=== PATIENT | female | born 1970 | race Caucasian/White ===

== ENCOUNTER 2016-04-14 17:11 | Emergency (ER) | payer OTHER ==
[~2016-04-14] VITALS: Ht 175.3 cm; Wt 93.4 kg
[~2016-04-14 17:11] MED LIST: CEFP500T4 PO; CPR500T PO; GENT3.5O18 OU; HYDR1TAB PO; IBP600T1 PO; LEVO137T24 PO; LEVO500T69 PO; METR500T PO; OMEP20CA12 PO; TRIA16.5 NS; TRM50T PO
--- NOTE | 2016-04-14 17:47 | ED Upper Extremity ---
General Chief Complaint: Upper Extremity Stated Complaint: THUMB PAIN Nursing Triage Note: PT C/O R THUMB PAIN WITHOUT INJURY. Nursing Sepsis Screen: No Definite Risk Source: patient Exam Limitations: no limitations History of Present Illness Time seen by provider: 17:43 Initial Comments To ER wit Thumb pain for one week. Denies injury. States she awakened one morning and had this pain. [facility] with carpal tunnel syndrome and given a brace. She decided to check in to the emergency room she disagreed with that diagnosis. She is able to fully flex the thumb but is unable to extend the thumb without pain and a clicking sensation. She has to take her opposite hand to physically extend the left thumb. No redness or swelling Onset: last week Severity: moderate Pain/Injury Location: left thumb Method of Injury: unknown Modifying Factors: Worse With Movement Allergies and Home Medications Allergies Coded Allergies: Penicillins (Unverified Allergy, 10/10/10) Uncoded Allergies: STERIODS (Allergy, Intermediate, HALLICINATIONS, 12/18/11) BEES (Allergy, 04/22/12) PAPER (Allergy, 04/22/12) STEROIDS (Allergy, 10/10/10) Home Medications Ibuprofen 600 Mg Tab 600 MG PO NEEDED (Reported) Levothyroxine Sodium 137 Mcg Tablet 137 MCG PO DAILY (Reported) Omeprazole 20 Mg Capsule.dr 1 CAP PO DAILY (Reported) Constitutional: see HPI EENTM: see HPI Respiratory: no symptoms reported Cardiovascular: no symptoms reported Genitourinary: no symptoms reported Musculoskeletal: see HPI Skin: no symptoms reported Psychiatric/Neurological: No Symptoms Reported Past Dksksor-Yklwgx-Vxhahq Hx Patient Social History Alcohol Use: Occasionally Uses Recreational Drug Use: No Smoking Status: Former Smoker Former Smoker/When Quit: Feb 28, 2000 2nd Hand Smoke Exposure: No Recent Foreign Travel: No Contact w/Someone Who Travel: No Recent Infectious Disease Expo: No Recent Hopitalizations: No Immunizations Up To Date Tetanus Booster (TDap): Less than 5yrs Seasonal Allergies Seasonal Allergies: No Surgeries HX Surgeries: Yes (LAP BAND) Surgeries: Section, Gallbladder, Thyroidectomy, Tonsillectomy Respiratory Hx Respiratory Disorders: Yes Respiratory Disorders: Pneumonia Cardiovascular Hx Cardiac Disorders: No ("LOW POTASSIUM THAT AFFECTS HEART") Neurological Hx Neurological Disorders: No Reproductive System Hx Reproductive Disorders: No Sexually Transmitted Disease: No HIV/AIDS: 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 DYSPHAGIA) Gastrointestinal Disorders: Gastroesophageal Reflux, Hiatal Hernia Musculoskeletal Hx Musculoskeletal Disorders: No Endocrine Hx Endocrine Disorders: Yes Endocrine Disorders: Hypothyroidsim HEENT HX ENT Disorders: No Cancer Hx Cancer: No Psychosocial Hx Psychiatric Problems: No Integumentary HX Skin/Integumentary Disorder: No Blood Transfusions Hx Blood Disorders: Yes (ANEMIA) Adverse Reaction to a Blood Tr: No Physical Exam Vital Signs Vital Sign - Last 12Hours 04/14/16 17:28 Temp 98.7 Pulse 75 Resp 16 B/P 145/89 Pulse Ox 99 O2 Delivery Room Air Capillary Refill : Less Than 3 Seconds General Appearance: WD/WN no apparent distress HEENT: PERRL/EOMI normal ENT inspection Neck: non-tender full range of motion Respiratory: no respiratory distress no accessory muscle use Gastrointestinal: non tender soft Elbow/Forearm: normal inspection, non-tender Wrist: Yes normal inspection, Yes non-tender Hand: normal inspection, non-tender, Left, limited ROM (she is able to fully actively flex the thumb but is unable to fully extend the thumb as much as the opposite hand. She has to take the opposite hand to fully extend the right thumb) Neurologic/Tendon: normal sensation normal motor functions Neurologic/Psychiatric: alert normal mood/affect oriented x 3 Skin: normal color warm/dry Progress/Results/Core Measures Results/Orders Vital Signs/I&O Vital Sign - Last 12Hours 04/14/16 17:28 Temp 98.7 Pulse 75 Resp 16 B/P 145/89 Pulse Ox 99 O2 Delivery Room Air Blood Pressure Mean: 107 Departure Impression Impression: Primary Impression: Stenosing tenosynovitis of thumb Disposition: 01 HOME, SELF-CARE Condition: Stable Departure-Patient Inst. Decision time for Depature: 17:46 Referrals: DUDLEY GALAVIZ LISA A MD (PCP/Family) Primary Care Physician Patient Instructions: NO INSTRUCTIONS GIVEN Add. Discharge Instructions: 1. Follow-up with Dr. Galaviz if no improvement in 1 week 2. Motrin 600 mg every 8 hours for the next week discharge instructions reviewed with patient and/or family. Voiced understanding. CHAU KAUR APRN Apr 14, 2016 17:47
[2016-04-14 17:50] VITALS: BP 145/89
== END 2016-04-14 17:50 | disposition home or self-care (01) ==
LOC: EDUNIT# 17:11 → ER 17:12
DX: M65.841 Other synovitis and tenosynovitis, right hand (principal)
CPT/HCPCS: 99282

== ENCOUNTER 2018-05-08 13:06 | Emergency (ER) | payer OTHER ==
[~2018-05-08] VITALS: Ht 175.3 cm; Wt 93.0 kg
--- OUTSIDE RECORDS SUMMARY | 2018-05-08 13:12 | XMS REPORT | Clinical Summary ---
Author Author [facility] Organization [facility] Address Unknown Phone Unavailable Care Team Providers Care Program Director Air Talent Name Role Phone PCP Unavailable Allergies Not on File Current Medications Not on file Active Problems Not on file Social History Tobacco Use Types Packs/Day Years Used Date Never Assessed Sex Assigned at Date Recorded Not on file Last Filed Vital Signs Not on file Plan of Treatment Not on file Results Not on filefrom Last 3 Months
--- OUTSIDE RECORDS SUMMARY | 2018-05-08 13:13 | XMS REPORT | Continuity of Care Document ---
Author Author [facility] Organization [facility] Address Unknown Phone Unavailable Allergies Active Description Code Type Severity Reaction Onset Reported/Identified Relationship to Patient Clinical Status Yes PENICILLINS PENICILLINS SEVERE Yes SOLU-MEDROL SOLU-MEDROL SEVERE Yes PENICILLINS SEVERE DERMATOLOGICAL - PATI Yes SOLU-MEDROL SEVERE SIDE EFFECT Yes Penicillins [id number] Drug Allergy Unknown N/A 10/10/2010 Yes STEROIDS STEROIDS Unknown N/A 10/10/2010 Yes STERIODS STERIODS Moderate HALLICINATIONS 12/18/2011 Yes BEES BEES Unknown N/A 04/22/2012 Yes PAPER PAPER Unknown N/A 04/22/2012 Medications Medication Packaging Start Date Stop Date Route Dosage Sig CEFTRIAXONE VIAL INJ 250 MG (ROCEPHIN VIAL) MG 01/24/2017 01/24/2017 ONCE&1440 LIDOCAINE 1% MPF INJ 1 % (XYLOCAINE (MPF) ml 01/24/2017 01/24/2017 ONCE&1440 LIDOCAINE 1% MPF INJ 1 % (XYLOCAINE (MPF) ml 01/24/2017 01/24/2017 ONCE&1456 KETOROLAC VIAL INJ 30 MG/CC (TORADOL VIAL) MG 09/14/2017 09/14/2017 ONCE&1526 NORMAL SALINE 500CC IV BAG INJ 0.9 % (NS 500CC IV BAG) ml 09/14/2017 09/14/2017 ONCE&1526 POTASSIUM CHLORIDE TAB 20 MEQ (K-DUR) MEQ 09/14/2017 09/14/2017 ONCE&1633 CEFTRIAXONE PREMIX IV BAG IV 1 GM/50CC (ROCEPHIN PREMIX IV BAG) GM 09/14/2017 09/14/2017 ONCE&1634 Potassium Chloride Powder for Oral Soln 20mEQ packet MEQ 09/14/2017 09/14/2017 ONCE&1643 PHENAZOPYRIDINE TAB 100 MG (PYRIDIUM) MG 12/30/2017 12/30/2017 ONCE&1835 LEVOFLOXACIN TAB 500 MG (LEVAQUIN) MG 12/30/2017 12/30/2017 ONCE&1835 LEVOTHYROXINE TAB 137 MCG (SYNTHROID) MCG 12/31/2017 01/06/2018 Daily&0900 IRON SUCROSE INJECTION INJ 20 MG/CC (VENOFER) MG 04/10/2018 04/10/2018 ONCE&1410 MECLIZINE TAB 25 MG (ANTIVERT) MG 04/10/2018 04/17/2018 PRN Q6H IRON SUCROSE INJECTION INJ 20 MG/CC (VENOFER) MG 04/12/2018 04/12/2018 ONCE&1500 IRON SUCROSE INJECTION INJ 20 MG/CC (VENOFER) MG 04/14/2018 04/14/2018 ONCE&1425 LACTATED RINGERS 1000CC IV BAG INJ ml 04/30/2018 05/07/2018 CONTINUOUSEVERY 0 Hour NORMAL SALINE 500CC IV BAG INJ 0.9 % (NS 500CC IV BAG) ml 05/06/2018 05/06/2018 ONCE&1747 Problems Date Dx Coded Attending Type Code Diagnosis Diagnosed By 10/10/2010 Ot 826.0 10/10/2010 Ot 959.7 10/10/2010 Ot E000.8 10/10/2010 Ot E849.0 10/10/2010 Ot E917.9 01/10/2011 Ot 379.91 01/10/2011 Ot 918.1 01/10/2011 Ot E000.8 01/10/2011 Ot E928.9 12/18/2011 Ot 372.30 12/18/2011 Ot 379.93 04/22/2012 Ot 616.10 VAGINITIS NOS 04/22/2012 Ot 789.09 ABDOMINAL PAIN, OTHER SPECIFIED SITE 05/10/2012 Ot 787.01 NAUSEA WITH VOMITING 05/10/2012 Ot V45.86 BARIATRIC SURGERY STATUS 09/15/2012 SHONDA MIRAMONTES DO Ot 244.0 POSTSURGICAL HYPOTHYROID 09/15/2012 SHONDA MIRAMONTES DO Ot 285.9 ANEMIA NOS 09/15/2012 SHONDA MIRAMONTES DO Ot 486 PNEUMONIA, ORGANISM NOS 09/15/2012 SHONDA MIRAMONTES DO Ot 530.81 ESOPHAGEAL REFLUX 09/15/2012 SHONDA MIRAMONTES DO Ot 780.96 GENERALIZED PAIN 06/07/2014 CHAU ESCOBAR HIDES INSPECTOR Ot 923.11 CONTUSION OF ELBOW 06/07/2014 CHAU ESCOBAR HIDES INSPECTOR Ot 959.3 ELB/FOREARM/WRST INJ NOS 06/07/2014 CHAU ESCOBAR HIDES INSPECTOR Ot E000.8 OTHER EXTERNAL CAUSE STATUS 06/07/2014 CHAU ESCOBAR HIDES INSPECTOR Ot E834.9 W/CRFT FALL NEC-PERS NOS 01/18/2015 PARADISE MCDONALD MD Ot S61.300A UNSP OPEN WOUND OF RIGHT INDEX FINGER W 01/18/2015 PARADISE MCDONALD MD Ot W22.8XXA STRIKING AGAINST OR STRUCK BY OTHER OBJE 01/18/2015 PARADISE MCDONALD MD Ot Y92.838 [facility] RECRE[facility] 01/18/2015 PARADISE MCDONALD MD Ot Y93.59 ACTIVITY, OTH W OT SPORTS AND ATHLETICS 01/18/2015 PARADISE MCDONALD MD Ot Y99.8 OTHER EXTERNAL CAUSE STATUS 04/14/2016 CHAU ESCOBAR HIDES INSPECTOR Ot M65.841 OTHER SYNOVITIS AND TENOSYNOVITIS, RIGHT 04/14/2016 CHAU ESCOBAR HIDES INSPECTOR Ot M79.641 PAIN IN RIGHT HAND 04/15/2016 CHAU ESCOBAR HIDES INSPECTOR Ot M65.841 OTHER SYNOVITIS AND TENOSYNOVITIS, RIGHT 04/15/2016 CHAU ESCOBAR HIDES INSPECTOR Ot M79.641 PAIN IN RIGHT HAND 06/10/2016 Eric Hawkins W 244.9 UNSPECIFIED HYPOTHYROIDISM 06/10/2016 Eric Hawkins 466.0 ACUTE BRONCHITIS 06/10/2016 Eric Hawkins 530.81 ESOPHAGEAL REFLUX 06/10/2016 Eric Hawkins E03.9 HYPOTHYROIDISM, UNSPECIFIED 06/10/2016 Eric Hawkins J20.9 ACUTE BRONCHITIS, UNSPECIFIED 06/10/2016 Eric Hawkins K21.9 GASTRO-ESOPHAGEAL REFLUX DISEASE WITHOUT ESOPHAGITIS 01/24/2017 Shonda Powers A 616.10 VAGINITIS AND VULVOVAGINITIS, UNSPECIFIED 01/24/2017 Shonda Powers W 788.1 DYSURIA 01/24/2017 Shonda Powers N76.0 ACUTE VAGINITIS 01/24/2017 Shonda Powers R30.0 DYSURIA 09/14/2017 Aleshia Washington W 276.8 HYPOPOTASSEMIA 09/14/2017 Aleshia Washington A 599.0 URINARY TRACT INFECTION, SITE NOT SPECIFIED 09/14/2017 Aleshia Washington W E87.6 HYPOKALEMIA 09/14/2017 Aleshia Washington A N39.0 URINARY TRACT INFECTION, SITE NOT SPECIFIED 12/30/2017 Chau Escobar 599.0 URINARY TRACT INFECTION, SITE NOT SPECIFIED 12/30/2017 Chau Escobar N39.0 URINARY TRACT INFECTION, SITE NOT SPECIFIED 04/10/2018 Eric Hawkins 280.9 IRON DEFICIENCY ANEMIA, UNSPECIFIED 04/10/2018 Eric Hawkins 626.2 EXCESSIVE OR FREQUENT MENSTRUATION 04/10/2018 Eric Hawkins 726.5 ENTHESOPATHY OF HIP REGION 04/10/2018 Eric Hawkins D50.9 IRON DEFICIENCY ANEMIA, UNSPECIFIED 04/10/2018 Eric Hawkins M70.72 OTHER BURSITIS OF HIP, LEFT HIP 04/10/2018 Eric Hawkins N92.0 EXCESSIVE AND FREQUENT MENSTRUATION WITH REGULAR CYCLE 04/10/2018 Eric Hawkins V45.86 BARIATRIC SURGERY STATUS 04/10/2018 Eric Hawkins Z98.84 BARIATRIC SURGERY STATUS 04/12/2018 MATTHIEU BECKIKATIE W 280.9 IRON DEFICIENCY ANEMIA, UNSPECIFIED 04/12/2018 MATTHIEU BECKIKATIE W D50.9 IRON DEFICIENCY ANEMIA, UNSPECIFIED 04/14/2018 Gio Shonda W 280.9 IRON DEFICIENCY ANEMIA, UNSPECIFIED 04/14/2018 Shonda Powers W D50.9 IRON DEFICIENCY ANEMIA, UNSPECIFIED 04/14/2018 Gio Shonda W V45.86 BARIATRIC SURGERY STATUS 04/14/2018 Gio Shonda W Z98.84 BARIATRIC SURGERY STATUS Procedures There is no data. Results Test Result Range Wet Mount - 03/02/16 18:28 Clue Cells Not Observed Not Observed Trichomonas Not Observed Not Observed Yeast Observed Not Observed Urine Culture - 03/02/16 18:28 PRELIM CULTURE RESULTS No Growth 24 hours FINAL CULTURE RESULTS No Growth 48 hours MEDIA PLATED Setup at 18:46 on 03/02/2016 CULTURE SOURCE VOID Chlamydia/GC Amplification - 03/02/16 18:28 CHLAMYDIA TRACHOMATIS, GRADY NEGATIVE NEGATIVE NEISSERIA GONORRHOEAE, GRADY NEGATIVE NEGATIVE Thyroid Stimulating Hormone - 06/01/16 10:16 TSH 1.10 mIU/mL 0.32-5.00 Mycoplasma - 06/10/16 09:38 Mycoplasma Negative Negative [place] - 01/24/17 14:34 Clue Cells Not Observed Not Observed Trichomonas Not Observed Not Observed Yeast Not Observed Not Observed Urine Culture - 01/24/17 14:34 FINAL CULTURE RESULTS No Growth 48 hours MEDIA PLATED Setup at 16:34 on 01/24/2017 CULTURE SOURCE clean [id number] Chlamydia/GC Amplification - 01/24/17 14:34 CHLAMYDIA TRACHOMATIS, GRADY NEGATIVE NEGATIVE NEISSERIA GONORRHOEAE, GRADY NEGATIVE NEGATIVE Chlamydia/GC Amplification - 01/24/17 14:34 Chlamydia trachomatis, GRADY Negative Negative Neisseria gonorrhoeae, GRADY Negative Negative Comprehensive Metabolic Panel - 09/14/17 15:26 Albumin 4.4 g/dL 3.6-5.1 ALP 51 U/L 35-130 ALT 11 U/L 6-45 Anion Gap 16 6-14 AST 17 U/L 2-40 BUN 11 mg/dL 5-25 Calcium 8.9 mg/dL 8.3-10.4 Chloride 106 mmol/L 95-114 CO2 21 mEq/L 22-33 Creat 0.94 mg/dL 0.50-1.50 eGFR 64 mL/min/1.73m2 >59 Globulin 3.6 g/dL 2.3-3.5 Glucose 119 mg/dL 70-110 Osmo 290 280-295 Potassium 3.3 mmol/L 3.5-5.3 Sodium 140 mmol/L 134-148 TBil 0.5 mg/dL 0.2-1.2 TP 8.0 g/dL 6.0-8.3 Urine Culture - 09/14/17 15:26 PRELIM CULTURE RESULTS No Growth 24 hours FINAL CULTURE RESULTS 20,000-50,000 Gram Positive Mixed Melodie MEDIA PLATED Setup at 15:43 on 09/14/2017 CULTURE SOURCE clean catch reflex Chlamydia/GC Amplification - 09/27/17 18:16 Chlamydia trachomatis, GRADY Negative Negative Neisseria gonorrhoeae, GRADY Negative Negative Wet Mount - 09/27/17 18:16 Clue Cells Not Observed Not Observed Trichomonas Not Observed Not Observed Yeast Not Observed Not Observed Urine Culture - 09/27/17 18:16 PRELIM CULTURE RESULTS No Growth 24 hours MEDIA PLATED Setup at 18:50 on 09/27/2017 CULTURE SOURCE void Urine Culture - 09/27/17 18:16 PRELIM CULTURE RESULTS No Growth 24 hours FINAL CULTURE RESULTS No Growth 48 [id number] No Further Workup done MEDIA PLATED Setup at 18:50 on 09/27/2017 CULTURE SOURCE void Chlamydia/GC Amplification - 09/27/17 18:16 CHLAMYDIA TRACHOMATIS, GRADY NEGATIVE NEGATIVE NEISSERIA GONORRHOEAE, GRADY NEGATIVE NEGATIVE Thyroid Stimulating Hormone - 12/26/17 12:41 TSH 0.20 mIU/mL 0.32-5.00 Urinalysis - 12/30/17 17:46 Icotest N/A Negative Urine Volume Urine Volume Sufficient (10mL) Urine Yeast No Yeast present Urine-Appearance Cloudy Clear Urine-Bacteria 1+ Urine-Bilirubin Negative Negative Urine-Blood 2+ Negative Urine-Color Yellow Colorless-Lt. Yellow Urine-Epithelial Cells 5-10/HPF Urine-Glucose Negative Negative Urine-Ketones Trace Negative Urine-Leukocytes 1+ Negative Urine-Mucus 3+ Urine-Nitrite Negative Negative Urine-Other Culture to follow Urine-pH 5.5 5-8.5 Urine-Protein 2+ Negative Urine-RBC 5-10/HPF Urine-Specific [place] >=1.030 1.000-1.030 Urine-WBC TNTC Urobilinogen 0.2 0.2-1.0 Urine Culture - 12/30/17 17:46 PRELIM CULTURE RESULTS 50,000-100,000 Gram Negative SUSHMA / ID to Follow MEDIA PLATED Setup at 18:37 on 12/30/2017 CULTURE SOURCE void Sensi - 12/30/17 17:46 FINAL CULTURE RESULTS Escherichia coli (Isolate 1) Ampicillin/Sulbactam >16/8 Ampicillin >16 Amoxicillin/K Clavulanate <=8/4 Ceftriaxone <=8 Ciprofloxacin >2 Nitrofurantoin <=32 Gentamicin >8 Levofloxacin >4 Trimethoprim/ Sulfamethoxazole >2/38 Tetracycline >8 Amikacin <=16 Aztreonam <=8 Ceftazidime <=1 Ceftazidime/K Clavulanate <=0.25 Cephalothin >16 Cefotaxime <=2 Cefotaxime/K Clavulanate <=0.5 Cefoxitin <=8 Cefazolin <=8 Cefepime <=8 Cefuroxime 8 Ertapenem <=1 Imipenem <=4 Meropenem <=4 Piperacillin/Tazobactam <=16 Piperacillin >64 Tigecycline <=2 Tobramycin 8 Urinalysis - 04/10/18 12:31 Icotest N/A Negative Urine Volume Urine Volume Sufficient (10mL) Urine-Appearance Slightly Cloudy Clear Urine-Bacteria Trace Urine-Bilirubin Negative Negative Urine-Blood 3+ Negative Urine-Color Yellow Colorless-Lt. Yellow Urine-Epithelial Cells 10-20/HPF Urine-Glucose Negative Negative Urine-Ketones Negative Negative Urine-Leukocytes Negative Negative Urine-Nitrite Negative Negative Urine-Other Urine Saved if Culture Needed (48hrs from time of collection) Urine-pH 8.5 5-8.5 Urine-Protein 1+ Negative Urine-RBC 20-40/HPF Urine-Specific [place] 1.020 1.000-1.030 Urine-WBC Negative Urobilinogen 0.2 E.U./dL 0.2-1.0 Thyroid Stimulating Hormone - 04/10/18 12:45 TSH 0.47 mIU/mL 0.32-5.00 IFOBT Occult Blood - 04/10/18 13:30 IFOBT Occult Blood POSITIVE Negative VIT B-12 - 04/10/18 13:31 Vitamin B12 165.00 pg/mL 213.00-816.00 CBC with Auto Diff - 04/14/18 14:53 Baso% 0.20 % 0.00-2.50 Eos 0.1 K/uL 0.0-0.7 Eos% 2.0 % 0.0-7.0 Hct 33.8 % 36.0-46.0 Hgb 10.1 g/dL 13.0-15.0 Lym 1.44 K/uL 0.60-3.40 Lym% 28.6 % 10.0-50.0 MCH 20.9 pg 27.0-31.0 MCHC 29.9 g/dL 32.0-36.0 MCV 69.8 fL 80.0-97.0 Caldwell% 5.8 % 0.0-12.0 MPV 9.1 fL 7.4-10.0 Janette% 63.4 % 37.0-80.0 Plt 452 K/uL 150-400 RBC 4.84 M/uL 3.60-5.00 RDW 19.1 % 11.6-14.8 WBC 5.04 K/uL 5.00-10.00 Janette 3.20 K/uL 2.00-6.90 [place]dwell 0.3 K/uL 0.0-0.9 Baso 0.0 K/uL 0.0-0.2 Test-Serum - 04/30/18 10:17 Preg Test-S Negative Negative Surgical Pathology - 04/30/18 12:02 Surg Path [facility] Path[facility] CBC with Auto Diff - 05/06/18 17:35 Baso% 0.30 % 0.00-2.50 Eos 0.1 K/uL 0.0-0.7 Eos% 1.5 % 0.0-7.0 Hct 38.1 % 36.0-46.0 Hgb 11.9 g/dL 13.0-15.0 Lym 1.82 K/uL 0.60-3.40 Lym% 29.4 % 10.0-50.0 MCH 23.4 pg 27.0-31.0 MCHC 31.2 g/dL 32.0-36.0 MCV 74.9 fL 80.0-97.0 Caldwell% 9.2 % 0.0-12.0 MPV 10.0 fL 7.4-10.0 Janette% 59.6 % 37.0-80.0 Plt 410 K/uL 150-400 RBC 5.09 M/uL 3.60-5.00 RDW 24.3 % 11.6-14.8 WBC 6.20 K/uL 5.00-10.00 Janette 3.70 K/uL 2.00-6.90 [place]dwell 0.6 K/uL 0.0-0.9 Baso 0.0 K/uL 0.0-0.2 Encounters ACCT No. Visit Date/Time Discharge Status Pt. Type Provider Facility Loc./Unit Complaint [id number] 04/14/2016 17:12:00 04/14/2016 17:50:00 DIS Emergency CHAU ESCOBAR APRN [facility] ER THUMB PAIN [id number] 01/18/2015 15:31:00 01/18/2015 16:28:00 DIS Emergency PARADISE MCDONALD MD [facility] ER RIGHT HAND/FINGER INJ [id number] 06/07/2014 11:44:00 06/07/2014 13:50:00 DIS Emergency CHAU ESCOBAR APRN [facility] ER RIGHT ELBOW PAIN [id number] 09/15/2012 09:22:00 09/15/2012 11:22:00 DIS Emergency FESHONDA Verdin DO [facility] ER BODY ACHES, N/V [id number] 06/07/2014 13:21:00 Document Registration [id number] 05/10/2012 15:08:00 Document Registration [id number] 04/22/2012 11:08:00 Document Registration [id number] 12/18/2011 20:05:00 Document Registration [id number] 01/10/2011 17:38:00 Document Registration [id number] 10/10/2010 17:18:00 Document Registration [id number] 10/01/2017 00:06:00 Document Registration [id number] 05/06/2018 16:49:00 05/06/2018 18:40:00 DIS Outpatient Haylee Shi [facility] ER [id number] 04/30/2018 09:32:00 04/30/2018 12:31:00 DIS Outpatient Fred Rossemy [id number] 04/14/2018 14:08:00 04/14/2018 14:50:00 DIS Outpatient Shonda Powers [id number] 04/12/2018 14:42:00 04/12/2018 15:40:00 DIS Outpatient LOUIS SOMMERS [id number] 04/10/2018 11:53:00 04/10/2018 15:03:00 DIS Outpatient Eric Hawkins [facility] ER [id number] 12/30/2017 17:42:00 12/30/2017 18:53:00 DIS Outpatient Chau Escobar [facility] ER [id number] 12/26/2017 12:26:00 12/26/2017 23:59:00 DIS Outpatient Shonda Powers [id number] 09/27/2017 18:15:00 09/27/2017 23:59:00 DIS Outpatient Shonda Powers [id number] 09/14/2017 15:10:00 09/14/2017 17:35:00 DIS Outpatient Aleshia Washington [facility] ER [id number] 01/24/2017 16:02:00 01/24/2017 16:45:00 DIS Outpatient Aleshia Washington [id number] 01/24/2017 14:38:00 01/24/2017 15:45:00 DIS Outpatient Shonda Powers [id number] 06/10/2016 08:53:00 06/10/2016 10:43:00 [id number] 06/10/2016 08:53:00 06/10/2016 08:53:00 CAN Outpatient Jackie Ureña [id number] 06/01/2016 10:14:00 06/01/2016 23:59:00 DIS Outpatient Shonda Powers [id number] 03/02/2016 18:27:00 03/02/2016 23:59:00 DIS Outpatient Shonda Powers [id number] 01/24/2017 14:47:30 Document Registration [id number] 01/26/2017 23:08:00 Document Registration [id number] 09/27/2017 18:15:00 Document Registration
--- NOTE | 2018-05-08 15:30 | ED GU-Female ---
General Chief Complaint: -Female Stated Complaint: HEAVY VAGINAL BLEEDING Nursing Triage Note: pt arrived POV to ED with c/o vaginally bleeding. Pt states 4-5 weeks ago and went to ER in [place] because she was dizzy and her hbg was 6 and iron was low. Got iron transfusion. Pt has been bleeding vaginally for awhile now and she says she is dizzy. Pt states she just had a period and now she is bleeding a lot again. Going through one pad an hour with an ultra tampon. Pt was recommened to come to the ER. Nursing Sepsis Screen: No Definite Risk Source: patient Exam Limitations: no limitations History of Present Illness Date Seen by Provider: May 08, 2018 Time Seen by Provider: 15:18 Initial Comments Here with report of heavy vaginal bleeding. She has been doing this for intermittently over the last 6 months. She had to have bled and iron transfusions recently. She is to follow-up with Dr. Cobos. She is also laying of just not feeling right. She has hypothyroidism and is on thyroid replacement. She believes that this may not be the right dose that she is currently on as they adjusted down. Timing/Duration: week, getting worse Severity/Quality: moderate, other (vaginal bleeding) Location: vaginal Radiation: none Activities at Onset: none Prior Genitourinary Problems: none Modifying Factors: Worsens With Movement; Improves With Resting Associated Symptoms: No abdominal pain, No dysuria, No lower back pain, No nausea/vomiting, No urinary frequency Allergies and Home Medications Allergies Coded Allergies: Penicillins (Unverified Allergy, 10/10/10) Uncoded Allergies: STERIODS (Allergy, Intermediate, HALLICINATIONS, 12/18/11) BEES (Allergy, 04/22/12) PAPER (Allergy, 04/22/12) STEROIDS (Allergy, 10/10/10) Home Medications Ibuprofen 600 Mg Tab, 600 MG PO NEEDED, (Reported) Levothyroxine Sodium 137 Mcg Tablet, 137 MCG PO DAILY, (Reported) Omeprazole 20 Mg Capsule., 1 CAP PO DAILY, (Reported) Patient Home Medication List Home Medication List Reviewed: Yes Review of Systems Review of Systems Constitutional: see HPI; No chills, No fever EENTM: no symptoms reported Respiratory: no symptoms reported Cardiovascular: No edema Gastrointestinal: No abdominal pain, No nausea, No vomiting Genitourinary: denies dysuria, denies pain Musculoskeletal: no symptoms reported Skin: no symptoms reported Psychiatric/Neurological: Weakness, Other (and fatigue and not feeling right) Past Nhfhclz-Qsbaqx-Comylx Hx Past Med/Social Hx: Reviewed Nursing Past Med/Soc Hx Patient Social History Alcohol Use: Occasionally Uses Recreational Drug Use: No Smoking Status: Former Smoker 2nd Hand Smoke Exposure: No Recent Foreign Travel: No Contact w/Someone Who Travel: No Recent Infectious Disease Expo: No Recent Hopitalizations: No Immunizations Up To Date Tetanus Booster (TDap): Less than 5yrs Seasonal Allergies Seasonal Allergies: No Past Medical History Surgeries: Yes (LAP BAND) Section, Gallbladder, Thyroidectomy, Tonsillectomy Respiratory: Yes Pneumonia Cardiac: No ("LOW POTASSIUM THAT AFFECTS HEART") Neurological: No Last Menstrual Period: May 08, 2018 Reproductive Disorders: No [employer] History: Tubal Ligation Sexually Transmitted Disease: No HIV/AIDS: No Bladder Infection Gastrointestinal: Yes (LAP BAND , HERNIA REPAIRED WITH LAP BAND. DYSPHAGIA) Gastroesophageal Reflux, Hiatal Hernia Musculoskeletal: No Endocrine: Yes Hypothyroidsim Cancer: No Psychosocial: No Integumentary: No Blood Disorders: Yes (ANEMIA) Adverse Reaction/Blood Tranf: No Family Medical History Reviewed Nursing Family Hx No Pertinent Family Hx Physical Exam Vital Signs Vital Signs - First Documented 05/08/18 13:09 Temp 98.4 Pulse 75 Resp 18 B/P (MAP) 140/90 (107) Pulse Ox 99 O2 Delivery Room Air Capillary Refill : Less Than 3 Seconds Height, Weight, BMI Height: 5'9.00" Weight: 205lbs. oz. 92.790132de; 29.53 BMI Method:Stated General Appearance: WD/WN, no apparent distress HEENT: PERRL/EOMI, pharynx normal Neck: full range of motion, supple Cardiovascular: regular rate, rhythm, no murmur Respiratory: lungs clear, normal breath sounds Gastrointestinal: non tender, soft Back: normal inspection, no CVA tenderness, no vertebral tenderness Extremities: non-tender, normal inspection Neurologic/Psychiatric: metal riveter II-XII nml as tested, no motor/sensory deficits, alert, normal mood/affect Skin: normal color, warm/dry Progress/Results/Core Measures Suspected Sepsis Recent Fever Within 48 Hours: No Infection Criteria Present: None New/Unexplained Altered Menta: No Sepsis Screen: No Definite Risk SIRS Temperature:98.4 Pulse: 75 Respiratory Rate: 18 Laboratory Tests 05/08/18 15:20: White Blood Count 6.8 Blood Pressure 140 /90 Mean: 107 Laboratory Tests 05/08/18 15:20: Creatinine 0.82, Platelet Count 355, Total Bilirubin 0.3 Results/Orders Lab Results Laboratory Tests Test 05/08/18 15:20 05/08/18 15:40 Range/Units White Blood Count 6.8 4.3-11.0 10^3/uL Red Blood Count 4.93 4.35-5.85 10^6/uL Hemoglobin 11.3 L 11.5-16.0 G/DL Hematocrit 37 35-52 % Mean Corpuscular Volume 75 L 80-99 FL Mean Corpuscular Hemoglobin 23 L 25-34 PG Mean Corpuscular Hemoglobin Concent 31 L 32-36 G/DL Red Cell Distribution Width 24.3 H 10.0-14.5 % Platelet Count 355 130-400 10^3/uL Mean Platelet Volume 9.3 7.4-10.4 FL Neutrophils (%) (Auto) 55 42-75 % Lymphocytes (%) (Auto) 34 12-44 % Monocytes (%) (Auto) 8 0-12 % Eosinophils (%) (Auto) 2 0-10 % Basophils (%) (Auto) 0 0-10 % Neutrophils # (Auto) 3.7 1.8-7.8 X 10^3 Lymphocytes # (Auto) 2.3 1.0-4.0 X 10^3 Monocytes # (Auto) 0.6 0.0-1.0 X 10^3 Eosinophils # (Auto) 0.1 0.0-0.3 10^3/uL Basophils # (Auto) 0.0 0.0-0.1 10^3/uL Sodium Level 138 135-145 MMOL/L Potassium Level 3.8 3.6-5.0 MMOL/L Chloride Level 105 98-107 MMOL/L Carbon Dioxide Level 24 21-32 MMOL/L Anion Gap 9 5-14 MMOL/L Blood Urea Nitrogen 11 7-18 MG/DL Creatinine 0.82 0.60-1.30 MG/DL Estimat Glomerular Filtration Rate > 60 BUN/Creatinine Ratio 13 Glucose Level 89 70-105 MG/DL Calcium Level 9.1 8.5-10.1 MG/DL Corrected Calcium 8.8 8.5-10.1 MG/DL Total Bilirubin 0.3 0.1-1.0 MG/DL Aspartate Amino Transf (AST/SGOT) 13 5-34 U/L Alanine Aminotransferase (ALT/SGPT) 7 0-55 U/L Alkaline Phosphatase 48 40-136 U/L Total Protein 7.8 6.4-8.2 GM/DL Albumin 4.4 3.2-4.5 GM/DL Thyroid Stimulating Hormone (TSH) 1.30 0.35-4.94 UIU/ML Free Thyroxine 1.19 0.70-1.48 NG/DL Urine Color YELLOW Urine Clarity VERY CLOUDY H Urine pH 6 5-9 Urine Specific [place] 1.025 H 1.016-1.022 Urine Protein 2+ H NEGATIVE Urine Glucose (UA) NEGATIVE NEGATIVE Urine Ketones NEGATIVE NEGATIVE Urine Nitrite NEGATIVE NEGATIVE Urine Bilirubin NEGATIVE NEGATIVE Urine Urobilinogen NORMAL NORMAL MG/DL Urine Leukocyte Esterase 3+ H NEGATIVE Urine RBC (Auto) 3+ H NEGATIVE Urine RBC 5-10 H /HPF Urine WBC 50-100 H /HPF Urine Squamous Epithelial Cells 2-5 /HPF Urine Crystals NONE /LPF Urine Bacteria FEW H /HPF Urine Casts NONE /LPF Urine Mucus SMALL H /LPF Urine Culture Indicated YES My Orders Orders - DARLYN PAVON MD Cbc With Automated Diff (05/08/18 15:12) Comprehensive Metabolic Panel (05/08/18 15:12) Type And Screen (05/08/18 15:12) Saline Lock/Iv-Start (05/08/18 15:12) Thyroid Stimulating Hormone (05/08/18 15:26) Free T4 (Free Thyroxine) (05/08/18 15:26) Ua Culture If Indicated (05/08/18 15:35) Urine Culture (05/08/18 15:40) Saline Lock/Iv-Start (05/08/18 16:52) Ns Iv 1000 Ml (Sodium Chloride 0.9%) (05/08/18 16:52) Vital Signs/I&O 05/08/18 13:09 Temp 98.4 Pulse 75 Resp 18 B/P (MAP) 140/90 (107) Pulse Ox 99 O2 Delivery Room Air Capillary Refill : Less Than 3 Seconds Blood Pressure Mean: 107 Progress Note : Progress Note Seen and evaluated. IV, labs, UA, type and screen ordered. UA will be from straight catheter due to bleeding. Monitor patient. 1655: UA noted. Results from labs noted. This was discussed with the patient. I do believe she would benefit from some IV fluid. We will give her that and then discharge her home. 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 She's had multiple urinary tract infections and does have some bladder incontinence. She is seeing Dr. Cobos on the and I will send a copy the note to him. Discharged home with return precautions. Patient verbalize understanding instructions and agreement with plan. Departure Impression Primary Impression: Urinary tract infection Qualified Codes: N30.00 - Acute cystitis without hematuria Disposition: HOME, SELF-CARE Condition: Stable Departure-Patient Inst. Decision time for Depature: 16:59 Referrals: ERICA ADAM MD (PCP/Family) Primary Care Physician Patient Instructions: Urinary Tract Infection, Adult (DC) Add. Discharge Instructions: All discharge instructions reviewed with patient and/or family. Voiced understanding. Take medications as directed. Follow up with your doctor on the as scheduled. Return for worsening, fever, vomiting, weakness, breathing problems or other concerns as needed. Drink plenty of fluids. Scripts Nitrofurantoin Macrocrystal (Nitrofurantoin) 100 Mg Capsule 100 MG PO BID, #14 CAP 0 Refills Prov: DARLYN PAVON MD 05/08/18 Metronidazole (Metronidazole) 500 Mg Tablet 500 MG PO BID, #14 TAB 0 Refills Prov: DARLYN PAVON MD 05/08/18 Copy Copies To 1: TUNG COBOS TIMOTHY D MD May 08, 2018 15:30
[2018-05-08 15:31] LABS: BASOPHILS % (AUTO) 0 % (0-10); EOSINOPHILS # (AUTO) 0.1 10^3/uL (0.0-0.3); EOSINOPHILS % (AUTO) 2 % (0-10); HEMATOCRIT 37 % (35-52); HEMOGLOBIN 11.3 G/DL (11.5-16.0); LYMPHOCYTES # (AUTO) 2.3 X 10^3 (1.0-4.0); LYMPHOCYTES % (AUTO) 34 % (12-44); MEAN CORPUSCULAR HEMOGLOBIN 23 PG (25-34); MEAN CORPUSCULAR HGB CONC 31 G/DL (32-36); MEAN CORPUSCULAR VOLUME 75 FL (80-99); MEAN PLATELET VOLUME 9.3 FL (7.4-10.4); MONOCYTES # (AUTO) 0.6 X 10^3 (0.0-1.0); MONOCYTES % (AUTO) 8 % (0-12); NEUTROPHILS # (AUTO) 3.7 X 10^3 (1.8-7.8); NEUTROPHILS % (AUTO) 55 % (42-75); PLATELET COUNT 355 10^3/uL (130-400); RED CELL DISTRIBUTION WIDTH 24.3 % (10.0-14.5); WHITE BLOOD COUNT 6.8 10^3/uL (4.3-11.0)
[2018-05-08 15:52] LABS: ALANINE AMINOTRANSFERASE 7 U/L (0-55); ALBUMIN 4.4 GM/DL (3.2-4.5); ALKALINE PHOSPHATASE 48 U/L (40-136); BILIRUBIN,TOTAL 0.3 MG/DL (0.1-1.0); BUN/CREATININE RATIO 13; CALCIUM 9.1 MG/DL (8.5-10.1); CARBON DIOXIDE 24 MMOL/L (21-32); CHLORIDE 105 MMOL/L (98-107); CREATININE SERUM 0.82 MG/DL (0.60-1.30); GFR ESTIMATED > 60; GLUCOSE 89 MG/DL (70-105); POTASSIUM 3.8 MMOL/L (3.6-5.0); SODIUM 138 MMOL/L (135-145); TOTAL PROTEIN 7.8 GM/DL (6.4-8.2)
[2018-05-08 15:53] LABS: BILIRUBIN,URINE NEGATIVE (NEGATIVE); COLOR,URINE YELLOW; GLUCOSE, URINE (UA) NEGATIVE (NEGATIVE); KETONES,URINE NEGATIVE (NEGATIVE); LEUKOCYTE ESTERASE ,URINE 3+ (NEGATIVE); NITRITE,URINE NEGATIVE (NEGATIVE); PH,URINE 6 (5-9); PROTEIN,URINE 2+ (NEGATIVE); UROBILINOGEN,URINE NORMAL (NORMAL)
[2018-05-08 16:13] LABS: FREE T4 (FREE THYROXINE) 1.19 NG/DL (0.70-1.48)
[2018-05-08 16:15] LABS: BACTERIA,URINE FEW /HPF; CLARITY,URINE VERY CLOUDY; WBC,URINE 50-100 /HPF
[2018-05-08] MEDS ORDERED: NS IV 1000 ML 1,000 ML IV ONE (16:52)
[2018-05-08] MEDS ORDERED: METR-145 PO (17:01)
[2018-05-08] MEDS ORDERED: NITR100C PO (17:01)
[2018-05-08 17:50] VITALS: BP 148/98
== END 2018-05-08 17:50 | disposition home or self-care (01) ==
LOC: EDUNIT# 13:06 → ER 13:08
DX: N39.0 Urinary tract infection, site not specified (principal); E03.9 Hypothyroidism, unspecified; K21.9 Gastro-esophageal reflux disease without esophagitis; D64.9 Anemia, unspecified; Z98.84 Bariatric surgery status; Z87.19 Personal history of other diseases of the digestive system; Z87.891 Personal history of nicotine dependence; Z98.51 Tubal ligation status; Z87.448 Personal history of other diseases of urinary system; Z88.0 Allergy status to penicillin; Z88.8 Allergy status to other drugs, medicaments and biological substances; Z90.89 Acquired absence of other organs; Z98.890 Other specified postprocedural states; Z87.01 Personal history of pneumonia (recurrent)
CPT/HCPCS: 36415; 80053; 81000; 84439; 84443; 85025; 86850; 86900; 86901; 87077; 87088

== ENCOUNTER → 2018-05-18 | Outpatient (CLI) | payer OTHER ==
[~2018-05-18] MED LIST changes: +METR-145 PO; +NITR100C PO
--- NOTE | 2018-05-18 17:02 | Diagnostic Imaging Report ---
INDICATION: Abnormal uterine bleeding. History of recent endometrial biopsy two days ago. TECHNIQUE: Multiple real time anglin scale sonographic images were obtained of the pelvis transabdominally and transvaginally. CORRELATION STUDY: None. FINDINGS: UTERUS: 10.0 x 6.4 x 6.4 cm. The uterus appears unremarkable. Two small cervical nabothian cysts are present. ENDOMETRIUM: Thickened at 23 mm. Somewhat increased echogenicity throughout the thickened endometrium. RIGHT OVARY: Not visualized. LEFT OVARY: 4.8 x 4.4 x 2.6 cm. Hypoechoic mass compatible with a cyst of 3.0 x 2.6 x 1.7 cm in size. Blood flow is demonstrated to the left ovary. No significant free pelvic fluid. IMPRESSION: 1. Abnormally thickened, hyperechoic endometrium. This finding is nonspecific. Possibility of abnormal thickening from hyperplasia, carcinoma, polyp, or perhaps blood given history of biopsy is not excluded. Correlation with prebiopsy findings would be recommended. Report was faxed to the office of Dr. Mac Fowler at :02 p.m., by petr (for MALLIKA). Dictated by: Dictated on workstation # [id number]
== END ==
LOC: RAD 15:10
PROVIDERS: ATTEND Obstetrics & Gynecology
DX: N93.9 Abnormal uterine and vaginal bleeding, unspecified (principal)
CPT/HCPCS: 76830; 76856

== ENCOUNTER 2018-05-24 07:58 | Outpatient (CLI) | payer OTHER ==
[~2018-05-24] VITALS: Ht 175.3 cm; Wt 90.7 kg
[2018-05-24 08:12] VITALS: BP 126/84
[2018-05-24] MEDS ORDERED: LEVO125T6 PO (08:17)
[2018-05-24] MEDS ORDERED: FOLI1TAB24 PO (08:17)
[2018-05-24] MEDS ORDERED: RANI150T90 PO (08:17)
[2018-05-24] MEDS ORDERED: iron PO (08:17)
[2018-05-24 08:53] LABS: BASOPHILS % (AUTO) 1 % (0-10); EOSINOPHILS # (AUTO) 0.1 10^3/uL (0.0-0.3); EOSINOPHILS % (AUTO) 2 % (0-10); HEMATOCRIT 37 % (35-52); LYMPHOCYTES # (AUTO) 1.9 X 10^3 (1.0-4.0); LYMPHOCYTES % (AUTO) 30 % (12-44); MEAN CORPUSCULAR HEMOGLOBIN 24 PG (25-34); MEAN CORPUSCULAR HGB CONC 32 G/DL (32-36); MEAN CORPUSCULAR VOLUME 75 FL (80-99); MEAN PLATELET VOLUME 9.7 FL (7.4-10.4); MONOCYTES # (AUTO) 0.7 X 10^3 (0.0-1.0); MONOCYTES % (AUTO) 11 % (0-12); NEUTROPHILS # (AUTO) 3.7 X 10^3 (1.8-7.8); NEUTROPHILS % (AUTO) 58 % (42-75); PLATELET COUNT 385 10^3/uL (130-400); RED CELL DISTRIBUTION WIDTH 23.9 % (10.0-14.5); WHITE BLOOD COUNT 6.3 10^3/uL (4.3-11.0)
[2018-05-25] MEDS ORDERED: DOCU100C37 PO (09:22)
[2018-05-25] MEDS ORDERED: SIME80TA16 PO (09:22)
[2018-05-25] MEDS ORDERED: HYDR-34 PO (09:22)
[2018-05-25] MEDS ORDERED: IBUP-844 PO (09:22)
== END 2018-05-24 08:40 | disposition home or self-care (01) ==
LOC: PREOP 07:58
PROVIDERS: ATTEND Obstetrics & Gynecology
DX: Z01.812 Encounter for preprocedural laboratory examination (principal); Z11.2 Encounter for screening for other bacterial diseases; N85.00 Endometrial hyperplasia, unspecified
CPT/HCPCS: 36415; 84703; 85025; 86850; 86900; 86901; 87081

== ENCOUNTER 2018-05-25 06:15 | Day surgery (SDC) | payer OTHER ==
[~2018-05-25] VITALS: Ht 175.3 cm; Wt 90.7 kg
[~2018-05-25 06:15] MED LIST changes: +FOLI1TAB24 PO; +LEVO125T6 PO; +RANI150T90 PO; +iron PO
[2018-05-25] MEDS ORDERED: LACTATED RINGERS 1,000 ML IV ONE (06:18)
[2018-05-25] MEDS ORDERED: BUPIVACAINE 0.25% 30 ML (SENSORCAINE) VIAL ONE (06:26)
[2018-05-25] MEDS ORDERED: metroNIDAZOLE 500MG/100ML IVPB 100 ML IV ONE (06:30)
[2018-05-25] MEDS ORDERED: ceFAZolin 2 GM IV Premixed 50 ML IV ONE (06:30)
[2018-05-25] MEDS ORDERED: ONDANSETRON 4 MG/2 ML (SDV) Z0FRAN IVP ONE (06:40)
[2018-05-25] MEDS ORDERED: ONDANSETRON 4 MG/2 ML (SDV) Z0FRAN ONE ×2 (06:42→06:51)
[2018-05-25] MEDS ORDERED: FAMOTIDINE 20MG/2ML IV (PEPCID) ONE (06:42)
[2018-05-25] MEDS ORDERED: proPOfol 200 MG/20 ML (DIPRIVAN) VIAL IV ONE (06:51)
[2018-05-25] MEDS ORDERED: LIDOCAINE PF 2% 5 ML (XYLOCAINE) VIAL ONE (06:51)
[2018-05-25] MEDS ORDERED: fentaNYL INJECTION 100 MCG/2 ML AMP ONE (06:51)
[2018-05-25] MEDS ORDERED: MIDAZOLAM 2 MG/2 ML (VERSED) VIAL ONE (06:52)
[2018-05-25 07:00] VITALS: BP 155/96
[2018-05-25] MEDS ORDERED: FAMOTIDINE 20MG/2ML IV (PEPCID) IV ONE (07:00)
[2018-05-25] MEDS: LACTATED RINGERS 1,000 ML IV PRN ×2 (07:00→08:00)
[2018-05-25] MEDS ORDERED: SEVOFLURANE (ULTANE) 15 ML INHAL SOLN ONE ×4 (07:04→08:40)
[2018-05-25] MEDS ORDERED: ROCURONIUM 10 MG/ML 5 ML SYRINGE IV ONE (07:04)
[2018-05-25] MEDS ORDERED: SUCCINYLCHOLINE INJ 100 MG/5 ML SYR ONE (07:11)
--- NOTE | 2018-05-25 07:54 | Progress Note-Pre Operative ---
Pre-Operative Progress Note H&P Reviewed The H&P was reviewed, patient examined and no changes noted. Date Seen by Provider: May 25, 2018 Time Seen by Provider: 07:10 Date H&P Reviewed: May 25, 2018 Time H&P Reviewed: 07:10 Pre-Operative Diagnosis: FIGO 1 endometrial ca TUNG COBOS DO May 25, 2018 07:54
[2018-05-25] MEDS ORDERED: NEOSTIGMINE 1 MG/ML 5 ML SYRINGE ONE (08:27)
[2018-05-25] MEDS ORDERED: GLYCOPYRROLATE 0.2 MG/ML (ROBINUL) 2 ML VIAL ONE ×2 (08:27)
[2018-05-25] MEDS ORDERED: PHENYLEPHRINE 100 MCG/ML 10 ML (ANESTHESIA) SYR ONE (09:11)
[2018-05-25] MEDS ORDERED: LACTATED RINGERS 1,000 ML IV SCH (09:11)
[2018-05-25] MEDS ORDERED: HYDROcodone/APAP 7.5 MG/325 MG (LORTAB, LORCET PLUS) TABLET PO PRN (09:15)
[2018-05-25] MEDS ORDERED: CHLORASEPTIC LOZENGE MM PRN (09:15)
[2018-05-25] MEDS ORDERED: DOCUSATE SODIUM 100 MG (COLACE) CAP PO PRN (09:15)
[2018-05-25] MEDS ORDERED: ZOLPIDEM 5 MG (AMBIEN) TAB PO PRN (09:15)
[2018-05-25] MEDS ORDERED: ONDANSETRON 4 MG/2 ML (SDV) Z0FRAN IV PRN (09:15)
[2018-05-25] MEDS ORDERED: HYDROmorphone 2 MG/ML VIAL (DILAUDID) IV ONE ×2 (09:15→09:30)
[2018-05-25] MEDS ORDERED: SIMETHICONE 80 MG (MYLICON) CHEW PO PRN (09:15)
[2018-05-25] MEDS ORDERED: FUROSEMIDE 40 MG/4 ML INJ (LASIX) IVP ONE (09:15)
[2018-05-25] MEDS ORDERED: ANTACID SUSP 30 ML UDC (MYLANTA) PO PRN (09:15)
--- NOTE | 2018-05-25 09:18 | Discharge Inst-Women's Service ---
Discharge Inst-Women's Serv Depart Medication/Instructions New, Converted or Re-Newed RX: RX on Chart Final Diagnosis Dr. Fowler in 7-10 days and in 8 weeks Consults/Follow Up Additional Follow Up: Yes Activity Activity: Activity as Tolerated Driving Instructions: No Driving for 1 Week (do not drive while taking narcotic pain med) NO SMOKING: NO SMOKING Nothing Inside Vagina: No Douching, No [place], No Tampons Diet Discharge Diet: No Restrictions Symptoms to Report to : Bleeding Excessive, Pain Increased, Fever Over 101 Degrees F, Vaginal Bleeding Increase, Questions/Concerns For Any Problems or Questions: Contact Your Physician Skin/Wound Care Infection Signs and Symptoms: Increased Redness, Foul Odor of Wound, Increased Drainage, Skin Itchy or Has a Rash, Increased Swelling, Temperature Above 101 F Operative Area Clean and Dry: Keep Incision Clean/Dry Stitches/Lexi/Dermabond: Dermabond, Care of Stitches Bathing Instructions: TUNG Quijano DO May 25, 2018 09:18
[2018-05-25] MEDS ORDERED: DOCU100C37 PO (09:22)
[2018-05-25] MEDS ORDERED: IBUP-844 PO (09:22)
[2018-05-25] MEDS ORDERED: SIME80TA16 PO (09:22)
[2018-05-25] MEDS ORDERED: HYDR-34 PO (09:22)
[2018-05-25] MEDS ORDERED: morphine INJ 10 MG/ML 1ML (SYR OR VIAL) IVP ONE (09:30)
[2018-05-25] MEDS ORDERED: ONDANSETRON 4 MG/2 ML (SDV) Z0FRAN IVP PRN (09:30)
[2018-05-25] MEDS ORDERED: FUROSEMIDE 40 MG/4 ML INJ (LASIX) ONE (09:32)
[2018-05-25] MEDS ORDERED: KETOROLAC 30 MG/ML VIAL ONE (09:39)
[2018-05-25] MEDS ORDERED: morphine INJ 10 MG/ML 1ML (SYR OR VIAL) ONE (09:39)
[2018-05-25] MEDS: KETOROLAC 30 MG/ML VIAL IV PRN ×2 (09:44→16:05)
--- NOTE | 2018-05-25 10:45 | NUR ---
YASMIN JIMENEZ admitted to room 3304- FROM [facility] BY PRUDENCIO COPE RN AFTER A ROBOTIC ASSISTED TOTAL LAPAROSCOPIC HYSTERECTOMY AND BILATERAL SALINGO-OOPHORECTOMY TODAY BY DR. COBOS. YASMIN JIMENEZ introduced to surroundings, call light operation, room service procedure, bed controls, phone, TV, temperature control, lights, meal times, smoking policy, visitor policy, side rail policy, bathrooms and showers. Patient Rights given to patient in the handbook.
[2018-05-25 10:50] VITALS: BP 114/71
[2018-05-25] MEDS ORDERED: CHLORASEPTIC LOZENGE MM ONE (11:36)
[2018-05-25 11:45] VITALS: BP 108/67
--- NOTE | 2018-05-25 12:00 | NUR ---
DOZING AT INTERVALS. VSS. NO APPARENT DISTRESS.
--- NOTE | 2018-05-25 13:00 | NUR ---
EATING LUNCH. WILL COME BACK TO TAKE OUT STEPHENS AFTER FINISHED EATING. FRIEND AT BEDSIDE.
--- NOTE | 2018-05-25 13:49 | Anesthesia-General Post-Op ---
General Patient Condition Mental Status/LOC: Same as Preop Cardiovascular: Satisfactory Nausea/Vomiting: Absent Respiratory: Satisfactory Pain: Controlled Complications: Absent Post Op Complications Complications None Follow Up Care/Instructions Patient Instructions None needed. Anesthesia/Patient Condition Patient Condition Patient is doing well, no complaints, stable vital signs, no apparent adverse anesthesia problems. No complications reported per nursing. JERAD OLSEN CRNA May 25, 2018 13:49
--- NOTE | 2018-05-25 13:50 | NUR ---
STEPHENS D/C'ED WITH 560 CC CLEAR YELLOW URINE IN THE BAG. UP TO THE BATHROOM FOR PERICARE. SCANT PINK VAGINAL DISCHARGE. BACK TO SIT IN THE CHAIR. C/O NAUSEA AND STILL FEELING DIZZY.
--- NOTE | 2018-05-25 14:22 | NUR ---
ZOFRAN 4 MG IVP FOR C/O NAUSEA. COOL CLOTH TO FOREHEAD. NO EMESIS.
--- NOTE | 2018-05-25 14:45 | NUR ---
BACK TO BED PER PT REQUEST. ENCOURAGED TO REST IF STILL FEELING THE EFFECTS OF MEDICATIONS FROM PAR. FRIEND GETTING READY TO LEAVE. CALL LIGHT PLACED WITHIN REACH.
[2018-05-25 16:00] VITALS: BP 113/76
--- NOTE | 2018-05-25 16:05 | NUR ---
LORTAB 7.5 MG P.O. FOR C/O ABD PAIN.
--- NOTE | 2018-05-25 17:08 | OPERATIVE REPORT ---
DATE OF SERVICE: 05/25/2018 PREOPERATIVE DIAGNOSIS: A 48-year-old female with complex endometrial hyperplasia with atypia, cannot rule out FIGO grade I endometrial carcinoma. POSTOPERATIVE DIAGNOSIS: A 40-year-old female with complex endometrial hyperplasia with atypia, cannot rule out FIGO grade I endometrial carcinoma. PROCEDURE: Robotic-assisted total laparoscopic hysterectomy with bilateral salpingo-oophorectomy. SURGEON: Mac Cobos DO ANESTHESIA: General endotracheal. ESTIMATED BLOOD LOSS: Minimal. URINE OUTPUT: 130 mL clear at the end of the procedure. FLUIDS: 1500 mL of lactated Ringer's solution. FINDINGS: A bulky and hyperemic uterus, which has a grossly normal appearing serosal surface, grossly normal appearing bilateral fallopian tubes and ovaries. SPECIMEN SENT: Uterus, bilateral fallopian tubes and ovaries. INDICATIONS FOR PROCEDURE: This 48-year-old female was in consultation in my office for irregular heavy bleeding. She underwent iron transfusions in the past for the amount of bleeding she was having and reports having hemoglobin as low as 6 in the past 6 months. Upon seeing her in my office due to her age and her BMI, I decided to proceed with an endometrial biopsy in the office, which revealed complex hyperplasia with atypia, cannot rule out FIGO grade I endometrial cancer. Once this finding was discovered, I notified the patient and had her come in for consultation. I discussed with her referral to [facility] oncology versus proceeding with a hysterectomy here. We did discuss the less than 50% invasion and would result in a curative process by performing hysterectomy. Due to this being potentially an early finding, there was a good chance that there was less than 50% invasion; however, this was not guaranteed and she may need a subsequent procedure with a [facility] [employer] oncologist and pelvic lymph node sampling. After discussing this with the patient, she wants to proceed here at [facility] to have her hysterectomy. Risks of the procedure were discussed with the patient in detail including risk of bleeding, infection, damage to surrounding structures including, but not limited to bowel, bladder, ureter, kidneys, postoperative recovery timeframe, postoperative restrictions. We discussed possible postoperative complications, readmission, repeat surgeries for any further complications or greater than 50% invasion. We also discussed risk from anesthesia and even . After everything was discussed with the patient, consent was obtained in the preoperative area and the patient was taken to the operating room. OPERATIVE REPORT IN DETAIL: Once in the operating room. General anesthesia was found to be adequate. She was placed in dorsal lithotomy position, prepped and draped in normal sterile fashion. Timeout was performed. I then placed a Beaulieu catheter using sterile technique. A weighted speculum was inserted into the patient's vagina. A right angle retractor was used to visualize the cervix, which was grasped at 12 o'clock position using a long Allis clamp. I then placed an 0 Vicryl suture through the anterior lip of the cervix and removed the Allis clamp. This Vicryl suture was then used as my retraction point. I then sounded the uterine cavity that was found to be 8 cm. I then selected an 8 cm Nay uterine manipulator tip and a 3.5 cm colpotomy ring. I advanced the manipulator tip into the endometrial cavity deploying the balloon. I also advanced a colpotomy around the vaginal fornix and advanced this into the vagina. Once this was done, excellent manipulation was noted on bimanual exam. I then removed all of the other instruments from the patient's vagina, performed a change of gloves and took my attention to the abdomen where infraumbilically, I infiltrated this area using 0.25% Marcaine. I make an 8 mm incision with a knife and directed a Veress needle through the incision until intraperitoneal placement was confirmed with a saline drop test. I then proceeded with insufflation using CO2 gas and opening pressure of 4 mmHg was noted. I proceeded max to a pressure of 15 mmHg, at which point I removed the Veress needle and introduced an 8 mm blunt da Ama camera trocar. Once this was in place, I am able to visualize all my findings above. There was also some omental adhesions to the anterior abdominal wall that I take down with the robot once it was docked. I then placed 2 lateral trocars. These were both 8 mm trocars. The skin was then infiltrated using 0.25% Marcaine, 8 mm incisions were then made and the trocars were placed under direct visualization of the laparoscope. Once these trocars were in place, I brought in the da Ama robot and docked in the appropriate fashion. Using the vessel sealer in the left hand and monopolar raven in the right hand, I take down these previously mentioned omental adhesions of the anterior abdominal wall easily without difficulty or running into any type of bleeding. Then, I am able to identify the pelvic structures as listed in my findings above. I performed the following dissection bilaterally. Starting at the infundibulopelvic ligament, I bipolar cauterized and transected this using the vessel sealer. I then grasped the round ligament, bipolar cauterized and transected using the vessel sealer. Then, I able to grasp the entire broad ligament, bipolar cauterized and transected this using the vessel sealer, down to the level of the lower uterine segment, at which point I the anterior and posterior leaflets of the broad ligament. The anterior leaflet dissection was taken down to the anterior vaginal fornix. The posterior leaflet was taken down to the posterior vaginal fornix. This allows me to skeletonize the uterine vessels laterally, which I then bipolar cauterized and transected using the vessel sealer. I then performed a colpotomy at 12 o'clock position using monopolar raven and took this circumferentially around the vaginal fornix amputating the cervix away from the vagina. The entire specimen was then removed through the vagina. I then closed the lateral vaginal apices of the vaginal cuff using 2-0 Vicryl suture in a [id number] fashion, colposuspended to the uterosacral ligaments. I then closed the remainder of the vaginal cuff using 2-0 V-Loc in a running fashion, after which there was no active bleeding noted from any of my dissection planes. I then removed the robotic instruments and undocked the da Ama robot proceeding with the remainder of the case laparoscopically. I scrubbed back into the case and proceeded with copiously irrigating the pelvis using normal saline. Once again, there was no active bleeding noted from any of my dissection planes. I placed Surgiflo hemostatic agent over all my planes of dissection. I had the patient was taken out of steep Trendelenburg, where I removed the lateral trocars under direct visualization of the laparoscope. The infraumbilical trocar was left in place and introduced 10 mL of 0.25% Marcaine for postoperative peritoneal pain management. I then removed this trocar as well after insufflation was released. I then closed the skin incisions using 4-0 Monocryl in interrupted subcuticular fashion. Dermabond was applied to the incision and Band-Aids were placed over the incisions as well. The patient tolerated the procedure well and sent to recovery area in stable condition. Lap and sponge counts were correct at the end of the procedure. Instrument count was correct as well. Beaulieu catheter was left in place. A 2 grams of Ancef and 500 mg of Flagyl were given preoperatively for infection prophylaxis. Job ID: [id number] DocumentID: [id number] Dictated Date: 05/25/2018 09:32:52 Telephone Sterilizer Date: 05/25/2018 17:07:36 Dictated By: MAC COBOS DO
--- NOTE | 2018-05-25 17:30 | NUR ---
EATING DINNER. STATES FEELING BETTER.
--- NOTE | 2018-05-25 18:00 | NUR ---
OUT TO AMBULATE IN THE [place]. MOVING WELL.
--- NOTE | 2018-05-25 18:30 | NUR ---
PT VOIDED 60 MLS. AMBULATING BETTER.
--- NOTE | 2018-05-25 18:40 | NUR ---
DR. COBOS NOTIFIED OF PT'S URINE OUTPUT OF 60 CC. ORDER TO BLADDER SCAN AND IF >150 MLS CALL HIM BUT IF NOT MAY GO HOME.
--- NOTE | 2018-05-25 18:50 | NUR ---
BLADDER SCAN REVEALS 7-[address] COBOS NOTIFIED. PLAN FOR DISCHARGE.
[2018-05-25 19:08] VITALS: BP 113/76
--- NOTE | 2018-05-25 19:08 | NUR ---
DISCHARGE INSTRUCTIONS REVIEWED WITH COPY TO PT. STATES UNDERSTANDING OF ALL INSTRUCTIONS AND NEED TO F/U SCHEDULED AND NEEDED. DISMISSED AMB FROM [facility] IN STABLE CONDITION TO [facility] BY DAUGHTER,FRIEND, AND BETSY BOOKER.
[2018-05-26] MEDS ORDERED: IBUPROFEN 600 MG (MOTRIN) TAB PO PRN (02:00)
== END 2018-05-25 19:08 | disposition home or self-care (01) ==
LOC: SDC 06:15 → WS 10:45 → SDC 19:08
PROVIDERS: ATTEND Obstetrics & Gynecology
DX: C54.1 Malignant neoplasm of endometrium (principal); N83.8 Other noninflammatory disorders of ovary, fallopian tube and broad ligament; N83.12 Corpus luteum cyst of left ovary; N92.0 Excessive and frequent menstruation with regular cycle; D50.0 Iron deficiency anemia secondary to blood loss (chronic); K21.9 Gastro-esophageal reflux disease without esophagitis; E89.0 Postprocedural hypothyroidism; Z79.899 Other long term (current) drug therapy; Z87.891 Personal history of nicotine dependence
CPT/HCPCS: 94664

== ENCOUNTER 2018-06-10 20:30 | Emergency (ER) | payer OTHER ==
[~2018-06-10] VITALS: Ht 162.6 cm; Wt 81.6 kg
[~2018-06-10 20:30] MED LIST changes: +DOCU100C37 PO; +HYDR-34 PO; +IBUP-844 PO; +SIME80TA16 PO
[2018-06-10 20:56] LABS: BILIRUBIN,URINE NEGATIVE (NEGATIVE); CLARITY,URINE VERY CLOUDY; COLOR,URINE YELLOW; GLUCOSE, URINE (UA) NEGATIVE (NEGATIVE); KETONES,URINE NEGATIVE (NEGATIVE); LEUKOCYTE ESTERASE ,URINE 3+ (NEGATIVE); NITRITE,URINE NEGATIVE (NEGATIVE); PH,URINE 7 (5-9); PROTEIN,URINE 2+ (NEGATIVE); UROBILINOGEN,URINE NORMAL (NORMAL)
[2018-06-10] MEDS ORDERED: HYDROcodone/APAP 5 MG/325 MG (LORTAB) TAB PO ONE (21:00)
[2018-06-10 21:03] LABS: BACTERIA,URINE FEW /HPF; RBC,URINE 25-50 /HPF; WBC,URINE 50-100 /HPF
[2018-06-10] MEDS ORDERED: ACHD5005 PO (21:15)
[2018-06-10] MEDS ORDERED: SULF1TAB35 PO (21:15)
--- NOTE | 2018-06-10 21:15 | ED GU-Female ---
General Chief Complaint: - Urinary Stated Complaint: URINATING BLOOD Nursing Triage Note: pt states blood in urine, states 2 weeks ago diagnosed with cancer. verbalized last dose of antibiotics for uti, states not working Nursing Sepsis Screen: No Definite Risk Source: patient Exam Limitations: no limitations History of Present Illness Date Seen by Provider: Jun 10, 2018 Time Seen by Provider: 20:38 Allergies and Home Medications Allergies Coded Allergies: Penicillins (Unverified Allergy, Unknown, Pt has received Ceftriaxone in the past w/o issue, 05/25/18) Uncoded Allergies: STERIODS (Allergy, Intermediate, HALLICINATIONS, 12/18/11) BEES (Allergy, Unknown, 05/24/18) paper tape (Allergy, Unknown, 05/24/18) Home Medications Docusate Sodium 100 Mg Capsule, 100 MG PO BID PRN for CONSTIPATION-1ST LINE Prescribed by: TUNG COBOS on 05/25/18921 Folic Acid 1 Mg Tablet, 1 MG PO DAILY, (Reported) Hydrocodone Bit/Acetaminophen 1 Ea Tablet, 2 EA PO Q6H PRN for Pain-See Instructions Prescribed by: TUNG COBOS on 05/25/18921 Ibuprofen 600 Mg Tablet, 600 MG PO Q6H PRN for PAIN-MODERATE Prescribed by: TUNG COBOS on 05/25/18921 Levothyroxine Sodium 125 Mcg Tablet, 125 MCG PO DAILY, (Reported) Ranitidine HCl 150 Mg Tablet, 150 MG PO BID, (Reported) Simethicone 80 Mg Tab.chew, 40 MG PO TID PRN for INDIGESTION 2ND LINE Prescribed by: TUNG COBOS on 05/25/18921 [iron] 65 TAB, 130 MG PO DAILY, (Reported) take 2 (65mg) tabs Past Adujuqn-Hopfzl-Zjigaq Hx Patient Social History 2nd Hand Smoke Exposure: No Recent Foreign Travel: No Contact w/Someone Who Travel: No Recent Infectious Disease Expo: No Recent Hopitalizations: No Immunizations Up To Date Tetanus Booster (TDap): Less than 5yrs Seasonal Allergies Seasonal Allergies: Yes (at times-mild) Past Medical History Surgeries: Yes (LAP BAND-with hiatal hernia, c/s x5, breast bx) Section, Gallbladder, Thyroidectomy, Tonsillectomy Respiratory: No Pneumonia Cardiac: No Neurological: Yes 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 DYSPHAGIA) Gastroesophageal Reflux, Hiatal Hernia Musculoskeletal: No Endocrine: Yes (thyroidectomy) Hypothyroidsim HEENT: No Cancer: No Psychosocial: No Integumentary: No Blood Disorders: Yes (hx ANEMIA) Adverse Reaction/Blood Tranf: No Family Medical History Alcoholism 19 FATHER 19 MOTHER Colon cancer 19 FATHER Drug abuse 19 FATHER 19 MOTHER FH: uterine cancer 19 MOTHER Hypertension 19 FATHER 19 MOTHER No Pertinent Family Hx Physical Exam Vital Signs Vital Signs - First Documented 06/10/18 20:45 Temp 99.5 Pulse 67 Resp 18 B/P (MAP) 140/90 (107) Pulse Ox 99 O2 Delivery Room Air Capillary Refill : Less Than 3 Seconds Height, Weight, BMI Height: 5'4.00" Weight: 180lbs. 0.0oz. 81.155681ul; 29.5 BMI Method:Estimated Progress/Results/Core Measures Suspected Sepsis Recent Fever Within 48 Hours: No Infection Criteria Present: None New/Unexplained Altered Menta: No Sepsis Screen: No Definite Risk SIRS Temperature:99.5 Pulse: 67 Respiratory Rate: 18 Blood Pressure 140 /90 Mean: 107 Results/Orders Lab Results Laboratory Tests Test 06/10/18 20:50 Range/Units Urine Color YELLOW Urine Clarity VERY CLOUDY H Urine pH 7 5-9 Urine Specific [place] 1.015 L 1.016-1.022 Urine Protein 2+ H NEGATIVE Urine Glucose (UA) NEGATIVE NEGATIVE Urine Ketones NEGATIVE NEGATIVE Urine Nitrite NEGATIVE NEGATIVE Urine Bilirubin NEGATIVE NEGATIVE Urine Urobilinogen NORMAL NORMAL MG/DL Urine Leukocyte Esterase 3+ H NEGATIVE Urine RBC (Auto) 5+ H NEGATIVE Urine RBC 25-50 H /HPF Urine WBC 50-100 H /HPF Urine Squamous Epithelial Cells 2-5 /HPF Urine Crystals NONE /LPF Urine Bacteria FEW H /HPF Urine Casts NONE /LPF Urine Mucus NEGATIVE /LPF Urine Culture Indicated YES My Orders Orders - GENA MICHEL Ua Culture If Indicated (06/10/18 20:38) Hydrocodone/Apap 5/325 Tablet (Lortab 5 (06/10/18 21:00) Urine Culture (06/10/18 20:50) Medications Given in ED Current Medications Medications Dose Ordered Sig/Nathaly Route Start Time Stop Time Status Last Admin Dose Admin Acetaminophen/ Hydrocodone Bitart 1 tab ONCE ONCE PO 06/10/18 21:00 06/10/18 21:01 DC 06/10/18 20:51 1 TAB Vital Signs/I&O 06/10/18 20:45 Temp 99.5 Pulse 67 Resp 18 B/P (MAP) 140/90 (107) Pulse Ox 99 O2 Delivery Room Air Capillary Refill : Less Than 3 Seconds Blood Pressure Mean: 107 Departure Impression Primary Impression: Urinary tract infection Disposition: HOME, SELF-CARE Condition: Stable/Unchanged Departure-Patient Inst. Decision time for Depature: 21:13 Referrals: ERICA ADAM MD (PCP/Family) Primary Care Physician Patient Instructions: Urinary Tract Infection, Adult (DC) Add. Discharge Instructions: Take medications as directed. Drink plenty of water to help flush out your urinary tract. Take pain medication as needed. You may use Azo [id number]-[id number]-[id number] for urinary discomfort. Follow-up with your primary care provider by calling first thing tomorrow morning to schedule an appointment to be seen within 1 week. Return back to the emergency room for worsening symptoms or concerns as needed. All discharge instructions reviewed with patient and/or family. Voiced understanding. Scripts Hydrocodone Bit/Acetaminophen (Hydrocodone/Acetaminophen 5/325mg Tablet) 1 Tab Tab 1 EACH PO Q4-6HR PRN for PAIN-MODERATE MDD 10, #14 TAB Prov: GENA MICHEL 06/10/18 Sulfamethoxazole/Trimethoprim (Bactrim Ds Tablet) 1 Each Tablet 1 EACH PO BID for 10 Days, #20 TAB Prov: GENA MICHEL 06/10/18 GENA MICHEL Jun 10, 2018 21:15
[2018-06-10] MEDS ORDERED: TRIM/SULFAMETH 160/800 (SEPTRA DS) TAB PO ONE (21:30)
[2018-06-10] MEDS ORDERED: RX-HYDROCODONE/APAP 5/325 MG #4 TAB PK PO PRN (21:30)
[2018-06-10 21:33] VITALS: BP 140/90
== END 2018-06-10 21:36 | disposition home or self-care (01) ==
LOC: EDUNIT# 20:30 → ER 20:31
DX: N39.0 Urinary tract infection, site not specified (principal); K21.9 Gastro-esophageal reflux disease without esophagitis; E03.9 Hypothyroidism, unspecified; D64.9 Anemia, unspecified; Z88.0 Allergy status to penicillin; Z88.8 Allergy status to other drugs, medicaments and biological substances; Z80.0 Family history of malignant neoplasm of digestive organs; Z80.49 Family history of malignant neoplasm of other genital organs; Z91.048 Other nonmedicinal substance allergy status; Z98.890 Other specified postprocedural states; Z90.89 Acquired absence of other organs; Z98.84 Bariatric surgery status; Z87.01 Personal history of pneumonia (recurrent); Z98.51 Tubal ligation status; Z87.448 Personal history of other diseases of urinary system; Z87.19 Personal history of other diseases of the digestive system
CPT/HCPCS: 81000; 87077; 87088; 99283

== ENCOUNTER 2018-07-13 07:15 | Inpatient (IN) | payer OTHER ==
[~2018-07-13] VITALS: Ht 175.3 cm; Wt 83.0 kg
[~2018-07-13 07:15] MED LIST changes: +ACHD5005 PO; +SULF1TAB35 PO
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
[2018-07-13] MEDS ORDERED: NS IV 1000 ML 1,000 ML IV SCH (08:00)
[2018-07-13] MEDS ORDERED: fentaNYL INJECTION 100 MCG/2 ML AMP IVP ONE ×2 (08:00→10:00)
[2018-07-13 08:01] LABS: BASOPHILS % (AUTO) 0 % (0-10); EOSINOPHILS # (AUTO) 0.1 10^3/uL (0.0-0.3); EOSINOPHILS % (AUTO) 1 % (0-10); HEMATOCRIT 38 % (35-52); HEMOGLOBIN 12.2 G/DL (11.5-16.0); LYMPHOCYTES # (AUTO) 1.6 X 10^3 (1.0-4.0); LYMPHOCYTES % (AUTO) 25 % (12-44); MEAN CORPUSCULAR HEMOGLOBIN 25 PG (25-34); MEAN CORPUSCULAR HGB CONC 33 G/DL (32-36); MEAN CORPUSCULAR VOLUME 76 FL (80-99); MEAN PLATELET VOLUME 9.7 FL (7.4-10.4); MONOCYTES # (AUTO) 0.8 X 10^3 (0.0-1.0); MONOCYTES % (AUTO) 13 % (0-12); NEUTROPHILS # (AUTO) 3.9 X 10^3 (1.8-7.8); NEUTROPHILS % (AUTO) 61 % (42-75); PLATELET COUNT 295 10^3/uL (130-400); RED CELL DISTRIBUTION WIDTH 16.4 % (10.0-14.5); WHITE BLOOD COUNT 6.4 10^3/uL (4.3-11.0)
[2018-07-13 08:16] LABS: ALANINE AMINOTRANSFERASE 13 U/L (0-55); ALBUMIN 4.3 GM/DL (3.2-4.5); ALKALINE PHOSPHATASE 72 U/L (40-136); BILIRUBIN,TOTAL 0.4 MG/DL (0.1-1.0); BUN/CREATININE RATIO 20; CALCIUM 9.3 MG/DL (8.5-10.1); CARBON DIOXIDE 21 MMOL/L (21-32); CHLORIDE 104 MMOL/L (98-107); CREATININE SERUM 0.79 MG/DL (0.60-1.30); GFR ESTIMATED > 60; GLUCOSE 112 MG/DL (70-105); POTASSIUM 3.4 MMOL/L (3.6-5.0); SODIUM 139 MMOL/L (135-145)
--- NOTE | 2018-07-13 08:38 | Diagnostic Imaging Report ---
INDICATION: Chest pain. TIME OF EXAM: 08:28 a.m. Comparison is made with prior chest from 09/15/2012. The heart size is normal. There is an area of linear density in the right base may represent some scarring or atelectasis. Otherwise, the lungs are clear. There is no effusion. No pneumothorax is identified. Bony structures are unremarkable. IMPRESSION: Minimal right basilar atelectasis or scarring. Study is otherwise unremarkable. Dictated by: Dictated on workstation # [id number]
[2018-07-13] MEDS ORDERED: NS 250 ML (IVPB) BAG IV ONE (08:45)
[2018-07-13] MEDS ORDERED: IOHEXOL 350 MG/ML 100 ML (OMNIPAQUE 350) VIAL IV ONE (08:45)
[2018-07-13] MEDS ORDERED: HOLD METFORMIN - RECEIVED CONTRAST 20 ML VIAL IV SCH (08:45)
--- NOTE | 2018-07-13 08:46 | Diagnostic Imaging Report ---
INDICATION: Right rib pain COMPARISON: Chest radiograph from same day FINDINGS: Three views of the right ribs were obtained. There is no fracture, dislocation, or other acute bony abnormality identified. Visualized portions of the right lung are clear. The surrounding soft tissues appear unremarkable. No radiopaque foreign bodies are seen. IMPRESSION: No healing or displaced right rib fractures. Dictated by: Dictated on workstation # [id number]
[2018-07-13] MEDS ORDERED: ENOXAPARIN 80 MG/0.8 ML (LOVENOX) SYR SC ONE (10:00)
--- NOTE | 2018-07-13 10:08 | Diagnostic Imaging Report ---
PROCEDURE: CT angiography of the chest with contrast. TECHNIQUE: Multiple contiguous axial images were obtained through the chest after uneventful bolus administration of intravenous contrast. 2D reconstructed CTA MIP acquisitions were also performed. Auto Exposure Controls were utilized during the CT exam to meet ALARA standards for radiation dose reduction. INDICATION: Chest pain. 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 There is clot in the distal right main pulmonary extending into upper middle and lower lobe branches with clot predominantly left lower lobe pulmonary arterial branches. The main pulmonary artery proximally is patent but dilated at 4.1 cm. There is some prominence of the right heart and elevated right heart pressures and right heart strain could not be excluded. There are a few right lung middle and upper lobe juxtapleural wedge configured airspace opacities believed to be on a postinfarct basis and reflective of early [place] hump. No soft tissue density lung mass. No thoracic lymphadenopathy. There is a gastric lap band present. The esophagus above that level is distended, thickened and irregular this may reflect some herniation of stomach above the lap band or reflect an esophageal mass. When clinically appropriate endoscopic correlation versus a fluoroscopic exam would be appropriate. No thoracic lymphadenopathy and no effusion, pneumothorax or hemothorax. Upper abdomen shows a low density splenic nodule 3.5 cm likely cystic. No acute or suspect osseous lesion. 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 Mild areas of peripheral pleural-based wedge configured airspace disease in the right lung are likely on a post ischemic basis. No pleural collection. Gastric lap band present with either herniation of portions of the stomach above the band versus esophageal mass. Nonemergent fluoroscopic study versus EGD recommended when clinically appropriate. The critical findings were relayed by phone to the ER physician. Dictated by: Dictated on workstation # [id number]
--- OUTSIDE RECORDS SUMMARY | 2018-07-13 11:19 | XMS REPORT | Clinical Summary ---
Author Author [facility] Organization [facility] Address Unknown Phone Unavailable Care Team Providers Care Application Systems Administrator Name Role Phone PCP Unavailable Allergies Not [...]
--- OUTSIDE RECORDS SUMMARY | 2018-07-13 11:20 | XMS REPORT | Continuity of Care Document ---
Author Organization Unknown Address Unknown Allergies Active Description Code Type Severity Reaction Onset Reported/Identified Relationship to Patient Clinical Status Yes PENICILLINS PENICILLINS SEVERE Yes SOLU-MEDROL SOLU-MEDROL SEVERE Yes PENICILLINS SEVERE DERMATOLOGICAL - PATI Yes SOLU-MEDROL SEVERE SIDE EFFECT Yes STEROIDS STEROIDS Unknown N/A 10/10/2010 Yes STERIODS STERIODS Moderate HALLICINATIONS 12/18/2011 Yes [place] Unknown N/A 05/24/2018 Yes PAPER PAPER Unknown N/A 05/24/2018 Yes paper tape paper tape Unknown N/A 05/24/2018 Yes Penicillins [id number] Drug Allergy Unknown N/A 05/24/2018 Yes Penicillins [id number] Drug Allergy Unknown Pt has received 05/25/2018 Medications Medication Packaging Start Date Stop Date [...] 500CC IV BAG) ml 05/06/2018 05/06/2018 [id number] CEFTRIAXONE VIAL INJ 500 MG (ROCEPHIN VIAL) MG 05/11/2018 05/11/2018 [id number] Problems Date Dx Coded Attending Type Code [...] MIRAMONTES DO Ot 530.81 ESOPHAGEAL REFLUX 09/15/2012 FE MUKHERJEE SHONDA K Ot 780.96 GENERALIZED PAIN 06/07/2014 CHAU ESCOBAR APRN Ot 923.11 CONTUSION OF ELBOW 06/07/2014 CHAU ESCOBAR APRN Ot 959.3 ELB/FOREARM/WRST INJ NOS 06/07/2014 CHAU ESCOBAR APRN Ot E000.8 OTHER EXTERNAL CAUSE STATUS 06/07/2014 CHAU ESCOBAR APRN Ot E834.9 W/CRFT FALL NEC-PERS NOS 01/18/2015 PARADISE MCDONALD MD Ot S61.300A UNSP OPEN WOUND OF RIGHT INDEX FINGER W 01/18/2015 PARADISE MCDONALD MD, Ot W22.8XXA STRIKING AGAINST OR STRUCK BY OTHER OBJE 01/18/2015 PARADISE MCDONALD MD, Ot Y92.838 [facility] RECREATION AREA PLACE 01/18/2015 PARADISE MCDONALD MD, Ot Y93.59 ACTIVITY, OTH W OT SPORTS AND ATHLETICS 01/18/2015 PARADISE MCDONALD MD, Ot Y99.8 OTHER EXTERNAL CAUSE STATUS 04/14/2016 CHAU ESCOBAR APRN Ot M65.841 OTHER SYNOVITIS AND TENOSYNOVITIS, RIGHT 04/14/2016 CHAU ESCOBAR APRN Ot M79.641 PAIN IN RIGHT HAND 04/15/2016 CHAU ESCOBAR [employer] Ot M65.841 OTHER SYNOVITIS AND TENOSYNOVITIS, RIGHT 04/15/2016 CHAU ESCOBAR APRN Ot M79.641 PAIN IN RIGHT HAND 06/10/2016 Eric Hawkins 244.9 UNSPECIFIED HYPOTHYROIDISM 06/10/2016 Eric Hawkins 466.0 ACUTE BRONCHITIS 06/10/2016 Eric Hawkins 530.81 ESOPHAGEAL REFLUX 06/10/2016 Eric Hawkins E03.9 HYPOTHYROIDISM, UNSPECIFIED 06/10/2016 Eric Hawkins J20.9 ACUTE BRONCHITIS, UNSPECIFIED 06/10/2016 Eric Hawkins K21.9 GASTRO- ESOPHAGEAL REFLUX DISEASE WITHOUT ESOPHAGITIS 01/24/2017 Shonda Powers 616.10 VAGINITIS AND VULVOVAGINITIS, UNSPECIFIED 01/24/2017 Shonda Powers 788.1 DYSURIA 01/24/2017 Shonda Powers A N76.0 ACUTE VAGINITIS 01/24/2017 Carmen Powersa W R30.0 DYSURIA 09/14/2017 Aleshia Washington W 276.8 HYPOPOTASSEMIA 09/14/2017 GerrybBenya A 599.0 URINARY TRACT INFECTION, SITE NOT SPECIFIED 09/14/2017 GerrybBenya W E87.6 HYPOKALEMIA 09/14/2017 GerrybBenya A N39.0 URINARY TRACT INFECTION, SITE NOT SPECIFIED 12/30/2017 EscobarChau A 599.0 URINARY TRACT INFECTION, SITE NOT SPECIFIED 12/30/2017 Chau Escobar N39.0 URINARY TRACT INFECTION, SITE NOT SPECIFIED 04/10/2018 Eric Hawkins 280.9 IRON DEFICIENCY ANEMIA, UNSPECIFIED 04/10/2018 Eric Hawkins 626.2 EXCESSIVE OR FREQUENT MENSTRUATION 04/10/2018 Eirc Hawkins 726.5 ENTHESOPATHY OF HIP REGION 04/10/2018 Eric Hawkins D50.9 IRON DEFICIENCY ANEMIA, UNSPECIFIED 04/10/2018 Eric Hawkins M70.72 OTHER BURSITIS OF HIP, LEFT HIP 04/10/2018 Eric Hawkins N92.0 EXCESSIVE AND FREQUENT MENSTRUATION WITH REGULAR CYCLE 04/10/2018 Eric Hawkins V45.86 BARIATRIC SURGERY STATUS 04/10/2018 Eric Hawkins Z98.84 BARIATRIC SURGERY STATUS 04/12/2018 LOUIS SOMMERS W 280.9 IRON DEFICIENCY ANEMIA, UNSPECIFIED 04/12/2018 LOUIS SOMMERS D50.9 IRON DEFICIENCY ANEMIA, UNSPECIFIED 04/14/2018 Shonda Powers W 280.9 IRON DEFICIENCY ANEMIA, UNSPECIFIED 04/14/2018 Shonda Powers W D50.9 IRON DEFICIENCY ANEMIA, UNSPECIFIED 04/14/2018 Shonda Powers V45.86 BARIATRIC SURGERY STATUS 04/14/2018 Shonda Powers Z98.84 BARIATRIC SURGERY STATUS 05/06/2018 Haylee Shi A W 280.9 IRON DEFICIENCY ANEMIA, UNSPECIFIED 05/06/2018 Haylee Shi A W 780.79 OTHER MALAISE AND FATIGUE 05/06/2018 Shi, Haylee A W D50.9 IRON DEFICIENCY ANEMIA, UNSPECIFIED 05/06/2018 Haylee Shi W R53.1 WEAKNESS 05/08/2018 DARLYN PAVON MD, Ot D64.9 ANEMIA, UNSPECIFIED 05/08/2018 DARLYN PAVON MD, Ot E03.9 HYPOTHYROIDISM, UNSPECIFIED 05/08/2018 DARLYN PAVON MD, Ot K21.9 GASTRO-ESOPHAGEAL REFLUX DISEASE WITHOUT 05/08/2018 DARLYN PAVON MD Ot N39.0 URINARY TRACT INFECTION, SITE NOT SPECIF 05/08/2018 DARLYN PAVON MD, Ot N93.9 ABNORMAL UTERINE AND VAGINAL BLEEDING, U 05/08/2018 DARLYN PAVON MD, Ot Z87.01 PERSONAL HISTORY OF PNEUMONIA (RECURRENT 05/08/2018 DARLYN PAVON MD, Ot Z87.19 PERSONAL HISTORY OF OTHER DISEASES OF TH 05/08/2018 DARLYN PAVON MD, Ot Z87.448 PERSONAL HISTORY OF OTHER DISEASES OF UR 05/08/2018 DARLYN PAVON MD, Ot Z87.891 PERSONAL HISTORY OF NICOTINE DEPENDENCE 05/08/2018 DARLYN PAVON MD Ot Z88.0 ALLERGY STATUS TO PENICILLIN 05/08/2018 DARLYN PAVON MD Ot Z88.8 ALLERGY STATUS TO OTH DRUG/MEDS/BIOL SUB 05/08/2018 DARLYN PAVON MD Ot Z90.89 ACQUIRED ABSENCE OF OTHER ORGANS 05/08/2018 DARLYN PAVON MD Ot Z98.51 TUBAL LIGATION STATUS 05/08/2018 DARLYN PAVON MD Ot Z98.84 BARIATRIC SURGERY STATUS 05/08/2018 DARLYN PAVON MD Ot Z98.890 OTHER SPECIFIED POSTPROCEDURAL STATES 05/10/2018 DARLYN PAVON MD, Ot D64.9 ANEMIA, UNSPECIFIED 05/10/2018 DARLYN PAVON MD Ot E03.9 HYPOTHYROIDISM, UNSPECIFIED 05/10/2018 DARLYN PAVON MD, Ot K21.9 GASTRO-ESOPHAGEAL REFLUX DISEASE WITHOUT 05/10/2018 DARLYN PAVON MD Ot N39.0 URINARY TRACT INFECTION, SITE NOT SPECIF 05/10/2018 DARLYN PAVON MD Ot N93.9 ABNORMAL UTERINE AND VAGINAL BLEEDING, U 05/10/2018 DARLYN PAVON MD, Ot Z87.01 PERSONAL HISTORY OF PNEUMONIA (RECURRENT 05/10/2018 DARLYN PAVON MD, Ot Z87.19 PERSONAL HISTORY OF OTHER DISEASES OF TH 05/10/2018 DARLYN PAVON MD, Ot Z87.448 PERSONAL HISTORY OF OTHER DISEASES OF UR 05/10/2018 DARLYN PAVON MD, Ot Z87.891 PERSONAL HISTORY OF NICOTINE DEPENDENCE 05/10/2018 DARLYN PAVON MD, Ot Z88.0 ALLERGY STATUS TO PENICILLIN 05/10/2018 DARLYN PAVON MD, Ot Z88.8 ALLERGY STATUS TO OTH DRUG/MEDS/BIOL SUB 05/10/2018 DARLYN PAVON MD, Ot Z90.89 ACQUIRED ABSENCE OF OTHER ORGANS 05/10/2018 DARLYN PAVON MD, Ot Z98.51 TUBAL LIGATION STATUS 05/10/2018 DARLYN PAVON MD, Ot Z98.84 BARIATRIC SURGERY STATUS 05/10/2018 DARLYN PAVON MD, Ot Z98.890 OTHER SPECIFIED POSTPROCEDURAL STATES 05/11/2018 Eric Hawkins 098.89 GONOCOCCAL INFECTION OF OTHER SPECIFIED SITES 05/11/2018 Eric Hawkins A54.9 GONOCOCCAL INFECTION, UNSPECIFIED 05/21/2018 TUNG COBOS DO Ot N93.9 ABNORMAL UTERINE AND VAGINAL BLEEDING, U 05/21/2018 TUNG COBOS DO Ot N93.9 ABNORMAL UTERINE AND VAGINAL BLEEDING, U 05/24/2018 TUNG COBOS DO Ot N85.00 ENDOMETRIAL HYPERPLASIA, UNSPECIFIED 05/24/2018 TUNG COBOS DO Ot Z01.812 ENCOUNTER FOR PREPROCEDURAL LABORATORY E 05/24/2018 TUNG COBOS DO Ot Z11.2 ENCOUNTER FOR SCREENING FOR OTHER BACTER 05/25/2018 TUNG COBOS DO, Ot C54.1 MALIGNANT NEOPLASM OF ENDOMETRIUM 05/25/2018 TUNG COBOS DO Ot D50.0 IRON DEFICIENCY ANEMIA SECONDARY TO BLOO 05/25/2018 TUNG COBOS DO Ot E89.0 POSTPROCEDURAL HYPOTHYROIDISM 05/25/2018 TUNG COBOS DO Ot K21.9 GASTRO-ESOPHAGEAL REFLUX DISEASE WITHOUT 05/25/2018 TUNG COBOS DO Ot N83.12 CORPUS LUTEUM CYST OF LEFT OVARY 05/25/2018 CHANDRIKA TUNG MUKHERJEE Ot N83.8 OTH NONINFLAMMATORY DISORD OF OVARY, FAL 05/25/2018 CHANDRIKA TUNG MUKHERJEE Ot N92.0 EXCESSIVE AND FREQUENT MENSTRUATION WITH 05/25/2018 CHANDRIKA TUNG MUKHERJEE Ot Z79.899 OTHER MANAGER LIFE (CURRENT) DRUG THERAPY 05/25/2018 CHANDRIKA TUNG MUKHERJEE Ot Z87.891 PERSONAL HISTORY OF NICOTINE DEPENDENCE 05/28/2018 CHANDRIKA TUNG MUKHERJEE Ot N85.00 ENDOMETRIAL HYPERPLASIA, UNSPECIFIED 05/28/2018 CHANDRIKA TUNG MUKHERJEE Ot Z01.812 ENCOUNTER FOR PREPROCEDURAL LABORATORY E 05/28/2018 WALTERROWENA TUNG MUKHERJEE Ot Z11.2 ENCOUNTER FOR SCREENING FOR OTHER BACTER 05/29/2018 WALTERROWENA TUNG MUKHERJEE Ot C54.1 MALIGNANT NEOPLASM OF ENDOMETRIUM 05/29/2018 TUNG COBOS DO Ot D50.0 IRON DEFICIENCY ANEMIA SECONDARY TO BLOO 05/29/2018 TUNG COBOS DO Ot E89.0 POSTPROCEDURAL HYPOTHYROIDISM 05/29/2018 WALTERROWENA TUNG MUKHERJEE Ot K21.9 GASTRO-ESOPHAGEAL REFLUX DISEASE WITHOUT 05/29/2018 CHANDRIKA TUNG MUKHERJEE Ot N83.12 CORPUS LUTEUM CYST OF LEFT OVARY 05/29/2018 TUNG COBOS DO Ot N83.8 OTH NONINFLAMMATORY DISORD OF OVARY, FAL 05/29/2018 WALTERROWENA TUNG MUKHERJEE Ot N92.0 EXCESSIVE AND FREQUENT MENSTRUATION WITH 05/29/2018 WALTERROWENA TUNG MUKHERJEE Ot Z79.899 OTHER SENIOR CARE (CURRENT) DRUG THERAPY 05/29/2018 WALTERROWENA TUNG MUKHERJEE Ot Z87.891 PERSONAL HISTORY OF NICOTINE DEPENDENCE 05/31/2018 WALTERROWENA TUNG MUKHERJEE Ot C54.1 MALIGNANT NEOPLASM OF ENDOMETRIUM 05/31/2018 TUNG COBOS DO Ot D50.0 IRON DEFICIENCY ANEMIA SECONDARY TO BLOO 05/31/2018 WALTERROWENA DOTUNG Ot E89.0 POSTPROCEDURAL HYPOTHYROIDISM 05/31/2018 WALTERROWENA TUNG MUKHERJEE Ot K21.9 GASTRO-ESOPHAGEAL REFLUX DISEASE WITHOUT 05/31/2018 WALTERECH TUNG MUKHERJEE Ot N83.12 CORPUS LUTEUM CYST OF LEFT OVARY 05/31/2018 TUNG COBOS DO Ot N83.8 OTH NONINFLAMMATORY DISORD OF OVARY, FAL 05/31/2018 CHANDRIKA MUKHERJEE TUNG Ferrer Ot N92.0 EXCESSIVE AND FREQUENT MENSTRUATION WITH 05/31/2018 CHANDRIKA MUKHERJEE TUNG Ferrer Ot Z79.899 OTHER MANAGER LIFE (CURRENT) DRUG THERAPY 05/31/2018 CHANDRIKA MUKHERJEE TUNG Ferrer Ot Z87.891 PERSONAL HISTORY OF NICOTINE DEPENDENCE 06/06/2018 CHANDRIKA MUKHERJEE TUNG Ferrer Ot N93.9 ABNORMAL UTERINE AND VAGINAL BLEEDING, U 06/08/2018 CHANDRIKA MUKHERJEE TUNG Ferrer Ot C54.1 MALIGNANT NEOPLASM OF ENDOMETRIUM 06/08/2018 CHANDRIKA MUKHERJEE TUNG Ferrer Ot D50.0 IRON DEFICIENCY ANEMIA SECONDARY TO BLOO 06/08/2018 CHANDRIKA MUKHERJEE TUNG Ferrer Ot E89.0 POSTPROCEDURAL HYPOTHYROIDISM 06/08/2018 CHANDRIKA MUKHERJEE TUNG Ferrer Ot K21.9 GASTRO-ESOPHAGEAL REFLUX DISEASE WITHOUT 06/08/2018 CHANDRIKA MUKHERJEE TUNG Ferrer Ot N83.12 CORPUS LUTEUM CYST OF LEFT OVARY 06/08/2018 CHANDRIKA MUKHERJEE TUNG Ferrer Ot N83.8 OTH NONINFLAMMATORY DISORD OF OVARY, FAL 06/08/2018 CHANDRIKA MUKHERJEE TUNG Ferrer Ot N92.0 EXCESSIVE AND FREQUENT MENSTRUATION WITH 06/08/2018 CHANDRIKA MUKHERJEE TUNG Ferrer Ot Z79.899 OTHER SENIOR CARE (CURRENT) DRUG THERAPY 06/08/2018 CHANDRIKA MUKHERJEE TUNG Ferrer Ot Z87.891 PERSONAL HISTORY OF NICOTINE DEPENDENCE 06/10/2018 GENA MICHEL Ot D64.9 ANEMIA, UNSPECIFIED 06/10/2018 GENA MICHEL Ot E03.9 HYPOTHYROIDISM, UNSPECIFIED 06/10/2018 GENA MICHEL Ot K21.9 GASTRO- ESOPHAGEAL REFLUX DISEASE WITHOUT 06/10/2018 GENA MICHEL Ot N39.0 URINARY TRACT INFECTION, SITE NOT SPECIF 06/10/2018 GENA MICHEL Ot R31.9 HEMATURIA, UNSPECIFIED 06/10/2018 GENA MICHEL Ot Z80.0 FAMILY HISTORY OF MALIGNANT NEOPLASM OF 06/10/2018 GENA MICHEL Ot Z80.49 FAMILY HISTORY OF MALIGNANT NEOPLASM OF 06/10/2018 GENA MICHEL Ot Z87.01 PERSONAL HISTORY OF PNEUMONIA (RECURRENT 06/10/2018 GENA MICHEL Ot Z87.19 PERSONAL HISTORY OF OTHER DISEASES OF 06/10/2018 PEDRO MICHELIS Ot Z87.448 PERSONAL HISTORY OF OTHER DISEASES OF UR 06/10/2018 PEDRO MICHELIS Ot Z88.0 ALLERGY STATUS TO PENICILLIN 06/10/2018 PEDRO MICHELIS Ot Z88.8 ALLERGY STATUS TO OTH DRUG/MEDS/BIOL SUB 06/10/2018 PEDRO MICHELIS Ot Z90.89 ACQUIRED ABSENCE OF OTHER ORGANS 06/10/2018 PEDRO MICHELIS Ot Z91.048 OTHER NONMEDICINAL SUBSTANCE ALLERGY STA 06/10/2018 PEDRO MICHELIS Ot Z98.51 TUBAL LIGATION STATUS 06/10/2018 PEDRO MICHELIS Ot Z98.84 BARIATRIC SURGERY STATUS 06/10/2018 PEDRO MICHELIS Ot Z98.890 OTHER SPECIFIED POSTPROCEDURAL STATES 06/12/2018 PEDRO MICHELIS Ot D64.9 ANEMIA, UNSPECIFIED 06/12/2018 PEDRO MICHELIS Ot E03.9 HYPOTHYROIDISM, UNSPECIFIED 06/12/2018 PEDRO MICHELIS Ot K21.9 GASTRO- ESOPHAGEAL REFLUX DISEASE WITHOUT 06/12/2018 PEDRO MICHELIS Ot N39.0 URINARY TRACT INFECTION, SITE NOT SPECIF 06/12/2018 PEDRO MICHELIS Ot R31.9 HEMATURIA, UNSPECIFIED 06/12/2018 PEDRO MICHELIS Ot Z80.0 FAMILY HISTORY OF MALIGNANT NEOPLASM OF 06/12/2018 PEDRO MICHELIS Ot Z80.49 FAMILY HISTORY OF MALIGNANT NEOPLASM OF 06/12/2018 PEDRO MICHELIS Ot Z87.01 PERSONAL HISTORY OF PNEUMONIA (RECURRENT 06/12/2018 PEDRO MICHELIS Ot Z87.19 PERSONAL HISTORY OF OTHER DISEASES OF TH 06/12/2018 PEDRO MICHELIS Ot Z87.448 PERSONAL HISTORY OF OTHER DISEASES OF UR 06/12/2018 PEDRO MICHELIS Ot Z88.0 ALLERGY STATUS TO PENICILLIN 06/12/2018 PEDRO MICHELIS Ot Z88.8 ALLERGY STATUS TO OTH DRUG/MEDS/BIOL SUB 06/12/2018 PEDRO MICHELIS Ot Z90.89 ACQUIRED ABSENCE OF OTHER ORGANS 06/12/2018 PEDRO MICHELIS Ot Z91.048 OTHER NONMEDICINAL SUBSTANCE ALLERGY STA 06/12/2018 PEDRO MICHELIS Ot Z98.51 TUBAL LIGATION STATUS 06/12/2018 PEDRO MICHELIS Ot Z98.84 BARIATRIC SURGERY STATUS 06/12/2018 GENA MICHEL Ot Z98.890 OTHER SPECIFIED POSTPROCEDURAL STATES Procedures There is no data. Results Test [...] at 16:34 on 01/24/2017 CULTURE SOURCE clean [id number] Chlamydia/GC Amplification - 01/24/17 14:34 CHLAMYDIA TRACHOMATIS, GRADY NEGATIVE NEGATIVE NEISSERIA GONORRHOEAE, GRADY NEGATIVE NEGATIVE Comprehensive Metabolic Panel - 09/14/17 15:26 Albumin [...] on 09/14/2017 CULTURE SOURCE clean catch reflex [place] - 09/27/17 18:16 Clue Cells Not Observed Not Observed Trichomonas Not Observed Not Observed Yeast Not Observed Not Observed Urine Culture - 09/27/17 18:16 PRELIM CULTURE RESULTS No Growth 24 hours MEDIA PLATED Setup at 18:50 on 09/27/2017 CULTURE SOURCE void Thyroid Stimulating Hormone - 12/26/17 12:41 TSH [...] 5-8.5 Urine-Protein 2+ Negative Urine-RBC 5-10/HPF Urine-Specific [place] >=1.030 1.000-1.030 Urine-WBC TNTC Urobilinogen 0.2 0.2-1.0 [...] 5-8.5 Urine-Protein 1+ Negative Urine-RBC 20-40/HPF Urine-Specific [place] 1.020 1.000-1.030 Urine-WBC Negative Urobilinogen 0.2 E.U./dL [...] 29.9 g/dL 32.0-36.0 MCV 69.8 fL 80.0-97.0 [place]% 5.8 % 0.0-12.0 MPV 9.1 fL 7.4-10.0 Janette% 63.4 % 37.0-80.0 Plt 452 K/uL 150-400 RBC 4.84 M/uL 3.60-5.00 RDW 19.1 % 11.6-14.8 WBC 5.04 K/uL 5.00-10.00 Janette 3.20 K/uL 2.00-6.90 [place] 0.3 K/uL 0.0-0.9 Baso 0.0 K/uL 0.0-0.2 Test-Serum - 04/30/18 10:17 Preg Test-S Negative Negative Surgical Pathology - 04/30/18 12:02 Surg Path Sent to [facility] Pathology CBC with Auto Diff - 05/06/18 17:35 Baso% 0.30 % 0.00-2.50 Eos 0.1 K/uL 0.0-0.7 Eos% 1.5 % 0.0-7.0 Hct 38.1 % 36.0-46.0 Hgb 11.9 g/dL 13.0-15.0 Lym 1.82 K/uL 0.60-3.40 Lym% 29.4 % 10.0-50.0 MCH 23.4 pg 27.0-31.0 MCHC 31.2 g/dL 32.0-36.0 MCV 74.9 fL 80.0-97.0 [place]% 9.2 % 0.0-12.0 MPV 10.0 fL 7.4-10.0 Janette% 59.6 % 37.0-80.0 Plt 410 K/uL 150-400 RBC 5.09 M/uL 3.60-5.00 RDW 24.3 % 11.6-14.8 WBC 6.20 K/uL 5.00-10.00 [place] 3.70 K/uL 2.00-6.90 [place] 0.6 K/uL 0.0-0.9 Baso 0.0 K/uL 0.0-0.2 Complete blood count (CBC) with automated white blood cell (WBC) differential - 05/08/18 15:20 Blood leukocytes automated count (number/volume) 6.8 10*3/uL 4.3-11.0 Blood erythrocytes automated count (number/volume) 4.93 10*6/uL 4.35-5.85 Venous blood hemoglobin measurement (mass/volume) 11.3 g/dL 11.5-16.0 Blood hematocrit (volume fraction) 37 % 35-52 Automated erythrocyte mean corpuscular volume 75 [foz_us] 80-99 Automated erythrocyte mean corpuscular hemoglobin (mass per erythrocyte) 23 pg 25-34 Automated erythrocyte mean corpuscular hemoglobin concentration measurement (mass/volume) 31 g/dL 32-36 Automated erythrocyte distribution width ratio 24.3 % 10.0- 14.5 Automated blood platelet count (count/volume) 355 10*3/uL 130-400 Automated blood platelet mean volume measurement 9.3 [foz_us] 7.4-10.4 Automated blood neutrophils/100 leukocytes 55 % 42-75 Automated blood lymphocytes/100 leukocytes 34 % 12-44 Blood monocytes/100 leukocytes 8 % 0-12 Automated blood eosinophils/100 leukocytes 2 % 0-10 Automated blood basophils/100 leukocytes 0 % 0-10 Blood neutrophils automated count (number/volume) 3.7 10*3 1.8-7.8 Blood lymphocytes automated count (number/volume) 2.3 10*3 1.0-4.0 Blood monocytes automated count (number/volume) 0.6 10*3 0.0- 1.0 Automated eosinophil count 0.1 10*3/uL 0.0-0.3 Automated blood basophil count (count/volume) 0.0 10*3/uL 0.0-0.1 Blood type T Indirect antibody screen panel - 05/08/18 15:20 ABO+Rh group BP [facility] Transfusion band number [id number] [facility] Blood group antibody screen NEGATIVE [facility] Comprehensive metabolic panel - 05/08/18 15:20 Serum or plasma sodium measurement (moles/volume) 138 mmol/L 135-145 Serum or plasma potassium measurement (moles/volume) 3.8 mmol/L 3.6-5.0 Serum or plasma chloride measurement (moles/volume) 105 mmol/L 98-107 Carbon dioxide 24 mmol/L 21-32 Serum or plasma anion gap determination (moles/volume) 9 mmol/L 5-14 Serum or plasma urea nitrogen measurement (mass/volume) 11 mg/dL 7-18 Serum or plasma creatinine measurement (mass/volume) 0.82 mg/dL 0.60-1.30 Serum or plasma urea nitrogen/creatinine mass ratio 13 NRG Serum or plasma creatinine measurement with calculation of estimated glomerular filtration rate > NRG Serum or plasma glucose measurement (mass/volume) 89 mg/dL 70-105 Serum or plasma calcium measurement (mass/volume) 9.1 mg/dL 8.5-10.1 Serum or plasma total bilirubin measurement (mass/volume) 0.3 mg/dL 0.1-1.0 Serum or plasma alkaline phosphatase measurement (enzymatic activity/volume) 48 U/L 40-136 Serum or plasma aspartate aminotransferase measurement (enzymatic activity/volume) 13 U/L 5-34 Serum or plasma alanine aminotransferase measurement (enzymatic activity/volume) 7 U/L 0-55 Serum or plasma protein measurement (mass/volume) 7.8 g/dL 6.4-8.2 Serum or plasma albumin measurement (mass/volume) 4.4 g/dL 3.2-4.5 CALCIUM CORRECTED 8.8 mg/dL 8.5-10.1 THYROID STIMULATING HORMONE - 05/08/18 15:20 THYROID STIMULATING HORMONE 1.30 u[iU]/mL 0.35-4.94 Serum or plasma thyroxine (T4) free measurement (mass/volume) - 05/08/18 15:20 Serum or plasma thyroxine (T4) free measurement (mass/volume) 1.19 ng/dL 0.70-1.48 Complete urinalysis with reflex to culture - 05/08/18 15:40 Urine color determination YELLOW NRG Urine clarity determination VERY CLOUDY NRG Urine pH measurement by test strip 6 5-9 Specific gravity of urine by test strip 1.025 1.016-1.022 Urine protein assay by test strip, semi-quantitative 2+ NEGATIVE Urine glucose detection by automated test strip NEGATIVE NEGATIVE Erythrocytes detection in urine sediment by light microscopy 3+ NEGATIVE Urine ketones detection by automated test strip NEGATIVE NEGATIVE Urine nitrite detection by test strip NEGATIVE NEGATIVE Urine total bilirubin detection by test strip NEGATIVE NEGATIVE Urine urobilinogen measurement by automated test strip (mass/volume) NORMAL NORMAL Urine leukocyte esterase detection by dipstick 3+ NEGATIVE Automated urine sediment erythrocyte count by microscopy (number/high power field) [HPF] NRG Automated urine sediment leukocyte count by microscopy (number/high power field) [HPF] NRG Bacteria detection in urine sediment by light microscopy FEW NRG Squamous epithelial cells detection in urine sediment by light microscopy 2-5 NRG Crystals detection in urine sediment by light microscopy NONE NRG Casts detection in urine sediment by light microscopy NONE NRG Mucus detection in urine sediment by light microscopy SMALL NRG Complete urinalysis with reflex to culture YES NRG Bacterial urine culture - 05/08/18 15:40 Bacterial urine culture [id number] NRG COLONY COUNT >100,000/ML NRG FTX;REPORTABLE BETA LACTAMASE NEGATIVE NRG FREE TEXT ENTRY 2 AMENDED REPORT SENT BY L 05/10/18 15:05 NRG Urine beta human chorionic gonadotropin (hCG) measurement - 05/24/18 08:25 Urine beta human chorionic gonadotropin (hCG) measurement NEGATIVE NEGATIVE Methicillin resistant Staphylococcus aureus (MRSA) screening culture - 05/24/18 08:26 Methicillin resistant Staphylococcus aureus (MRSA) screening culture NEG NRG Complete blood count (CBC) with automated white blood cell (WBC) differential - 05/24/18 08:30 Blood leukocytes automated count (number/volume) 6.3 10*3/uL 4.3-11.0 Blood erythrocytes automated count (number/volume) 4.98 10*6/uL 4.35-5.85 Venous blood hemoglobin measurement (mass/volume) 12.0 g/dL 11.5-16.0 Blood hematocrit (volume fraction) 37 % 35-52 Automated erythrocyte mean corpuscular volume 75 [foz_us] 80-99 Automated erythrocyte mean corpuscular hemoglobin (mass per erythrocyte) 24 pg 25-34 Automated erythrocyte mean corpuscular hemoglobin concentration measurement (mass/volume) 32 g/dL 32-36 Automated erythrocyte distribution width ratio 23.9 % 10.0- 14.5 Automated blood platelet count (count/volume) 385 10*3/uL 130-400 Automated blood platelet mean volume measurement 9.7 [foz_us] 7.4-10.4 Automated blood neutrophils/100 leukocytes 58 % 42-75 Automated blood lymphocytes/100 leukocytes 30 % 12-44 Blood monocytes/100 leukocytes 11 % 0-12 Automated blood eosinophils/100 leukocytes 2 % 0-10 Automated blood basophils/100 leukocytes 1 % 0-10 Blood neutrophils automated count (number/volume) 3.7 10*3 1.8-7.8 Blood lymphocytes automated count (number/volume) 1.9 10*3 1.0-4.0 Blood monocytes automated count (number/volume) 0.7 10*3 0.0- 1.0 Automated eosinophil count 0.1 10*3/uL 0.0-0.3 Automated blood basophil count (count/volume) 0.0 10*3/uL 0.0-0.1 Blood type T Indirect antibody screen panel - 05/24/18 08:30 ABO+Rh group BP NRG Transfusion band number [id number] NRG Blood group antibody screen NEGATIVE NRG Complete urinalysis with reflex to culture - 06/10/18 20:50 Urine color determination YELLOW NRG Urine clarity determination VERY CLOUDY NRG Urine pH measurement by test strip 7 5-9 Specific gravity of urine by test strip 1.015 1.016-1.022 Urine protein assay by test strip, semi-quantitative 2+ NEGATIVE Urine glucose detection by automated test strip NEGATIVE NEGATIVE Erythrocytes detection in urine sediment by light microscopy 5+ NEGATIVE Urine ketones detection by automated test strip NEGATIVE NEGATIVE Urine nitrite detection by test strip NEGATIVE NEGATIVE Urine total bilirubin detection by test strip NEGATIVE NEGATIVE Urine urobilinogen measurement by automated test strip (mass/volume) NORMAL NORMAL Urine leukocyte esterase detection by dipstick 3+ NEGATIVE Automated urine sediment erythrocyte count by microscopy (number/high power field) [HPF] NRG Automated urine sediment leukocyte count by microscopy (number/high power field) [HPF] NRG Bacteria detection in urine sediment by light microscopy FEW NRG Squamous epithelial cells detection in urine sediment by light microscopy 2-5 NRG Crystals detection in urine sediment by light microscopy NONE NRG Casts detection in urine sediment by light microscopy NONE NRG Mucus detection in urine sediment by light microscopy NEGATIVE NRG Complete urinalysis with reflex to culture YES NRG Bacterial urine culture - 06/10/18 20:50 Bacterial urine culture SEE COMMEN NRG COLONY COUNT . NRG Free T3 - 06/29/18 14:36 Free T3 2.77 pg/ml 1.45-3.48 Encounters ACCT No. Visit Date/Time Discharge Status Pt. Type Provider Facility Loc./Unit Complaint [id number] 06/29/2018 14:33:00 06/29/2018 23:59:00 DIS Outpatient Shonda Powers [id number] 05/11/2018 17:59:00 05/11/2018 18:56:00 DIS Outpatient [facility] ER [id number] 05/06/2018 16:49:00 05/06/2018 18:40:00 [id number]/30/2018 09:32:00 04/30/2018 12:31:00 DIS Outpatient Kimberly Ibarra [id number] 04/14/2018 14:08:00 04/14/2018 14:50:00 DIS Outpatient Shonda Powers [id number] 04/12/2018 14:42:00 04/12/2018 15:40:00 DIS Outpatient LOUIS SOMMERS [id number] 04/10/2018 11:53:00 04/10/2018 15:03:00 [id number] 12/30/2017 17:42:00 12/30/2017 18:53:00 DIS Outpatient [facility] ER [id number] 12/26/2017 12:26:00 12/26/2017 23:59:00 DIS Outpatient Shonda Powers [id number] 09/27/2017 18:15:00 09/27/2017 23:59:00 DIS Outpatient Shonda Powers [id number] 09/14/2017 15:10:00 09/14/2017 17:35:00 DIS Outpatient Nolanjoannraymundo [facility] ER [id number] 01/24/2017 16:02:00 01/24/2017 16:45:00 DIS Outpatient [facility] [id number] 01/24/2017 14:38:00 01/24/2017 15:45:00 DIS Outpatient Shonda Powers [id number] 06/10/2016 08:53:00 06/10/2016 10:43:00 [facility] [id number] 06/10/2016 08:53:00 06/10/2016 08:53:00 CAN Outpatient Jackie Ureña [id number] 06/01/2016 10:14:00 06/01/2016 23:59:00 DIS Outpatient Shonda Powers [id number] 03/02/2016 18:27:00 03/02/2016 23:59:00 DIS Outpatient Shonda Powers [id number] 01/24/2017 14:47:30 Document Registration [id number] 06/10/2018 20:31:00 06/10/2018 21:36:00 DIS Emergency GENA MICHEL [facility] ER URINATING BLOOD [id number] 05/25/2018 06:15:00 05/25/2018 19:08:00 DIS Outpatient TUNG COBOS DO [facility] SDC ENDOMETIRAL HYPERPLASIA ATYPIA [id number] 05/24/2018 07:58:00 05/24/2018 08:40:00 DIS Outpatient TUNG COBOS DO [facility] PREOP ENDOMETRIAL HYPERPLASIA ATYPIA [id number] 05/18/2018 15:10:00 05/18/2018 23:59:59 CLS Outpatient TUNG COBOS DO [facility] RAD AUB [id number] 05/08/2018 13:08:00 05/08/2018 17:50:00 DIS Emergency DARLYN PAVON MD [facility] ER HEAVY VAGINAL BLEEDING [id number] 04/14/2016 17:12:00 04/14/2016 17:50:00 DIS Emergency CHAU ESCOBAR APRN [facility] ER THUMB PAIN [id number] 01/18/2015 15:31:00 01/18/2015 16:28:00 DIS Emergency PARADISE MCDONALD MD [facility] ER RIGHT HAND/FINGER INJ [id number] 06/07/2014 11:44:00 06/07/2014 13:50:00 DIS Emergency CHAU ESCOBAR APRN [facility] ER RIGHT ELBOW PAIN [id number] 09/15/2012 09:22:00 09/15/2012 11:22:00 DIS Emergency SHONDA MIRAMONTES DO [facility] ER BODY ACHES, N/V [id number] 06/07/2014 13:21:00 Document Registration [id number] 05/10/2012 15:08:00 Document Registration [id number] 04/22/2012 11:08:00 Document Registration [id number] 12/18/2011 20:05:00 Document Registration [id number] 01/10/2011 17:38:00 Document Registration [id number] 10/10/2010 17:18:00 Document Registration
--- NOTE | 2018-07-13 11:24 | NUR ---
REPORT RECEIVED FROM JHONY SAL.
[2018-07-13 12:00] VITALS: BP 118/79
[2018-07-13] MEDS ORDERED: CATHETER FLUSH 10 ML SYR IV PRN (12:00)
[2018-07-13] MEDS: fentaNYL INJECTION 100 MCG/2 ML AMP IV PRN ×3 (12:05→19:50)
--- NOTE | 2018-07-13 12:05 | NUR ---
YASMIN JIMENEZ admitted to room 411-1, with an admitting diagnosis of PULMONARY EMBOLISM, on 07/13/18 from ER via WHEELCHAIR, accompanied by STAFF.YASMIN JIMENEZ introduced to surroundings, call light, bed controls, phone, TV, temperature control, lights, meal times, smoking policy, visitor policy, side rail policy, bathrooms and showers. Patient Rights given to patient in the handbook. YASMIN JIMENEZ verbalizes understanding that [facility] is not responsible for the loss or damage to any personal effects or valuables that are kept in the patients posession during their hospitalization. YASMIN JIMENEZ verbalizes understanding of Interdisciplinary Patient Education. Patient and/or family were informed about the Rapid Response Team and its purpose.
[2018-07-13] MEDS ORDERED: FLUO20CA25 PO (12:09)
--- NOTE | 2018-07-13 12:17 | NUR ---
WENT OVER THE EXT MED HX WITH THE PATIENT AND SHE VERIFIED HOW SHE TAKES HER MEDICATIONS. SHE STATES SHE IS SUPPOSED TO TAKE FOLIC ACID AND IRON HOWEVER SHE DOES NOT TAKE THEM VERY OFTEN, SHE FEELS THE IRON MAKES HER BELCH. SHE TAKES RANITIDINE 150MG BID OTC.
--- NOTE | 2018-07-13 12:18 | History & Physical-Hospitalist ---
History of Present Illness HPI/Chief Complaint CC: Saddle acute pulmonary embolism HPI: This is a 48yoWF clinic patient of Dr Powers who was just released after seeing Dr Fowler yesterday 7 weeks after a complete Hyst due to Stage 1 endometrial carcinoma who was not placed on hormones who presented to the ER with chest pain and was found to have elevated d-dimer and CT chest confirmed saddle PE. Patient quit smoking 18 yrs ago but has h/o Lap-Band 4 yrs ago. 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 Patient reports her chest hurts but she is not having any hypoxia. I did update her PCP and Dr Fowler. Dr Raines has been consulted and ECHO has been ordered. Lovenox was initiated. Source: patient, RN/MD, old records Date Seen 07/13/18 Time Seen by a Provider: 11:15 Attending Physician Therese Nance Lisa A MD Referring Physician Date of Admission July 13, 2018 at 11:08 Home Medications & Allergies Home Medications Reviewed patient Home Medication Reconciliation performed by pharmacy medication reconciliations optomechanical technician and/or nursing. Patients Allergies have been reviewed. Allergies Allergies Coded Allergies Penicillins (Unverified Allergy, Unknown, Pt has received Ceftriaxone in the past w/o issue, 05/25/18) Uncoded Allergies STERIODS ( Allergy, Intermediate, HALLICINATIONS, 12/18/11) BEES ( Allergy, Unknown, 05/24/18) paper tape ( Allergy, Unknown, 05/24/18) Past Nfdwrxo-Bctfmx-Eqtqfu Hx Past Med/Social Hx: Reviewed Nursing Past Med/Soc Hx, Reviewed and Corrections made Patient Social History Marrital Status: single Employed/Student: employed Alcohol Use: Rarely Uses Recreational Drug Use: No Smoking Status: Former Smoker (quit 18 yrs ago) 2nd Hand Smoke Exposure: No Recent Foreign Travel: No Contact w/other who traveled: No Recent Hopitalizations: No Recent Infectious Disease Expo: No Immunizations Up To Date Tetanus Booster (TDap): Less than 5yrs Seasonal Allergies Seasonal Allergies: Yes (at times-mild) Past Medical History Surgeries: Abdominal (Lap-Band), Section, Gallbladder, Hysterectomy ([address] Fowler for endometrial [place] Stage 1), Thyroidectomy, Tonsillectomy Reproductive: No Sexually Transmitted Disease: No HIV/AIDS: No Tubal Ligation Genitourinary: Bladder Infection Gastrointestinal: Gastroesophageal Reflux, Hiatal Hernia Endocrine: Hypothyroidsim History of Blood Disorders: Yes (hx ANEMIA) Adverse Reaction to Blood Atkinson: No Family History Alcoholism 19 FATHER 19 MOTHER Colon cancer 19 FATHER Drug abuse 19 FATHER 19 MOTHER FH: uterine cancer 19 MOTHER Hypertension 19 FATHER 19 MOTHER No Pertinent Family Hx Review of Systems Constitutional: see HPI, dizziness EENTM: no symptoms reported Respiratory: cough, dyspnea on exertion, short of breath Cardiovascular: chest pain Gastrointestinal: no symptoms reported Genitourinary: no symptoms reported Musculoskeletal: no symptoms reported Skin: no symptoms reported Psychiatric/Neurological: No Symptoms Reported All Other Systems Reviewed Negative Unless Noted: Yes Physical Exam Physical Exam Vital Signs Vital Signs - First Documented 07/13/18 07:15 Temp 98.1 Pulse 76 Resp 18 B/P (MAP) 126/85 (99) Pulse Ox 98 Capillary Refill : Less Than 3 Seconds Height, Weight, BMI Height: 5'9.00" Weight: 183lbs. 0oz. 83.391832vp; 29.5 BMI Method:Actual General Appearance: WD/WN, Anxious, Mild Distress Eyes: Right Eye Normal Inspection, Right Eye PERRL HEENT: PERRL/EOMI, Normal ENT Inspection, Pharynx Normal, Moist Mucous Membranes Neck: Full Range of Motion, Normal Inspection, Non Tender Respiratory: Chest Non Tender, Normal Breath Sounds, No Accessory Muscle Use, No Respiratory Distress, Decreased Breath Sounds Cardiovascular: Regular Rate, Rhythm, No Edema, No Gallop, No JVD, No Murmur, Normal Peripheral Pulses Gastrointestinal: Normal Bowel Sounds, No Organomegaly, No Pulsatile Mass, Non Tender, Soft Back: Normal Inspection, No CVA Tenderness, No Vertebral Tenderness Extremity: Normal Capillary Refill, Normal Inspection, Normal Range of Motion, Non Tender, No Calf Tenderness, No Pedal Edema Neurologic/Psychiatric: Alert, Oriented x3, No Motor/Sensory Deficits, Normal Mood/Affect Skin: Normal Color, Warm/Dry Lymphatic: No Adenopathy Results Results/Procedures Labs Laboratory Tests 07/13/18 07:35 Patient resulted labs reviewed. Assessment/Plan Admission Diagnosis Assessment: Acute saddle PE Recent Hyst 7 weeks ago without hormone addition in former smoker quit 18 yrs ago h/o Lap-Band 4 yrs ago Hypothyroidism Plan: Lovehéctor Raines consultation ECHO Admission Status: Inpatient Order (span 2 midnights) Reason for Inpatient Admission: Saddle PE Diagnosis/Problems Diagnosis/Problems (1) Chest pain Status: Acute Qualifiers: Chest pain type: other chest pain Qualified Codes: R07.89 - Other chest pain (2) Pulmonary embolus Status: Acute Qualifiers: Pulmonary embolism type: other Chronicity: acute Acute cor pulmonale presence: without acute cor pulmonale Qualified Codes: I26.99 - Other pulmonary embolism without acute cor pulmonale (3) Pulmonary infarct Status: Acute (4) Hypothyroidism Status: Chronic Qualifiers: Hypothyroidism type: acquired Qualified Codes: E03.9 - Hypothyroidism, unspecified (5) LAP-BAND surgery status Status: Chronic (6) Former smoker Status: Chronic Clinical Quality Measures DVT/VTE Risk/Contraindication: Risk Factor Score Per Nursin RFS Level Per Nursing on Admit: 4+=Very High THERESE NANCE DO July 13, 2018 12:18
[2018-07-13] MEDS ORDERED: NON-FORMULARY MEDICATION 1 EA EA (Ranitidine HCl (Acid Reducer (RANITIDINE)) 150 MG) PO SCH ×2 (13:30→21:00)
[2018-07-13] MEDS: LEVOTHYROXINE 125 MCG (LEVOTHROID) TABLET PO SCH (13:48)
[2018-07-13] MEDS: ACETAMINOPHEN 325 MG TABLET PO PRN ×2 (13:49→23:50)
--- NOTE | 2018-07-13 14:32 | Pulmonary Consultation ---
History of Present Illness History of Present Illness Date of Consultation 07/13/18 14:28 Time Seen by Provider: 14:28 Date of Admission Allergies and Home Medications Allergies Coded Allergies: Penicillins (Unverified Allergy, Unknown, Pt has received Ceftriaxone in the past w/o issue, 05/25/18) Uncoded Allergies: STERIODS (Allergy, Intermediate, HALLICINATIONS, 12/18/11) BEES (Allergy, Unknown, 05/24/18) paper tape (Allergy, Unknown, 05/24/18) Home Medications Fluoxetine HCl 20 Mg Capsule, 20 MG PO 1700, (Reported) Levothyroxine Sodium 125 Mcg Tablet, 125 MCG PO DAILY, (Reported) Ranitidine HCl 150 Mg Tablet, 150 MG PO BID, (Reported) Past Cjzpjqf-Jdrswm-Tgowuu Hx Past Med/Social Hx: Reviewed Nursing Past Med/Soc Hx, Reviewed and Corrections made Patient Social History Alcohol Use: Rarely Uses Recreational Drug Use: No Smoking Status: Former Smoker (quit 18 yrs ago) 2nd Hand Smoke Exposure: No Recent Foreign Travel: No Contact w/Someone Who Travel: No Recent Infectious Disease Expo: No Recent Hopitalizations: No Physical Abuse: No Sexual Abuse: No Immunizations Up To Date Tetanus Booster (TDap): Less than 5yrs Seasonal Allergies Seasonal Allergies: Yes (at times-mild) Past Medical History Surgeries: Yes (LAP BAND-with hiatal hernia, c/s x5, breast bx) Abdominal (Lap-Band), Section, Gallbladder, Hysterectomy ([address] Fowler for endometrial [place] Stage 1), Thyroidectomy, Tonsillectomy Respiratory: No Pneumonia Cardiac: No Neurological: Yes Reproductive Disorders: No MOUNTER 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 DYSPHAGIA) Gastroesophageal Reflux, Hiatal Hernia Musculoskeletal: No Endocrine: Yes (thyroidectomy) Hypothyroidsim HEENT: No Cancer: No Psychosocial: No Integumentary: No Blood Disorders: Yes (hx ANEMIA) Adverse Reaction/Blood Tranf: No Family Medical History Alcoholism 19 FATHER 19 MOTHER Colon cancer 19 FATHER Drug abuse 19 FATHER 19 MOTHER FH: uterine cancer 19 MOTHER Hypertension 19 FATHER 19 MOTHER No Pertinent Family Hx Sepsis Event Evaluation Height, Weight, BMI Height: 5'9.00" Weight: 183lbs. 0.0oz. 83.313416bo; 29.5 BMI Method:Actual Exam Exam Vital Signs Date Time Temp Pulse Resp B/P (MAP) Pulse Ox O2 Delivery O2 Flow Rate FiO2 07/13/18 12:20 Room Air 07/13/18 12:00 99.4 71 18 118/79 (92) 99 Room Air 07/13/18 11:27 98.1 76 18 126/85 (99) 98 07/13/18 07:15 98.1 76 18 126/85 (99) 98 Height & Weight Height: 5'9.00" Weight: 183lbs. 0.0oz. 83.389832mj; 29.5 BMI Method:Actual General Appearance: WD/WN, Anxious, Mild Distress HEENT: PERRL/EOMI, Normal ENT Inspection, Pharynx Normal, Moist Mucous Membranes Neck: Full Range of Motion, Normal Inspection, Non Tender Respiratory: Chest Non Tender, Normal Breath Sounds, No Accessory Muscle Use, No Respiratory Distress, Decreased Breath Sounds Cardiovascular: Regular Rate, Rhythm, No Edema, No Gallop, No JVD, No Murmur, Normal Peripheral Pulses Capillary Refill: Less Than 3 Seconds Extremity: Normal Capillary Refill, Normal Inspection, Normal Range of Motion, Non Tender, No Calf Tenderness, No Pedal Edema Neurologic/Psychiatric: Alert, Oriented x3, No Motor/Sensory Deficits, Normal Mood/Affect Skin: Normal Color, Warm/Dry Lymphatic: No Adenopathy Results Lab Laboratory Tests 07/13/18 07:35 Assessment/Plan Assessment/Plan Acute PE with hypoxia CP secondary to PE HYpothyroid hx of lap-band surgery hx of tobacco use ALPHONSE TORO DO July 13, 2018 14:32
[2018-07-13] MEDS: FAMOTIDINE 20 MG (PEPCID) TABLET PO SCH ×2 (14:35→21:18)
--- NOTE | 2018-07-13 15:23 | Diagnostic Imaging Report ---
PROCEDURE: US Venous Lower Ext Randy. INDICATION: Pulmonary embolism. TECHNIQUE: Grayscale with color-flow and Doppler waveform evaluation of the bilateral lower extremity deep venous systems. CORRELATION STUDY: None FINDINGS: Color and grayscale sonographic images demonstrate no intraluminal defect within the visualized portion of the common femoral, superficial femoral and/or popliteal veins to suggest thrombus formation. These vessels demonstrate normal response to compression and augmentation. No soft tissue fluid collection. IMPRESSION: 1. Negative for deep venous thrombosis of either leg. Dictated by: Dictated on workstation # [id number]
[2018-07-13 16:00] VITALS: BP 116/76
[2018-07-13] MEDS ORDERED: FLUoxetine HCL 20 MG (PROzac) CAP PO SCH (17:00)
[2018-07-13 19:21] VITALS: BP 132/83
[2018-07-13] MEDS ORDERED: FAMOTIDINE 20 MG (PEPCID) TABLET PO SCH (21:00)
[2018-07-13] MEDS ORDERED: ENOXAPARIN 80 MG/0.8 ML (LOVENOX) SYR SC SCH (22:00)
[2018-07-13 23:25] VITALS: BP 156/90
[2018-07-14] MEDS: fentaNYL INJECTION 100 MCG/2 ML AMP IV PRN ×3 (02:47→11:06)
[2018-07-14 04:06] VITALS: BP 116/79
[2018-07-14] MEDS: ACETAMINOPHEN 325 MG TABLET PO PRN ×2 (04:30→11:06)
[2018-07-14 05:20] LABS: BASOPHILS % (AUTO) 0 % (0-10); EOSINOPHILS # (AUTO) 0.1 10^3/uL (0.0-0.3); EOSINOPHILS % (AUTO) 1 % (0-10); HEMATOCRIT 36 % (35-52); HEMOGLOBIN 11.5 G/DL (11.5-16.0); LYMPHOCYTES % (AUTO) 33 % (12-44); MEAN CORPUSCULAR HEMOGLOBIN 25 PG (25-34); MEAN CORPUSCULAR HGB CONC 32 G/DL (32-36); MEAN CORPUSCULAR VOLUME 78 FL (80-99); MEAN PLATELET VOLUME 9.5 FL (7.4-10.4); MONOCYTES # (AUTO) 0.6 X 10^3 (0.0-1.0); MONOCYTES % (AUTO) 10 % (0-12); NEUTROPHILS # (AUTO) 3.3 X 10^3 (1.8-7.8); NEUTROPHILS % (AUTO) 55 % (42-75); PLATELET COUNT 294 10^3/uL (130-400); RED CELL DISTRIBUTION WIDTH 15.8 % (10.0-14.5); WHITE BLOOD COUNT 5.9 10^3/uL (4.3-11.0)
--- NOTE | 2018-07-14 05:31 | Pulmonary Progress Note ---
Subjective Time Seen by a Provider: 05:49 Subjective/Events-last exam PT complains of SOB however she is only on RA. She is still having pleuritic pain. Sepsis Event Evaluation Height, Weight, BMI Height: 5'9.00" Weight: 183lbs. 0.0oz. 83.853350xk; 27.0 BMI Method:Actual Exam Exam Vital Signs Date Time Temp Pulse Resp B/P (MAP) Pulse Ox O2 Delivery O2 Flow Rate FiO2 07/14/18 04:06 98.7 69 18 116/79 (91) 95 Room Air 07/14/18 01:00 70 07/13/18 23:25 98.2 80 18 156/90 (112) 97 Room Air 07/13/18 22:30 Room Air 07/13/18 19:21 97.8 63 18 132/83 (99) 98 Room Air 07/13/18 19:00 63 07/13/18 16:00 97.6 67 18 116/76 (89) 98 Room Air 07/13/18 14:52 75 07/13/18 12:20 Room Air 07/13/18 12:00 99.4 71 20 118/79 99 Room Air 07/13/18 12:00 99.4 71 18 118/79 (92) 99 Room Air 07/13/18 11:27 98.1 76 18 126/85 (99) 98 07/13/18 07:15 98.1 76 18 126/85 (99) 98 I & O 07/14/18 07:00 Intake Total 560 ml Balance 560 ml Height & Weight Height: 5'9.00" Weight: 183lbs. 0.0oz. 83.975204cg; 27.0 BMI Method:Actual General Appearance: No Apparent Distress, WD/WN, Anxious HEENT: PERRL/EOMI, Normal ENT Inspection, Pharynx Normal, Moist Mucous Membranes Neck: Full Range of Motion, Normal Inspection, Non Tender Respiratory: Chest Non Tender, Normal Breath Sounds, No Accessory Muscle Use, No Respiratory Distress, Decreased Breath Sounds Cardiovascular: Regular Rate, Rhythm, No Edema, No Gallop, No JVD, No Murmur, N ormal Peripheral Pulses Capillary Refill: Less Than 3 Seconds Extremity: Normal Capillary Refill, Normal Inspection, Normal Range of Motion, Non Tender, No Calf Tenderness, No Pedal Edema Neurologic/Psychiatric: Alert, Oriented x3, No Motor/Sensory Deficits, Normal Mood/Affect Skin: Normal Color, Warm/Dry Lymphatic: No Adenopathy Results Lab Laboratory Tests 07/13/18 07:35 07/14/18 04:45 Assessment/Plan Assessment/Plan Acute PE with improving hypoxia -Change Lovenox to Xeralto 15mg x 21 days then 20mg daily -Will order ambulation oxy study Hx of endometrial cancer s/p hysterectomy CP secondary to PE HYpothyroid hx of lap-band surgery hx of tobacco use I explained to pt possible side effects of Xarelto and alternative meds including Coumadin. After discussion she agrees with Xarelto and understands the risk associated with anticoagulation. She will prefer Xarelto over Coumadin. ALPHONSE TORO DO July 14, 2018 05:31
[2018-07-14] MEDS: LEVOTHYROXINE 125 MCG (LEVOTHROID) TABLET PO SCH (05:39)
[2018-07-14 05:43] LABS: ALANINE AMINOTRANSFERASE 18 U/L (0-55); ALKALINE PHOSPHATASE 64 U/L (40-136); BILIRUBIN,TOTAL 0.4 MG/DL (0.1-1.0); BUN/CREATININE RATIO 11; CALCIUM 8.9 MG/DL (8.5-10.1); CARBON DIOXIDE 21 MMOL/L (21-32); CHLORIDE 104 MMOL/L (98-107); CREATININE SERUM 0.79 MG/DL (0.60-1.30); GFR ESTIMATED > 60; GLUCOSE 112 MG/DL (70-105); POTASSIUM 3.5 MMOL/L (3.6-5.0); SODIUM 137 MMOL/L (135-145); TOTAL PROTEIN 7.5 GM/DL (6.4-8.2)
[2018-07-14] MEDS ORDERED: RIVAROXABAN 15 MG TABLET (XARELTO) PO SCH (07:00)
[2018-07-14 07:51] VITALS: BP 115/77
[2018-07-14] MEDS: FAMOTIDINE 20 MG (PEPCID) TABLET PO SCH (08:04)
[2018-07-14] MEDS ORDERED: LEVOTHYROXINE 125 MCG (LEVOTHROID) TABLET PO SCH (09:00)
[2018-07-14 12:34] VITALS: BP 114/71
[2018-07-14] MEDS ORDERED: RIVA20TA PO (12:44)
[2018-07-14] MEDS ORDERED: RIVA15TA2 PO (12:44)
--- NOTE | 2018-07-14 12:52 | Discharge Summary-Hospitalist ---
Diagnosis/Chief Complaint Date of Admission July 13, 2018 at 11:08 Date of Discharge Jul 14 2018 Discharge Date: July 14, 2018 Discharge Time: 14:00 Admission Diagnosis Assessment: Acute saddle PE Recent Hyst 7 weeks ago without hormone addition in former smoker quit 18 yrs ago h/o Lap-Band 4 yrs ago Hypothyroidism Plan: Lovenox Dr Raines consultation ECHO Discharge Diagnosis Pulmonary embolus Endometrial cancer status post hysterectomy 7 weeks ago Hypothyroidism History gastric band (1) Chest pain Status: Acute (2) Pulmonary embolus Status: Acute (3) Pulmonary infarct Status: Acute (4) Hypothyroidism Status: Chronic (5) LAP-BAND surgery status Status: Chronic (6) Former smoker Status: Chronic Discharge Summary Procedures/Consulations CT chest pulmonary angiogram Venous Doppler Consult with Dr. Matias Discharge Physical Exam Allergies: Coded Allergies: Penicillins (Unverified Allergy, Unknown, Pt has received Ceftriaxone in the past w/o issue, 05/25/18) Uncoded Allergies: STERIODS (Allergy, Intermediate, HALLICINATIONS, 12/18/11) BEES (Allergy, Unknown, 05/24/18) paper tape (Allergy, Unknown, 05/24/18) Vitals & I&Os Vital Signs Date Time Temp Pulse Resp B/P (MAP) Pulse Ox O2 Delivery O2 Flow Rate FiO2 07/14/18 12:34 97.6 69 20 114/71 (85) 96 Room Air General Appearance: No Apparent Distress, WD/WN HEENT: Normal ENT Inspection Respiratory: Chest Non Tender, Lungs Clear, Normal Breath Sounds, No Accessory Muscle Use, No Respiratory Distress Cardiovascular: Regular Rate, Rhythm, No Murmur, Normal Peripheral Pulses Gastrointestinal: Normal Bowel Sounds, No Pulsatile Mass, Non Tender, Soft Extremity: Normal Capillary Refill, Normal Inspection, Normal Range of Motion, Non Tender, No Calf Tenderness, No Pedal Edema Skin: Normal Color, Warm/Dry Neurologic/Psychiatric: Alert, Oriented x3, No Motor/Sensory Deficits, Depressed Affect Hospital Course Labs (last 24 hrs) Laboratory Tests 07/14/18 04:45: White Blood Count 5.9, Red Blood Count 4.66, Hemoglobin 11.5, Hematocrit 36, Mean Corpuscular Volume 78L, Mean Corpuscular Hemoglobin 25, Mean Corpuscular Hemoglobin Concent 32, Red Cell Distribution Width 15.8H, Platelet Count 294, Mean Platelet Volume 9.5, Neutrophils (%) (Auto) 55, Lymphocytes (%) (Auto) 33, Monocytes (%) (Auto) 10, Eosinophils (%) (Auto) 1, Basophils (%) (Auto) 0, Neutrophils # (Auto) 3.3, Lymphocytes # (Auto) 2.0, Monocytes # (Auto) 0.6, Eosinophils # (Auto) 0.1, Basophils # (Auto) 0.0, Sodium Level 137, Potassium Level 3.5L, Chloride Level 104, Carbon Dioxide Level 21, Anion Gap 12, Blood Urea Nitrogen 9, Creatinine 0.79, Estimat Glomerular Filtration Rate > 60, BUN/Creatinine Ratio 11, Glucose Level 112H, Calcium Level 8.9, Corrected Calcium 8.9, Total Bilirubin 0.4, Aspartate Amino Transf (AST/SGOT) 17, Alanine Aminotransferase (ALT/SGPT) 18, Alkaline Phosphatase 64, Total Protein 7.5, Albumin 4.0 Patient resulted labs reviewed. Imaging: Reviewed Imaging Report Discussion & Recommendations Discharge Planning: <30 minutes discharge planning This is a 48-year-old white female who is admitted with an acute pulmonary emboli. Patient was seen in consultation by Dr. Raines who recommended Xarelto 15 mg twice a day for 21 days and then 20 mg a day for 6 months. Venous Doppler of the legs was negative. The patient was hemodynamically stable throughout the hospitalization and her oxygen saturation remained above 90 percent. At the time of discharge the patient is having some chest discomfort that is pleuritic in nature but improved. Discharge Home Medications: Active Scripts Active Xarelto (Rivaroxaban) 20 Mg Tablet 20 Mg PO DAILY 30 Days Xarelto Tablet (Rivaroxaban) 15 Mg Tablet 15 Mg PO BID@,17 21 Days take 1 tabket twice a day for 21 days then 20mg once a day for 6 months Reported Fluoxetine HCl 20 Mg Capsule 20 Mg PO 1700 Acid Field Technical Specialist (RANITIDINE) (Ranitidine HCl) 150 Mg Tablet 150 Mg PO BID Levothyroxine Sodium 125 Mcg Tablet 125 Mcg PO DAILY Instructions to patient/family Please see electronic discharge instructions given to patient. Clinical Quality Measures DVT/VTE Risk/Contraindication: Risk Factor Score Per Nursin RFS Level Per Nursing on Admit: 4+=Very High Copy Copies To 1: ERICA ADAM MD Problem Qualifiers (1) Chest pain: Chest pain type: other chest pain Qualified Codes: R07.89 - Other chest pain (2) Pulmonary embolus: Pulmonary embolism type: other Chronicity: acute Acute cor pulmonale presence: without acute cor pulmonale Qualified Codes: I26.99 - Other pulmonary embolism without acute cor pulmonale (3) Hypothyroidism: Hypothyroidism type: acquired Qualified Codes: E03.9 - Hypothyroidism, unsp ecified NIK SILVA MD July 14, 2018 12:52
[2018-07-14 13:23] VITALS: BP 114/71
--- NOTE | 2018-07-14 13:24 | NUR ---
YASMIN JIMENEZ demonstrates understanding of discharge instructions and accurately returns instructions upon questioning. Copy of Post-Discharge Instructions and Medication Discharge Instructions given to PATIENT. YASMIN JIMENEZ is able to manage continuing needs after discharge. Patients belongings returned to [place]. Skin dry and intact; no breakdown noted. Patient discharged from 411-1 on at 1323. YASMIN JIMENEZ left floor AMBULATORY, accompanied by STAFF AND SIGNIFICANT OTHER.
== END 2018-07-14 13:23 | disposition home or self-care (01) | DRG 176 ==
LOC: EDUNIT# 07:15 → ER 07:16 → 4TH 11:08
PROVIDERS: ADMIT Internal Medicine; ATTEND Internal Medicine
DX: I26.99 Other pulmonary embolism without acute cor pulmonale (principal); R07.81 Pleurodynia; K21.9 Gastro-esophageal reflux disease without esophagitis; K44.9 Diaphragmatic hernia without obstruction or gangrene; E89.0 Postprocedural hypothyroidism; C54.1 Malignant neoplasm of endometrium; Z98.84 Bariatric surgery status; Z90.710 Acquired absence of both cervix and uterus; Z87.891 Personal history of nicotine dependence
CPT/HCPCS: 36415; 71046; 71100; 71275; 80053; 85025; 85379; 93005; 93306; 93970; 94664; 94761; 96361; 96372; 96374; 96376

== ENCOUNTER 2018-08-28 02:06 | Emergency (ER) | payer OTHER ==
[~2018-08-28] VITALS: Ht 175.3 cm; Wt 81.6 kg
[~2018-08-28 02:06] MED LIST changes: +FLUO20CA25 PO; +RIVA15TA2 PO; +RIVA20TA PO
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
--- NOTE | 2018-08-28 03:50 | NUR ---
Laceration to lt lateral eye cleaned with chlorhexidine solution and normal saline. X1 steri strip applied.
[2018-08-28 03:57] VITALS: BP 156/99
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
--- OUTSIDE RECORDS SUMMARY | 2018-08-28 07:37 | XMS REPORT | Clinical Summary ---
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
--- OUTSIDE RECORDS SUMMARY | 2018-08-28 07:38 | XMS REPORT | Continuity of Care Document ---
Author Organization Unknown Address Unknown Allergies Active Description Code Type Severity Reaction Onset Reported/Identified Relationship to Patient Clinical Status Yes PENICILLINS PENICILLINS SEVERE Yes SOLU-MEDROL SOLU-MEDROL SEVERE Yes PENICILLINS SEVERE DERMATOLOGICAL - PATI Yes PENICILLINS SEVERE SEVERE Yes SOLU-MEDROL SEVERE SEVERE Yes SOLU-MEDROL SEVERE SIDE EFFECT Yes STEROIDS STEROIDS Unknown N/A 10/10/2010 Yes STERIODS STERIODS Moderate HALLICINATIONS 12/18/2011 Yes BEES BEES Unknown N/A 05/24/2018 Yes PAPER PAPER Unknown N/A 05/24/2018 Yes paper tape paper tape Unknown N/A 05/24/2018 Yes Penicillins [id number] Drug Allergy Unknown N/A 05/24/2018 Yes Penicillins [id number] Drug Allergy Unknown Pt has received 05/25/2018 [...] DO Ot 780.96 GENERALIZED PAIN 06/07/2014 CHAU KAUR APRN Ot 923.11 CONTUSION OF ELBOW 06/07/2014 CHAU KAUR APRN Ot 959.3 ELB/FOREARM/WRST INJ NOS 06/07/2014 CHAU KAUR APRN Ot E000.8 OTHER EXTERNAL CAUSE STATUS 06/07/2014 CHAU KAUR [facility] [facility] Ot E834.9 W/CRFT FALL NEC-PERS NOS 01/18/2015 PARADISE MCDONALD MD Ot S61.300A UNSP OPEN WOUND OF RIGHT INDEX FINGER W 01/18/2015 PARADISE MCDONALD MD Ot W22.8XXA STRIKING AGAINST OR STRUCK BY OTHER OBJE 01/18/2015 PARADISE MCDONALD MD Ot Y92.[address] 01/18/2015 PARADISE MCDONALD MD Ot Y93.59 ACTIVITY, OTH W OT SPORTS AND ATHLETICS 01/18/2015 PARADISE MCDONALD MD Ot Y99.8 OTHER EXTERNAL CAUSE STATUS 04/14/2016 CHAU KAUR APRN Ot M65.841 OTHER SYNOVITIS AND TENOSYNOVITIS, RIGHT 04/14/2016 CHAU KAUR [facility] Ot M79.641 PAIN IN RIGHT HAND 04/15/2016 CHAU KAUR [facility] Ot M65.841 OTHER SYNOVITIS AND TENOSYNOVITIS, RIGHT 04/15/2016 CHAU KAUR APRN Ot M79.641 PAIN IN RIGHT HAND 06/10/2016 Eric Hawkins 244.9 UNSPECIFIED HYPOTHYROIDISM 06/10/2016 Eric Hawkins 466.0 ACUTE BRONCHITIS 06/10/2016 Eric Hawkins 530.81 ESOPHAGEAL REFLUX 06/10/2016 Eric Hawkins E03.9 HYPOTHYROIDISM, UNSPECIFIED 06/10/2016 Eric Hawkins J20.9 ACUTE BRONCHITIS, UNSPECIFIED 06/10/2016 Eric Hawkins K21.9 GASTRO- ESOPHAGEAL REFLUX DISEASE WITHOUT ESOPHAGITIS 01/24/2017 Shonda Powers 616.10 VAGINITIS AND VULVOVAGINITIS, UNSPECIFIED 01/24/2017 Shonda Powers W 788.1 DYSURIA 01/24/2017 Carmen Powersa A N76.0 ACUTE VAGINITIS 01/24/2017 Carmen Powersa W R30.0 DYSURIA 09/14/2017 GerrybBenya W 276.8 HYPOPOTASSEMIA 09/14/2017 Brokob, Aleshia A 599.0 URINARY TRACT INFECTION, SITE NOT SPECIFIED 09/14/2017 Brokob, Aleshia W E87.6 HYPOKALEMIA 09/14/2017 Brokob, Aleshia A N39.0 URINARY TRACT INFECTION, SITE NOT SPECIFIED 12/30/2017 Chau Kaur 599.0 URINARY TRACT INFECTION, SITE NOT SPECIFIED 12/30/2017 Chau Kaur N39.0 URINARY TRACT INFECTION, SITE NOT SPECIFIED [...] W 280.9 IRON DEFICIENCY ANEMIA, UNSPECIFIED 04/12/2018 LEISURE, LOUIS W D50.9 IRON DEFICIENCY ANEMIA, UNSPECIFIED 04/14/2018 Shonda Powers W 280.9 IRON DEFICIENCY ANEMIA, UNSPECIFIED 04/14/2018 Carmen Powersa W D50.9 IRON DEFICIENCY ANEMIA, UNSPECIFIED 04/14/2018 Shonda Powers W V45.86 BARIATRIC SURGERY STATUS 04/14/2018 Shonda Powers W Z98.84 BARIATRIC SURGERY STATUS 04/30/2018 Kimberly Ibarra 280.9 IRON DEFICIENCY ANEMIA, UNSPECIFIED 04/30/2018 Kimberly Ibarra W 455.0 INTERNAL HEMORRHOIDS WITHOUT MENTION OF COMPLICATION 04/30/2018 Fred Robcristina W 530.81 ESOPHAGEAL REFLUX 04/30/2018 Fred Robcristina W 787.7 ABNORMAL FECES 04/30/2018 Fred Robcristina W D50.9 IRON DEFICIENCY ANEMIA, UNSPECIFIED 04/30/2018 ChaloestherRobcristina W K21.0 GASTRO- ESOPHAGEAL REFLUX DISEASE WITH ESOPHAGITIS 04/30/2018 Fred Robcristina W K64.1 SECOND DEGREE HEMORRHOIDS 04/30/2018 Fred Robcristina W R19.5 OTHER FECAL ABNORMALITIES 04/30/2018 Fred Robcristina W V16.0 FAMILY HISTORY OF MALIGNANT NEOPLASM OF GASTROINTESTINAL TRACT 04/30/2018 Fred Robcristina W Z80.0 FAMILY HISTORY OF MALIGNANT NEOPLASM OF DIGESTIVE ORGANS 05/06/2018 Haylee Shi A W 280.9 IRON DEFICIENCY ANEMIA, UNSPECIFIED 05/06/2018 ShiAudrey patelissa A W 780.79 OTHER MALAISE AND FATIGUE 05/06/2018 ShiAudrey patelissa A W D50.9 IRON DEFICIENCY ANEMIA, UNSPECIFIED 05/06/2018 ShiHaylee patel A W R53.1 WEAKNESS 05/08/2018 DARLYN PAVON MD, Ot D64.9 ANEMIA, UNSPECIFIED 05/08/2018 DARLYN PAVON MD, Ot E03.9 HYPOTHYROIDISM, UNSPECIFIED 05/08/2018 DARLYN PAVON MD, Ot K21.9 GASTRO-ESOPHAGEAL REFLUX DISEASE WITHOUT 05/08/2018 DARLYN PAVON MD, Ot N39.0 URINARY TRACT INFECTION, SITE NOT [...] HISTORY OF NICOTINE DEPENDENCE 05/08/2018 DARLYN PAVON MD, Ot Z88.0 ALLERGY STATUS TO PENICILLIN 05/08/2018 DARLYN PAVON MD Ot Z88.8 ALLERGY STATUS TO OTH DRUG/MEDS/BIOL SUB 05/08/2018 DARLYN PAVON MD Ot Z90.89 ACQUIRED ABSENCE OF OTHER ORGANS 05/08/2018 DARLYN PAVON MD Ot Z98.51 TUBAL LIGATION STATUS 05/08/2018 DARLYN PAVON MD Ot Z98.84 BARIATRIC SURGERY STATUS 05/08/2018 DARLYN PAVON MD Ot Z98.890 OTHER SPECIFIED POSTPROCEDURAL STATES 05/10/2018 DARLYN PAVON MD Ot D64.9 ANEMIA, UNSPECIFIED 05/10/2018 DARLYN PAVON MD Ot E03.9 HYPOTHYROIDISM, UNSPECIFIED 05/10/2018 DARLYN PAVON MD Ot K21.9 GASTRO-ESOPHAGEAL REFLUX DISEASE WITHOUT 05/10/2018 DARLYN PAVON MD Ot N39.0 URINARY TRACT INFECTION, SITE NOT SPECIF 05/10/2018 DARLYN PAVON MD Ot N93.9 ABNORMAL UTERINE AND VAGINAL BLEEDING, U 05/10/2018 DARLYN PAVON MD Ot Z87.01 PERSONAL HISTORY OF PNEUMONIA (RECURRENT 05/10/2018 DARLYN PAVON MD Ot Z87.19 PERSONAL HISTORY OF OTHER DISEASES OF TH 05/10/2018 DARLYN PAVON MD Ot Z87.448 PERSONAL HISTORY OF OTHER DISEASES OF UR 05/10/2018 DARLYN PAVON MD Ot Z87.891 PERSONAL HISTORY OF NICOTINE DEPENDENCE 05/10/2018 DARLYN PAVON MD Ot Z88.0 ALLERGY STATUS TO PENICILLIN 05/10/2018 DARLYN PAVON MD Ot Z88.8 ALLERGY STATUS TO OTH DRUG/MEDS/BIOL SUB 05/10/2018 DARLYN PAVON MD Ot Z90.89 ACQUIRED ABSENCE OF OTHER ORGANS 05/10/2018 DARLYN PAVON MD Ot Z98.51 TUBAL LIGATION STATUS 05/10/2018 DARLYN PAVON MD Ot Z98.84 BARIATRIC SURGERY STATUS 05/10/2018 ADRLYN PAVON MD Ot Z98.890 OTHER SPECIFIED POSTPROCEDURAL STATES 05/11/2018 Eric Hawkins 098.89 GONOCOCCAL INFECTION OF OTHER SPECIFIED SITES 05/11/2018 Eric Hawkins Masood A54.9 GONOCOCCAL INFECTION, UNSPECIFIED 05/21/2018 TUNG COBOS DO Ot N93.9 ABNORMAL UTERINE AND VAGINAL BLEEDING, U 05/21/2018 CHANDRIKA TUNG MUKHERJEE Ot N93.9 ABNORMAL UTERINE AND VAGINAL BLEEDING, U 05/24/2018 CHANDRIKA TUNG MUKHERJEE Ot N85.00 ENDOMETRIAL HYPERPLASIA, UNSPECIFIED 05/24/2018 TUNG COBOS DO Ot Z01.812 ENCOUNTER FOR PREPROCEDURAL LABORATORY E 05/24/2018 CHANDRIKA TUNG MUKHERJEE Ot Z11.2 ENCOUNTER FOR SCREENING FOR OTHER BACTER 05/25/2018 TUNG COBOS DO Ot C54.1 MALIGNANT NEOPLASM OF ENDOMETRIUM 05/25/2018 TUNG COBOS DO Ot D50.0 IRON DEFICIENCY ANEMIA SECONDARY TO BLOO 05/25/2018 TUNG COBOS DO Ot E89.0 POSTPROCEDURAL HYPOTHYROIDISM 05/25/2018 TUNG COBOS DO Ot K21.9 GASTRO-ESOPHAGEAL REFLUX DISEASE WITHOUT 05/25/2018 TUNG COBOS DO Ot N83.12 CORPUS LUTEUM CYST OF LEFT OVARY 05/25/2018 TUNG COBOS DO Ot N83.8 OTH NONINFLAMMATORY DISORD OF OVARY, FAL 05/25/2018 TUNG COBOS DO Ot N92.0 EXCESSIVE AND FREQUENT MENSTRUATION WITH 05/25/2018 TUNG COBOS DO Ot Z79.899 OTHER USP (CURRENT) DRUG THERAPY 05/25/2018 TUNG COBOS DO Ot Z87.891 PERSONAL HISTORY OF NICOTINE DEPENDENCE 05/28/2018 TUNG COBOS DO Ot N85.00 ENDOMETRIAL HYPERPLASIA, UNSPECIFIED 05/28/2018 TUNG COBOS DO Ot Z01.812 ENCOUNTER FOR PREPROCEDURAL LABORATORY E 05/28/2018 TUNG COBOS DO Ot Z11.2 ENCOUNTER FOR SCREENING FOR OTHER BACTER 05/29/2018 TUNG COBOS DO Ot C54.1 MALIGNANT NEOPLASM OF ENDOMETRIUM 05/29/2018 TUNG COBOS DO Ot D50.0 IRON DEFICIENCY ANEMIA SECONDARY TO BLOO 05/29/2018 TUNG COBOS DO Ot E89.0 POSTPROCEDURAL HYPOTHYROIDISM 05/29/2018 TUNG COBOS DO Ot K21.9 GASTRO-ESOPHAGEAL REFLUX DISEASE WITHOUT 05/29/2018 FENECH DO TUNG S Ot N83.12 CORPUS LUTEUM CYST OF LEFT OVARY 05/29/2018 WALTERECH DO TUNG S Ot N83.8 OTH NONINFLAMMATORY DISORD OF OVARY, FAL 05/29/2018 WALTERECH DO TUNG S Ot N92.0 EXCESSIVE AND FREQUENT MENSTRUATION WITH 05/29/2018 FENECH DO TUNG S Ot Z79.899 OTHER USP (CURRENT) DRUG THERAPY 05/29/2018 CHANDRIKA DO TUNG S Ot Z87.891 PERSONAL HISTORY OF NICOTINE DEPENDENCE 05/31/2018 CHANDRIKA DOTUNG S Ot C54.1 MALIGNANT NEOPLASM OF ENDOMETRIUM 05/31/2018 WALTERECH DO TUNG S Ot D50.0 IRON DEFICIENCY ANEMIA SECONDARY TO BLOO 05/31/2018 CHANDRIKA DOTUNG S Ot E89.0 POSTPROCEDURAL HYPOTHYROIDISM 05/31/2018 WALTERECH DOTUNG S Ot K21.9 GASTRO-ESOPHAGEAL REFLUX DISEASE WITHOUT 05/31/2018 FENECH DOTUNG S Ot N83.12 CORPUS LUTEUM CYST OF LEFT OVARY 05/31/2018 CHANDRIKA DOTUNG S Ot N83.8 OTH NONINFLAMMATORY DISORD OF OVARY, FAL 05/31/2018 WALTERECH DOTUNG S Ot N92.0 EXCESSIVE AND FREQUENT MENSTRUATION WITH 05/31/2018 CHANDRIKA DOTUNG Carissa Ot Z79.899 OTHER USP (CURRENT) DRUG THERAPY 05/31/2018 CHANDRIKA DO TUNG S Ot Z87.891 PERSONAL HISTORY OF NICOTINE DEPENDENCE 06/06/2018 CHANDRIKA DOTUNG S Ot N93.9 ABNORMAL UTERINE AND VAGINAL BLEEDING, U 06/08/2018 WALTERROWENA TUNG MUKHERJEE S Ot C54.1 MALIGNANT NEOPLASM OF ENDOMETRIUM 06/08/2018 CHANDRIKA DOTUNG S Ot D50.0 IRON DEFICIENCY ANEMIA SECONDARY TO BLOO 06/08/2018 WALTERECH DOTUNG S Ot E89.0 POSTPROCEDURAL HYPOTHYROIDISM 06/08/2018 WALTERECH DOTUNG S Ot K21.9 GASTRO-ESOPHAGEAL REFLUX DISEASE WITHOUT 06/08/2018 FENECH DOTUNG S Ot N83.12 CORPUS LUTEUM CYST OF LEFT OVARY 06/08/2018 WALTERECH DOTUNG S Ot N83.8 OTH NONINFLAMMATORY DISORD OF OVARY, FAL 06/08/2018 FENECH DOTUNG S Ot N92.0 EXCESSIVE AND FREQUENT MENSTRUATION WITH 06/08/2018 TUNG COBOS DO Ot Z79.899 OTHER USP (CURRENT) DRUG THERAPY 06/08/2018 TUNG COBOS DO Ot Z87.891 PERSONAL HISTORY OF NICOTINE DEPENDENCE 06/10/2018 GENA MICHEL Ot D64.9 ANEMIA, UNSPECIFIED 06/10/2018 GENA MICHEL Ot E03.9 HYPOTHYROIDISM, UNSPECIFIED 06/10/2018 GENA MICHEL Ot K21.9 GASTRO- ESOPHAGEAL REFLUX DISEASE WITHOUT 06/10/2018 PEDRO MICHELIS Ot N39.0 URINARY TRACT INFECTION, SITE NOT SPECIF 06/10/2018 GENA MICHEL Ot R31.9 HEMATURIA, UNSPECIFIED 06/10/2018 GENA MICHEL Ot Z80.0 FAMILY HISTORY OF MALIGNANT NEOPLASM OF 06/10/2018 GENA MICHEL Ot Z80.49 FAMILY HISTORY OF MALIGNANT NEOPLASM OF 06/10/2018 PEDRO MICHELIS Ot Z87.01 PERSONAL HISTORY OF PNEUMONIA (RECURRENT 06/10/2018 GENA MICHEL Ot Z87.19 PERSONAL HISTORY OF OTHER DISEASES OF TH 06/10/2018 GENA MICHEL Ot Z87.448 PERSONAL HISTORY OF OTHER DISEASES OF UR 06/10/2018 GENA MICHEL Ot Z88.0 ALLERGY STATUS TO PENICILLIN 06/10/2018 PEDRO MICHELIS Ot Z88.8 ALLERGY STATUS TO OTH DRUG/MEDS/BIOL SUB 06/10/2018 GENA MICHEL Ot Z90.89 ACQUIRED ABSENCE OF OTHER ORGANS 06/10/2018 GENA MICHEL Ot Z91.048 OTHER NONMEDICINAL SUBSTANCE ALLERGY STA 06/10/2018 GENA MICHEL Ot Z98.51 TUBAL LIGATION STATUS 06/10/2018 PEDRO MICHELIS Ot Z98.84 BARIATRIC SURGERY STATUS 06/10/2018 PEDRO MICHELIS Ot Z98.890 OTHER SPECIFIED POSTPROCEDURAL STATES 06/12/2018 GENA MICHEL Ot D64.9 ANEMIA, UNSPECIFIED 06/12/2018 PEDRO MICHELIS Ot E03.9 HYPOTHYROIDISM, UNSPECIFIED 06/12/2018 GENA MICHEL Ot K21.9 GASTRO- ESOPHAGEAL REFLUX DISEASE WITHOUT 06/12/2018 PEDRO MICHELIS Ot N39.0 URINARY TRACT INFECTION, SITE NOT SPECIF 06/12/2018 GENA MICHEL Ot R31.9 HEMATURIA, UNSPECIFIED 06/12/2018 MARILU GENA Ot Z80.0 FAMILY HISTORY OF MALIGNANT NEOPLASM OF 06/12/2018 GENA MICHEL Ot Z80.49 FAMILY HISTORY OF MALIGNANT NEOPLASM OF 06/12/2018 CHRISTIANOGENA MALDONADO Ot Z87.01 PERSONAL HISTORY OF PNEUMONIA (RECURRENT 06/12/2018 CHRISTIANOGENA MALDONADO Ot Z87.19 PERSONAL HISTORY OF OTHER DISEASES OF TH 06/12/2018 GENA MICHEL Ot Z87.448 PERSONAL HISTORY OF OTHER DISEASES OF UR 06/12/2018 GENA MICHEL Ot Z88.0 ALLERGY STATUS TO PENICILLIN 06/12/2018 PEDRO MICHELIS Ot Z88.8 ALLERGY STATUS TO OTH DRUG/MEDS/BIOL SUB 06/12/2018 GENA MICHEL Ot Z90.89 ACQUIRED ABSENCE OF OTHER ORGANS 06/12/2018 GENA MICHEL Ot Z91.048 OTHER NONMEDICINAL SUBSTANCE ALLERGY STA 06/12/2018 GENA MICHEL Ot Z98.51 TUBAL LIGATION STATUS 06/12/2018 GENA MICHEL Ot Z98.84 BARIATRIC SURGERY STATUS 06/12/2018 GENA MICHEL Ot Z98.890 OTHER SPECIFIED POSTPROCEDURAL STATES 07/14/2018 GOYO MUKHERJEE RENAE Ot C54.1 MALIGNANT NEOPLASM OF ENDOMETRIUM 07/14/2018 GOYO MUKHERJEE RENAE Ot E89.0 POSTPROCEDURAL HYPOTHYROIDISM 07/14/2018 GOYO MUKHERJEE RENAE Ot I26.99 OTHER PULMONARY EMBOLISM WITHOUT ACUTE C 07/14/2018 GOYO MUKHERJEE RENAE Ot K21.9 GASTRO-ESOPHAGEAL REFLUX DISEASE WITHOUT 07/14/2018 GOYO MUKHERJEE RENAE Ot K44.9 DIAPHRAGMATIC HERNIA WITHOUT OBSTRUCTION 07/14/2018 GOYO MUKHERJEE RENAE Ot R07.81 PLEURODYNIA 07/14/2018 GOYO MUKHERJEE RENAE Ot Z87.891 PERSONAL HISTORY OF NICOTINE DEPENDENCE 07/14/2018 GOYO MUKHERJEE RENAE Ot Z90.710 ACQUIRED ABSENCE OF BOTH CERVIX AND UTER 07/14/2018 GOYO MUKHERJEE RENAE Ot Z98.84 BARIATRIC SURGERY STATUS Procedures There is [...] at 16:34 on 01/24/2017 CULTURE SOURCE clean [id number]\ Chlamydia/GC Amplification - 01/24/17 14:34 CHLAMYDIA TRACHOMATIS, [...] FINAL CULTURE RESULTS 20,000-50,000 Gram Positive Mixed Emlodie MEDIA PLATED Setup at 15:43 on 09/14/2017 [...] 5-8.5 Urine-Protein 2+ Negative Urine-RBC 5-10/HPF Urine-Specific [place] >=1.030 1.000-1.030 Urine-WBC TNTC Urobilinogen 0.2 0.2-1.0 [...] 5-8.5 Urine-Protein 1+ Negative Urine-RBC 20-40/HPF Urine-Specific [place] 1.020 1.000-1.030 Urine-WBC Negative Urobilinogen 0.2 E.U./dL 0.2-1.0 Thyroid Stimulating Hormone - 04/10/18 12:45 TSH 0.47 mIU/mL 0.32-5.00 IFOBT Occult Blood - 04/10/18 13:30 IFOBT Occult Blood POSITIVE Negative VIT B- - 04/10/18 13:31 Vitamin B12 165.00 pg/mL 213.00-816.00 CBC with Auto Diff - 04/14/18 14:53 Baso% 0.20 % 0.00-2.50 Eos 0.1 K/uL 0.0-0.7 Eos% 2.0 % 0.0-7.0 Hct 33.8 % 36.0-46.0 Hgb 10.1 g/dL 13.0-15.0 Lym 1.44 K/uL 0.60-3.40 Lym% 28.6 % 10.0-50.0 MCH 20.9 pg 27.0-31.0 MCHC 29.9 g/dL 32.0-36.0 MCV 69.8 fL 80.0-97.0 [place]% 5.8 % 0.0-12.0 MPV 9.1 fL 7.4-10.0 Janette% 63.4 % 37.0-80.0 Plt 452 K/uL 150-400 RBC 4.84 M/uL 3.60-5.00 RDW 19.1 % 11.6-14.8 WBC 5.04 K/uL 5.00-10.00 Janette 3.20 K/uL 2.00-6.90 [place] 0.3 K/uL 0.0-0.9 Baso 0.0 K/uL 0.0-0.2 Test-Serum - 04/30/18 10:17 Preg Test-S Negative Negative Surgical Pathology - 04/30/18 12:02 Surg Path Sent to [facility] Pathology CBC with Auto Diff - 05/06/18 17:35 Baso% 0.30 % 0.00-2.50 Eos 0.1 K/uL 0.0-0.7 Eos% 1.5 % 0.0-7.0 Hct 38.1 % 36.0-46.0 Hgb 11.9 g/dL 13.0-15.0 Lym 1.82 K/uL 0.60-3.40 Lym% 29.4 % 10.0-50.0 MCH 23.4 pg 27.0-31.0 MCHC 31.2 g/dL 32.0-36.0 MCV 74.9 fL 80.0-97.0 [place]% 9.2 % 0.0-12.0 MPV 10.0 fL 7.4-10.0 [place]% 59.6 % 37.0-80.0 Plt 410 K/uL 150-400 RBC 5.09 M/uL 3.60-5.00 RDW 24.3 % 11.6-14.8 WBC 6.20 K/uL 5.00-10.00 Janette 3.70 K/uL 2.00-6.90 [place] 0.6 K/uL 0.0-0.9 Baso 0.0 K/uL 0.0-0.2 [...] panel - 05/08/18 15:20 ABO+Rh group BP [facility] Transfusion band number [id number] [facility] Blood group antibody screen NEGATIVE [facility] Comprehensive metabolic panel - 05/08/18 [...] culture - 05/08/18 15:40 Bacterial urine culture [id number] NRG COLONY COUNT >100,000/ML NRG FTX;REPORTABLE BETA LACTAMASE NEGATIVE NRG FREE TEXT ENTRY 2 AMENDED REPORT SENT BY [facility] 05/10/18 15:05 NRG Urine beta human chorionic [...] ABO+Rh group BP [facility] Transfusion band number [id number] [facility] Blood group antibody screen NEGATIVE [facility] [...] 06/29/18 14:36 Free T3 2.77 pg/ml 1.45-3.48 Complete blood count (CBC) with automated white blood cell (WBC) differential - 07/13/18 07:35 Blood leukocytes automated count (number/volume) 6.4 10*3/uL 4.3-11.0 Blood erythrocytes automated count (number/volume) 4.95 10*6/uL 4.35-5.85 Venous blood hemoglobin measurement (mass/volume) 12.2 g/dL 11.5-16.0 Blood hematocrit (volume fraction) 38 % 35-52 Automated erythrocyte mean corpuscular volume 76 [foz_us] 80-99 Automated erythrocyte mean corpuscular hemoglobin (mass per erythrocyte) 25 pg 25-34 Automated erythrocyte mean corpuscular hemoglobin concentration measurement (mass/volume) 33 g/dL 32-36 Automated erythrocyte distribution width ratio 16.4 % 10.0- 14.5 Automated blood platelet count (count/volume) 295 10*3/uL 130-400 Automated blood platelet mean volume measurement 9.7 [foz_us] 7.4-10.4 Automated blood neutrophils/100 leukocytes 61 % 42-75 Automated blood lymphocytes/100 leukocytes 25 % 12-44 Blood monocytes/100 leukocytes 13 % 0-12 Automated blood eosinophils/100 leukocytes 1 % 0-10 Automated blood basophils/100 leukocytes 0 % 0-10 Blood neutrophils automated count (number/volume) 3.9 10*3 1.8-7.8 Blood lymphocytes automated count (number/volume) 1.6 10*3 1.0-4.0 Blood monocytes automated count (number/volume) 0.8 10*3 0.0- 1.0 Automated eosinophil count 0.1 10*3/uL 0.0-0.3 Automated blood basophil count (count/volume) 0.0 10*3/uL 0.0-0.1 Fibrin D-dimer FEU measurement in platelet poor plasma (mass/volume) - 07/13/18 07:35 Fibrin D-dimer FEU measurement in platelet poor plasma (mass/volume) 2.04 ug/mL 0.00-0.49 Comprehensive metabolic panel - 07/13/18 07:35 Serum or plasma sodium measurement (moles/volume) 139 mmol/L 135-145 Serum or plasma potassium measurement (moles/volume) 3.4 mmol/L 3.6-5.0 Serum or plasma chloride measurement (moles/volume) 104 mmol/L 98-107 Carbon dioxide 21 mmol/L 21-32 Serum or plasma anion gap determination (moles/volume) 14 mmol/L 5-14 Serum or plasma urea nitrogen measurement (mass/volume) 16 mg/dL 7-18 Serum or plasma creatinine measurement (mass/volume) 0.79 mg/dL 0.60-1.30 Serum or plasma urea nitrogen/creatinine mass ratio 20 NRG Serum or plasma creatinine measurement with calculation of estimated glomerular filtration rate > NRG Serum or plasma glucose measurement (mass/volume) 112 mg/dL 70-105 Serum or plasma calcium measurement (mass/volume) 9.3 mg/dL 8.5-10.1 Serum or plasma total bilirubin measurement (mass/volume) 0.4 mg/dL 0.1-1.0 Serum or plasma alkaline phosphatase measurement (enzymatic activity/volume) 72 U/L 40-136 Serum or plasma aspartate aminotransferase measurement (enzymatic activity/volume) 13 U/L 5-34 Serum or plasma alanine aminotransferase measurement (enzymatic activity/volume) 13 U/L 0-55 Serum or plasma protein measurement (mass/volume) 8.0 g/dL 6.4-8.2 Serum or plasma albumin measurement (mass/volume) 4.3 g/dL 3.2-4.5 CALCIUM CORRECTED 9.1 mg/dL 8.5-10.1 Complete blood count (CBC) with automated white blood cell (WBC) differential - 07/14/18 04:45 Blood leukocytes automated count (number/volume) 5.9 10*3/uL 4.3-11.0 Blood erythrocytes automated count (number/volume) 4.66 10*6/uL 4.35-5.85 Venous blood hemoglobin measurement (mass/volume) 11.5 g/dL 11.5-16.0 Blood hematocrit (volume fraction) 36 % 35-52 Automated erythrocyte mean corpuscular volume 78 [foz_us] 80-99 Automated erythrocyte mean corpuscular hemoglobin (mass per erythrocyte) 25 pg 25-34 Automated erythrocyte mean corpuscular hemoglobin concentration measurement (mass/volume) 32 g/dL 32-36 Automated erythrocyte distribution width ratio 15.8 % 10.0- 14.5 Automated blood platelet count (count/volume) 294 10*3/uL 130-400 Automated blood platelet mean volume measurement 9.5 [foz_us] 7.4-10.4 Automated blood neutrophils/100 leukocytes 55 % 42-75 Automated blood lymphocytes/100 leukocytes 33 % 12-44 Blood monocytes/100 leukocytes 10 % 0-12 Automated blood eosinophils/100 leukocytes 1 % 0-10 Automated blood basophils/100 leukocytes 0 % 0-10 Blood neutrophils automated count (number/volume) 3.3 10*3 1.8-7.8 Blood lymphocytes automated count (number/volume) 2.0 10*3 1.0-4.0 Blood monocytes automated count (number/volume) 0.6 10*3 0.0- 1.0 Automated eosinophil count 0.1 10*3/uL 0.0-0.3 Automated blood basophil count (count/volume) 0.0 10*3/uL 0.0-0.1 Comprehensive metabolic panel - 07/14/18 04:45 Serum or plasma sodium measurement (moles/volume) 137 mmol/L 135-145 Serum or plasma potassium measurement (moles/volume) 3.5 mmol/L 3.6-5.0 Serum or plasma chloride measurement (moles/volume) 104 mmol/L 98-107 Carbon dioxide 21 mmol/L 21-32 Serum or plasma anion gap determination (moles/volume) 12 mmol/L 5-14 Serum or plasma urea nitrogen measurement (mass/volume) 9 mg/dL 7-18 Serum or plasma creatinine measurement (mass/volume) 0.79 mg/dL 0.60-1.30 Serum or plasma urea nitrogen/creatinine mass ratio 11 NRG Serum or plasma creatinine measurement with calculation of estimated glomerular filtration rate > NRG Serum or plasma glucose measurement (mass/volume) 112 mg/dL 70-105 Serum or plasma calcium measurement (mass/volume) 8.9 mg/dL 8.5-10.1 Serum or plasma total bilirubin measurement (mass/volume) 0.4 mg/dL 0.1-1.0 Serum or plasma alkaline phosphatase measurement (enzymatic activity/volume) 64 U/L 40-136 Serum or plasma aspartate aminotransferase measurement (enzymatic activity/volume) 17 U/L 5-34 Serum or plasma alanine aminotransferase measurement (enzymatic activity/volume) 18 U/L 0-55 Serum or plasma protein measurement (mass/volume) 7.5 g/dL 6.4-8.2 Serum or plasma albumin measurement (mass/volume) 4.0 g/dL 3.2-4.5 CALCIUM CORRECTED 8.9 mg/dL 8.5-10.1 Encounters ACCT No. Visit Date/Time Discharge Status Pt. Type Provider Facility Loc./Unit Complaint [id number] 06/29/2018 14:33:00 06/29/2018 23:59:00 DIS Outpatient Shonda Powers [id number] 05/11/2018 17:59:00 05/11/2018 18:56:[id number]06/2018 16:49:00 05/06/2018 18:40:00 DIS Outpatient Haylee Shi [facility] ER [id number] 04/30/2018 09:32:00 04/30/2018 12:31:00 DIS Outpatient Kimberly Ibarra [id number] 04/14/2018 14:08:00 04/14/2018 14:50:00 DIS Outpatient Shonda Powers [id number] 04/12/2018 14:42:00 04/12/2018 15:40:00 DIS Outpatient LOUIS SOMMERS [id number] 04/10/2018 11:53:00 04/10/2018 15:03:00 [id number] 12/30/2017 17:42:00 12/30/2017 18:53:00 DIS Outpatient Shawn [facility] ER [id number] 12/26/2017 12:26:00 12/26/2017 23:59:00 DIS Outpatient Shonda Powers [id number] 09/27/2017 18:15:00 09/27/2017 23:59:00 DIS Outpatient Shonda Powers [id number] 09/14/2017 15:10:00 09/14/2017 17:35:00 DIS Outpatient [facility] ER [id number] 01/24/2017 16:02:00 01/24/2017 16:45:00 DIS Outpatient Aleshia Washington [id number] 01/24/2017 14:38:00 01/24/2017 15:45:00 DIS Outpatient Shonda Powers [id number] 06/10/2016 08:53:00 06/10/2016 10:43:00 DIS Outpatient Ross [facility] ER [id number] 06/10/2016 08:53:00 06/10/2016 08:53:00 CAN Outpatient Jackie Ureña [id number] 06/01/2016 10:14:00 06/01/2016 23:59:00 DIS Outpatient Shonda Powers [id number] 03/02/2016 18:27:00 03/02/2016 23:59:00 DIS Outpatient Shonda Powers [id number] 01/24/2017 14:47:30 Document Registration [id number] 07/13/2018 11:08:00 07/14/2018 13:23:00 DIS Inpatient RENAE NANCE DO [facility] 4TH LARGE P.E., RIGHT [id number] 06/10/2018 20:31:00 06/10/2018 21:36:00 DIS Emergency GENA MICHEL [facility] ER URINATING BLOOD [id number] 05/25/2018 06:15:00 05/25/2018 19:08:00 DIS Out[facility] [id number] 05/24/2018 07:58:00 05/24/2018 08:40:00 DIS Outpatient FENECH DO, TUNG S [facility] PREOP ENDOMETRIAL HYPERPLASIA ATYPIA [id number] 05/18/2018 15:10:00 05/18/2018 23:59:59 CLS Outpatient TUNG COBOS DO [facility] RAD AUB [id number] 05/08/2018 13:08:00 05/08/2018 17:50:00 DIS Emergency SAVANAH JANE, DARLYN Calvin [facility] ER HEAVY VAGINAL BLEEDING [id number] 04/14/2016 17:12:00 04/14/2016 17:50:00 DIS Emergency [facility] ER THUMB PAIN [id number] 01/18/2015 15:31:00 01/18/2015 16:28:00 DIS Emergency PARADISE MCDONALD MD [facility] ER RIGHT HAND/FINGER INJ [id number] 06/07/2014 11:44:00 06/07/2014 13:50:00 DIS Emergency [facility] ER RIGHT ELBOW PAIN [id number] 09/15/2012 09:22:00 09/15/2012 11:22:00 DIS Emergency SHONDA MIRAMONTES DO [facility] ER BODY ACHES, N/V [id number] 06/07/2014 13:21:00 Document Registration [id number] 05/10/2012 15:08:00 Document Registration [id number] 04/22/2012 11:08:00 Document Registration [id number] 12/18/2011 20:05:00 Document Registration [id number] 01/10/2011 17:38:00 Document Registration [id number] 10/10/2010 17:18:00 Document Registration
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
== END 2018-08-28 03:57 | disposition home or self-care (01) ==
LOC: EDUNIT# 02:06 → ER 02:09
DX: S16.1XXA Strain of muscle, fascia and tendon at neck level, initial encounter (principal); S01.112A Laceration without foreign body of left eyelid and periocular area, initial encounter; S70.12XA Contusion of left thigh, initial encounter; S00.11XA Contusion of right eyelid and periocular area, initial encounter; S00.12XA Contusion of left eyelid and periocular area, initial encounter; G43.909 Migraine, unspecified, not intractable, without status migrainosus; K21.9 Gastro-esophageal reflux disease without esophagitis; E89.0 Postprocedural hypothyroidism; R40.2142 Coma scale, eyes open, spontaneous, at arrival to emergency department; R40.2252 Coma scale, best verbal response, oriented, at arrival to emergency department; R40.2362 Coma scale, best motor response, obeys commands, at arrival to emergency department; Z80.0 Family history of malignant neoplasm of digestive organs; Z80.8 Family history of malignant neoplasm of other organs or systems; Z85.42 Personal history of malignant neoplasm of other parts of uterus; Z87.01 Personal history of pneumonia (recurrent); Z86.711 Personal history of pulmonary embolism; Z90.710 Acquired absence of both cervix and uterus; Z98.890 Other specified postprocedural states; Z90.89 Acquired absence of other organs; Z88.0 Allergy status to penicillin; Z88.8 Allergy status to other drugs, medicaments and biological substances; Y04.0XXA Assault by unarmed brawl or fight, initial encounter
CPT/HCPCS: 70450; 70486; 72125; 73552

== ENCOUNTER 2018-09-22 09:45 | Emergency (ER) | payer OTHER ==
[~2018-09-22] VITALS: Ht 175.3 cm; Wt 79.4 kg
--- OUTSIDE RECORDS SUMMARY | 2018-09-22 09:52 | XMS REPORT | Clinical Summary ---
Author Author [facility] Address Unknown Phone Unavailable Care Team Providers Care Counseling Aide Name Role Phone PCP Unavailable Allergies Not on File Medications Not on file Active Problems Not on file Social History Date Tobacco Use Types Packs/Day Years Used Never Assessed Sex Assigned at Date Recorded Not on file Industry Job Start Date Occupation Not on file Not on file Not on file Travel End Travel History Travel Start No recent travel history available. Last Filed Vital Signs Not on file Plan of Treatment Not on file Results Not on filefrom Last 3 Months
--- OUTSIDE RECORDS SUMMARY | 2018-09-22 09:52 | XMS REPORT | Encounter Summary ---
Author Author [facility] Organization [facility] Address Unknown Phone Unavailable Care Team Providers Care Dye Reel Operator Name Role Phone PCP Unavailable Encounter Details Care Team Description Date Type Department Mona Nails MD [address] [address] [phone] 03/26/2001 [facility] 03/29/[id number] [place] [address] Social History Date Tobacco Use Types Packs/Day Years Used Never Assessed Sex Assigned at Date Recorded Not on file Industry Job Start Date Occupation Not on file Not on file Not on file Travel End Travel History Travel Start No recent travel history available. documented as of this encounter Miscellaneous Notes * Operative Note - Provider, MD Amanda - 04/27/2013 8:23 PM SALESPERSON PARTS Report Name: YASMIN JIMENEZ MRN/Unit #: [id number] Date of : 1970 Attending Physician: MONA NAILS MD DATE OF PROCEDURE: 03/27/2001 PROCEDURE PERFORMED: Epidural blood patch. PREPROCEDURE DIAGNOSIS: Patient with post dural puncture headache. POSTPROCEDURE DIAGNOSIS: Patient with post dural puncture headache. INDICATIONS FOR PROCEDURE: Ms. Jimenez is a 31-year-old female who had an elective section performed yesterday and, at the time, it was noted that a wet tap had been obtained and, since then, she has developed a headache. This headache is worse when she sits up or stands up and has caused some nausea today. She also has a small amount of photophobia. I spoke with her in detail about options including conservative therapy, but she wished to proceed with an epidural blood patch. I informed her of the risks and benefits of this procedure and she understands and wishes to proceed. DESCRIPTION OF PROCEDURE: Ms. Bitner was placed in the sitting position and the area of L3-L4 was prepared and draped in a sterile manner. One-percent lidocaine was utilized for skin infiltration and an 18-gauge epidural needle was used to identify the epidural space with the [id number] technique. Next, under sterile technique, 20 cc of autologous blood was drawn from her right antecubital fossa and this was injected into her epidural space with some feeling of discomfort in the way of pressure but not intense. She tolerated the procedure well with no complications. She was instructed to lay flat for one hour and to strain with her bowels and lift anything heavy more than 20 pounds over the next week. She is also to take stool softeners and she will still be given intravenous fluids over the next 24 hours while in the hospital. We will follow up with her in the hospital. Seth Fajardo MD cc: Mona Nails MD, [facility] Attending physician [employer]ERSON [employer] documented in this encounter Plan of Treatment Not on filedocumented as of this encounter Procedures Comments Procedure Name Priority Date/Time Associated Diagnosis COMPLETE BLOOD COUNT Routine 03/27/2001 4:30 AM SALESPERSON PARTS VENOUS BLOOD GAS CORD Routine 03/26/2001 1:12 PM [employer] ARTERIAL BLOOD GAS CORD Routine 03/26/2001 1:12 PM [employer] ANTIBODY SCREEN Routine 03/26/2001 10:30 AM [employer] COMPLETE BLOOD COUNT Routine 03/26/2001 10:30 AM [employer]ESPERSON [employer]S ABORH TYPE Routine 03/26/2001 10:30 AM [employer]ERSON [employer]S documented in this encounter Results * Complete Blood Count (03/27/2001 4:30 AM [employer]S) Only the most recent of 2 results within the time period is included. WBC 9.9 4.0 - 11.0 TH/UL [facility] RBC 3.78 (L) 4.00 - 5.00 MIL/UL [facility] Hemoglobin 9.4 (L) 12.0 - 15.0 G/DL [facility] Hematocrit 29 (L) 36 - 45 % [facility] MCV 76 (L) 80 - 99 FL [facility] MCH 25 (L) 27 - 34 PG [facility] MCHC 33 32 - 36 % [facility] RDW 14.1 <14.5 % [facility] Platelet Count 223 140 - 400 TH/UL [facility]QUEST Specimen Blood Performing Organization Address [facility] Phone Number [address] [place] [address] SUN[facility] * Venous Blood Gas Cord (03/26/2001 1:12 PM [employer]ERSON [employer]S) pO2 Cord 30 MMHG [facility] pCO2 Cord 40 MMHG [facility] Ph Cord Venous 7.40 7.14 - 7.50 UNITS [facility] Bicarbonate 23.9 MEQ/L [facility] Cord Base Excess -.2 MEQ/L [facility] Cord Specimen Arterial Performing Organization Address [facility] Phone Number [address] [place] [address] SUNQUEST * Arterial Blood Gas Cord (03/26/2001 1:12 PM [employer]) pH Cord 7.30 7.03 - 7.45 UNITS [facility] Arterial pCO2 Cord 57 MMHG [facility] pO2 Cord 13 MMHG [facility] Base Excess -.4 MEQ/L [facility] Cord Bicarbonate 27.1 MEQ/L [facility] Cord Device NC [facility] LPM 2.00 LPM [facility] Mode SV [facility] Specimen Arterial Performing Organization Address [facility] Phone Number [address] [place] [address] SUN[facility] * Antibody Screen (03/26/2001 10:30 AM [employer]ESPERSON [employer]S) Antibody Screen NEGATIVE [facility] Specimen Blood Performing Organization Address [facility] Phone Number [address] [place] [address] SUN[facility] * ABORH Type (03/26/2001 10:30 AM [employer]) Specimen Blood Narrative Performed At Report SUN[facility] B POS Performing Organization Address [facility] Phone Number [address] [place] [address] SUNQUEST documented in this encounter Visit Diagnoses Not on filedocumented in this encounter
--- OUTSIDE RECORDS SUMMARY | 2018-09-22 09:52 | XMS REPORT | Encounter Summary ---
Author Author [facility] Address Unknown Phone Unavailable Care Team Providers Care Supervisor Powdered Metal Name Role Phone PCP Unavailable Encounter Details Care Team Description Date Type Department Sid Nails MD [address] [address] [phone] 10/18/2000 [facility] 01/16/2001 Social History Date Tobacco Use Types Packs/Day Years Used Never Assessed Sex Assigned at Date Recorded Not on file Industry Job Start Date Occupation Not on file Not on file Not on file Travel End Travel History Travel Start No recent travel history available. documented as of this encounter Plan of Treatment Not on filedocumented as of this encounter Visit Diagnoses Not on filedocumented in this encounter
--- OUTSIDE RECORDS SUMMARY | 2018-09-22 09:52 | XMS REPORT | Encounter Summary ---
Author Author [facility] Address Unknown Phone Unavailable Care Team Providers Care Supervisor Fine Grading Name Role Phone PCP Unavailable Encounter Details Care Team Description Date Type Department Maciel Hood MD [address] [place] [address] [place] [address] [phone] 01/19/2006 [facility] 03/16/[address] [place] [address] Social History Date Tobacco Use Types Packs/Day [...]
--- OUTSIDE RECORDS SUMMARY | 2018-09-22 09:52 | XMS REPORT | Encounter Summary ---
Author Author [facility] Address Unknown Phone Unavailable Care Team Providers Care Head Banquet Waitress Name Role Phone PCP Unavailable Encounter Details Care Team Description Date Type Department Flaco Pope MD 10/23/2000 [facility] - Encounter 11/22/2000 Social History Date Tobacco Use Types Packs/Day [...]
--- OUTSIDE RECORDS SUMMARY | 2018-09-22 09:52 | XMS REPORT | Encounter Summary ---
Author Author [facility] Address Unknown Phone Unavailable Care Team Providers Care Guard Range Name Role Phone PCP Unavailable Encounter Details Care Team Description Date [place] [address] [place] [address] [phone] 03/30/2001 [facility] 03/31/[id number] [place] [address] Social History Date Tobacco Use Types Packs/Day Years Used Never Assessed Sex Assigned at Date Recorded Not on file Industry Job Start Date Occupation Not on file Not on file Not on file Travel End Travel History Travel Start No recent travel history available. documented as of this encounter ED Notes * Harry Shannon - 04/27/2013 8:23 PM EPIC WILLOW SPECIALIST Report Name: YASMIN JIMENEZ MRN/Unit #: [id number] Date of : 1970 Attending Physician: HARRY SHANNON CHIEF COMPLAINT: Headache. HISTORY OF PRESENT ILLNESS: This 31-year-old female is from last Monday when she had a section. She had an epidural blood patch done on Monday which improved her headache. She now complains of a similar onset of headache which is definitely worse when she is sitting up rather than lying down. It certainly again sounds like a headache secondary to the epidural. PAST SURGICAL HISTORY: The patient has had section times four. She has also had tonsillectomy and thyroidectomy. CURRENT MEDICATIONS: The patient is presently on Synthroid, Protonix, and Percocet. ALLERGIES: The patient has allergy to PENICILLIN. REVIEW OF SYSTEMS: The patient's nine-system review of systems is otherwise noncontributory. OBJECTIVE: Examination shows a nontoxic-appearing 31-year-old who is complaining of headache. It is definitely positional. VITAL SIGNS: Temperature 97 degrees, pulse 68, respirations 20, blood pressure 124/82. HEENT: Tympanic membranes are normal. Pharynx is clear. NECK: Supple and nontender. LUNGS: Clear to auscultation and percussion. CARDIAC: Regular rhythm, with no murmurs. ABDOMEN: Soft, nontender. NEUROLOGIC: The patient is alert and oriented. She moves all extremities. No evidence of any lateralizing neurologic deficits. No significant nuchal rigidity. MEDICAL DECISION MAKING: The patient was given Demerol 50 mg and Phenergan 50 mg IM for pain. I contacted the on-call anesthesiologist who agreed to come in and do a blood patch. DIAGNOSIS: Acute cephalgia. PLAN: The patient is to rest. She is to continue the use of Percocet as needed. Push fluids. Recontact the pain clinic if symptoms worsen. CONDITION ON DISCHARGE: The patient is alert and ambulatory and leaves accompanied by her . Electronically Authenticated By: Harry Shannon M.D. 04/12/2001 21:32:31 Harry Shannon M.D. cc: WILLOW SPECIALIST documented in this encounter Plan of Treatment Not on filedocumented as of this encounter Visit Diagnoses Not on filedocumented in this encounter
--- OUTSIDE RECORDS SUMMARY | 2018-09-22 09:52 | XMS REPORT | Encounter Summary ---
Author Author [facility] Organization [facility] Address Unknown Phone Unavailable Care Team Providers Care Coater Operator Name Role Phone PCP Unavailable Encounter Details Care Team Description Date Type Department Flaco Pope MD 03/19/2001 [facility] - Encounter [place] 04/18/2001 [facility] [address] [place] [address] Social History Date Tobacco Use Types Packs/Day [...] Comments Procedure Name Priority Date/Time Associated Diagnosis LUNG MATURITY II Routine 03/19/2001 3:10 PM PHOTOTYPESETTING EQUIPMENT MONITOR documented in this encounter Results * Lung Maturity Ii (03/19/2001 3:10 PM PHOTOTYPESETTING EQUIPMENT MONITOR) LUNG 23 MG/G [facility] MATURITY II Specimen Amniotic Fluid Performing Organization Address City/State/Zipcode Phone Number [address] [place] [address] SUNQUEST documented in this encounter Visit Diagnoses Not on filedocumented in this encounter
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
[2018-09-22] MEDS ORDERED: cefTRIAXone 1,000 MG/2.86 ml vial (IM ONLY) IM ONE (12:00)
[2018-09-22] MEDS ORDERED: LIDOCAINE 1% INJ 20 ML 20 ML VIAL INJ ONE (12:00)
[2018-09-22] MEDS ORDERED: AZITHROMYCIN 250 MG TAB (ZITHROMAX) PO ONE (12:00)
--- NOTE | 2018-09-22 12:06 | ED GU-Female ---
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 Has felt unwell since Monday and yesterday began having pus draining from vagina. Denies fever but has had diarrhea, nausea, and loss of appetite. denies urinary sx. Nursing Sepsis Screen: No Definite Risk Source: patient Exam Limitations: no limitations History of Present Illness Date Seen by Provider: Sep 22, 2018 Time Seen by Provider: 09:46 Initial Comments This 48-year-old woman presents to the emergency room with complaints of purulent foul-smelling vaginal discharge that started last week. She has a sharp pelvic pain on occasion. She has a dull aching pain in her back as well. She is sexually active and has had a new partner recently. She does have pain with intercourse. She denies any fever. She has had some nausea vomiting and diarrhea. She notes hysterectomy performed in April by Dr. COBOS. She has a prior history of gonorrhea identified on urinalysis as well. She was treated for that in April prior to her surgery. Allergies and Home Medications Allergies Coded Allergies: Penicillins (Unverified Allergy, Unknown, Pt has received Ceftriaxone in the past w/o issue, 05/25/18) Uncoded Allergies: STERIODS (Allergy, Intermediate, HALLICINATIONS, 12/18/11) BEES (Allergy, Unknown, 05/24/18) paper tape (Allergy, Unknown, 05/24/18) Home Medications Fluoxetine HCl 20 Mg Capsule, 20 MG PO 1700, (Reported) Levothyroxine Sodium 125 Mcg Tablet, 125 MCG PO DAILY, (Reported) Metronidazole 500 Mg Tablet, 500 MG PO BID Prescribed by: MARGARETH CHRISTIAN on 09/22/18 1244 Ondansetron 4 Mg Tab.rapdis, 4 MG PO Q4H PRN for NAUSEA/VOMITING Prescribed by: MARGARETH CHRISTIAN on 09/22/18 1244 Ranitidine HCl 150 Mg Tablet, 150 MG PO BID, (Reported) Rivaroxaban 15 Mg Tablet, 15 MG PO BID@07,17 take 1 tabket twice a day for 21 days then 20mg once a day for 6 months Prescribed by: NIK SILVA on 07/14/18 1244 Rivaroxaban 20 Mg Tablet, 20 MG PO DAILY Prescribed by: NIK SILVA on 07/14/18 1244 Patient Home Medication List Home Medication List Reviewed: Yes Review of Systems Review of Systems Constitutional: no symptoms reported EENTM: no symptoms reported Respiratory: no symptoms reported Cardiovascular: no symptoms reported Gastrointestinal: see HPI Genitourinary: see HPI : No Musculoskeletal: no symptoms reported Skin: no symptoms reported Psychiatric/Neurological: No Symptoms Reported Endocrine: No Symptoms Reported Hematologic/Lymphatic: No Symptoms Reported Past Vbwooup-Zeadae-Rureqi Hx Past Med/Social Hx: Reviewed and Corrections made Patient Social History Alcohol Use: Denies Use Recreational Drug Use: No Smoking Status: Former Smoker Type Used: Cigarettes Former Smoker, Quit: Feb 28, 2000 2nd Hand Smoke Exposure: No Recent Foreign Travel: No Contact w/Someone Who Travel: No Recent Infectious Disease Expo: No Recent Hopitalizations: No Immunizations Up To Date Tetanus Booster (TDap): Less than 5yrs Seasonal Allergies Seasonal Allergies: Yes (at times-mild) Past Medical History Surgeries: Yes Abdominal, Section, Gallbladder, Hysterectomy, Oophorectomy, Thyroidectomy, Tonsillectomy Respiratory: Yes (SADDLE P.E. 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 DYSPHAGIA) Gastroesophageal Reflux, Hiatal Hernia Musculoskeletal: No Endocrine: Yes (thyroidectomy) Hypothyroidsim HEENT: Yes Dysphagia Cancer: Yes (ENDOMETRIAL CANCER) Did You Recieve Any Treatments: Yes What Type of Treatment Did You: Surgical Intervention Psychosocial: No Integumentary: No Blood Disorders: Yes (hx ANEMIA; P.E. POST OP 06/2018) Adverse Reaction/Blood Tranf: No Family Medical History Alcoholism 19 FATHER 19 MOTHER Colon cancer 19 FATHER Drug abuse 19 FATHER 19 MOTHER FH: uterine cancer 19 MOTHER Hypertension 19 FATHER 19 MOTHER No Pertinent Family Hx Physical Exam Vital Signs Vital Signs - First Documented 09/22/18 09:53 Temp 97.4 Pulse 69 Resp 18 B/P (MAP) 122/92 (102) Pulse Ox 99 Capillary Refill : Less Than 3 Seconds Height, Weight, BMI Height: 5'9.00" Weight: 175lbs. 0oz. 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, no motor/sensory deficits, alert, normal mood/affect, oriented x 3 Skin: normal color, warm/dry Progress/Results/Core Measures Suspected Sepsis Recent Fever Within 48 Hours: No Infection Criteria Present: Suspected New Infection New/Unexplained Altered Menta: No Sepsis Screen: No Definite Risk SIRS Temperature:97.4 Pulse: 69 Respiratory Rate: 18 Blood Pressure 122 /92 Mean: 102 Results/Orders Lab Results Laboratory Tests Test 09/22/18 11:40 Range/Units Micro Results Microbiology 09/22/18 Genital Culture, Resulted Pending 09/22/18 ION Preparation - Final, Resulted 09/22/18 Wet Prep - Final, Resulted My Orders Orders - MARGARETH HOLLAND MD Wet Prep (09/22/18 11:32) Neisseria Gonorrhea Swab (09/22/18 11:32) Genital Culture (09/22/18 11:32) Ion Prep (09/22/18 11:32) Chlamydia Trachomatis Swab (09/22/18 11:32) Ceftriaxone For Im Use (Rocephin For Im (09/22/18 12:00) Lidocaine 1% Inj 20 Ml (Xylocaine 1% Inj (09/22/18 12:00) Azithromycin Tablet (Zithromax Tablet) (09/22/18 12:00) Metronidazole Tablet (Flagyl Tablet) (09/22/18 12:30) Ondansetron Oral Dissolve Tab (Zofran (09/22/18 12:30) Medications Given in ED Current Medications Medications Dose Ordered Sig/Nathaly Route Start Time Stop Time Status Last Admin Dose Admin Azithromycin 1,000 mg ONCE ONCE PO 09/22/18 12:00 09/22/18 12:01 DC 09/22/18 12:02 1,000 MG Ceftriaxone Sodium 1,000 mg ONCE ONCE IM 09/22/18 12:00 09/22/18 12:01 DC 09/22/18 12:01 1,000 MG Lidocaine HCl 2.1 ml ONCE ONCE INJ 09/22/18 12:00 09/22/18 12:01 DC 09/22/18 12:02 2.1 ML Metronidazole 2,000 mg ONCE ONCE PO 09/22/18 12:30 09/22/18 12:31 DC 09/22/18 12:32 2,000 MG Ondansetron HCl 4 mg ONCE ONCE SL 09/22/18 12:30 09/22/18 12:31 DC 09/22/18 12:31 4 MG Vital Signs/I&O 09/22/18 09:53 Temp 97.4 Pulse 69 Resp 18 B/P (MAP) 122/92 (102) Pulse Ox 99 Capillary Refill : Less Than 3 Seconds Blood Pressure Mean: 102 Progress Note : Progress Note Patient was found to have copious amounts of greenish purulent and foul-smelling discharge on speculum exam. She was empirically treated with Rocephin and azithromycin. Preliminary vaginal slides demonstrated Trichomonas. She was additionally given metronidazole 2 g orally. She was given Zofran 4 mg sublingually prior to metronidazole to prevent nausea and vomiting. Due to the rather profound vaginal infection, I prescribed a repeat dose of metronidazole to start if her symptoms do not resolve in a few days. See discharge instructions. Departure Impression Primary Impression: Trichomonas vaginitis Additional Impression: Nausea and vomiting Qualified Codes: R11.2 - Nausea with vomiting, unspecified Disposition: 01 HOME, SELF-CARE Condition: Improved Departure-Patient Inst. Decision time for Depature: 12:20 Referrals: ERICA ADAM MD (PCP/Family) Primary Care Physician Patient Instructions: Sexually-Transmitted Diseases (DC), STD Prevention, Trichomoniasis (DC) Add. Discharge Instructions: Follow-up with Dr. COBOS next week to review the final vaginal cultures. Observe complete vaginal rest until cleared by Dr. Barrera, meaning nothing inserted into the vagina including intercourse. Please inform your partner and have him tested and treated. Any items used vaginally need to be disposed of or thoroughly sanitized before use again. If your vaginal symptoms have not resolved in 3 or 4 days, started to the metronidazole prescription. You may use Zofran as prescribed for nausea and vomiting. Return to care if you have worsening symptoms. All discharge instructions reviewed with patient and/or family. Voiced understanding. Scripts Ondansetron (Ondansetron Odt) 4 Mg Tab.rapdis 4 MG PO Q4H PRN for NAUSEA/VOMITING, #10 TAB Prov: MARGARETH HOLLAND MD 09/22/18 Metronidazole (Metronidazole) 500 Mg Tablet 500 MG PO BID, #14 TAB 0 Refills Prov: MARGARETH HOLLAND MD 09/22/18 Copy Copies To 1: TUNG COBOS JOSHUA T MD Sep 22, 2018 12:06
[2018-09-22] MEDS ORDERED: metroNIDAZOLE 500 MG (FLAGYL) TAB PO ONE (12:30)
[2018-09-22] MEDS ORDERED: ONDANSETRON 4 MG (ZOFRAN) ORAL DISSOLVE TAB SL ONE (12:30)
[2018-09-22] MEDS ORDERED: METR-145 PO (12:44)
[2018-09-22] MEDS ORDERED: ONDA4TAB11 PO (12:44)
[2018-09-22 12:51] VITALS: BP 123/71
== END 2018-09-22 12:50 | disposition home or self-care (01) ==
LOC: EDUNIT# 09:45 → ER 09:46
DX: A59.01 Trichomonal vulvovaginitis (principal); R11.2 Nausea with vomiting, unspecified; G43.909 Migraine, unspecified, not intractable, without status migrainosus; K21.9 Gastro-esophageal reflux disease without esophagitis; E03.9 Hypothyroidism, unspecified; Z80.0 Family history of malignant neoplasm of digestive organs; Z85.42 Personal history of malignant neoplasm of other parts of uterus; Z80.49 Family history of malignant neoplasm of other genital organs; Z82.49 Family history of ischemic heart disease and other diseases of the circulatory system; Z98.51 Tubal ligation status; Z90.710 Acquired absence of both cervix and uterus; Z88.0 Allergy status to penicillin; Z88.8 Allergy status to other drugs, medicaments and biological substances; Z79.01 Long term (current) use of anticoagulants; Z87.891 Personal history of nicotine dependence; Z90.89 Acquired absence of other organs; Z98.890 Other specified postprocedural states; Z86.711 Personal history of pulmonary embolism
CPT/HCPCS: 36415; 87070; 87077; 87205; 87210; 87491; 87591; 99284

== ENCOUNTER 2018-11-09 23:59 | Observation (INO) | payer OTHER | END 2018-11-14 16:35 | disposition home or self-care (01) | LOC: 4TH 11-14 14:55 → ICU 11-10 02:00 → 4TH 11-14 14:55 → ER 23:59 → ICU 11-10 02:31 → 4TH 11-12 13:19 → ICU 11-10 02:31 ==

== ENCOUNTER 2018-11-27 08:11 | Emergency (ER) | payer OTHER ==
[~2018-11-27] VITALS: Ht 175 cm; Wt 81.0 kg
[~2018-11-27 08:11] MED LIST changes: +FLUO40CA PO; +ONDA4TAB11 PO; +RANI-613 PO
[2018-11-27] MEDS ORDERED: ASPIRIN 81 MG CHEW (CHILDREN'S ASA) PO ONE (08:30)
[2018-11-27 08:35] LABS: BASOPHILS % (AUTO) 0 % (0-10); EOSINOPHILS # (AUTO) 0.1 10^3/uL (0.0-0.3); EOSINOPHILS % (AUTO) 3 % (0-10); HEMATOCRIT 38 % (35-52); HEMOGLOBIN 12.5 G/DL (11.5-16.0); LYMPHOCYTES # (AUTO) 1.6 X 10^3 (1.0-4.0); LYMPHOCYTES % (AUTO) 43 % (12-44); MEAN CORPUSCULAR HEMOGLOBIN 26 PG (25-34); MEAN CORPUSCULAR HGB CONC 33 G/DL (32-36); MEAN CORPUSCULAR VOLUME 78 FL (80-99); MEAN PLATELET VOLUME 8.6 FL (7.4-10.4); MONOCYTES # (AUTO) 0.5 X 10^3 (0.0-1.0); MONOCYTES % (AUTO) 12 % (0-12); NEUTROPHILS # (AUTO) 1.6 X 10^3 (1.8-7.8); NEUTROPHILS % (AUTO) 41 % (42-75); PLATELET COUNT 298 10^3/uL (130-400); RED CELL DISTRIBUTION WIDTH 14.7 % (10.0-14.5); WHITE BLOOD COUNT 3.8 10^3/uL (4.3-11.0)
[2018-11-27 08:40] LABS: BILIRUBIN,URINE NEGATIVE (NEGATIVE); CLARITY,URINE CLEAR; COLOR,URINE YELLOW; GLUCOSE, URINE (UA) NEGATIVE (NEGATIVE); KETONES,URINE NEGATIVE (NEGATIVE); LEUKOCYTE ESTERASE ,URINE 2+ (NEGATIVE); NITRITE,URINE NEGATIVE (NEGATIVE); PH,URINE 7 (5-9); PROTEIN,URINE 1+ (NEGATIVE); UROBILINOGEN,URINE NORMAL (NORMAL)
--- NOTE | 2018-11-27 08:44 | ED Chest Pain ---
General Chief Complaint: Chest Pain Stated Complaint: CHEST PAIN Nursing Triage Note: ARRIVED VIA AMB FROM THERAPIST OFFICE. STATES SHE STARTED HAVING CHEST PAIN YESTERDAY AND IT FEELS LIKE WHEN SHE HAD A BLOOD CLOT IN MAY. Nursing Sepsis Screen: No Definite Risk Source: patient Exam Limitations: no limitations History of Present Illness Date Seen by Provider: Nov 27, 2018 Time Seen by Provider: 08:17 Initial Comments Here with report of onset of right lower chest pain yesterday. States it feels like when she had a blood clot. She is currently on Xarelto. Does report some cough and some pain with deep breathing. Timing/Duration: 1-2 days Severity/Quality: moderate, aching Location: central (right lower) Radiation: no radiation Activities at Onset: none Prior CP/Workup: pulmonary embolism ASA po SAILMAKER: No NTG SL SAILMAKER: No Associated Symptoms: No abdominal pain, No back pain, No diaphoresis, No fever/chills, No nausea/vomiting, No shortness of breath, No weakness Allergies and Home Medications Allergies Coded Allergies: Penicillins (Unverified Allergy, Unknown, Pt has received Ceftriaxone in the past w/o issue, 05/25/18) Uncoded Allergies: STERIODS (Allergy, Intermediate, HALLICINATIONS, 12/18/11) BEES (Allergy, Unknown, 05/24/18) paper tape (Allergy, Unknown, 05/24/18) Home Medications Fluoxetine HCl 40 Mg Capsule, 40 MG PO 1500, (Reported) Levothyroxine Sodium 125 Mcg Tablet, 125 MCG PO DAILY, (Reported) Ranitidine HCl 150 Mg Tablet, 150 MG PO TID, (Reported) Rivaroxaban 20 Mg Tablet, 20 MG PO 1500, (Reported) Patient Home Medication List Home Medication List Reviewed: Yes Review of Systems Review of Systems Constitutional: see HPI EENTM: No Symptoms Reported Respiratory: Cough; Denies Shortness of Air Cardiovascular: Chest Pain; Denies Edema, Denies Irregular Heart Rate Gastrointestinal: Abdominal Pain; Denies Nausea, Denies Vomiting Genitourinary: No Symptoms Reported Musculoskeletal: no symptoms reported Skin: no symptoms reported All Other Systems Reviewed Negative Unless Noted: Yes Past Zylyjzr-Savtjj-Oufgzb Hx Past Med/Social Hx: Reviewed Nursing Past Med/Soc Hx Patient Social History Alcohol Use: Denies Use Recreational Drug Use: No Drug of Choice: methamphetamines and marijuana Smoking Status: Former Smoker Type Used: Cigarettes Former Smoker, Quit: Feb 28, 2000 2nd Hand Smoke Exposure: No Recent Foreign Travel: No Contact w/Someone Who Travel: No Recent Infectious Disease Expo: No Recent Hopitalizations: No Immunizations Up To Date Tetanus Booster (TDap): Less than 5yrs Seasonal Allergies Seasonal Allergies: Yes (at times-mild) Past Medical History Surgeries: Yes Abdominal, Section, Gallbladder, Hysterectomy, Oophorectomy, Thyroidectomy, Tonsillectomy Respiratory: Yes (SADDLE P.E. 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 DYSPHAGIA) Gastroesophageal Reflux, Hiatal Hernia Musculoskeletal: No Endocrine: Yes (thyroidectomy) Hypothyroidsim HEENT: Yes Dysphagia Cancer: Yes (ENDOMETRIAL CANCER) Did You Recieve Any Treatments: Yes What Type of Treatment Did You: Surgical Intervention Psychosocial: No Anxiety, Depression Integumentary: No Blood Disorders: Yes (hx ANEMIA; P.E. POST OP 06/2018) Adverse Reaction/Blood Tranf: No Family Medical History Reviewed Nursing Family Hx Alcoholism 19 FATHER 19 MOTHER Colon cancer 19 FATHER Drug abuse 19 FATHER 19 MOTHER FH: uterine cancer 19 MOTHER Hypertension 19 FATHER 19 MOTHER No Pertinent Family Hx Physical Exam Vital Signs Vital Signs - First Documented 11/27/18 08:11 Temp 36.2 Pulse 62 Resp 16 B/P (MAP) 131/93 (106) Capillary Refill : Less Than 3 Seconds Height, Weight, BMI Height: 5'9.00" Weight: 181lbs. 8.0oz. 82.532648lj; 26.00 BMI Method:Actual General Appearance: No Apparent Distress, WD/WN HEENT: PERRL/EOMI, Pharynx Normal Neck: Non Tender, Supple Respiratory: Lungs Clear, Normal Breath Sounds Cardiovascular: Regular Rate, Rhythm, No Murmur Gastrointestinal: Non Tender, Soft Extremity: Normal Range of Motion, Non Tender Neurologic/Psychiatric: Alert, Oriented x3 Skin: Normal Color, Warm/Dry Progress/Results/Core Measures Results/Orders Lab Results Laboratory Tests Test 11/27/18 08:28 11/27/18 08:35 Range/Units White Blood Count 3.8 L 4.3-11.0 10^3/uL Red Blood Count 4.89 4.35-5.85 10^6/uL Hemoglobin 12.5 11.5-16.0 G/DL Hematocrit 38 35-52 % Mean Corpuscular Volume 78 L 80-99 FL Mean Corpuscular Hemoglobin 26 25-34 PG Mean Corpuscular Hemoglobin Concent 33 32-36 G/DL Red Cell Distribution Width 14.7 H 10.0-14.5 % Platelet Count 298 130-400 10^3/uL Mean Platelet Volume 8.6 7.4-10.4 FL Neutrophils (%) (Auto) 41 L 42-75 % Lymphocytes (%) (Auto) 43 12-44 % Monocytes (%) (Auto) 12 0-12 % Eosinophils (%) (Auto) 3 0-10 % Basophils (%) (Auto) 0 0-10 % Neutrophils # (Auto) 1.6 L 1.8-7.8 X 10^3 Lymphocytes # (Auto) 1.6 1.0-4.0 X 10^3 Monocytes # (Auto) 0.5 0.0-1.0 X 10^3 Eosinophils # (Auto) 0.1 0.0-0.3 10^3/uL Basophils # (Auto) 0.0 0.0-0.1 10^3/uL Prothrombin Time 15.1 H 12.2-14.7 SEC INR Comment 1.1 0.8-1.4 Activated Partial Thromboplast Time 37 H 24-35 SEC D-Dimer 0.42 0.00-0.49 UG/ML Sodium Level 140 135-145 MMOL/L Potassium Level 4.0 3.6-5.0 MMOL/L Chloride Level 106 98-107 MMOL/L Carbon Dioxide Level 27 21-32 MMOL/L Anion Gap 7 5-14 MMOL/L Blood Urea Nitrogen 10 7-18 MG/DL Creatinine 0.85 0.60-1.30 MG/DL Estimat Glomerular Filtration Rate > 60 BUN/Creatinine Ratio 12 Glucose Level 87 70-105 MG/DL Calcium Level 8.8 8.5-10.1 MG/DL Corrected Calcium 8.6 8.5-10.1 MG/DL Magnesium Level 2.1 1.6-2.4 MG/DL Total Bilirubin 0.4 0.1-1.0 MG/DL Aspartate Amino Transf (AST/SGOT) 19 5-34 U/L Alanine Aminotransferase (ALT/SGPT) 16 0-55 U/L Alkaline Phosphatase 72 40-136 U/L Myoglobin 26.2 10.0-92.0 NG/ML Troponin I < 0.028 <0.028 NG/ML Total Protein 8.1 6.4-8.2 GM/DL Albumin 4.2 3.2-4.5 GM/DL Urine Color YELLOW Urine Clarity CLEAR Urine pH 7 5-9 Urine Specific [place] 1.010 L 1.016-1.022 Urine Protein 1+ H NEGATIVE Urine Glucose (UA) NEGATIVE NEGATIVE Urine Ketones NEGATIVE NEGATIVE Urine Nitrite NEGATIVE NEGATIVE Urine Bilirubin NEGATIVE NEGATIVE Urine Urobilinogen NORMAL NORMAL MG/DL Urine Leukocyte Esterase 2+ H NEGATIVE Urine RBC (Auto) 3+ H NEGATIVE Urine RBC 2-5 H /HPF Urine WBC 10-25 H /HPF Urine Squamous Epithelial Cells 10-25 H /HPF Urine Crystals PRESENT H /LPF Urine Amorphous Sediment FEW GREER PHOSPHATE H /LPF Urine Bacteria FEW H /HPF Urine Casts NONE /LPF Urine Mucus MODERATE H /LPF Urine Culture Indicated YES My Orders Orders - DARLYN PAVON MD Ekg Tracing (11/27/18 08:17) Cbc With Automated Diff (11/27/18 08:27) Magnesium (11/27/18 08:27) Cardiac Profile 1 (11/27/18 08:27) Comprehensive Metabolic Panel (11/27/18 08:27) Myoglobin Serum (11/27/18 08:27) Protime With Inr (11/27/18 08:27) Partial Thromboplastin Time (11/27/18 08:27) O2 (11/27/18 08:27) Monitor-Rhythm Ecg Trace Only (11/27/18 08:27) Lipid Panel (11/28/18 06:00) Ed Iv/Invasive Line Start (11/27/18 08:27) Fibrin Degradation Products (11/27/18 08:27) Aspirin Chewable Tablet (Baby Aspirin Ch (11/27/18 08:30) Ua Culture If Indicated (11/27/18 08:27) Chest Pa/Lat (2 View) (11/27/18 08:27) Urine Culture (11/27/18 08:35) Medications Given in ED Current Medications Medications Dose Ordered Sig/Nathaly Route Start Time Stop Time Status Last Admin Dose Admin Aspirin 324 mg ONCE ONCE PO 11/27/18 08:30 11/27/18 08:31 DC 11/27/18 08:38 324 MG Vital Signs/I&O 11/27/18 08:11 Temp 36.2 Pulse 62 Resp 16 B/P (MAP) 131/93 (106) Blood Pressure Mean: 106 Progress Progress Note : Progress Note Seen and evaluated. IV, labs, EKG and chest x-ray ordered. ASA 324 mg by mouth ordered. We will check d-dimer given her history. No other indication of pulmonary embolism currently otherwise. Monitor patient. 0922: No acute findings and any of the evaluation components except for small amount of blood in the urine. Patient states that she's had this chronically for some time. We did discuss follow-up. She is apparently supposed to follow-up with Dr. Bates at some point but has not as of yet. I will send a copy of the chart to Dr. Bates and her primary care doctor, Dr. Adam. I have highly encouraged her to continue follow-up on this is that could be something more concerning. She stated she would. Discharged home with return precautions. Patient verbalize understanding instructions and agreement with plan. Initial ECG Impression Date: Nov 27, 2018 Initial ECG Impression Time: 08:19 Initial ECG Rate: 64 Initial ECG Rhythm: Normal Sinus Initial ECG Comparisson: Unchanged Comment Sinus rhythm with normal axis. No evidence of ST elevation [place]. Similar to previous of 11/10/18. Interpreted by me. Diagnostic Imaging Diagonstic Imaging: Xray Plain Films/CT/US/NM/MRI: chest Comments NAME: YASMIN JIMENEZ [facility] REC#: [id number] PT STATUS: REG ER : 1970 PHYSICIAN: DARLYN PAVON MD ADMIT DATE: 11/27/18/ER Draft Date of Exam:11/27/18 CHEST PA/LAT (2 VIEW) INDICATION: Chest pain. PA and lateral chest at 0842 hours compared to 07/13/2018. Heart and mediastinal silhouette are normal in appearance. The lungs show no focal infiltrate. There is no pneumothorax or pleural fluid. IMPRESSION: No acute pulmonary infiltrate or pleural fluid. Dictated on workstation # [id number] Dict: 11/27/18899 Trans: 11/27/18901 [facility] [id number] Interpreted by: BOBO LEOS MD Electronically signed by: Departure Impression Primary Impression: Chest pain Qualified Codes: R07.9 - Chest pain, unspecified Additional Impression: Hematuria Qualified Codes: R31.29 - Other microscopic hematuria Disposition: HOME, SELF-CARE Condition: Improved Departure-Patient Inst. Decision time for Depature: 09:24 Referrals: ERICA ADAM MD (PCP/Family) Primary Care Physician CHRIS BATES MD Patient Instructions: Chest Pain (DC), Blood in the Urine (Hematuria), Adult (DC) Add. Discharge Instructions: All discharge instructions reviewed with patient and/or family. Voiced understanding. Continue home medications as previously prescribed. It is very important that he follow up with Dr. Bates and your primary care doctor regarding the blood in your urine. Also follow up with her primary care doctor regarding the chest di scomfort that you're having. Return for worse pain, fever, vomiting, weakness, rhythm problems or other concerns as needed. Copy Copies To 1: ERICA ADAM MD Copies To 2: CHRIS BATES MD, TIMOTHY D MD Nov 27, 2018 08:43
[2018-11-27 08:48] LABS: INR 1.1 (0.8-1.4); PROTHROMBIN TIME PATIENT 15.1 SEC (12.2-14.7)
[2018-11-27 08:54] LABS: ALANINE AMINOTRANSFERASE 16 U/L (0-55); ALBUMIN 4.2 GM/DL (3.2-4.5); ALKALINE PHOSPHATASE 72 U/L (40-136); BILIRUBIN,TOTAL 0.4 MG/DL (0.1-1.0); BUN/CREATININE RATIO 12; CALCIUM 8.8 MG/DL (8.5-10.1); CARBON DIOXIDE 27 MMOL/L (21-32); CHLORIDE 106 MMOL/L (98-107); CREATININE SERUM 0.85 MG/DL (0.60-1.30); GFR ESTIMATED > 60; GLUCOSE 87 MG/DL (70-105); MAGNESIUM 2.1 MG/DL (1.6-2.4); SODIUM 140 MMOL/L (135-145); TOTAL PROTEIN 8.1 GM/DL (6.4-8.2)
[2018-11-27 08:56] LABS: AMORPHOUS SEDIMENT,UR FEW AMOR PHOSPHATE /LPF; BACTERIA,URINE FEW /HPF
--- NOTE | 2018-11-27 09:03 | Diagnostic Imaging Report ---
INDICATION: Chest pain. PA and lateral chest at 0842 hours compared to 07/13/2018. Heart and mediastinal silhouette are normal in appearance. The lungs show no focal infiltrate. There is no pneumothorax or pleural fluid. IMPRESSION: No acute pulmonary infiltrate or pleural fluid. Dictated by: Dictated on workstation # [id number]
--- NOTE | 2018-11-27 09:09 | NUR ---
IN TALKING TO PT AT THIS TIME.
[2018-11-27 09:34] VITALS: BP 126/95
== END 2018-11-27 09:34 | disposition home or self-care (01) ==
LOC: EDUNIT# 08:11 → ER 08:12
DX: R07.9 Chest pain, unspecified (principal); R31.9 Hematuria, unspecified; G43.909 Migraine, unspecified, not intractable, without status migrainosus; K21.9 Gastro-esophageal reflux disease without esophagitis; E03.9 Hypothyroidism, unspecified; F41.9 Anxiety disorder, unspecified; F32.9 Major depressive disorder, single episode, unspecified; D64.9 Anemia, unspecified; Z85.42 Personal history of malignant neoplasm of other parts of uterus; Z98.51 Tubal ligation status; Z86.711 Personal history of pulmonary embolism; Z79.01 Long term (current) use of anticoagulants; Z88.0 Allergy status to penicillin; Z88.8 Allergy status to other drugs, medicaments and biological substances; Z87.891 Personal history of nicotine dependence; Z90.89 Acquired absence of other organs; Z90.710 Acquired absence of both cervix and uterus; Z80.0 Family history of malignant neoplasm of digestive organs
CPT/HCPCS: 36415; 71046; 80053; 81000; 83735; 83874; 84484; 85025; 85379; 85610; 85730; 87088; 93005; 93041

== ENCOUNTER 2018-12-30 15:34 | Emergency (ER) | payer OTHER ==
[~2018-12-30] VITALS: Ht 175 cm; Wt 81.0 kg
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
--- NOTE | 2018-12-30 16:59 | Diagnostic Imaging Report ---
INDICATION: Question possible pneumonia. Cough since last . EXAMINATION: Single view chest, 12/30/2018. COMPARISON: Previous from 11/27/2018. FINDINGS: The heart and pulmonary vasculature appear stable. There is a vague density in the right lung base, likely a focal infiltrate. Followup recommended to assure resolution. The remaining lungs are clear. No effusions. No pneumothorax. IMPRESSION: Possible right base infiltrate. Short-term follow-up recommended to assure complete resolution. Dictated by: Dictated on workstation # [id number]
[2018-12-30] MEDS ORDERED: ACETAMINOPHEN 500 MG TAB (TYLENOL) PO ONE (17:00)
--- NOTE | 2018-12-30 17:00 | Diagnostic Imaging Report ---
INDICATION: Injury to the left elbow. Pain. EXAMINATION: Left elbow, 12/30/2018. FINDINGS: Three views of the elbow demonstrate no fractures or dislocations. Soft tissues are grossly unremarkable. No joint effusion. IMPRESSION: 1. No acute process. Dictated by: Dictated on workstation # [id number]
[2018-12-30 17:09] LABS: BASOPHILS % (AUTO) 0 % (0-10); EOSINOPHILS # (AUTO) 0.2 10^3/uL (0.0-0.3); EOSINOPHILS % (AUTO) 2 % (0-10); HEMATOCRIT 38 % (35-52); HEMOGLOBIN 12.5 G/DL (11.5-16.0); LYMPHOCYTES # (AUTO) 2.2 X 10^3 (1.0-4.0); LYMPHOCYTES % (AUTO) 34 % (12-44); MEAN CORPUSCULAR HEMOGLOBIN 26 PG (25-34); MEAN CORPUSCULAR HGB CONC 33 G/DL (32-36); MEAN CORPUSCULAR VOLUME 78 FL (80-99); MEAN PLATELET VOLUME 9.1 FL (7.4-10.4); MONOCYTES # (AUTO) 0.7 X 10^3 (0.0-1.0); MONOCYTES % (AUTO) 11 % (0-12); NEUTROPHILS # (AUTO) 3.3 X 10^3 (1.8-7.8); NEUTROPHILS % (AUTO) 52 % (42-75); PLATELET COUNT 365 10^3/uL (130-400); RED CELL DISTRIBUTION WIDTH 14.9 % (10.0-14.5); WHITE BLOOD COUNT 6.3 10^3/uL (4.3-11.0)
[2018-12-30] MEDS ORDERED: cefTRIAXone 1,000 MG IV (ROCEPHIN) VIAL ONE (17:25)
[2018-12-30] MEDS ORDERED: LIDOCAINE 1% INJ 20 ML 20 ML VIAL INJ ONE (17:30)
[2018-12-30 17:49] VITALS: BP 111/79
[2018-12-31] MEDS ORDERED: cefTRIAXone 1,000 MG/2.86 ml vial (IM ONLY) IM SCH (09:00)
== END 2018-12-30 17:49 | disposition home or self-care (01) ==
LOC: EDUNIT# 15:34 → ER 15:36
DX: J06.9 Acute upper respiratory infection, unspecified (principal); G43.909 Migraine, unspecified, not intractable, without status migrainosus; K21.9 Gastro-esophageal reflux disease without esophagitis; E03.9 Hypothyroidism, unspecified; F41.9 Anxiety disorder, unspecified; F32.9 Major depressive disorder, single episode, unspecified; D64.9 Anemia, unspecified; Z85.42 Personal history of malignant neoplasm of other parts of uterus; Z88.0 Allergy status to penicillin; Z88.8 Allergy status to other drugs, medicaments and biological substances; Z79.01 Long term (current) use of anticoagulants; Z87.891 Personal history of nicotine dependence; Z90.710 Acquired absence of both cervix and uterus; Z90.89 Acquired absence of other organs; Z86.711 Personal history of pulmonary embolism; Z80.0 Family history of malignant neoplasm of digestive organs; Z82.49 Family history of ischemic heart disease and other diseases of the circulatory system; Z80.49 Family history of malignant neoplasm of other genital organs
CPT/HCPCS: 36415; 71045; 73080; 85025

== ENCOUNTER 2019-02-02 14:05 | Emergency (ER) | payer SELFPAY ==
[~2019-02-02] VITALS: Ht 175.5 cm; Wt 81.8 kg
[~2019-02-02 14:05] MED LIST changes: -FLUO20CA25 PO; +FLUO20CA45 PO
--- NOTE | 2019-02-02 14:38 | ED General ---
General Chief Complaint: Dizziness/Syncope Stated Complaint: SORE ON CHIN / DIZZY Nursing Triage Note: AMB TO ED C/O BEING DIZZY AND SEEING BLACK SPOTS ONSET LAST NIGHT DID DRIVE SELF TO HOSPITAL Nursing Sepsis Screen: No Definite Risk Source of Information: Patient Exam Limitations: No Limitations History of Present Illness Date Seen by Provider: Feb 02, 2019 Time Seen by Provider: 14:36 Initial Comments To ER with c/o dizziness and seeing black spots upon standing up. This began this morning. Had diarrhea yesterday. Also has a sore on her chin. Timing/Duration: 1-2 Days Severity: Moderate Allergies and Home Medications Allergies Coded Allergies: Penicillins (Unverified Allergy, Unknown, Pt has received Ceftriaxone in the past w/o issue, 05/25/18) Uncoded Allergies: STERIODS (Allergy, Intermediate, HALLICINATIONS, 12/18/11) BEES (Allergy, Unknown, 05/24/18) paper tape (Allergy, Unknown, 05/24/18) Home Medications Cephalexin 500 Mg Capsule, 500 MG PO TID Prescribed by: CHAU KAUR on 02/02/19 1527 Fluoxetine HCl 40 Mg Capsule, 40 MG PO 1500, (Reported) Levothyroxine Sodium 125 Mcg Tablet, 125 MCG PO DAILY, (Reported) Mupirocin Calcium 15 Gm Cream..g., 15 GM TP BID Prescribed by: CHAU KAUR on 02/02/19 1527 Ranitidine HCl 150 Mg Tablet, 150 MG PO TID, (Reported) Rivaroxaban 20 Mg Tablet, 20 MG PO 1500, (Reported) Patient Home Medication List Home Medication List Reviewed: Yes Review of Systems Review of Systems Constitutional: see HPI, other (light headed) EENTM: see HPI Respiratory: no symptoms reported Cardiovascular: no symptoms reported Gastrointestinal: diarrhea Genitourinary: no symptoms reported Musculoskeletal: no symptoms reported Skin: no symptoms reported Psychiatric/Neurological: No Symptoms Reported Hematologic/Lymphatic: No Symptoms Reported Past Kfncfbe-Nhhkhr-Hqqzcn Hx Patient Social History Alcohol Use: Denies Use Recreational Drug Use: No Drug of Choice: methamphetamines and marijuana Smoking Status: Former Smoker Type Used: Cigarettes Former Smoker, Quit: Feb 28, 2000 2nd Hand Smoke Exposure: No Recent Foreign Travel: No Contact w/Someone Who Travel: No Recent Infectious Disease Expo: No Recent Hopitalizations: No Immunizations Up To Date Tetanus Booster (TDap): Less than 5yrs Seasonal Allergies Seasonal Allergies: Yes (at times-mild) Past Medical History Surgeries: Yes Abdominal, Section, Gallbladder, Hysterectomy, Oophorectomy, Thyroidectomy, Tonsillectomy Respiratory: Yes (SADDLE P.E. 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 DYSPHAGIA) Gastroesophageal Reflux, Hiatal Hernia Musculoskeletal: No Endocrine: Yes (thyroidectomy) Hypothyroidsim HEENT: Yes Dysphagia Cancer: Yes (ENDOMETRIAL CANCER) Did You Recieve Any Treatments: Yes What Type of Treatment Did You: Surgical Intervention Psychosocial: No Anxiety, Depression Integumentary: No Blood Disorders: Yes (hx ANEMIA; P.E. POST OP 06/2018) Adverse Reaction/Blood Tranf: No Family Medical History Alcoholism 19 FATHER 19 MOTHER Colon cancer 19 FATHER Drug abuse 19 FATHER 19 MOTHER FH: uterine cancer 19 MOTHER Hypertension 19 FATHER 19 MOTHER No Pertinent Family Hx Physical Exam Vital Signs Vital Signs - First Documented 02/02/19 14:18 Temp 35.9 Pulse 88 Resp 18 B/P (MAP) 118/70 (86) Pulse Ox 100 O2 Delivery Room Air Capillary Refill : Less Than 3 Seconds Height, Weight, BMI Height: 5'9.00" Weight: 181lbs. 8.0oz. 82.918055eh; 26.00 BMI Method:Actual General Appearance: No Apparent Distress, WD/WN Eyes: Bilateral Eye Normal Inspection, Bilateral Eye PERRL, Bilateral Eye EOMI HEENT: PERRL/EOMI, TMs Normal, Normal ENT Inspection, Other (small nickel sized area of erythema left anterior chin with central open area with honey colored crust. ) Neck: Full Range of Motion, Normal Inspection Respiratory: No Accessory Muscle Use, No Respiratory Distress Gastrointestinal: Normal Bowel Sounds, Non Tender, Soft Extremity: Normal Capillary Refill, Normal Inspection Neurologic/Psychiatric: Alert, Oriented x3 Skin: Normal Color, Warm/Dry Progress/Results/Core Measures Suspected Sepsis Recent Fever Within 48 Hours: No Infection Criteria Present: None New/Unexplained Altered Menta: No Sepsis Screen: No Definite Risk SIRS Temperature: Pulse: 88 Respiratory Rate: 18 Laboratory Tests 02/02/19 14:40: White Blood Count 3.9L Blood Pressure 118 /70 Mean: 86 Laboratory Tests 02/02/19 14:40: Creatinine 1.13, Platelet Count 330, Total Bilirubin 0.5 Results/Orders Lab Results Laboratory Tests Test 02/02/19 14:40 02/02/19 15:05 Range/Units White Blood Count 3.9 L 4.3-11.0 10^3/uL Red Blood Count 4.67 4.35-5.85 10^6/uL Hemoglobin 11.6 11.5-16.0 G/DL Hematocrit 35 35-52 % Mean Corpuscular Volume 75 L 80-99 FL Mean Corpuscular Hemoglobin 25 25-34 PG Mean Corpuscular Hemoglobin Concent 33 32-36 G/DL Red Cell Distribution Width 15.2 H 10.0-14.5 % Platelet Count 330 130-400 10^3/uL Mean Platelet Volume 9.1 7.4-10.4 FL Neutrophils (%) (Auto) 41 L 42-75 % Lymphocytes (%) (Auto) 43 12-44 % Monocytes (%) (Auto) 14 H 0-12 % Eosinophils (%) (Auto) 3 0-10 % Basophils (%) (Auto) 0 0-10 % Neutrophils # (Auto) 1.6 L 1.8-7.8 X 10^3 Lymphocytes # (Auto) 1.7 1.0-4.0 X 10^3 Monocytes # (Auto) 0.6 0.0-1.0 X 10^3 Eosinophils # (Auto) 0.1 0.0-0.3 10^3/uL Basophils # (Auto) 0.0 0.0-0.1 10^3/uL Sodium Level 138 135-145 MMOL/L Potassium Level 3.6 3.6-5.0 MMOL/L Chloride Level 106 98-107 MMOL/L Carbon Dioxide Level 21 21-32 MMOL/L Anion Gap 11 5-14 MMOL/L Blood Urea Nitrogen 16 7-18 MG/DL Creatinine 1.13 0.60-1.30 MG/DL Estimat Glomerular Filtration Rate 51 BUN/Creatinine Ratio 14 Glucose Level 93 70-105 MG/DL Calcium Level 9.1 8.5-10.1 MG/DL Corrected Calcium 8.9 8.5-10.1 MG/DL Total Bilirubin 0.5 0.1-1.0 MG/DL Aspartate Amino Transf (AST/SGOT) 17 5-34 U/L Alanine Aminotransferase (ALT/SGPT) 10 0-55 U/L Alkaline Phosphatase 60 40-136 U/L Total Protein 7.5 6.4-8.2 GM/DL Albumin 4.3 3.2-4.5 GM/DL Urine Color YELLOW Urine Clarity SL CLOUDY Urine pH 5.5 5-9 Urine Specific [place] >=1.030 1.016-1.022 Urine Protein 1+ H NEGATIVE Urine Glucose (UA) NEGATIVE NEGATIVE Urine Ketones 1+ H NEGATIVE Urine Nitrite NEGATIVE NEGATIVE Urine Bilirubin 1+ H NEGATIVE Urine Urobilinogen 0.2 < = 1.0 MG/DL Urine Leukocyte Esterase 1+ H NEGATIVE Urine RBC (Auto) 1+ H NEGATIVE Urine RBC 2-5 H /HPF Urine WBC 5-10 H /HPF Urine Squamous Epithelial Cells 5-10 /HPF Urine Crystals NONE /LPF Urine Bacteria MODERATE H /HPF Urine Casts PRESENT /LPF Urine Hyaline Casts 25-50 H /LPF Urine Mucus MODERATE H /LPF Urine Culture Indicated YES Urine Opiates Screen NEGATIVE NEGATIVE Urine Oxycodone Screen NEGATIVE NEGATIVE Urine Methadone Screen NEGATIVE NEGATIVE Urine Propoxyphene Screen NEGATIVE NEGATIVE Urine Barbiturates Screen NEGATIVE NEGATIVE Ur Tricyclic Antidepressants Screen NEGATIVE NEGATIVE Urine Phencyclidine Screen NEGATIVE NEGATIVE Urine Amphetamines Screen POSITIVE H NEGATIVE Urine Methamphetamines Screen POSITIVE H NEGATIVE Urine Benzodiazepines Screen POSITIVE H NEGATIVE Urine Cocaine Screen NEGATIVE NEGATIVE Urine Cannabinoids Screen NEGATIVE NEGATIVE My Orders Orders - CHAU KAUR CLOTH FINISHER Cbc With Automated Diff (02/02/19 14:32) Comprehensive Metabolic Panel (02/02/19 14:32) Ua Culture If Indicated (02/02/19 14:32) Drug Screen Stat (Urine) (02/02/19 14:32) Ed Iv/Invasive Line Start (02/02/19 14:32) Ns Iv 1000 Ml (Sodium Chloride 0.9%) (02/02/19 14:45) Ondansetron Injection (Zofran Injectio (02/02/19 14:45) Meclizine Tablet (Antivert Tablet) (02/02/19 14:45) Urine Culture (02/02/19 15:05) Medications Given in ED Current Medications Medications Dose Ordered Sig/Nathaly Route Start Time Stop Time Status Last Admin Dose Admin Meclizine HCl 25 mg ONCE ONCE PO 02/02/19 14:45 02/02/19 14:46 DC 02/02/19 14:48 25 MG Ondansetron HCl 4 mg ONCE ONCE IVP 02/02/19 14:45 02/02/19 14:46 DC 02/02/19 14:48 4 MG Vital Signs/I&O 02/02/19 14:18 Temp 35.9 Pulse 88 Resp 18 B/P (MAP) 118/70 (86) Pulse Ox 100 O2 Delivery Room Air Capillary Refill : Less Than 3 Seconds Blood Pressure Mean: 86 POS Departure Impression Primary Impression: Orthostatic dizziness Additional Impressions: Impetigo UTI (urinary tract infection) Methamphetamine use Disposition: HOME, SELF-CARE Condition: Stable Departure-Patient Inst. Decision time for Depature: 14:38 Referrals: ERICA ADAM MD (PCP/Family) Primary Care Physician Patient Instructions: Impetigo, Orthostatic Hypotension (DC), Urinary Tract Infections in Adults Add. Discharge Instructions: 1. Return to ER for any concerns 2. FOllow up with your doctor next week 3. Antibiotics as directed All discharge instructions reviewed with patient and/or family. Voiced understanding. Scripts Cephalexin (Keflex) 500 Mg Capsule 500 MG PO TID, #15 CAP Prov: CHAU KAUR APRN 02/02/19 Mupirocin Calcium (Mupirocin) 15 Gm Cream..g. 15 GM TP BID for 7 Days, #1 TUBE Prov: CHAU KAUR APRN 02/02/19 CHAU KAUR APRN Feb 02, 2019 14:38 POS
[2019-02-02] MEDS ORDERED: MECLIZINE 25 MG (ANTIVERT) TAB PO ONE (14:45)
[2019-02-02] MEDS ORDERED: ONDANSETRON 4 MG/2 ML (SDV) Z0FRAN IVP ONE (14:45)
[2019-02-02] MEDS ORDERED: NS IV 1000 ML 1,000 ML IV SCH (14:45)
[2019-02-02 14:59] LABS: BASOPHILS % (AUTO) 0 % (0-10); EOSINOPHILS # (AUTO) 0.1 10^3/uL (0.0-0.3); EOSINOPHILS % (AUTO) 3 % (0-10); HEMATOCRIT 35 % (35-52); HEMOGLOBIN 11.6 G/DL (11.5-16.0); LYMPHOCYTES # (AUTO) 1.7 X 10^3 (1.0-4.0); LYMPHOCYTES % (AUTO) 43 % (12-44); MEAN CORPUSCULAR HEMOGLOBIN 25 PG (25-34); MEAN CORPUSCULAR HGB CONC 33 G/DL (32-36); MEAN CORPUSCULAR VOLUME 75 FL (80-99); MEAN PLATELET VOLUME 9.1 FL (7.4-10.4); MONOCYTES # (AUTO) 0.6 X 10^3 (0.0-1.0); MONOCYTES % (AUTO) 14 % (0-12); NEUTROPHILS # (AUTO) 1.6 X 10^3 (1.8-7.8); NEUTROPHILS % (AUTO) 41 % (42-75); PLATELET COUNT 330 10^3/uL (130-400); RED CELL DISTRIBUTION WIDTH 15.2 % (10.0-14.5); WHITE BLOOD COUNT 3.9 10^3/uL (4.3-11.0)
--- NOTE | 2019-02-02 15:02 | NUR ---
TO BATHROOM PER W/C
[2019-02-02 15:15] LABS: CLARITY,URINE SL CLOUDY; COLOR,URINE YELLOW; GLUCOSE, URINE (UA) NEGATIVE (NEGATIVE); KETONES,URINE 1+ (NEGATIVE); LEUKOCYTE ESTERASE ,URINE 1+ (NEGATIVE); NITRITE,URINE NEGATIVE (NEGATIVE); PH,URINE 5.5 (5-9); PROTEIN,URINE 1+ (NEGATIVE)
[2019-02-02 15:16] LABS: ALBUMIN 4.3 GM/DL (3.2-4.5); BILIRUBIN,TOTAL 0.5 MG/DL (0.1-1.0); CALCIUM 9.1 MG/DL (8.5-10.1); CREATININE SERUM 1.13 MG/DL (0.60-1.30); POTASSIUM 3.6 MMOL/L (3.6-5.0); TOTAL PROTEIN 7.5 GM/DL (6.4-8.2)
[2019-02-02 15:20] LABS: BILIRUBIN,URINE 1+ (NEGATIVE)
[2019-02-02 15:22] LABS: BACTERIA,URINE MODERATE /HPF; HYALINE CASTS, URINE 25-50 /LPF
[2019-02-02 15:24] LABS: AMPHETAMINE SCREEN, URINE POSITIVE (NEGATIVE); BARBITURATE SCREEN URINE NEGATIVE (NEGATIVE); BENZODIAZEPINES SCREEN URINE POSITIVE (NEGATIVE); CANNABINOID SCREEN, URINE NEGATIVE (NEGATIVE); COCAINE SCREEN URINE NEGATIVE (NEGATIVE); METHADONE STAT NEGATIVE (NEGATIVE); METHAMPHETAMINE SCREEN URINE S POSITIVE (NEGATIVE); OPIATE SCREEN URINE NEGATIVE (NEGATIVE); OXYCODONE STAT NEGATIVE (NEGATIVE); PROPOXYPHENE STAT NEGATIVE (NEGATIVE); TRICYCLIC ANTIDEPRESSANTS SCRE NEGATIVE (NEGATIVE)
[2019-02-02] MEDS ORDERED: CEPH-507 PO (15:27)
[2019-02-02] MEDS ORDERED: MUPI15CR11 TP (15:27)
[2019-02-02 15:40] VITALS: BP 103/61
== END 2019-02-02 15:41 | disposition home or self-care (01) ==
LOC: EDUNIT# 14:05 → ER 14:06
DX: R42 Dizziness and giddiness (principal); L01.00 Impetigo, unspecified; N39.0 Urinary tract infection, site not specified; F15.90 Other stimulant use, unspecified, uncomplicated; G43.909 Migraine, unspecified, not intractable, without status migrainosus; F41.9 Anxiety disorder, unspecified; F32.9 Major depressive disorder, single episode, unspecified; D64.9 Anemia, unspecified; K21.9 Gastro-esophageal reflux disease without esophagitis; E03.9 Hypothyroidism, unspecified; Z85.42 Personal history of malignant neoplasm of other parts of uterus; Z88.0 Allergy status to penicillin; Z88.8 Allergy status to other drugs, medicaments and biological substances; Z79.01 Long term (current) use of anticoagulants; Z87.891 Personal history of nicotine dependence; Z90.89 Acquired absence of other organs; Z90.710 Acquired absence of both cervix and uterus; Z86.711 Personal history of pulmonary embolism; Z80.0 Family history of malignant neoplasm of digestive organs; Z82.49 Family history of ischemic heart disease and other diseases of the circulatory system; Z80.49 Family history of malignant neoplasm of other genital organs
CPT/HCPCS: 36415; 80053; 80306; 81000; 85025; 87088; 96361; 96374

== ENCOUNTER 2019-02-05 10:49 | Emergency (ER) | payer SELFPAY ==
[~2019-02-05] VITALS: Ht 175.2 cm; Wt 81.8 kg
[~2019-02-05 10:49] MED LIST changes: +CEPH-507 PO; +FLUO20CA25 PO; -FLUO20CA45 PO; +MUPI15CR11 TP
[2019-02-05] MEDS ORDERED: PROCHLORPERAZINE 10 MG/2ML INJ (COMPAZINE) IV ONE (11:15)
[2019-02-05] MEDS ORDERED: NS IV 1000 ML 1,000 ML IV SCH (11:15)
[2019-02-05] MEDS ORDERED: KETOROLAC 30 MG/ML VIAL IVP ONE (11:15)
[2019-02-05] MEDS ORDERED: diphenhydrAMINE 50 MG/ML INJ (BENADRYL) IVP ONE (11:15)
--- NOTE | 2019-02-05 11:28 | ED General ---
General Chief Complaint: General Problems/Pain Stated Complaint: PAIN IN LOWER BACK/MIGRAINE Nursing Triage Note: PT AMB TO TRIAGE WITH COMPLAINT OF BACK PAIN. STATES SHE WAS SEEN HERE THE OTHER DAY AND DIAGNOSED WITH BLADDER INFECTION. Nursing Sepsis Screen: No Definite Risk Source of Information: Patient Exam Limitations: No Limitations History of Present Illness Date Seen by Provider: Feb 05, 2019 Time Seen by Provider: 11:22 Initial Comments 49-year-old female who presents to the emergency room with complaints of lower back pain that she believes this caused to her recent diagnosis of a bladder infection. She also reports that she has a migraine. She reports migraines occur frequently and this and is very similar. Her culture was negative from previous visits. Timing/Duration: 2-3 Days Allergies and Home Medications Allergies Coded Allergies: Penicillins (Unverified Allergy, Unknown, Pt has received Ceftriaxone in the past w/o issue, 05/25/18) Uncoded Allergies: STERIODS (Allergy, Intermediate, HALLICINATIONS, 12/18/11) BEES (Allergy, Unknown, 05/24/18) paper tape (Allergy, Unknown, 05/24/18) Home Medications Cephalexin 500 Mg Capsule, 500 MG PO TID Prescribed by: CHAU KAUR on 02/02/19 1527 Fluoxetine HCl 40 Mg Capsule, 40 MG PO 1500, (Reported) Levothyroxine Sodium 125 Mcg Tablet, 125 MCG PO DAILY, (Reported) Mupirocin Calcium 15 Gm Cream..g., 15 GM TP BID Prescribed by: CHAU KAUR on 02/02/19 1527 Ranitidine HCl 150 Mg Tablet, 150 MG PO TID, (Reported) Rivaroxaban 20 Mg Tablet, 20 MG PO 1500, (Reported) Patient Home Medication List Home Medication List Reviewed: Yes Review of Systems Review of Systems Constitutional: see HPI; No chills, No fever Musculoskeletal: see HPI, back pain Psychiatric/Neurological: See HPI, Headache All Other Systems Reviewed Negative Unless Noted: Yes Past Dusimpb-Rmihji-Dqswoe Hx Past Med/Social Hx: Reviewed Nursing Past Med/Soc Hx Patient Social History Alcohol Use: Denies Use Recreational Drug Use: Yes Drug of Choice: methamphetamines and marijuana Smoking Status: Former Smoker Type Used: Cigarettes Former Smoker, Quit: Feb 28, 2000 2nd Hand Smoke Exposure: No Recent Foreign Travel: No Contact w/Someone Who Travel: No Recent Infectious Disease Expo: No Recent Hopitalizations: No Physical Abuse: No Sexual Abuse: No Mistreated: No Fear: No Immunizations Up To Date Tetanus Booster (TDap): Less than 5yrs Seasonal Allergies Seasonal Allergies: Yes (at times-mild) Past Medical History Surgeries: Yes Abdominal, Section, Gallbladder, Hysterectomy, Oophorectomy, Thyroidectomy, Tonsillectomy Respiratory: Yes (SADDLE P.E. 06/2018--FELT TO BE DUE TO RECENT SURGERY) Pneumonia, Pulmonary Embolism Cardiac: No Neurological: Yes Headaches /Migraines Reproductive Disorders: Yes (ENDOMETRIAL CANCER-S/P HYST 04/2018) HIGH LIGHTER History: Hysterectomy Sexually Transmitted Disease: Yes (gonorrhea) HIV/AIDS: No Genitourinary: Yes Bladder Infection Gastrointestinal: Yes (LAP BAND WITH HIATAL HERNIA REPAIRED WITH LAP BAND. DYSPHAGIA) Gastroesophageal Reflux, Hiatal Hernia Musculoskeletal: No Endocrine: Yes (thyroidectomy) Hypothyroidsim HEENT: Yes Dysphagia Cancer: Yes (ENDOMETRIAL CANCER) Did You Recieve Any Treatments: Yes What Type of Treatment Did You: Surgical Intervention Psychosocial: No Anxiety, Depression Integumentary: No Blood Disorders: Yes (hx ANEMIA; P.E. POST OP 06/2018) Adverse Reaction/Blood Tranf: No Family Medical History Reviewed Nursing Family Hx Alcoholism 19 FATHER 19 MOTHER Colon cancer 19 FATHER Drug abuse 19 FATHER 19 MOTHER FH: uterine cancer 19 MOTHER Hypertension 19 FATHER 19 MOTHER No Pertinent Family Hx Physical Exam Vital Signs Vital Signs - First Documented 02/05/19 11:08 Temp 36.5 Pulse 71 Resp 20 B/P (MAP) 114/77 (89) Pulse Ox 100 O2 Delivery Room Air Capillary Refill : Less Than 3 Seconds Height, Weight, BMI Height: 5'9.00" Weight: 181lbs. 8.0oz. [id number]; 26.00 BMI Method:Actual General Appearance: No Apparent Distress, WD/WN Eyes: Bilateral Eye Normal Inspection, Bilateral Eye PERRL, Bilateral Eye EOMI HEENT: PERRL/EOMI, TMs Normal, Normal ENT Inspection, Pharynx Normal Respiratory: Chest Non Tender, Lungs Clear, Normal Breath Sounds, No Accessory Muscle Use, No Respiratory Distress Cardiovascular: Regular Rate, Rhythm, No Edema, No Gallop, No JVD, No Murmur, Normal Peripheral Pulses Back: Vertebral Tenderness (lumbar vertebral tenderness) Extremity: Normal Capillary Refill Neurologic/Psychiatric: Alert, Oriented x3, Normal Mood/Affect Skin: Normal Color, Warm/Dry Progress/Results/Core Measures Suspected Sepsis Recent Fever Within 48 Hours: No Infection Criteria Present: None New/Unexplained Altered Menta: No Sepsis Screen: No Definite Risk SIRS Temperature: Pulse: 71 Respiratory Rate: 20 Laboratory Tests 02/05/19 11:46: White Blood Count 3.5L Blood Pressure 114 /77 Mean: 89 Laboratory Tests 02/05/19 11:25: Creatinine 0.71, Total Bilirubin 0.2 02/05/19 11:46: Platelet Count 273 Results/Orders Lab Results Laboratory Tests Test 02/05/19 11:25 02/05/19 11:46 02/05/19 12:00 Range/Units Sodium Level 138 135-145 MMOL/L Potassium Level 5.0 3.6-5.0 MMOL/L Chloride Level 109 H 98-107 MMOL/L Carbon Dioxide Level 17 L 21-32 MMOL/L Anion Gap 12 5-14 MMOL/L Blood Urea Nitrogen 11 7-18 MG/DL Creatinine 0.71 0.60-1.30 MG/DL Estimat Glomerular Filtration Rate > 60 BUN/Creatinine Ratio 15 Glucose Level 83 70-105 MG/DL Calcium Level 8.8 8.5-10.1 MG/DL Corrected Calcium 8.8 8.5-10.1 MG/DL Total Bilirubin 0.2 0.1-1.0 MG/DL Aspartate Amino Transf (AST/SGOT) 23 5-34 U/L Alanine Aminotransferase (ALT/SGPT) 12 0-55 U/L Alkaline Phosphatase 66 40-136 U/L Total Protein 7.4 6.4-8.2 GM/DL Albumin 4.0 3.2-4.5 GM/DL White Blood Count 3.5 L 4.3-11.0 10^3/uL Red Blood Count 4.48 4.35-5.85 10^6/uL Hemoglobin 11.2 L 11.5-16.0 G/DL Hematocrit 35 35-52 % Mean Corpuscular Volume 78 L 80-99 FL Mean Corpuscular Hemoglobin 25 25-34 PG Mean Corpuscular Hemoglobin Concent 32 32-36 G/DL Red Cell Distribution Width 14.8 H 10.0-14.5 % Platelet Count 273 130-400 10^3/uL Mean Platelet Volume 9.2 7.4-10.4 FL Neutrophils (%) (Auto) 41 L 42-75 % Lymphocytes (%) (Auto) 43 12-44 % Monocytes (%) (Auto) 14 H 0-12 % Eosinophils (%) (Auto) 3 0-10 % Basophils (%) (Auto) 0 0-10 % Neutrophils # (Auto) 1.4 L 1.8-7.8 X 10^3 Lymphocytes # (Auto) 1.5 1.0-4.0 X 10^3 Monocytes # (Auto) 0.5 0.0-1.0 X 10^3 Eosinophils # (Auto) 0.1 0.0-0.3 10^3/uL Basophils # (Auto) 0.0 0.0-0.1 10^3/uL Urine Color YELLOW Urine Clarity CLEAR Urine pH 6.0 5-9 Urine Specific Fenton 1.025 H 1.016-1.022 Urine Protein NEGATIVE NEGATIVE Urine Glucose (UA) NEGATIVE NEGATIVE Urine Ketones NEGATIVE NEGATIVE Urine Nitrite NEGATIVE NEGATIVE Urine Bilirubin NEGATIVE NEGATIVE Urine Urobilinogen 0.2 < = 1.0 MG/DL Urine Leukocyte Esterase NEGATIVE NEGATIVE Urine RBC (Auto) TRACE-I NEGATIVE Urine RBC 2-5 H /HPF Urine WBC NONE /HPF Urine Squamous Epithelial Cells 2-5 /HPF Urine Crystals NONE /LPF Urine Bacteria NEGATIVE /HPF Urine Casts NONE /LPF Urine Mucus NEGATIVE /LPF Urine Culture Indicated NO My Orders Orders - GENA MICHEL Comprehensive Metabolic Panel (02/05/19 11:14) Ua Culture If Indicated (02/05/19 11:14) Ed Iv/Invasive Line Start (02/05/19 11:14) Cbc With Automated Diff (02/05/19 11:14) Drug Screen Stat (Urine) (02/05/19 11:14) Ns Iv 1000 Ml (Sodium Chloride 0.9%) (02/05/19 11:15) Ketorolac Injection (Toradol Injection) (02/05/19 11:15) Diphenhydramine Injection (Benadryl Inje (02/05/19 11:15) Prochlorperazine Injection (Compazine In (02/05/19 11:15) Medications Given in ED Current Medications Medications Dose Ordered Sig/Nathaly Route Start Time Stop Time Status Last Admin Dose Admin Diphenhydramine HCl 25 mg ONCE ONCE IVP 02/05/19 11:15 12/10/19 11:17 DC 02/05/19 11:31 25 MG Ketorolac Tromethamine 30 mg ONCE ONCE IVP 02/05/19 11:15 02/05/19 11:17 DC 02/05/19 11:31 30 MG Prochlorperazine Edisylate 10 mg ONCE ONCE IV 02/05/19 11:15 02/05/19 11:17 DC 02/05/19 11:31 10 MG Vital Signs/I&O 02/05/19 11:08 Temp 36.5 Pulse 71 Resp 20 B/P (MAP) 114/77 (89) Pulse Ox 100 O2 Delivery Room Air Capillary Refill : Less Than 3 Seconds Blood Pressure Mean: 89 POS Progress Note : Time: 12:32 Progress Note I have seen and evaluated the patient. I've informed her of her laboratory studies. She is pain-free at this time and her migraine has resolved. She was instructed to follow-up with her primary care provider. She agrees with plan of care, plans for discharge, return precautions were given. Departure Impression Primary Impression: Migraine Disposition: 01 HOME, SELF-CARE Condition: Stable/Unchanged Departure-Patient Inst. Decision time for Depature: 12:29 Referrals: ERICA ADAM MD (PCP/Family) Primary Care Physician Patient Instructions: Low Back Pain (DC), Migraine Headaches in Adults Add. Discharge Instructions: You may use ibuprofen and Tylenol as directed by the bottle for pain relief. Continue to drink plenty of fluids to stay hydrated. Follow-up with your primary care provider within 1 week for recheck. Return back to the emergency room for worsening symptoms or concerns as needed. All discharge instructions reviewed with patient and/or family. Voiced understanding. GENA MICHEL Feb 05, 2019 11:28 POS
[2019-02-05 11:50] LABS: ALANINE AMINOTRANSFERASE 12 U/L (0-55); ALKALINE PHOSPHATASE 66 U/L (40-136); BILIRUBIN,TOTAL 0.2 MG/DL (0.1-1.0); BUN/CREATININE RATIO 15; CALCIUM 8.8 MG/DL (8.5-10.1); CARBON DIOXIDE 17 MMOL/L (21-32); CHLORIDE 109 MMOL/L (98-107); CREATININE SERUM 0.71 MG/DL (0.60-1.30); GFR ESTIMATED > 60; GLUCOSE 83 MG/DL (70-105); SODIUM 138 MMOL/L (135-145); TOTAL PROTEIN 7.4 GM/DL (6.4-8.2)
[2019-02-05 11:50] LABS: BASOPHILS % (AUTO) 0 % (0-10); EOSINOPHILS # (AUTO) 0.1 10^3/uL (0.0-0.3); EOSINOPHILS % (AUTO) 3 % (0-10); HEMATOCRIT 35 % (35-52); HEMOGLOBIN 11.2 G/DL (11.5-16.0); LYMPHOCYTES # (AUTO) 1.5 X 10^3 (1.0-4.0); LYMPHOCYTES % (AUTO) 43 % (12-44); MEAN CORPUSCULAR HEMOGLOBIN 25 PG (25-34); MEAN CORPUSCULAR HGB CONC 32 G/DL (32-36); MEAN CORPUSCULAR VOLUME 78 FL (80-99); MEAN PLATELET VOLUME 9.2 FL (7.4-10.4); MONOCYTES # (AUTO) 0.5 X 10^3 (0.0-1.0); MONOCYTES % (AUTO) 14 % (0-12); NEUTROPHILS # (AUTO) 1.4 X 10^3 (1.8-7.8); NEUTROPHILS % (AUTO) 41 % (42-75); PLATELET COUNT 273 10^3/uL (130-400); RED CELL DISTRIBUTION WIDTH 14.8 % (10.0-14.5); WHITE BLOOD COUNT 3.5 10^3/uL (4.3-11.0)
[2019-02-05 12:05] LABS: BILIRUBIN,URINE NEGATIVE (NEGATIVE); CLARITY,URINE CLEAR; COLOR,URINE YELLOW; GLUCOSE, URINE (UA) NEGATIVE (NEGATIVE); KETONES,URINE NEGATIVE (NEGATIVE); LEUKOCYTE ESTERASE ,URINE NEGATIVE (NEGATIVE); NITRITE,URINE NEGATIVE (NEGATIVE); PROTEIN,URINE NEGATIVE (NEGATIVE)
[2019-02-05 12:14] LABS: BACTERIA,URINE NEGATIVE /HPF
[2019-02-05 12:33] LABS: AMPHETAMINE SCREEN, URINE NEGATIVE (NEGATIVE); BARBITURATE SCREEN URINE NEGATIVE (NEGATIVE); BENZODIAZEPINES SCREEN URINE NEGATIVE (NEGATIVE); CANNABINOID SCREEN, URINE NEGATIVE (NEGATIVE); COCAINE SCREEN URINE NEGATIVE (NEGATIVE); METHADONE STAT NEGATIVE (NEGATIVE); METHAMPHETAMINE SCREEN URINE S POSITIVE (NEGATIVE); OPIATE SCREEN URINE NEGATIVE (NEGATIVE); OXYCODONE STAT NEGATIVE (NEGATIVE); PROPOXYPHENE STAT NEGATIVE (NEGATIVE); TRICYCLIC ANTIDEPRESSANTS SCRE NEGATIVE (NEGATIVE)
[2019-02-05 12:54] VITALS: BP 104/73
== END 2019-02-05 12:54 | disposition home or self-care (01) ==
LOC: EDUNIT# 10:49 → ER 10:51
DX: G43.909 Migraine, unspecified, not intractable, without status migrainosus (principal); F41.9 Anxiety disorder, unspecified; F32.9 Major depressive disorder, single episode, unspecified; K21.9 Gastro-esophageal reflux disease without esophagitis; E03.9 Hypothyroidism, unspecified; D64.9 Anemia, unspecified; Z88.0 Allergy status to penicillin; Z85.42 Personal history of malignant neoplasm of other parts of uterus; Z88.8 Allergy status to other drugs, medicaments and biological substances; Z79.01 Long term (current) use of anticoagulants; Z87.891 Personal history of nicotine dependence; Z90.89 Acquired absence of other organs; Z90.710 Acquired absence of both cervix and uterus; Z86.711 Personal history of pulmonary embolism; Z82.49 Family history of ischemic heart disease and other diseases of the circulatory system; Z80.0 Family history of malignant neoplasm of digestive organs; Z80.49 Family history of malignant neoplasm of other genital organs
CPT/HCPCS: 36415; 80053; 80306; 81000; 85025; 96374; 96375

== ENCOUNTER 2019-02-11 05:52 | Emergency (ER) | payer SELFPAY ==
[~2019-02-11] VITALS: Ht 175.2 cm; Wt 81.8 kg
[2019-02-11] MEDS ORDERED: LACTATED RINGERS 1,000 ML IV ONE (06:15)
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
[2019-02-11 06:24] LABS: BASOPHILS % (AUTO) 0 % (0-10); EOSINOPHILS % (AUTO) 0 % (0-10); HEMATOCRIT 38 % (35-52); HEMOGLOBIN 12.4 G/DL (11.5-16.0); LYMPHOCYTES # (AUTO) 1.5 X 10^3 (1.0-4.0); LYMPHOCYTES % (AUTO) 23 % (12-44); MEAN CORPUSCULAR HEMOGLOBIN 25 PG (25-34); MEAN CORPUSCULAR HGB CONC 33 G/DL (32-36); MEAN CORPUSCULAR VOLUME 76 FL (80-99); MEAN PLATELET VOLUME 9.1 FL (7.4-10.4); MONOCYTES # (AUTO) 0.6 X 10^3 (0.0-1.0); MONOCYTES % (AUTO) 9 % (0-12); NEUTROPHILS # (AUTO) 4.4 X 10^3 (1.8-7.8); NEUTROPHILS % (AUTO) 68 % (42-75); PLATELET COUNT 330 10^3/uL (130-400); RED CELL DISTRIBUTION WIDTH 15.3 % (10.0-14.5); WHITE BLOOD COUNT 6.5 10^3/uL (4.3-11.0)
[2019-02-11 06:44] LABS: ALANINE AMINOTRANSFERASE 19 U/L (0-55); ALBUMIN 4.8 GM/DL (3.2-4.5); ALKALINE PHOSPHATASE 71 U/L (40-136); BILIRUBIN,TOTAL 0.6 MG/DL (0.1-1.0); BUN/CREATININE RATIO 14; CALCIUM 9.9 MG/DL (8.5-10.1); CARBON DIOXIDE 22 MMOL/L (21-32); CHLORIDE 102 MMOL/L (98-107); CREATININE SERUM 0.91 MG/DL (0.60-1.30); GFR ESTIMATED > 60; GLUCOSE 112 MG/DL (70-105); POTASSIUM 3.6 MMOL/L (3.6-5.0); SODIUM 139 MMOL/L (135-145); TOTAL PROTEIN 8.6 GM/DL (6.4-8.2)
[2019-02-11 07:00] LABS: ACETAMINOPHEN < 10 UG/ML (10-30); SALICYLATE < 5.0 MG/DL (5.0-20.0)
--- NOTE | 2019-02-11 07:00 | NUR ---
ASSUMED CARE OF PT.
[2019-02-11] MEDS ORDERED: TETRACAINE 0.5% OPHTH SOLN 4 ML BTL (SINGLE DOSE ONLY) OU ONE (07:45)
[2019-02-11] MEDS ORDERED: FLUORESCEIN (FLUOR-I-STRIPS) 1 MG STRP OU ONE (07:45)
--- NOTE | 2019-02-11 07:47 | Diagnostic Imaging Report ---
PROCEDURE: CT head, face, and cervical spine without contrast. TECHNIQUE: Multiple contiguous axial images were obtained through the head, neck, and facial bones without the use of intravenous contrast. Sagittal and coronal reformations through the cervical spine and facial bones were also performed. Auto Exposure Controls were utilized during the CT exam to meet ALARA standards for radiation dose reduction. INDICATION: Fall. Neck pain. Nosebleed. COMPARISON: 08/28/2018 FINDINGS: CT head: The ventricles and cortical sulci are age-appropriate. There is no midline shift or mass-effect. No acute intracranial hemorrhage is seen. There is no CT evidence of acute territorial ischemia. No focal masses or collections are present. The calvarium is intact. CT face: No acute facial fractures are visualized. The mandible, zygomatic arches, and pterygoid plates are intact. The bilateral TMJ demonstrate normal articulation. No nasal bone fractures. The bony nasal septum is slightly deviated to the left without fracture. The paranasal sinuses and mastoid air cells are well pneumatized. The globes and orbits are symmetric and unremarkable. No evidence of orbital rim fracture. CT cervical spine: No acute fracture or dislocation is seen in the cervical spine. There is straightening of the cervical spine, likely due to positioning. No focal osseous lesions. Vertebral body heights are well-maintained. The craniocervical junction is well-maintained. Soft tissues of the neck are unremarkable. The included lung apices are clear. IMPRESSION: 1. No hemorrhage or focal intra-axial mass. No CT evidence of large acute territorial ischemia. 2. No acute fracture or dislocation in the cervical spine. 3. No acute facial fractures. Dictated by: Dictated on workstation # [id number]
--- NOTE | 2019-02-11 07:49 | NUR ---
Jayce perry in [facility] - 02/11/19 at 0811 by TUCKER UP TO BATHROOM.
--- NOTE | 2019-02-11 08:11 | NUR ---
UP TO BATHROOM.
--- NOTE | 2019-02-11 08:18 | NUR ---
IN ROOM LOOKING IN PT'S EYE. SHE THINKS SHE HAS A PIECE OF GRASS IN IT.
[2019-02-11 08:20] LABS: BILIRUBIN,URINE NEGATIVE (NEGATIVE); CLARITY,URINE SL CLOUDY; COLOR,URINE YELLOW; GLUCOSE, URINE (UA) NEGATIVE (NEGATIVE); KETONES,URINE NEGATIVE (NEGATIVE); LEUKOCYTE ESTERASE ,URINE 1+ (NEGATIVE); NITRITE,URINE NEGATIVE (NEGATIVE); PROTEIN,URINE NEGATIVE (NEGATIVE)
[2019-02-11] MEDS ORDERED: KETOROLAC 30 MG/ML VIAL IVP STA (08:26)
--- NOTE | 2019-02-11 08:28 | Diagnostic Imaging Report ---
PROCEDURE: US Venous Lower Ext Randy. TECHNIQUE: Multiple real-time grayscale images were obtained over the lower extremities in various projections, bilaterally. Additional duplex Doppler and color Doppler images were also obtained. INDICATION: Leg pain. History of pulmonary embolism. COMPARISON: 07/13/2018 FINDINGS: The bilateral common femoral vein, femoral vein, deep femoral vein, and popliteal vein are normal in appearance. These vessels show normal compressibility, color flow and doppler augmentation. The visualized deep calf veins demonstrate no distinct intraluminal thrombus. IMPRESSION: 1. No sonographic evidence of deep venous thrombosis in the bilateral lower extremities. Dictated by: Dictated on workstation # [id number]
[2019-02-11 08:31] LABS: BACTERIA,URINE TRACE /HPF; HYALINE CASTS, URINE 0-2 /LPF
[2019-02-11 08:33] LABS: AMPHETAMINE SCREEN, URINE POSITIVE (NEGATIVE); BARBITURATE SCREEN URINE NEGATIVE (NEGATIVE); BENZODIAZEPINES SCREEN URINE NEGATIVE (NEGATIVE); CANNABINOID SCREEN, URINE NEGATIVE (NEGATIVE); COCAINE SCREEN URINE NEGATIVE (NEGATIVE); METHADONE STAT NEGATIVE (NEGATIVE); METHAMPHETAMINE SCREEN URINE S POSITIVE (NEGATIVE); OPIATE SCREEN URINE NEGATIVE (NEGATIVE); OXYCODONE STAT NEGATIVE (NEGATIVE); PROPOXYPHENE STAT NEGATIVE (NEGATIVE); TRICYCLIC ANTIDEPRESSANTS SCRE NEGATIVE (NEGATIVE)
[2019-02-11 09:00] VITALS: BP 149/95
== END 2019-02-11 09:00 | disposition home or self-care (01) ==
LOC: EDUNIT# 05:52 → ER 05:54
DX: S16.1XXA Strain of muscle, fascia and tendon at neck level, initial encounter (principal); S00.83XA Contusion of other part of head, initial encounter; M79.604 Pain in right leg; M79.605 Pain in left leg; G43.909 Migraine, unspecified, not intractable, without status migrainosus; K21.9 Gastro-esophageal reflux disease without esophagitis; E03.9 Hypothyroidism, unspecified; F41.9 Anxiety disorder, unspecified; F32.9 Major depressive disorder, single episode, unspecified; D64.9 Anemia, unspecified; R40.2142 Coma scale, eyes open, spontaneous, at arrival to emergency department; R40.2252 Coma scale, best verbal response, oriented, at arrival to emergency department; R40.2362 Coma scale, best motor response, obeys commands, at arrival to emergency department; Z85.42 Personal history of malignant neoplasm of other parts of uterus; Z88.0 Allergy status to penicillin; Z88.8 Allergy status to other drugs, medicaments and biological substances; Z79.01 Long term (current) use of anticoagulants; Z87.891 Personal history of nicotine dependence; Z90.710 Acquired absence of both cervix and uterus; Z90.89 Acquired absence of other organs; Z86.711 Personal history of pulmonary embolism; Z80.0 Family history of malignant neoplasm of digestive organs; Z82.49 Family history of ischemic heart disease and other diseases of the circulatory system; Z80.49 Family history of malignant neoplasm of other genital organs; W00.0XXA Fall on same level due to ice and snow, initial encounter
CPT/HCPCS: 36415; 70450; 70486; 72125; 80053; 80306; 80320; 80329; 81000; 85025; 87088; 93970

== ENCOUNTER 2019-02-11 16:42 | Emergency (ER) | payer SELFPAY ==
[~2019-02-11] VITALS: Ht 170 cm; Wt 81.6 kg
[2019-02-11] MEDS ORDERED: LORazepam INJ 2 MG/ML (ATIVAN) VIAL IVP PRN (17:00)
[2019-02-11] MEDS ORDERED: ASPIRIN 81 MG CHEW (CHILDREN'S ASA) PO ONE (17:00)
[2019-02-11 17:03] LABS: BASOPHILS % (AUTO) 0 % (0-10); EOSINOPHILS % (AUTO) 1 % (0-10); HEMATOCRIT 34 % (35-52); HEMOGLOBIN 11.5 G/DL (11.5-16.0); LYMPHOCYTES # (AUTO) 1.6 X 10^3 (1.0-4.0); LYMPHOCYTES % (AUTO) 29 % (12-44); MEAN CORPUSCULAR HEMOGLOBIN 25 PG (25-34); MEAN CORPUSCULAR HGB CONC 34 G/DL (32-36); MEAN CORPUSCULAR VOLUME 74 FL (80-99); MEAN PLATELET VOLUME 9.3 FL (7.4-10.4); MONOCYTES # (AUTO) 0.6 X 10^3 (0.0-1.0); MONOCYTES % (AUTO) 12 % (0-12); NEUTROPHILS # (AUTO) 3.1 X 10^3 (1.8-7.8); NEUTROPHILS % (AUTO) 58 % (42-75); PLATELET COUNT 327 10^3/uL (130-400); RED CELL DISTRIBUTION WIDTH 15.6 % (10.0-14.5); WHITE BLOOD COUNT 5.3 10^3/uL (4.3-11.0)
[2019-02-11 17:13] LABS: FIBRIN DEGRADATION PRODUCTS 0.5 UG/ML (0.00-0.49); INR 1.1 (0.8-1.4); PROTHROMBIN TIME PATIENT 14.1 SEC (12.2-14.7)
[2019-02-11 17:16] LABS: ALANINE AMINOTRANSFERASE 20 U/L (0-55); ALBUMIN 4.4 GM/DL (3.2-4.5); ALKALINE PHOSPHATASE 64 U/L (40-136); BILIRUBIN,TOTAL 0.8 MG/DL (0.1-1.0); BUN/CREATININE RATIO 13; CALCIUM 9.3 MG/DL (8.5-10.1); CARBON DIOXIDE 20 MMOL/L (21-32); CHLORIDE 105 MMOL/L (98-107); CREATININE SERUM 0.97 MG/DL (0.60-1.30); GFR ESTIMATED > 60; GLUCOSE 84 MG/DL (70-105); MAGNESIUM 1.9 MG/DL (1.6-2.4); POTASSIUM 3.7 MMOL/L (3.6-5.0); SODIUM 138 MMOL/L (135-145); TOTAL PROTEIN 7.7 GM/DL (6.4-8.2)
--- NOTE | 2019-02-11 17:41 | Diagnostic Imaging Report ---
PATIENT HISTORY: Chest pain. TECHNIQUE: Single frontal view of the chest. COMPARISON: 12/30/2018. FINDINGS: The lung volumes are normal. No focal consolidation is seen. No large pleural effusion or pneumothorax is seen. The cardiomediastinal silhouette is normal in size and contour. No acute osseous abnormality is seen. IMPRESSION: No acute pulmonary abnormality seen. Dictated by: Dictated on workstation # [id number]
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
[2019-02-11] MEDS ORDERED: NS 100 ML (IVPB) BAG IV ONE (18:30)
[2019-02-11] MEDS ORDERED: IOHEXOL 350 MG/ML 150 ML (OMNIPAQUE 350) VIAL IV ONE (18:30)
[2019-02-11] MEDS ORDERED: HOLD METFORMIN - RECEIVED CONTRAST 20 ML VIAL IV SCH (18:30)
--- NOTE | 2019-02-11 19:17 | Diagnostic Imaging Report ---
PROCEDURE: CT angiography of the chest with contrast. TECHNIQUE: Multiple contiguous axial images were obtained through the chest after uneventful bolus administration of intravenous contrast. 3D reconstructed CTA MIP acquisitions were also performed. Auto Exposure Controls were utilized during the CT exam to meet ALARA standards for radiation dose reduction. INDICATION: Left-sided chest pain with history of PE. COMPARISON: 07/13/2018. Chest x-ray from 02/11/2019 FINDINGS: The pulmonary arteries are diagnostic to the segmental level. No filling defects are seen to indicate a pulmonary embolus. The aorta demonstrates no acute abnormality. The heart is normal in size. No mediastinal adenopathy is seen. There is thickening of the distal esophageal wall with a small hiatal hernia. A gastric lap band is noted. Imaged portions of the upper abdomen are otherwise unremarkable. No pleural effusion or pneumothorax is seen. There is scarring in the right middle lobe. No endobronchial lesions are seen. No acute osseous abnormality is seen. IMPRESSION: 1. No pulmonary embolus. 2. Distal esophageal wall thickening suggestive of esophagitis, with a small hiatal hernia. 3. Orientation of the lap band appears normal. Dictated by: Dictated on workstation # [id number]
[2019-02-11 19:30] VITALS: BP 137/95
[2019-02-11] MEDS ORDERED: RX-HYDROXYZINE PAMOATE 25 MG CAP #4 PO ONE (19:36)
[2019-02-11] MEDS ORDERED: RX-HYDROXYZINE PAMOATE 25 MG CAP #4 PO STA (19:38)
== END 2019-02-11 19:30 | disposition home or self-care (01) ==
LOC: EDUNIT# 16:42 → ER 16:42
DX: R07.89 Other chest pain (principal); G43.909 Migraine, unspecified, not intractable, without status migrainosus; F41.9 Anxiety disorder, unspecified; F32.9 Major depressive disorder, single episode, unspecified; K21.9 Gastro-esophageal reflux disease without esophagitis; E03.9 Hypothyroidism, unspecified; D64.9 Anemia, unspecified; Z85.42 Personal history of malignant neoplasm of other parts of uterus; Z88.0 Allergy status to penicillin; Z88.8 Allergy status to other drugs, medicaments and biological substances; Z79.01 Long term (current) use of anticoagulants; Z87.891 Personal history of nicotine dependence; Z90.710 Acquired absence of both cervix and uterus; Z90.89 Acquired absence of other organs; Z86.711 Personal history of pulmonary embolism; Z80.0 Family history of malignant neoplasm of digestive organs; Z82.49 Family history of ischemic heart disease and other diseases of the circulatory system; Z80.49 Family history of malignant neoplasm of other genital organs
CPT/HCPCS: 36415; 71045; 71275; 80053; 83735; 83874; 83880; 84484; 85025; 85379; 85610; 85730; 93005; 93041

== ENCOUNTER 2019-02-12 19:41 | Emergency (ER) | payer SELFPAY ==
[~2019-02-12] VITALS: Ht 172 cm; Wt 81.6 kg
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
[2019-02-12 21:30] VITALS: BP 125/86
== END 2019-02-12 21:35 | disposition home or self-care (01) ==
LOC: EDUNIT# 19:41 → ER 19:42
DX: R07.0 Pain in throat (principal); G43.909 Migraine, unspecified, not intractable, without status migrainosus; F41.9 Anxiety disorder, unspecified; F32.9 Major depressive disorder, single episode, unspecified; D64.9 Anemia, unspecified; K21.9 Gastro-esophageal reflux disease without esophagitis; E03.9 Hypothyroidism, unspecified; Z88.0 Allergy status to penicillin; Z88.8 Allergy status to other drugs, medicaments and biological substances; Z85.42 Personal history of malignant neoplasm of other parts of uterus; Z79.01 Long term (current) use of anticoagulants; Z87.891 Personal history of nicotine dependence; Z90.710 Acquired absence of both cervix and uterus; Z90.89 Acquired absence of other organs; Z86.711 Personal history of pulmonary embolism; Z80.0 Family history of malignant neoplasm of digestive organs; Z82.49 Family history of ischemic heart disease and other diseases of the circulatory system; Z80.49 Family history of malignant neoplasm of other genital organs; Y00.XXXA Assault by blunt object, initial encounter
CPT/HCPCS: 70490

== ENCOUNTER 2019-03-07 05:01 | Inpatient (IN) | payer SELFPAY ==
[~2019-03-07] VITALS: Ht 175 cm; Wt 87.1 kg
[2019-03-07] VITALS (15 sets, daily range): BP systolic 84–110; BP diastolic 59–81
[~2019-03-07 05:01] MED LIST changes: -FLUO20CA25 PO; +FLUO20CA45 PO
[2019-03-07] MEDS ORDERED: ONDANSETRON 4 MG/2 ML (SDV) Z0FRAN IVP ONE (05:15)
[2019-03-07 05:22] LABS: BASOPHILS % (AUTO) 0 % (0-10); EOSINOPHILS # (AUTO) 0.1 10^3/uL (0.0-0.3); EOSINOPHILS % (AUTO) 0 % (0-10); HEMATOCRIT 33 % (35-52); HEMOGLOBIN 11.1 G/DL (11.5-16.0); LYMPHOCYTES # (AUTO) 1.2 X 10^3 (1.0-4.0); LYMPHOCYTES % (AUTO) 9 % (12-44); MEAN CORPUSCULAR HEMOGLOBIN 26 PG (25-34); MEAN CORPUSCULAR HGB CONC 34 G/DL (32-36); MEAN CORPUSCULAR VOLUME 76 FL (80-99); MEAN PLATELET VOLUME 9.2 FL (7.4-10.4); MONOCYTES # (AUTO) 1.6 X 10^3 (0.0-1.0); MONOCYTES % (AUTO) 12 % (0-12); NEUTROPHILS # (AUTO) 10.8 X 10^3 (1.8-7.8); NEUTROPHILS % (AUTO) 79 % (42-75); PLATELET COUNT 282 10^3/uL (130-400); RED CELL DISTRIBUTION WIDTH 16.1 % (10.0-14.5); WHITE BLOOD COUNT 13.7 10^3/uL (4.3-11.0)
--- NOTE | 2019-03-07 05:23 | NUR ---
PT STATED SHE WAS ON ANTIBIOTICS FOR INFECTION IN PUBIC REGION. THIS PULLMAN CLERK/RN; JASWANT, RN; JOVAN, PCCT PRESENT IN ROOM DURING DR. HOLLAND ASSESSMENT AND ULTRASOUND OF PUBIS AREA WHICH WAS FOUND TO BE RED AND SWOLLEN.
[2019-03-07 05:27] LABS: BILIRUBIN,URINE NEGATIVE (NEGATIVE); CLARITY,URINE SL CLOUDY; COLOR,URINE YELLOW; GLUCOSE, URINE (UA) NEGATIVE (NEGATIVE); KETONES,URINE NEGATIVE (NEGATIVE); LEUKOCYTE ESTERASE ,URINE NEGATIVE (NEGATIVE); NITRITE,URINE NEGATIVE (NEGATIVE); PH,URINE 5.5 (5-9); PROTEIN,URINE 1+ (NEGATIVE)
[2019-03-07] MEDS ORDERED: VANCOMYCIN INJECTION 750 MG in NS (IVPB) 250 ML IV SCH (05:30)
[2019-03-07] MEDS ORDERED: cefTRIAXone FOR IV USE 1,000 MG in WATER (STERILE) FOR INJECTION 10 ML IV ONE (05:30)
[2019-03-07 05:39] LABS: BACTERIA,URINE FEW /HPF
[2019-03-07 05:40] LABS: HYALINE CASTS, URINE 0-2 /LPF; SQUAMOUS EPITHELIAL CELL,UR 0-2 /HPF
[2019-03-07 05:41] LABS: AMPHETAMINE SCREEN, URINE POSITIVE (NEGATIVE); BARBITURATE SCREEN URINE NEGATIVE (NEGATIVE); BENZODIAZEPINES SCREEN URINE POSITIVE (NEGATIVE); CANNABINOID SCREEN, URINE NEGATIVE (NEGATIVE); COCAINE SCREEN URINE NEGATIVE (NEGATIVE); METHADONE STAT NEGATIVE (NEGATIVE); METHAMPHETAMINE SCREEN URINE S POSITIVE (NEGATIVE); OPIATE SCREEN URINE NEGATIVE (NEGATIVE); OXYCODONE STAT NEGATIVE (NEGATIVE); PROPOXYPHENE STAT NEGATIVE (NEGATIVE); TRICYCLIC ANTIDEPRESSANTS SCRE NEGATIVE (NEGATIVE)
[2019-03-07 05:51] LABS: ALANINE AMINOTRANSFERASE 13 U/L (0-55); ALBUMIN 3.8 GM/DL (3.2-4.5); ALKALINE PHOSPHATASE 62 U/L (40-136); BILIRUBIN,TOTAL 0.3 MG/DL (0.1-1.0); BUN/CREATININE RATIO 14; CALCIUM 9.3 MG/DL (8.5-10.1); CARBON DIOXIDE 18 MMOL/L (21-32); CHLORIDE 107 MMOL/L (98-107); GFR ESTIMATED 32; GLUCOSE 99 MG/DL (70-105); POTASSIUM 3.3 MMOL/L (3.6-5.0); SALICYLATE < 5.0 MG/DL (5.0-20.0); SODIUM 137 MMOL/L (135-145); TOTAL PROTEIN 7.1 GM/DL (6.4-8.2)
[2019-03-07 05:52] LABS: ACETAMINOPHEN < 10 UG/ML (10-30)
[2019-03-07 05:56] LABS: INR 1.1 (0.8-1.4); PROTHROMBIN TIME PATIENT 14.5 SEC (12.2-14.7)
--- NOTE | 2019-03-07 06:03 | ED Psychosocial ---
General Chief Complaint: Overdose Stated Complaint: OVERDOSE Nursing Triage Note: TO ED ROOM 8 [facility]. PT WAS FOUND LAYING IN POSITION ON GROUND IN PARKING LOT AFTER SOMEONE CALLED POLICE. EMS FOUND PT TO BE VERY LETHARGIC AND GAVE 2MG NARCAN ON SCENE TO WHICH PT WOKE UP AND BECAME ANGRY. ON ARRIVAL PT STATES, "I LOST EVERYTHING, MY LOCKED ME OUT OF THE HOUSE." PER PT SHE "TOOK 25 TRAMADOL PILLS, MAYBE SOME METH, AND 1 BACTRIM FOR INFECTION I HAVE IN MY BODY." PT ALERT, ANSWERS QUESTIONS, BUT KEEPS REPEATING "LEAVE ME ALONE. YOU CAN'T SAVE ME". PT STATES SHE TOOK PILLS IN ATTEMPT TO HARM HERSELF. Source: patient Exam Limitations: no limitations History of Present Illness Date Seen by Provider: Mar 07, 2019 Time Seen by Provider: 04:57 Initial Comments This 49-year-old woman presents to the emergency room via EMS with overdose of tramadol. She was walking along the road when a winch driver stopped to ask her if she needed a ride. She told the winch driver she had taken a bunch of pills and wanted to . The winch driver call 911. Patient told the police or patrol park officer the same thing. Patient states she took about 25 tramadol. When EMS arrived patient was curled up in the position on the ground with decreased responsiveness. Narcan 2 mg IV was administered and patient became much more alert. She is stating she just wants to be left alone to . She denies taking any other prescription medications. She does use methamphetamines and does not recall her last time of use. She believes the time of ingestion of tramadol was about 2 hours prior to arrival. Patient also is taking Bactrim which she started yesterday for a large apparent abscess on the left labia majora and under the [facility] thumbnail. Patient states she was feeling suicidal today because her locked her out of the house. Allergies and Home Medications Allergies Coded Allergies: Penicillins (Unverified Allergy, Unknown, Pt has received Ceftriaxone in the past w/o issue, 05/25/18) Uncoded Allergies: STERIODS (Allergy, Intermediate, HALLICINATIONS, 12/18/11) BEES (Allergy, Unknown, 05/24/18) paper tape (Allergy, Unknown, 05/24/18) Home Medications Cephalexin 500 Mg Capsule, 500 MG PO TID Prescribed by: CHAU KAUR on 02/02/19 1527 Fluoxetine HCl 40 Mg Capsule, 40 MG PO 1500, (Reported) Levothyroxine Sodium 125 Mcg Tablet, 125 MCG PO DAILY, (Reported) Mupirocin Calcium 15 Gm Cream..g., 15 GM TP BID Prescribed by: CHAU KAUR on 02/02/19 1527 Ranitidine HCl 150 Mg Tablet, 150 MG PO TID, (Reported) Rivaroxaban 20 Mg Tablet, 20 MG PO 1500, (Reported) Patient Home Medication List Home Medication List Reviewed: Yes Review of Systems Constitutional: see HPI EENTM: no symptoms reported Respiratory: no symptoms reported Cardiovascular: no symptoms reported Gastrointestinal: no symptoms reported Genitourinary: see HPI : No Musculoskeletal: no symptoms reported Skin: see HPI Psychiatric/Neurological: See HPI Past Duvlhul-Ebcaow-Fobopi Hx Patient Social History Drug of Choice: methamphetamines and marijuana Type Used: Cigarettes Former Smoker, Quit: Feb 28, 2000 2nd Hand Smoke Exposure: No Recent Foreign Travel: No Contact w/Someone Who Travel: No Recent Infectious Disease Expo: No Recent Hopitalizations: No Immunizations Up To Date Tetanus Booster (TDap): Less than 5yrs Seasonal Allergies Seasonal Allergies: Yes (at times-mild) Past Medical History Surgeries: Yes Abdominal, Section, Gallbladder, Hysterectomy, Oophorectomy, Thyroidectomy, Tonsillectomy Respiratory: Yes (SADDLE P.E. 06/2018--FELT TO BE DUE TO RECENT SURGERY) Pneumonia, Pulmonary Embolism Cardiac: No Neurological: Yes Headaches /Migraines Reproductive Disorders: Yes (ENDOMETRIAL CANCER-S/P HYST 04/2018) [employer]OM[employer] PA[employer] History: Hysterectomy Sexually Transmitted Disease: Yes (gonorrhea) HIV/AIDS: No Genitourinary: Yes Bladder Infection Gastrointestinal: Yes (LAP BAND WITH HIATAL HERNIA REPAIRED WITH LAP BAND. DYSPHAGIA) Gastroesophageal Reflux, Hiatal Hernia Musculoskeletal: No Endocrine: Yes (thyroidectomy) Hypothyroidsim HEENT: Yes Dysphagia Cancer: Yes (ENDOMETRIAL CANCER) Did You Recieve Any Treatments: Yes What Type of Treatment Did You: Surgical Intervention Psychosocial: No Anxiety, Depression Integumentary: No Blood Disorders: Yes (hx ANEMIA; P.E. POST OP 06/2018) Adverse Reaction/Blood Tranf: No Family Medical History Reviewed Nursing Family Hx Alcoholism 19 FATHER 19 MOTHER Colon cancer 19 FATHER Drug abuse 19 FATHER 19 MOTHER FH: uterine cancer 19 MOTHER Hypertension 19 FATHER 19 MOTHER Cancer Physical Exam Vital Signs - First Documented 03/07/19 05:01 Temp 36.8 Pulse 93 Resp 18 B/P (MAP) 124/83 (97) O2 Delivery Room Air Capillary Refill : Less Than 3 Seconds Height, Weight, BMI Height: 5'9.00" Weight: 181lbs. 8.0oz. 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 Purulent accumulation under the right thumbnail) Progress/Results/Core Measures Results/Orders Lab Results Laboratory Tests Test 03/07/19 05:05 03/07/19 05:20 03/07/19 05:30 Range/Units White Blood Count 13.7 H 4.3-11.0 10^3/uL Red Blood Count 4.32 L 4.35-5.85 10^6/uL Hemoglobin 11.1 L 11.5-16.0 G/DL Hematocrit 33 L 35-52 % Mean Corpuscular Volume 76 L 80-99 FL Mean Corpuscular Hemoglobin 26 25-34 PG Mean Corpuscular Hemoglobin Concent 34 32-36 G/DL Red Cell Distribution Width 16.1 H 10.0-14.5 % Platelet Count 282 130-400 10^3/uL Mean Platelet Volume 9.2 7.4-10.4 FL Neutrophils (%) (Auto) 79 H 42-75 % Lymphocytes (%) (Auto) 9 L 12-44 % Monocytes (%) (Auto) 12 0-12 % Eosinophils (%) (Auto) 0 0-10 % Basophils (%) (Auto) 0 0-10 % Neutrophils # (Auto) 10.8 H 1.8-7.8 X 10^3 Lymphocytes # (Auto) 1.2 1.0-4.0 X 10^3 Monocytes # (Auto) 1.6 H 0.0-1.0 X 10^3 Eosinophils # (Auto) 0.1 0.0-0.3 10^3/uL Basophils # (Auto) 0.0 0.0-0.1 10^3/uL Prothrombin Time 14.5 12.2-14.7 SEC INR Comment 1.1 0.8-1.4 Activated Partial Thromboplast Time 36 H 24-35 SEC Sodium Level 137 135-145 MMOL/L Potassium Level 3.3 L 3.6-5.0 MMOL/L Chloride Level 107 98-107 MMOL/L Carbon Dioxide Level 18 L 21-32 MMOL/L Anion Gap 12 5-14 MMOL/L Blood Urea Nitrogen 23 H 7-18 MG/DL Creatinine 1.70 H 0.60-1.30 MG/DL Estimat Glomerular Filtration Rate 32 BUN/Creatinine Ratio 14 Glucose Level 99 70-105 MG/DL Calcium Level 9.3 8.5-10.1 MG/DL Corrected Calcium 9.5 8.5-10.1 MG/DL Magnesium Level 2.0 1.6-2.4 MG/DL Total Bilirubin 0.3 0.1-1.0 MG/DL Aspartate Amino Transf (AST/SGOT) 17 5-34 U/L Alanine Aminotransferase (ALT/SGPT) 13 0-55 U/L Alkaline Phosphatase 62 40-136 U/L C-Reactive Protein High Sensitivity 22.79 H 0.00-0.50 MG/DL Total Protein 7.1 6.4-8.2 GM/DL Albumin 3.8 3.2-4.5 GM/DL TSH [place] Testing 2.69 0.35-4.94 UIU/ML Salicylates Level < 5.0 L 5.0-20.0 MG/DL Acetaminophen Level < 10 L 10-30 UG/ML Serum Alcohol < 10 <10 MG/DL Urine Color YELLOW Urine Clarity SL CLOUDY Urine pH 5.5 5-9 Urine Specific [place] >=1.030 1.016-1.022 Urine Protein 1+ H NEGATIVE Urine Glucose (UA) NEGATIVE NEGATIVE Urine Ketones NEGATIVE NEGATIVE Urine Nitrite NEGATIVE NEGATIVE Urine Bilirubin NEGATIVE NEGATIVE Urine Urobilinogen 0.2 < = 1.0 MG/DL Urine Leukocyte Esterase NEGATIVE NEGATIVE Urine RBC (Auto) 1+ H NEGATIVE Urine RBC NONE /HPF Urine WBC 2-5 /HPF Urine Squamous Epithelial Cells 0-2 /HPF Urine Crystals NONE /LPF Urine Bacteria FEW H /HPF Urine Casts PRESENT /LPF Urine Hyaline Casts 0-2 H /LPF Urine White Blood Cell Casts 2-5 H /LPF Urine Mucus MODERATE H /LPF Urine Culture Indicated YES Urine Opiates Screen NEGATIVE NEGATIVE Urine Oxycodone Screen NEGATIVE NEGATIVE Urine Methadone Screen NEGATIVE NEGATIVE Urine Propoxyphene Screen NEGATIVE NEGATIVE Urine Barbiturates Screen NEGATIVE NEGATIVE Ur Tricyclic Antidepressants Screen NEGATIVE NEGATIVE Urine Phencyclidine Screen NEGATIVE NEGATIVE Urine Amphetamines Screen POSITIVE H NEGATIVE Urine Methamphetamines Screen POSITIVE H NEGATIVE Urine Benzodiazepines Screen POSITIVE H NEGATIVE Urine Cocaine Screen NEGATIVE NEGATIVE Urine Cannabinoids Screen NEGATIVE NEGATIVE Lactic Acid Level 2.03 *H 0.50-2.00 MMOL/L My Orders Orders - MARGARETH HOLLAND MD Acetaminophen (03/07/19 05:10) Alcohol (03/07/19 05:10) Cbc With Automated Diff (03/07/19 05:10) Comprehensive Metabolic Panel (03/07/19 05:10) Hs C Reactive Protein (03/07/19 05:10) Drug Screen Stat (Urine) (03/07/19 05:10) Salicylate (03/07/19 05:10) Thyroid Analyzer (03/07/19 05:10) Ua Culture If Indicated (03/07/19 05:10) Ed Iv/Invasive Line Start (03/07/19 05:10) Ondansetron Injection (Zofran Injectio (03/07/19 05:15) Ekg Tracing (03/07/19 05:29) Monitor-Rhythm Ecg Trace Only (03/07/19 05:29) Blood Culture (03/07/19 05:29) Protime With Inr (03/07/19 05:29) Partial Thromboplastin Time (03/07/19 05:29) Chest 1 View, Ap/Pa Only (03/07/19 05:29) Vital Signs Adult Sepsis Patie Q15M (03/07/19 05:29) O2 (03/07/19 05:29) Remove Rings In Anticipation O (03/07/19 05:29) Lactic Acid Analyzer (03/07/19 05:29) Ceftriaxone For Iv Use (Rocephin For I (03/07/19 05:30) Vancomycin Injection (Vancomycin Injecti (03/07/19 05:30) Beaulieu Cath (03/07/19 05:34) Urine Culture (03/07/19 05:20) Free T4 (Free Thyroxine) (03/07/19 05:40) Magnesium (03/07/19 05:40) Medications Given in ED Current Medications Medications Dose Ordered Sig/Nathaly Route Start Time Stop Time Status Last Admin Dose Admin Ceftriaxone Sodium 1000 mg/ Sterile Water 10 ml @ 200 mls/hr ONCE ONCE IV 03/07/19 05:30 03/07/19 05:35 DC 03/07/19 06:01 200 MLS/HR Ondansetron HCl 8 mg ONCE ONCE IVP 03/07/19 05:15 03/07/19 05:16 DC 03/07/19 05:17 8 MG Vital Signs/I&O 03/07/19 05:01 Temp 36.8 Pulse 93 Resp 18 B/P (MAP) 124/83 (97) O2 Delivery Room Air Blood Pressure Mean: 97 Progress Progress Note : Time: 06:03 Progress Note Workup for overdose and sepsis is being performed. Bedside ultrasound was used to evaluate the swelling at the labia majora. There did appear to be some stranding fluid collection deep in the subcutaneous tissue. Blood cultures and lactic acid were drawn and antibiotic therapy is being started with Rocephin and vancomycin. I contacted poison control who had a recommendations for monitoring EKGs every 2 hours times at least 3. They suggested looking for R waves greater than 2 mm in aVR and QTC greater than 500 or QRS greater than 110. If these findings occur, a bolus of sodium bicarbonate should be given. Protocol is being faxed to the ER. She received a liter of IV saline in the ER. Initial ECG Impression Date: Mar 07, 2019 Initial ECG Impression Time: 05:41 Initial ECG Rate: 82 Initial ECG Rhythm: Normal Sinus Initial ECG Intervals: Normal Initial ECG Impression: Normal Comment Normal sinus rhythm with no significant abnormal intervals or axis deviation. No ST elevation or depression. Diagnostic Imaging Diagonstic Imaging: Xray Plain Films/CT/US/NM/MRI: chest Comments Chest x-ray viewed by me. Report not yet available. No acute abnormalities appreciated. Departure Communication (Admissions) Time/Spoke to Admitting Phy: 06:10 Dr. Glaser Time/Spoke to Consulting Phy: 06:15 Dr. Ibarra Impression Primary Impression: Drug overdose Qualified Codes: T50.902A - Poisoning by unspecified drugs, medicaments and biological substances, intentional self-harm, initial encounter Additional Impressions: Suicide attempt Labial abscess Abscess of thumb, right Hypokalemia Methamphetamine abuse Disposition: ADMITTED INPATIENT Condition: Stable Admissions Decision to Admit Reason: Admit from ER (General) Decision to Admit/Date: Mar 07, 2019 Time/Decision to Admit Time: 05:00 Departure-Patient Inst. Referrals: ERICA ADAM MD (PCP/Family) Primary Care Physician Patient Instructions: ALCOHOL AND SUBSTANCE ABUSE MARGARETH HOLLAND MD Mar 07, 2019 06:03
[2019-03-07 06:12] LABS: TSH (THYROID ANALYZER) 2.69 UIU/ML (0.35-4.94)
--- NOTE | 2019-03-07 06:22 | NUR ---
AT THE REQUEST OF THE PATIENT THIS RN CALLED PATIENTS TO INFORM HI SHE WAS HERE.
--- NOTE | 2019-03-07 06:26 | Diagnostic Imaging Report ---
INDICATION: Overdose COMPARISON: 02/11/2019 FINDINGS: Frontal view of the chest demonstrates clear lungs bilaterally. The heart size is normal. There is no pneumothorax. Osseous structures are normal. IMPRESSION: No acute findings. Normal chest. Dictated by: Dictated on workstation # [id number]
[2019-03-07 06:33] LABS: FREE T4 (FREE THYROXINE) 1.05 NG/DL (0.70-1.48)
[2019-03-07] MEDS ORDERED: CATHETER FLUSH 10 ML SYR IV PRN (07:30)
[2019-03-07] MEDS ORDERED: NALOXONE 0.4 MG/ML 1 ML (NARCAN) VIAL IV PRN (07:30)
[2019-03-07] MEDS ORDERED: ONDANSETRON 4 MG/2 ML (SDV) Z0FRAN IV PRN (07:30)
[2019-03-07] MEDS: D5 1/2 NS W/KCL 40 MEQ/L 1,000 ML IV SCH ×3 (07:50→21:31)
[2019-03-07] MEDS ORDERED: FAMO20TA5 PO (08:18)
[2019-03-07] MEDS ORDERED: TRM50T PO (08:19)
--- NOTE | 2019-03-07 08:30 | NUR ---
VANCOMYCIN DOSING: SCr 1.7, CrCl 41.7, WEIGHT 81.6KG LOADING DOSE 1500MG 1-9 @ 0641, MAINTENANCE DOSE 1250MG DAILY VANCOMYCIN TROUGH DUE 03/10 @ 0530, IF TROUGH >20, HOLD 03/10 629 DOSE
[2019-03-07] MEDS ORDERED: SULF1TAB35 PO (09:29)
[2019-03-07] MEDS ORDERED: IBUP-30 PO (09:35)
[2019-03-07] MEDS ORDERED: DIPH25CA79 PO (09:35)
--- NOTE | 2019-03-07 09:37 | NUR ---
WENT OVER THE EXT MED HX WITH THE PATIENT AND SHE VERIFIED HOW SHE TAKES THEM. IN ADDITION TO WHAT THE EXT MED HX SHOWS [facility] FILLED: 03-06-19 BACTRIM DS BID #20 03-06-19 TRAMADOL 50MG Q4H PRN #25 SHE STATES SHE HAS BEEN OUT OF HER FLUOXETINE BUT STATES WHEN SHE CAN AFFORD TO FILL IT SHE WILL GET IT REFILLED. IT WAS LAST FILLED #30 01-11-19 - I NOTED THE PAST DUE FILL DATE ON THE MED REC. SHE STATES SHE HAS ALSO BEEN TAKING ADVIL 800MG Q6H PRN OTC FOR THE PAIN ASSOCIATED WITH HER INFECTION. SHE STATES SHE ALSO GOT HIVES AND HAS BEEN TAKING BENADRYL 50MG BID PRN ITCHING.
--- NOTE | 2019-03-07 10:16 | NUR ---
CM/SS visited the patient with social service consult. The patient was lying down in bed with the lights off when ss came to visit. The patient was willing to talk about what brought her into the hospital but was very short when answering. She states that when she took the tramadol it was not a suicide attempt but stated it was because "she just wanted to feel numb". The patient reports that she is having some marital problems. The patients was not in the room at the time of the visit. The patient reports she wanted to feel numb because her had locked her out of the house and also cheated on her 2 times with her best friend that was living staying with her. She reports that she feels like she does not have anything left in her life besides him. She lost her house, job, and relationship with her children all within a year. The patient states that she has only been using Methamphetamines for the past two months and does not use every day. She could not give me a specific answer for how often she is using. She did report that she does not use I meth V but she smokes it. CM/SS discussed the resources for drug and alcohol treatment and the patient stated "I do not need help, I'm done with it" referring to the Methamphetamine use. CM/SS left information with the patient regarding resources and will continue discussing options. CM/SS told patient that someone from [employer] will be screening her at some point. [employer] states they will screen her when she is medically stable. The patient states that she does see someone for counseling named Zoya; however, she missed her last appointment and doesn't know when the next one is scheduled for. Will continue to follow.
--- NOTE | 2019-03-07 11:10 | History & Physical-Hospitalist ---
History of Present Illness HPI/Chief Complaint Marium Oliva is a 49-year-old female with past medical history of depression, anxiety, methamphetamine abuse, who presented after an intentional overdose of Tramadol. She tells me that her cheated on her and then locked her out of the house. She says he wouldn't even let her back in to get her therapy dog. She then left and took 25 pills of Tramadol. She was reportedly found walking on the side of the road and a passerby asked if she needed help and she confided in them that she had taken all her pills. The police were called and she was transported to the emergency room. Upon my examination, she is angry and her mood is labile. She says she was not trying to kill herself and that she just wanted to feel numb. She denies any suicidal ideation at this time. She reports pain in her pelvic region. She also has pain in her right thumb. She denies intravenous drug use but says she smoked meth. She denies fever and chills. She denies chest pain and dyspnea. She denies nausea and vomiting. Source: patient Exam Limitations: no limitations Date Seen 03/07/19 Time Seen by a Provider: 08:20 Attending Physician Therese Glaser Lisa A MD Referring Physician Date of Admission Mar 07, 2019 at 06:18 Home Medications & Allergies Home Medications Reviewed patient Home Medication Reconciliation performed by pharmacy medication reconciliations pyrotechnician and/or nursing. Patients Allergies have been reviewed. Allergies Allergies Coded Allergies Penicillins (Unverified Allergy, Unknown, Pt has received Ceftriaxone in the past w/o issue, 05/25/18) Uncoded Allergies STERIODS ( Allergy, Intermediate, HALLICINATIONS, 12/18/11) BEES ( Allergy, Unknown, 05/24/18) paper tape ( Allergy, Unknown, 05/24/18) Past Gcdszlj-Jwmcky-Ygldui Hx Past Med/Social Hx: Reviewed Nursing Past Med/Soc Hx Patient Social History Alcohol Use: Denies Use Recreational Drug Use: Yes Drug of Choice: methamphetamines and marijuana Smoking Status: Current Everyday Smoker Former Smoker, Quit: Feb 28, 2000 Type Used: Cigarettes 2nd Hand Smoke Exposure: No Recent Foreign Travel: No Contact w/other who traveled: No Recent Hopitalizations: No Recent Infectious Disease Expo: No Immunizations Up To Date Tetanus Booster (TDap): Less than 5yrs Seasonal Allergies Seasonal Allergies: Yes (at times-mild) Past Medical History Surgeries: Abdominal, Section, Gallbladder, Hysterectomy, Oophorectomy, Thyroidectomy, Tonsillectomy Neurological: Headaches /Migraines Reproductive: Yes (ENDOMETRIAL CANCER-S/P HYST 04/2018) Sexually Transmitted Disease: Yes (gonorrhea) HIV/AIDS: No Hysterectomy Genitourinary: Bladder Infection Gastrointestinal: Gastroesophageal Reflux, Hiatal Hernia Endocrine: Hypothyroidsim HEENT: Dysphagia Did You Recieve Any Treatments: Yes What Type of Treatment Did You: Surgical Intervention Psychosocial: Anxiety, Depression History of Blood Disorders: Yes (hx ANEMIA; P.E. POST OP 06/2018) Adverse Reaction to Blood [place]: No Family History Reviewed Nursing Family Hx Alcoholism 19 FATHER 19 MOTHER Colon cancer 19 FATHER Drug abuse 19 FATHER 19 MOTHER FH: uterine cancer 19 MOTHER Hypertension 19 FATHER 19 MOTHER Cancer Review of Systems Constitutional: no symptoms reported EENTM: no symptoms reported Respiratory: no symptoms reported Cardiovascular: no symptoms reported Gastrointestinal: no symptoms reported Genitourinary: pain Musculoskeletal: no symptoms reported Skin: lesions Psychiatric/Neurological: Anxiety, Depressed, Emotional Problems Physical Exam Physical Exam Vital Signs Vital Signs - First Documented 03/07/19 03/07/19 05:01 06:46 Temp 36.8 Pulse 93 Resp 18 B/P (MAP) 124/83 (97) Pulse Ox 100 O2 Delivery Room Air Capillary Refill : Less Than 3 Seconds Height, Weight, BMI Height: 5'9.00" Weight: 181lbs. 8.0oz. 82.336574ax; 26.64 BMI Method:Actual General Appearance: No Apparent Distress, WD/WN HEENT: PERRL/EOMI, Pharynx Normal Neck: Normal Inspection, Supple Respiratory: Lungs Clear, Normal Breath Sounds, No Respiratory Distress Cardiovascular: Regular Rate, Rhythm, No Edema, No Murmur Gastrointestinal: Normal Bowel Sounds, Non Tender, Soft Genital/Rectal: Other (large labial abscess with induration and severe tenderness to palpation without visible drainage) Extremity: Normal Inspection, Non Tender, No Pedal Edema Neurologic/Psychiatric: Alert, Oriented x3, Depressed Affect (labile, angry, uncooperative) Skin: Other Results Results/Procedures Labs Laboratory Tests 03/07/19 05:05 Patient resulted labs reviewed. Assessment/Plan Admission Diagnosis Intentional opioid overdose Admission Status: Inpatient Order (span 2 midnights) Reason for Inpatient Admission: Opioid overdose requiring monitoring and labial abscess requiring surgical evaluation and possible intervention Assessment and Plan Intentional opioid overdose -States she just wanted to feel numb -Denies suicidal ideation or intent -SW consulted, appreciate assistance -Await medical stability Labial abscess -Started on Vancomycin -Surgery consulted, appreciate assistance Meth abuse -Recommend cessation DVT Prophylaxis: Lovenox Diagnosis/Problems Diagnosis/Problems (1) Intentional opiate overdose Status: Acute Qualifiers: Encounter type: initial encounter Qualified Codes: T40.602A - Poisoning by unspecified narcotics, intentional self-harm, initial encounter (2) Labial abscess Status: Acute (3) Methamphetamine abuse Status: Acute SONNY SHEFFIELD MD Mar 07, 2019 11:10
[2019-03-07] MEDS ORDERED: ENOXAPARIN 40 MG/0.4 ML (LOVENOX) SYR SC SCH (12:30)
[2019-03-07] MEDS: FAMOTIDINE 20 MG (PEPCID) TABLET PO SCH (12:37)
[2019-03-07] MEDS: FLUoxetine HCL 20 MG (PROzac) CAP PO SCH (14:51)
[2019-03-07] MEDS ORDERED: fentaNYL INJECTION 100 MCG/2 ML AMP IVP ONE (22:00)
[2019-03-07] MEDS ORDERED: fentaNYL INJECTION 100 MCG/2 ML AMP ONE (22:09)
[2019-03-07] MEDS: ENOXAPARIN 40 MG/0.4 ML (LOVENOX) SYR SC SCH (22:16)
[2019-03-07] MEDS ORDERED: fentaNYL INJECTION 100 MCG/2 ML AMP IV ONE (22:45)
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
[2019-03-08] VITALS (17 sets, daily range): BP systolic 89–107; BP diastolic 50–72
[2019-03-08] MEDS: fentaNYL INJECTION 100 MCG/2 ML AMP IV PRN ×7 (00:50→23:57)
[2019-03-08 03:37] LABS: BASOPHILS % (AUTO) 0 % (0-10); EOSINOPHILS # (AUTO) 0.2 10^3/uL (0.0-0.3); EOSINOPHILS % (AUTO) 2 % (0-10); HEMATOCRIT 30 % (35-52); HEMOGLOBIN 9.4 G/DL (11.5-16.0); LYMPHOCYTES # (AUTO) 1.6 X 10^3 (1.0-4.0); LYMPHOCYTES % (AUTO) 20 % (12-44); MEAN CORPUSCULAR HEMOGLOBIN 25 PG (25-34); MEAN CORPUSCULAR HGB CONC 32 G/DL (32-36); MEAN CORPUSCULAR VOLUME 79 FL (80-99); MEAN PLATELET VOLUME 9.5 FL (7.4-10.4); MONOCYTES # (AUTO) 0.6 X 10^3 (0.0-1.0); MONOCYTES % (AUTO) 8 % (0-12); NEUTROPHILS # (AUTO) 5.7 X 10^3 (1.8-7.8); NEUTROPHILS % (AUTO) 70 % (42-75); PLATELET COUNT 254 10^3/uL (130-400); RED CELL DISTRIBUTION WIDTH 16.6 % (10.0-14.5); WHITE BLOOD COUNT 8.1 10^3/uL (4.3-11.0)
[2019-03-08 04:01] LABS: ALANINE AMINOTRANSFERASE 12 U/L (0-55); ALKALINE PHOSPHATASE 58 U/L (40-136); BILIRUBIN,TOTAL 0.1 MG/DL (0.1-1.0); BUN/CREATININE RATIO 15; CALCIUM 7.4 MG/DL (8.5-10.1); CARBON DIOXIDE 18 MMOL/L (21-32); CHLORIDE 109 MMOL/L (98-107); GFR ESTIMATED > 60; GLUCOSE 137 MG/DL (70-105); MAGNESIUM 1.7 MG/DL (1.6-2.4); PHOSPHORUS 2.4 MG/DL (2.3-4.7); POTASSIUM 3.8 MMOL/L (3.6-5.0); SODIUM 135 MMOL/L (135-145); TOTAL PROTEIN 5.6 GM/DL (6.4-8.2)
[2019-03-08] MEDS ORDERED: PANTOPRAZOLE 40 MG (PROTONIX) VIAL IV SCH (04:09)
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
[2019-03-08] MEDS: MAGNESIUM 1 GM/100 ML IVPB 100 ML IV SCH ×2 (05:17→06:12)
[2019-03-08] MEDS: D5 1/2 NS W/KCL 40 MEQ/L 1,000 ML IV SCH ×3 (05:18→16:58)
[2019-03-08] MEDS: LEVOTHYROXINE 125 MCG (LEVOTHROID) TABLET PO SCH (05:18)
--- NOTE | 2019-03-08 05:35 | NUR ---
ORDERS FROM DR NANCE TO D/C ONE TO ONE SITTER.
[2019-03-08] MEDS ORDERED: diphenhydrAMINE 50 MG/ML INJ (BENADRYL) IVP PRN (06:00)
[2019-03-08] MEDS ORDERED: KCL 20 MEQ TAB (K-DUR) PO SCH (06:00)
[2019-03-08] MEDS ORDERED: POTASSIUM CL 10MEQ/50ML IVPB 50 ML IV SCH (06:00)
[2019-03-08] MEDS ORDERED: MAGNESIUM 1 GM/100 ML IVPB 100 ML IV SCH (06:00)
--- NOTE | 2019-03-08 06:00 | NUR ---
PT YELLING OUT AT THIS RN D/T INTENSE ITCHING. PT EXTREMELY AGITATED. DR NANCE NOTIFIED, BENADRYL ORDERED
[2019-03-08] MEDS ORDERED: VANCOMYCIN 1250 MG/NS 250 ML IVPB IV SCH ×2 (06:30)
[2019-03-08] MEDS ORDERED: diphenhydrAMINE 50 MG/ML INJ (BENADRYL) ONE (06:37)
[2019-03-08] MEDS ORDERED: WATER (STERILE) FOR INJECTION 10 ML ONE (07:57)
[2019-03-08] MEDS ORDERED: cefTRIAXone 1,000 MG IV (ROCEPHIN) VIAL ONE (07:57)
[2019-03-08] MEDS: FAMOTIDINE 20 MG (PEPCID) TABLET PO SCH (08:04)
[2019-03-08] MEDS ORDERED: cefTRIAXone 1,000 MG/SWFI 10 ML IV PUSH IV SCH ×2 (09:00)
--- NOTE | 2019-03-08 10:38 | Progress Note-Pre Operative ---
Pre-Operative Progress Note H&P Reviewed The H&P was reviewed, patient examined and no changes noted. Date Seen by Provider: Mar 08, 2019 Time Seen by Provider: 10:00 Date H&P Reviewed: Mar 08, 2019 Time H&P Reviewed: 10:00 Pre-Operative Diagnosis: perineal abscess LEILA SANTANA MD Mar 08, 2019 10:38
--- NOTE | 2019-03-08 13:30 | NUR ---
TO OR PER BED.
[2019-03-08] MEDS ORDERED: MIDAZOLAM 2 MG/2 ML (VERSED) VIAL ONE (13:32)
[2019-03-08] MEDS ORDERED: fentaNYL INJECTION 100 MCG/2 ML AMP ONE (13:32)
[2019-03-08] MEDS ORDERED: LIDOCAINE/EPI 1%-1:100,000 (XYLOCAINE) 20ML ONE (13:58)
[2019-03-08] MEDS ORDERED: LIDOCAINE PF 2% 5 ML (XYLOCAINE) VIAL ONE (14:01)
[2019-03-08] MEDS ORDERED: SEVOFLURANE (ULTANE) 15 ML INHAL SOLN ONE ×3 (14:01→14:14)
[2019-03-08] MEDS ORDERED: ONDANSETRON 4 MG/2 ML (SDV) Z0FRAN ONE (14:01)
[2019-03-08] MEDS ORDERED: proPOfol 200 MG/20 ML (DIPRIVAN) VIAL IV ONE (14:01)
[2019-03-08] MEDS ORDERED: CLINDAMYCIN 600 MG/50 ML IVPB 50 ML IV NR (14:15)
--- NOTE | 2019-03-08 14:18 | Progress Note-Post Operative ---
Post-Operative Progess Note Surgeon (s)/Lime Sludge Mixer (s) Surgeon LEILA SANTANA MD Lime Sludge Mixer: lia acosta CLARK DRIVER Pre-Operative Diagnosis perineal abscess, right thumbnail abscess Post-Operative Diagnosis same Procedure & Operative Findings Date of Procedure 03/08/19 Procedure Performed/Findings incision and drainage complex perineal abscess. incisioin and drainage simple right thumbnail abscess Anesthesia Type general LMA with local Estimated Blood Loss Estimated blood loss (mL): minimal Specimens/Packing Specimens Removed thumb and perineal abscess LEILA SANTANA MD Mar 08, 2019 14:18
[2019-03-08] MEDS ORDERED: CLINDAMYCIN 600 MG/4ML (CLEOCIN) VIAL ONE (14:28)
[2019-03-08] MEDS ORDERED: morphine INJ 10 MG/ML 1ML (SYR OR VIAL) ONE (14:28)
[2019-03-08] MEDS ORDERED: HYDROmorphone 2 MG/ML VIAL (DILAUDID) ONE (14:43)
[2019-03-08] MEDS ORDERED: LACTATED RINGERS 1,000 ML IV PRN (14:45)
[2019-03-08] MEDS ORDERED: MEPERIDINE (DEMEROL) INJ 50 MG/ML IVP ONE (14:45)
[2019-03-08] MEDS ORDERED: ONDANSETRON 4 MG/2 ML (SDV) Z0FRAN IVP PRN (14:45)
[2019-03-08] MEDS ORDERED: morphine INJ 10 MG/ML 1ML (SYR OR VIAL) IVP ONE (14:45)
[2019-03-08] MEDS ORDERED: HYDROmorphone 2 MG/ML VIAL (DILAUDID) IV ONE (14:45)
--- NOTE | 2019-03-08 14:46 | Anesthesia-General Post-Op ---
General Patient Condition Mental Status/LOC: Same as Preop Cardiovascular: Satisfactory Nausea/Vomiting: Absent Respiratory: Satisfactory Pain: Controlled Complications: Absent Post Op Complications Complications None Follow Up Care/Instructions Patient Instructions None needed. Anesthesia/Patient Condition Patient Condition Patient is doing well, no complaints, stable vital signs, no apparent adverse anesthesia problems. FIONA RATLIFF DO Mar 08, 2019 14:46
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
--- NOTE | 2019-03-08 15:25 | NUR ---
RETURNED FROM [facility] PER BED. ALERT AND COOPERATIVE. SKIN W/D. RESP. REGULAR. RIGHT THUMB DRESSING IN PLACE WITH GAUZE ROLL DRESSING AND CLEAN AND DRY. LEFT GROIN DRESSING WITH GAUZE DRESSING AND TAPE WITH ICE BAG IN PLACE, AREA CLEAN AND DRY WITH NO DRAINAGE NOTED.
--- NOTE | 2019-03-08 15:25 | NUR ---
TRANSFERRED FROM [facility] PER BED TO ROOM 402. ALERT AND COOPERATIVE. SKIN W/D. RESP. REGULAR. DRESSING TO LEFT GROIN BULKY WITH GAUZE DRESSING AND TAPE D/I. DRESSING TO RIGHT THUMB WITH GAUZE ROLL DRESSING D/I. DEEP BREATHING ENCOURAGED. RATES PAIN /10. ICE TO LEFT GROIN AREA.
[2019-03-08] MEDS ORDERED: D5 1/2 NS W/KCL 20 MEQ/L 0 ML IV ONE (15:38)
--- NOTE | 2019-03-08 16:20 | NUR ---
CM/SS follow up with the patient. The patient was doing okay today but is feeling groggy after her procedure. CM/SS informed the patient that she would have to be screened by [facility] when she is able. The patient stated that she did not feel up to staying awake and talking to someone this evening. CM/SS called [facility] this morning to notify them of patients need for screening and called after procedure to let them know it would be tomorrow. The screener verbally agreed that she would feel better screening tomorrow. [facility] will be called in the morning to set up screening. The patient did ask CM/SS to call her just because "she does not want to". She also is needing a weigher and charger for her phone. Will continue to follow.
[2019-03-08] MEDS: FLUoxetine HCL 20 MG (PROzac) CAP PO SCH (16:32)
--- NOTE | 2019-03-08 16:36 | NUR ---
Spoke to the patients nurse Dannielle who states she will give report to tomorrows nurse to call [facility] in the morning.
--- NOTE | 2019-03-08 16:59 | OPERATIVE REPORT ---
DATE OF SERVICE: 03/08/2019 PREOPERATIVE DIAGNOSES: Left perineal abscess, right thumb abscess. POSTOPERATIVE DIAGNOSIS: Left perineal complex abscess, simple abscess right thumb nail. PROCEDURE PERFORMED: Incision and drainage complex perineal abscess, incision and drainage of simple left thumb nail abscess. SURGEON: Leila Santana MD MANAGEMENT REP: Satnam Brown APRN. ANESTHESIA: General laryngeal mask airway with local. ESTIMATED BLOOD LOSS: Minimal. FINDINGS: Left perineal complex abscess, simple abscess right thumb nail. DISPOSITION: The patient tolerated the procedure well. INDICATION: The patient is a 49-year-old female who was brought in due to a suspected overdose. She reports that she was walking along the road side and she told the logging truck driver that she had taken a number of pills for suicidal ideation. This person was then called 911 and brought to the Emergency Department. She was found to have a large abscess of the left perineal region as well as the right thumb. She was started on antibiotics IV. She did not report any systemic symptoms. No fever or chills. DESCRIPTION OF PROCEDURE: The patient was brought to the operating room, laid supine on the table. After adequate IV pain and sedative medications and general laryngeal mask airway intubation, the perineum and thumb were prepped and draped in standard surgical fashion. 1% lidocaine with epinephrine was used to anesthetize the overlying skin and subcutaneous tissue of the perineal region as well as the thumb lesion. A nerve block was also done on the right thumb. We first proceeded with incision of the complex perineal abscess using a 15 blade followed by blunt dissection with an abscess cavity intermittently scattered throughout the fat overlying the fascia. This was debrided sharply with finger dissection. Good hemostasis was observed. The fluid was sent for culture and sensitivity. Wound was then copiously irrigated and suctioned out and a 1 inch Virgen drain was placed and pulled through the left lateral aspect of the incision and drainage site and sutured to the skin using 3-0 nylon suture. The wound was then packed with one inch iodoform gauze followed by 4 x 4 gauze, ABD and mesh underwear. We then proceeded with incision and drainage of the thumb abscess. An incision along just above the nail bed was made; however, no abscess was identified at this time and then we proceeded to open up the nail fold and there was an abscess identified and completely drained. This was also sent for culture and sensitivity. The skin incision was then loosely reapproximated using 3-0 nylon interrupted sutures. Wound was then cleaned and covered with sterile gauze. The patient tolerated the procedure well. PLAN: We will await the culture and sensitivity results; however, she will most likely need to have IV antibiotics over the weekend as well as monitoring of the wounds. Job ID: [id number] DocumentID: [id number] Dictated Date: 03/08/2019 14:28:20 Neuropsychology Service Director Date: 03/08/2019 16:59:08 Dictated By: LEILA SANTANA MD
[2019-03-08] MEDS ORDERED: TROUGH ORDER-PHARMACY XX NR (17:30)
[2019-03-08] MEDS: ENOXAPARIN 40 MG/0.4 ML (LOVENOX) SYR SC SCH (21:25)
[2019-03-08] MEDS: VANCOMYCIN 1 GM/NS 250 ML IVPB IV SCH ×2 (21:31)
[2019-03-09] VITALS: BP 102/57
[2019-03-09] MEDS: fentaNYL INJECTION 100 MCG/2 ML AMP IV PRN (01:21)
[2019-03-09] MEDS: morphine INJ 4 MG/ML 1 ML (VIAL/SYRINGE) IVP PRN ×6 (02:20→22:27)
[2019-03-09 04:00] VITALS: BP 103/59
[2019-03-09] MEDS: D5 1/2 NS W/KCL 40 MEQ/L 1,000 ML IV SCH ×2 (04:02→07:57)
[2019-03-09 05:12] LABS: MAGNESIUM 1.8 MG/DL (1.6-2.4); PHOSPHORUS 2.6 MG/DL (2.3-4.7)
[2019-03-09] MEDS: VANCOMYCIN 1 GM/NS 250 ML IVPB IV SCH ×4 (06:46→18:55)
[2019-03-09] MEDS: LEVOTHYROXINE 125 MCG (LEVOTHROID) TABLET PO SCH (06:47)
[2019-03-09 07:35] VITALS: BP 84/51
[2019-03-09] MEDS ORDERED: cefTRIAXone 1,000 MG/SWFI 10 ML IV PUSH IV SCH ×2 (09:00)
[2019-03-09] MEDS: FAMOTIDINE 20 MG (PEPCID) TABLET PO SCH (09:02)
--- NOTE | 2019-03-09 09:40 | NUR ---
SPOKE WITH [facility] MULTIPLE TIMES. STATES THEY WILL DO TELEPHONE INTERVIEW WITH PT.
--- NOTE | 2019-03-09 10:05 | NUR ---
MS 4MG IV FOR PAIN.
--- NOTE | 2019-03-09 10:30 | NUR ---
PER [facility] ASSESSMENT, PT OK FOR DISCHARGE AND PT HAS MADE ARRANGEMENTS WITH [facility] FOR DAILY CHECK IN PHONE CALLS. DR. SORENSEN NOTIFIED.
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
--- NOTE | 2019-03-09 12:14 | Occupational Therapy Eval ---
OT Evaluation-General/PLF Medical Diagnosis Admission Date Mar 07, 2019 at 06:18 Medical Diagnosis: Drainage of perineal abscess, Tramadol overdose Onset Date: Mar 09, 2019 Therapy Diagnosis Therapy Diagnosis: Weakness, Unsteadiness Height/Weight Height (Feet): 5 Height (Inches): 9.00 Weight (Pounds): 181 Weight (Ounces): 8.0 Precautions Precautions/Isolations: Contact Isolation (MRSA in labial and right thumb abscess), Standard Precautions Safety Interventions: Bed Exit Alarm Weight Bear Status Weight Bearing Restriction: Weight Bearing/Tolerated Referral Referral Reason: Activity Tolerance, Self Care, Evaluation/Treatment, Strengthening/ROM Medical History Additional Medical History Pt admitted from ED for recent suicide attempt secondary to Tramadol overdose. The pt was found to have a labial abscess, as well as an abscess of her right thumb. Further PMH includes hypokalemia and meth abuse. Social History Home: Single Level Current Living Status: Spouse Entry Into Home: Stairs Without Railing (1 step to enter home) Steps Into Home: 1 ADL-Prior Level of Function SCALE: Activities may be completed with or without assistive devices. 8-Uhwlippoqh-tqlhbqq completes the activity by him/herself with no assistance from a helper. 5-Set-up or Clean-up Assistance-helper sets up or cleans up; patient completes activity. [place] assists only prior to or following the activity. 4-Supervision or Touching Assistance-helper provides verbal cues and/or touching/steadying and/or contact guard assistance as patient completes activity. Assistance may be provided throughout the activity or intermittently. 3-Partial/Moderate Assistance-helper does LESS THAN HALF the effort. [place] lifts, holds or supports trunk or limbs, but provides less than half the effort. 2-Substantial/Maximal Assistance-helper does MORE THAN HALF the effort. [place] lifts or holds trunk or limbs and provides more than half the effort. 0-Tzxmqsbxi-mxjpjz does ALL the effort. Patient does none of the effort to complete the activity. Or, the assistance of 2 or more helpers is required for the patient to complete the activity. If activity was not attempted, code reason: 7-Patient Refused. 9-Not Applicable-not attempted and the patient did not perform the activity before the current illness, exacerbation or injury. 10-Not Attempted due to Environmental Limitations-(lack of equipment, weather restraints, etc.). 88-Not Attempted due to Medical Conditions or Safety Concerns. Self Care: Independent Functional Cognition: Independent Drive Self: Yes OT Current Status Subjective Pt complaining of pain in perineal region, as well as through right thumb secondary to recent drainage from abscess. Pain Numeric Pain Scale: 4 Location: Right Location Body Site: Genital Mental Status/Objective Patient Orientation: Person, Place, Non-Verbal/Aphasic, Time, Eyes Open, Situation Current Upper Extremity ROM WNL Upper Extremity Coordination WNL Upper Extremity Sensation WNL Upper Extremity Strength 3+/5 ADL-Treatment Eating (QC): 7 Oral Hygiene (QC): 4 (CGA for balance) Upper Body Dressing (QC): 5 Lower Body Dressing (QC): 4 (Shon for LBD) On/Off Footwear (QC): 1 (MaxA due to difficulty bending/reaching) Toileting Hygiene (QC): 4 (Shon) Education OT Patient Education: Correct positioning, Instructions to caregiver, Progress toward Goal/Update tx plan, Purpose of tx/functional activities, Reviewed precautions, Rehab process, Safety issues, Transfer techniques Teaching Recipient: Patient Teaching Methods: Demonstration Response to Teaching: Verbalize Understanding, Return Demonstration OT Short Term Goals Short Term Goals Time Frame: Mar 16, 2019 Eatin Oral hygiene: 6 Toileting hygiene: 6 Shower/bathe self: 6 Upper body dressin Lower body dressin Putting on/taking off footwear: 6 OT 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 2=Patient will verbalize/demonstrate understanding of assistive devices/modifications for ADL. 3=Patient will improve strength/tolerance for activity to enable patient to p erform ADL's. OT Education/Plan Problem List/Assessment Assessment: Decreased Activ Tolerance, Decreased UE Strength, Impaired Funct Balance, Impaired I ADL's, Impaired Self-Care Skills Discharge Recommendations Plan/Recommendations: Continue POC Therapy Discharge Recommendati: Home & Family Equpiment Recommendations-D/C: [place], [place] Treatment Plan/Plan of Care Treatment,Training & Education: Yes Patient would benefit from OT for education, treatment and training to promote independence in ADL's, mobility, safety and/or upper extremity function for ADL's. Plan of Care: ADL Retraining, Functional Mobility, Group Exercise/Act as Ind, UE Funct Exercise/Act, UE Neuromus Re-Ed/Coord Treatment Duration: Mar 16, 2019 Frequency: 5 times per week Estimated Hrs Per Day: .5 hour per day Agreement: Yes Rehab Potential: Good Time/GCodes Start Time: 11:50 Stop Time: 12:20 Total Time Billed (hr/min): 30 Billed Treatment Time 1, EVL, ADL2 RJ JAFFE OT Mar 09, 2019 12:14
[2019-03-09 12:55] VITALS: BP 91/50
--- NOTE | 2019-03-09 14:09 | Physical Therapy Evaluation ---
PT Evaluation-General Medical Diagnosis Admission Date Mar 07, 2019 at 06:18 Medical Diagnosis: Drainage of perineal abscess, Tramadol overdose Onset Date: Mar 09, 2019 Therapy Diagnosis Therapy Diagnosis: decreased mobility Height/Weight Height (Feet): 5 Height (Inches): 9.00 Weight (Pounds): 181 Weight (Ounces): 8.0 Precautions Precautions/Isolations: Contact Isolation (MRSA in labial and right thumb abscess), Standard Precautions Weight Bear Status Right Lower Extremity: Right Weight Bearing/Tolerated Left Lower Extremity: Left Weight Bearing/Tolerated Referral Physician: Dr. Cabrera Reason for Referral: Evaluation/Treatment Medical History Pertinent Medical History: GERD Additional Medical History depression/anxiety, migraines/headaches, hypothyroidism, endometrial cancer with hysterectomy, meth and marijuana use Current History Pt. presented to ED with intentional overdose on Tramadol, also c/o pelvic pain and R thumb pain. Reviewed History: Yes Social History Home: Single Level Current Living Status: Spouse Entry Into Home: Stairs Without Railing (1 step to enter home) PT Steps Into Home: 1 Prior Prior Level of Function SCALE: Activities may be completed with or without assistive devices. 6-Zydirpvyiz-ansxnzn completes the activity by him/herself with no assistance from a helper. 5-Set-up or Clean-up Assistance-helper sets up or cleans up; patient completes activity. [place] assists only prior to or following the activity. 4-Supervision or Touching Assistance-helper provides verbal cues and/or touching/steadying and/or contact guard assistance as patient completes activity. Assistance may be provided throughout the activity or intermittently. 3-Partial/Moderate Assistance-helper does LESS THAN HALF the effort. [place] lifts, holds or supports trunk or limbs, but provides less than half the effort. 2-Substantial/Maximal Assistance-helper does MORE THAN HALF the effort. [place] lifts or holds trunk or limbs and provides more than half the effort. 1-Fvshoiqdp-yvdden does ALL the effort. Patient does none of the effort to complete the activity. Or, the assistance of 2 or more helpers is required for the patient to complete the activity. If activity was not attempted, code reason: 7-Patient Refused. 9-Not Applicable-not attempted and the patient did not perform the activity befo re the current illness, exacerbation or injury. 10-Not Attempted due to Environmental Limitations-(lack of equipment, weather re straints, etc.). 88-Not Attempted due to Medical Conditions or Safety Concerns. Bed Mobility: 6 Transfers (B,C,W/C): 6 Gait: 6 Stairs: 6 Indoor Mobility (Ambulation): Independent Stairs: Independent PT Evaluation-Current Subjective Pt. is seated in bedside chair upon arrival, says she would like to get back in bed and she has increased pain in pelvis from sitting up. No objective pain rating but does request pain medicine post session. Pt/Family Goals home Objective Patient Orientation: Person, Place, Time, Situation ROM/Strength ROM Upper Extremities WFL ROM Lower Extremities WNL Strength Upper Extremities See OT Strength Lower Extremities Grossly 4+/5 (B) Integumentary/Posture Integumentary wound on labia, see nursing notes Bowel Incontinence: No Bladder Incontinence: No Posture generally upright Neuromuscular (Tone, Coordination, Reflexes) unremarkable Sensory Vision: Wears Glasses Hearing: Functional Sensation Right Upper Extremit: Intact Sensation Left Upper Extremity: Intact Sensation Right Lower Extremit: Intact Sensation Left Lower Extremity: Intact Transfers Sit to Lying (QC): 5 Sit to Stand (QC): 5 Gait Does the Patient Walk?: Yes Mode of Locomotion: Walk Anticipated Mode of Locomotion: Walk Walk 10 feet (QC): 5 Distance: 25 ft Gait Assistive Device: None Comments/Gait Description slow gait and wide stance (due to pelvic pain), declines use of assistive device but reaches out for stationary objective in room Balance Sitting Static: Good Sitting Dynamic: Good Standing Static: Good Standing Dynamic: Fair Assessment/Needs Pt. is a 49 y.o. female with decreased mobility following recent overdose and labial abscess. Pt. is currently SBA with all mobility. Pt. to be seen for short-term PT to ensure safe mobility for return home (I). Rehab Potential: Good PT Short Term Goals Short Term Goals Time Frame: Mar 13, 2019 Sit to lyin Lying to sitting on side of be: 6 Sit to stand: 6 Walk 150 feet: 6 PT Plan Problem List Problem List: Activity Tolerance, Functional Strength, Safety, Balance, Gait, Transfer, Bed Mobility Treatment/Plan Treatment Plan: Continue Plan of Care Treatment Plan: Bed Mobility, Education, Functional Activity Romain, Functional Strength, Gait, Safety, Therapeutic Exercise, Transfers Treatment Duration: Mar 13, 2019 Frequency: 3 times per week Estimated Hrs Per Day: .25 hour per day Patient and/or Family Agrees t: Yes Time/GCodes Time In: 1330 Time Out: 1340 Total Billed Treatment Time: 10 Total Billed Treatment 1, RONNI 10' KEITH GARCIA PT Mar 09, 2019 14:09
--- NOTE | 2019-03-09 15:00 | NUR ---
MS 4MG IV FOR PAIN.
[2019-03-09] MEDS: FLUoxetine HCL 20 MG (PROzac) CAP PO SCH (15:06)
--- NOTE | 2019-03-09 16:00 | NUR ---
LABIA DRESSING CHANGED AND REPACKED WITH IODOFORM. PT TOLERATED POORLY AND ATTEMPTED TO STRIKE THIS RN AND THEN BECAME VERY APOLOGETIC.
[2019-03-09 16:11] VITALS: BP 106/61
--- NOTE | 2019-03-09 16:57 | Progress Note - Surgery ---
Subjective Time Seen by a Provider: 15:46 Subjective/Events-last exam Pt seen and examined. Pt is tolerating diet, complains mainly of pain when she moves or when abscess site is "messed with". Review of Systems General: No Chills, No Night Sweats Pulmonary: No Dyspnea, No Cough Cardiovascular: No: Chest Pain, Palpitations Gastrointestinal: No: Nausea, Vomiting Focused Exam Lactate Level 03/07/19 05:30: Lactic Acid Level 2.03*H 03/07/19 07:46: Lactic Acid Level 0.68 Objective Exam Vital Signs Date Time Temp Pulse Resp B/P (MAP) Pulse Ox O2 Delivery O2 Flow Rate FiO2 03/09/19 16:11 36.9 68 16 106/61 (76) 97 Room Air 03/09/19 12:55 37.6 80 18 91/50 (64) 99 Room Air 03/09/19 07:35 37.7 80 18 84/51 (62) 100 Room Air 03/09/19 04:00 37.8 84 16 103/59 (74) 98 Room Air 03/09/19 00:00 37.0 78 20 102/57 (72) 100 Room Air 03/08/19 19:28 36.8 73 20 94/63 (73) 100 Room Air I & O 03/09/19 07:00 Intake Total 4342.5 ml Output Total 2750 ml Balance 1592.5 ml Capillary Refill : Less Than 3 Seconds General Appearance: WD/WN, Anxious HEENT: PERRL/EOMI, Pharynx Normal Respiratory: Lungs Clear, No Respiratory Distress Cardiovascular: Regular Rate, Rhythm, No Murmur Gastrointestinal: normal bowel sounds, non tender, soft Extremity: Other (right thumb incision is closed, no erythema. slightly more edema compared to left thumb) Skin: Other (labial incision is open, min erythema but some edema, no purulent drainage (inspected with nurse in the room)) Results Lab Laboratory Tests 03/08/19 17:27: Vancomycin Level Trough 8.9L 03/09/19 03:55: Phosphorus Level 2.6, Magnesium Level 1.8 Microbiology 03/08/19 Gram Stain - Final, Resulted 03/08/19 Anaerobic Culture, Resulted Pending 03/08/19 Surgical Culture - Preliminary, Resulted Staphylococcus aureus 03/07/19 MRSA Screen - Final, Complete MRSA not isolated 03/07/19 Blood Culture - Preliminary, Resulted No growth 03/07/19 Urine Culture - Final, Complete NO GROWTH Assessment/Plan Assessment/Plan Assessment/Plan Left Mons Abscess Right thumb Abscess Change Iodophor packing daily, ok to shower and clean area. Pain control and ABX. Diet as tolerated. Clinical Quality Measures DVT/VTE Risk/Contraindication: Risk Factor Score Per Nursin RFS Level Per Nursing on Admit: 4+=Very High ARTURO AGUIRRE DO Mar 09, 2019 16:57
--- NOTE | 2019-03-09 18:59 | NUR ---
MS 4MG IV FOR PAIN.
[2019-03-09 20:17] VITALS: BP 96/54
[2019-03-09] MEDS: ENOXAPARIN 40 MG/0.4 ML (LOVENOX) SYR SC SCH (21:30)
[2019-03-10 00:10] VITALS: BP 102/67
[2019-03-10 04:00] VITALS: BP 104/71
[2019-03-10] MEDS: morphine INJ 4 MG/ML 1 ML (VIAL/SYRINGE) IVP PRN (05:05)
[2019-03-10] MEDS ORDERED: TROUGH ORDER-PHARMACY XX NR (06:00)
[2019-03-10 07:02] LABS: MAGNESIUM 1.9 MG/DL (1.6-2.4); PHOSPHORUS 4.5 MG/DL (2.3-4.7)
[2019-03-10 07:10] LABS: VANCOMYCIN,TROUGH 10.8 UG/ML (10.0-20.0)
[2019-03-10] MEDS: LEVOTHYROXINE 125 MCG (LEVOTHROID) TABLET PO SCH (07:25)
[2019-03-10] MEDS: VANCOMYCIN 1 GM/NS 250 ML IVPB IV SCH ×4 (07:25→07:33)
[2019-03-10 08:56] VITALS: BP 111/67
[2019-03-10] MEDS: FAMOTIDINE 20 MG (PEPCID) TABLET PO SCH (09:26)
[2019-03-10] MEDS ORDERED: CLIN300C11 PO (10:45)
[2019-03-10] MEDS ORDERED: L.AC1CAP6 PO (10:45)
--- NOTE | 2019-03-10 10:48 | Discharge Inst-Simple/Standard ---
Discharge Inst-Standard Reconcile Patient Problems Problems Reviewed?: Yes Discharge Medications New, Converted or Re-Newed RX: Transmitted to Pharmacy Patient Instructions/Follow Up Plan of Care/Instructions/FU: Please continue to take your medications as written. please follow up with your PCP in the next week and with Dr Ibarra as recommended. Please continue to follow up with [facility] as scheduled. Activity as Tolerated: Yes Discharge Diet: No Restrictions Return to The Hospital For: Fever, increased drainage, swelling, or pain, thoughts of self harm or suicide, if you feel you are getting worse. KAREN SORENSEN MD Mar 10, 2019 10:48
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
[2019-03-10 12:10] VITALS: BP 105/71
[2019-03-10] MEDS ORDERED: CLINDAMYCIN 150 MG (CLEOCIN) CAP PO ONE (13:00)
--- NOTE | 2019-03-10 13:35 | Progress Note - Surgery ---
Subjective Time Seen by a Provider: 12:09 Subjective/Events-last exam Pt seen and examined, states the pubic area still hurts and she thinks her thumb is getting worse. She is tolerating diet and pain is controlled; plan to go home today. Review of Systems General: No Chills, No Night Sweats Cardiovascular: No: Chest Pain, Palpitations Gastrointestinal: No: Nausea, Vomiting, Abdominal Pain Objective Exam Vital Signs Date Time Temp Pulse Resp B/P (MAP) Pulse Ox O2 Delivery O2 Flow Rate FiO2 03/10/19 12:10 36.7 66 18 105/71 (82) 96 Room Air 03/10/19 08:56 36.8 65 20 111/67 (82) 97 Room Air 03/10/19 07:45 Room Air 03/10/19 04:00 36.9 63 18 104/71 (82) 97 Room Air 03/10/19 00:10 36.7 73 18 102/67 (79) 98 Room Air 03/09/19 21:00 Room Air 03/09/19 20:17 37.0 70 18 96/54 (68) 99 Room Air 03/09/19 19:00 73 03/09/19 16:11 36.9 68 16 106/61 (76) 97 Room Air I & O 03/10/19 07:00 Intake Total 2980 ml Output Total 2400 ml Balance 580 ml Capillary Refill : Less Than 3 SecondsLess Than 3 Seconds General Appearance: No Apparent Distress, WD/WN HEENT: PERRL/EOMI, Moist Mucous Membranes Respiratory: Lungs Clear, Normal Breath Sounds, No Respiratory Distress Cardiovascular: Regular Rate, Rhythm, No Murmur Gastrointestinal: normal bowel sounds, non tender, soft Extremity: Other (right thumb incision is closed, has slight erythema today and slightly more edema compared to left thumb) Neurologic/Psychiatric: Alert, Oriented x3 Skin: Other (labial incision is open, min erythema but some edema, no purulent drainage (inspected with nurse in the room)) Results Lab Laboratory Tests 03/10/19 06:30: Phosphorus Level 4.5, Magnesium Level 1.9, Vancomycin Level Trough 10.8 Microbiology 03/08/19 Gram Stain - Final, Resulted 03/08/19 Anaerobic Culture, Resulted Pending 03/08/19 Surgical Culture - Preliminary, Resulted Staphylococcus aureus See Report 03/07/19 MRSA Screen - Final, Complete MRSA not isolated 03/07/19 Blood Culture - Preliminary, Resulted No growth 03/07/19 Urine Culture - Final, Complete NO GROWTH Assessment/Plan Assessment/Plan Assessment/Plan Left Mons Abscess Right thumb Abscess Pt told to start using warm compresses on the thumb and monitor it closely, take ABX and go to ER if it get worse. Change Iodophor packing daily, ok to shower and clean area. Pain control and ABX. Pt is being sent home. Clinical Quality Measures DVT/VTE Risk/Contraindication: Risk Factor Score Per Nursin RFS Level Per Nursing on Admit: 4+=Very High ARTURO AGUIRRE DO Mar 10, 2019 13:35
--- NOTE | 2019-03-10 14:02 | NUR ---
SIGNIFICANT OTHER HERE. INSTRUCTED ON DRESSING CHANGE AND PACKING OF WOUND. VERBALIZED UNDERSTANDING. IODOFORM PACKING SENT WITH PT ALONG WITH ABD PADS. REYNALDO INTACT. INSTRUCTED TO CALL DR. SANTANA TOMORROW FOR APPT TOMORROW PER DR. AGUIRRE. WRITTEN ON DC SHEET WITH PHONE NUMBER. ALSO INSTRUCTED TO MAKE APPT WITH DR. ADAM THIS WEEK AND TO CALL [phone] INSTRUCTED BY [employer]OR DRUM WORKER YESTERDAY. BOTH PT AND SO VERBALIZE UNDERSTANDING. RX INSTRUCTIONS ALSO GIVEN.
--- NOTE | 2019-03-10 14:45 | NUR ---
DC'D AMBULATORY WITH SIGNIFICANT OTHER.
[2019-03-11] MEDS ORDERED: SULF1TAB35 PO (19:48)
[2019-03-11] MEDS ORDERED: ONDA4TAB11 PO (19:48)
--- NOTE | 2019-03-12 11:39 | Physician Query Clarification ---
PQ-Intro New Diagnosis Admission/Discharge Admission Date: Mar 07, 2019 at 06:18 Discharge Date: Mar 10, 2019 at 14:45 The medical record reflects the following clinical scenario: History/Risk Factors: Labial and thumb abscess Clinical Findings: Left perineal complex abscess, simple abscess right thumb nail Treatment: Incision and drainage complex perineal abscess, incision and drainage of simple left thumb nail abscess. Procedure Description: We first proceeded with incision of the complex perineal abscess using a 15 blade followed by blunt dissection with an abscess cavity intermittently scattered throughout the fat overlying the fascia. This was debrided sharply with finger dissection. Good hemostasis was observed. The fluid was sent for culture and sensitivity. Wound was then copiously irrigated and suctioned out and a 1 inch Virgen drain was placed and pulled through the left lateral aspect of the incision and drainage site and sutured to the skin using 3-0 nylon suture Question: What condition best reflects the above clinical scenario? Please specify the type of debridement for the labial abscess procedure. Please document a response in the Progress Noter or Discharge Summary. 1. Excisional debridement 2. Non-excisional debridement 3. I&D procedure only (minor debridement included in I&D) 4. Other, with explanation of the clinical findings. 5. Clinically undetermined, no explanation for the clinical findings. PHYSICIAN RESPONSE What condition reflects above: Other, explanation/clinical finding Explanation of clincal finding number 3. Please remember a lack of response to the above will prompt a phone page by [facility] staff. In responding to this query, please exercise your independent professional judgment. The purpose of this communication is to more accurately reflect the complexity of your patients condition. The fact that a question is asked does not imply that any particular answer is desired or expected. Thank you for your timely response to this clarification. Requestors name: Karina THIS PHYSICIAN QUERY FORM IS A PERMANENT PART OF THE MEDICAL RECORD ROMIE COFFMAN Mar 12, 2019 11:38 LEILA SANTANA MD Mar 12, 2019 15:21
== END 2019-03-10 14:45 | disposition home or self-care (01) | DRG 918 ==
LOC: EDUNIT# 05:01 → ER 05:02 → ICU 06:18 → 4TH 03-08 06:27
PROVIDERS: ADMIT Internal Medicine; ATTEND Internal Medicine
PROC: 0H9QXZZ Drainage of Finger Nail, External Approach (ICD-10-PCS; 2019-03-08)
PROC: 0J9B00Z Drainage of Perineum Subcutaneous Tissue and Fascia with Drainage Device, Open Approach (ICD-10-PCS; principal; 2019-03-08 13:49)
DX: T40.4X2A Poisoning by other synthetic narcotics, intentional self-harm, initial encounter (principal); N76.4 Abscess of vulva; L02.511 Cutaneous abscess of right hand; F10.10 Alcohol abuse, uncomplicated; K21.9 Gastro-esophageal reflux disease without esophagitis; G43.909 Migraine, unspecified, not intractable, without status migrainosus; E89.0 Postprocedural hypothyroidism; F41.9 Anxiety disorder, unspecified; F32.9 Major depressive disorder, single episode, unspecified; E87.6 Hypokalemia; D64.9 Anemia, unspecified; Z87.891 Personal history of nicotine dependence; Z90.710 Acquired absence of both cervix and uterus; Z85.89 Personal history of malignant neoplasm of other organs and systems; Z87.01 Personal history of pneumonia (recurrent); Z86.711 Personal history of pulmonary embolism
CPT/HCPCS: 36415; 51702; 71045; 80053; 80202; 80306; 80320; 80329; 81000; 83605; 83735; 84100; 84439; 84443; 85025; 85610; 85730; 86141; 87040; 87070; 87075; 87077; 87081; 87088; 87186; 87205; 93005; 93041; 96365; 96375

== ENCOUNTER 2019-03-11 15:33 | Emergency (ER) | payer SELFPAY ==
[~2019-03-11] VITALS: Ht 175.2 cm; Wt 81.6 kg
[~2019-03-11 15:33] MED LIST changes: +CLIN300C11 PO; +DIPH25CA79 PO; +FAMO20TA5 PO; +IBUP-30 PO; +L.AC1CAP6 PO
[2019-03-11] MEDS ORDERED: ONDANSETRON 4 MG/2 ML (SDV) Z0FRAN IVP ONE (18:30)
[2019-03-11] MEDS ORDERED: KETOROLAC 30 MG/ML VIAL IVP ONE (18:30)
[2019-03-11 18:42] LABS: BASOPHILS % (AUTO) 0 % (0-10); EOSINOPHILS # (AUTO) 0.1 10^3/uL (0.0-0.3); EOSINOPHILS % (AUTO) 2 % (0-10); HEMATOCRIT 35 % (35-52); HEMOGLOBIN 11.3 G/DL (11.5-16.0); LYMPHOCYTES # (AUTO) 1.7 X 10^3 (1.0-4.0); LYMPHOCYTES % (AUTO) 32 % (12-44); MEAN CORPUSCULAR HEMOGLOBIN 25 PG (25-34); MEAN CORPUSCULAR HGB CONC 32 G/DL (32-36); MEAN CORPUSCULAR VOLUME 77 FL (80-99); MEAN PLATELET VOLUME 8.3 FL (7.4-10.4); MONOCYTES # (AUTO) 0.7 X 10^3 (0.0-1.0); MONOCYTES % (AUTO) 13 % (0-12); NEUTROPHILS # (AUTO) 2.9 X 10^3 (1.8-7.8); NEUTROPHILS % (AUTO) 54 % (42-75); PLATELET COUNT 391 10^3/uL (130-400); RED CELL DISTRIBUTION WIDTH 15.6 % (10.0-14.5); WHITE BLOOD COUNT 5.3 10^3/uL (4.3-11.0)
[2019-03-11] MEDS ORDERED: VANCOMYCIN INJECTION 750 MG in NS (IVPB) 250 ML IV SCH (18:45)
[2019-03-11] MEDS ORDERED: FAMOTIDINE 20MG/2ML IV (PEPCID) IVP ONE (18:45)
[2019-03-11] MEDS ORDERED: TRIM/SULFAMETH 160/800 (SEPTRA DS) TAB PO ONE (18:45)
[2019-03-11 19:00] LABS: BUN/CREATININE RATIO 9; CARBON DIOXIDE 24 MMOL/L (21-32); CHLORIDE 106 MMOL/L (98-107); CREATININE SERUM 0.82 MG/DL (0.60-1.30); GFR ESTIMATED > 60; GLUCOSE 80 MG/DL (70-105); POTASSIUM 4.1 MMOL/L (3.6-5.0); SODIUM 142 MMOL/L (135-145)
[2019-03-11] MEDS ORDERED: VANCOMYCIN 1500 MG/NS 500 ML IVPB IV NR ×2 (19:00)
--- NOTE | 2019-03-11 19:15 | NUR ---
Packing to mons pubis wound bed removed by provider. Drain remains in place. 4x4 gauze drsg applied.
--- NOTE | 2019-03-11 19:45 | ED General ---
General Chief Complaint: Skin/Wound Problems Stated Complaint: D/C RECENTLY WITH SEPSIS/WOUND CHECK Nursing Triage Note: Pt to ED with c/o a vaginal abscess that led to sepsis. Pt reports being discharged from hospital yesterday and was supposed to see Dr. Ibarra today for packing and dressing change. Pt reports Dr. Ibarra was not in the office today and was told to come to ED. Pt reports not feeling well and is unsure if febrile. Pt currently prescribed clindamycin 300 mg QID. Pt was unable to afford probiotics. Pt reports pain is unbearable. Pt also has stiches to R thumb and pt reports this wound is related to infection. Nursing Sepsis Screen: No Definite Risk Source of Information: Patient Exam Limitations: No Limitations History of Present Illness Date Seen by Provider: Mar 11, 2019 Time Seen by Provider: 18:20 Initial Comments This 49-year-old woman presents to the emergency room by private vehicle for follow-up care after being admitted March 07 for overdose of Ultram, suicidal ideation, and surgical treatment of abscesses near the left labia and at the right thumb. She was dismissed yesterday on clindamycin. She is only taken 2 doses of clindamycin yesterday and no doses today. She states the clindamycin makes her feel sick to her stomach. Chart was reviewed and it is n oted that the cultures were actually positive for MRSA at both abscess sites and the sensitivity was resistant to clindamycin. Patient states her right thumb is becoming more inflamed and erythematous. She is afebrile. Patient believed she was supposed to follow-up with Dr. Ibarra in his office today but reports he was actually not available in the office today. She has packing in the incision at the left groin that needs addressed. She also has a Virgen drain in this location. She reports uncontrolled pain at this time. Allergies and Home Medications Allergies Coded Allergies: Penicillins (Unverified Allergy, Unknown, Pt has received Ceftriaxone in the past w/o issue, 05/25/18) Uncoded Allergies: STERIODS (Allergy, Intermediate, HALLICINATIONS, 12/18/11) BEES (Allergy, Unknown, 05/24/18) paper tape (Allergy, Unknown, 05/24/18) Home Medications Clindamycin HCl 300 Mg Capsule, 300 MG PO QID Prescribed by: KAREN SORENSEN on 03/10/19 1045 Diphenhydramine HCl 25 Mg Capsule, 50 MG PO BID PRN for ITCHING, (Reported) Famotidine 20 Mg Tablet, 20 MG PO BID, (Reported) Fluoxetine HCl 40 Mg Capsule, 40 MG PO 1500, (Reported) LAST FILLED #30 01-11-19 Ibuprofen 200 Mg Tablet, 800 MG PO Q6H PRN for PAIN-MILD (1-4), (Reported) L.acidoph & ParacaseiB.lactis 1 Each Capsule, 1 EACH PO BID Prescribed by: KAREN SORENSEN on 03/10/19 104 Levothyroxine Sodium 125 Mcg Tablet, 125 MCG PO DAILY, (Reported) Ondansetron 4 Mg Tab.rapdis, 4 MG PO Q4H PRN for NAUSEA/VOMITING Prescribed by: MARGARETH CHRISTIAN on 03/11/191947 Sulfamethoxazole/Trimethoprim 1 Each Tablet, 1 EACH PO BID Prescribed by: MARGARETH CHRISTIAN on 03/11/191947 Tramadol HCl 50 Mg Tablet, 50 MG PO Q4H PRN for PAIN-MODERATE (5-7), (Reported) FILLED #25 TABLETS 03-06-19 Patient Home Medication List Home Medication List Reviewed: Yes Review of Systems Review of Systems Constitutional: no symptoms reported EENTM: no symptoms reported Respiratory: no symptoms reported Cardiovascular: no symptoms reported Gastrointestinal: see HPI Genitourinary: see HPI : No Musculoskeletal: no symptoms reported Skin: see HPI Psychiatric/Neurological: See HPI Hematologic/Lymphatic: No Symptoms Reported Immunological/Allergic: no symptoms reported Past Tgbjgcp-Vqcpcs-Jbsxmc Hx Past Med/Social Hx: Reviewed and Corrections made Patient Social History Alcohol Use: Denies Use Recreational Drug Use: No Drug of Choice: methamphetamines and marijuana Smoking Status: Former Smoker Type Used: Cigarettes Former Smoker, Quit: Feb 28, 2000 2nd Hand Smoke Exposure: No Recent Foreign Travel: No Contact w/Someone Who Travel: No Recent Infectious Disease Expo: No Recent Hopitalizations: No Immunizations Up To Date Tetanus Booster (TDap): Less than 5yrs Seasonal Allergies Seasonal Allergies: Yes (at times-mild) Past Medical History Surgeries: Yes Abdominal, Section, Gallbladder, Hysterectomy, Oophorectomy, Thyroidectomy, Tonsillectomy Respiratory: Yes (LEATHA [place].Ana 06/2018) Pneumonia, Pulmonary Embolism Currently Using CPAP: No Currently Using BIPAP: No Cardiac: No Neurological: Yes Headaches /Migraines Reproductive Disorders: Yes (ENDOMETRIAL CANCER-S/P HYST 04/2018) 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 DY SPHAGIA) Gastroesophageal Reflux, Hiatal Hernia Musculoskeletal: No Endocrine: Yes (thyroidectomy) Hypothyroidsim HEENT: Yes Dysphagia Cancer: Yes (ENDOMETRIAL CANCER) Did You Recieve Any Treatments: Yes What Type of Treatment Did You: Surgical Intervention Psychosocial: Yes Anxiety, Suicide Attempts (by overdose of Ultram), Depression Integumentary: Yes (MRSA abscesses requiring surgical debridement) Blood Disorders: Yes (hx ANEMIA; P.E. POST OP 06/2018) Adverse Reaction/Blood Tranf: No Family Medical History Alcoholism 19 FATHER 19 MOTHER Colon cancer 19 FATHER Drug abuse 19 FATHER 19 MOTHER FH: uterine cancer 19 MOTHER Hypertension 19 FATHER 19 MOTHER Cancer Physical Exam Vital Signs Vital Signs - First Documented 03/11/19 15:58 Temp 36.7 Pulse 71 Resp 16 B/P (MAP) 100/67 (78) Pulse Ox 98 O2 Delivery Room Air Capillary Refill : Less Than 3 Seconds Height, Weight, BMI Height: 5'9.00" Weight: 181lbs. 8.0oz. [id number]; 26.00 BMI Method:Actual General Appearance: No Apparent Distress, WD/WN HEENT: PERRL/EOMI, Normal ENT Inspection Neck: Normal Inspection Respiratory: Lungs Clear, Normal Breath Sounds, No Accessory Muscle Use, No Respiratory Distress Cardiovascular: Regular Rate, Rhythm, No Edema, No Murmur Gastrointestinal: Normal Bowel Sounds, Non Tender Extremity: Normal Inspection, No Pedal Edema Neurologic/Psychiatric: Alert, Oriented x3, No Motor/Sensory Deficits, Normal M ood/Affect Skin: Normal Color, Warm/Dry, Other (open incision at the left groin/labia with packing in place. Midfield draining superior to the incision. Minimal inflammation at the site. Erythema, swelling, and tenderness to the distal right thumb. Incision intact with sutures in place.) Progress/Results/Core Measures Suspected Sepsis Recent Fever Within 48 Hours: No Infection Criteria Present: Suspected New Infection New/Unexplained Altered Menta: No Sepsis Screen: No Definite Risk SIRS Temperature: Pulse: 71 Respiratory Rate: 16 Laboratory Tests 03/11/19 18:34: White Blood Count 5.3 Blood Pressure 100 /67 Mean: 78 Laboratory Tests 03/11/19 18:34: Creatinine 0.82, Platelet Count 391 Results/Orders Lab Results Laboratory Tests Test 03/11/19 18:34 Range/Units White Blood Count 5.3 4.3-11.0 10^3/uL Red Blood Count 4.55 4.35-5.85 10^6/uL Hemoglobin 11.3 #L 11.5-16.0 G/DL Hematocrit 35 35-52 % Mean Corpuscular Volume 77 L 80-99 FL Mean Corpuscular Hemoglobin 25 25-34 PG Mean Corpuscular Hemoglobin Concent 32 32-36 G/DL Red Cell Distribution Width 15.6 H 10.0-14.5 % Platelet Count 391 130-400 10^3/uL Mean Platelet Volume 8.3 7.4-10.4 FL Neutrophils (%) (Auto) 54 42-75 % Lymphocytes (%) (Auto) 32 12-44 % Monocytes (%) (Auto) 13 H 0-12 % Eosinophils (%) (Auto) 2 0-10 % Basophils (%) (Auto) 0 0-10 % Neutrophils # (Auto) 2.9 1.8-7.8 X 10^3 Lymphocytes # (Auto) 1.7 1.0-4.0 X 10^3 Monocytes # (Auto) 0.7 0.0-1.0 X 10^3 Eosinophils # (Auto) 0.1 0.0-0.3 10^3/uL Basophils # (Auto) 0.0 0.0-0.1 10^3/uL Sodium Level 142 135-145 MMOL/L Potassium Level 4.1 3.6-5.0 MMOL/L Chloride Level 106 98-107 MMOL/L Carbon Dioxide Level 24 21-32 MMOL/L Anion Gap 12 5-14 MMOL/L Blood Urea Nitrogen 7 7-18 MG/DL Creatinine 0.82 0.60-1.30 MG/DL Estimat Glomerular Filtration Rate > 60 BUN/Creatinine Ratio 9 Glucose Level 80 70-105 MG/DL Calcium Level 9.0 8.5-10.1 MG/DL C-Reactive Protein High Sensitivity 3.22 H 0.00-0.50 MG/DL My Orders Orders - BRUEGGEMANN,MARGARETH T MD Basic Metabolic Panel (03/11/19 18:20) Cbc With Automated Diff (03/11/19 18:20) Hs C Reactive Protein (03/11/19 18:20) Ed Iv/Invasive Line Start (03/11/19 18:20) Ondansetron Injection (Zofran Injectio (03/11/19 18:30) Ketorolac Injection (Toradol Injection) (03/11/19 18:30) Famotidine Injection (Pepcid Injection) (03/11/19 18:45) Sulfamethoxazole/Trimet Ds Tab (Bactrim (03/11/19 18:45) Vancomycin Injection (Vancomycin Injecti (03/11/19 18:45) Vancomycin Injection (Vancomycin Injecti (03/11/19 19:00) Medications Given in ED Current Medications Medications Dose Ordered Sig/Nathaly Route Start Time Stop Time Status Last Admin Dose Admin Famotidine 20 mg ONCE ONCE IVP 03/11/19 18:45 03/11/19 18:46 DC 03/11/19 18:53 20 MG Ketorolac Tromethamine 30 mg ONCE ONCE IVP 03/11/19 18:30 03/11/19 18:31 DC 03/11/19 18:52 30 MG Ondansetron HCl 8 mg ONCE ONCE IVP 03/11/19 18:30 03/11/19 18:31 DC 03/11/19 18:51 8 MG Trimethoprim/ Sulfamethoxazole 1 ea ONCE ONCE PO 03/11/19 18:45 03/11/19 18:46 DC 03/11/19 18:49 1 EA Vital Signs/I&O 03/11/19 21:09 Pulse 73 Resp 18 B/P (MAP) 118/76 (78) Pulse Ox 100 Capillary Refill : Less Than 3 Seconds Blood Pressure Mean: 78 Progress Note : Progress Note Patient's symptoms were initially treated with Zofran and Toradol. Labs were obtained. Chart was reviewed. Patient was found to have clindamycin resistance on her MRSA cultures. 2 aggressively treat the right thumb a dose of IV vancomycin was administered as well as an oral dose of Bactrim. Both cultures were Bactrim sensitive. I discussed the case with Dr. Ibarra. He recommended removing the packing in the groin but leaving the Midfield drain in place. Patient is to change topical dressings until she is seen in his clinic early next week. Departure Impression Primary Impression: Abscess of left genital labia Additional Impressions: Cellulitis of right thumb Nausea Dental implant pain Qualified Codes: T85.848A - Pain due to other internal prosthetic devices, implants and grafts, initial encounter MRSA (methicillin resistant staph aureus) culture positive Disposition: HOME, SELF-CARE Condition: Improved Departure-Patient Inst. Decision time for Depature: 19:30 Referrals: ERICA ADAM MD (PCP/Family) Primary Care Physician Patient Instructions: Skin Abscess, Cellulitis and Erysipelas (Skin Infections) Add. Discharge Instructions: Start your Bactrim DS tomorrow morning and complete the entire course. You may treat pain with Tylenol (acetaminophen) up to 1000 mg every 6 hours as needed and ibuprofen up to 600 mg every 6 hours as needed. Follow-up with Dr. Ibarra next week to have the drain removed. Please call tomorrow to schedule the appointment. Change the dressing daily or more often if needed due to drainage. Follow-up with a dentist for your dental pain as soon as possible. Follow-up with your primary care provider and behavioral health provider as soon as possible. You may take Zofran (ondansetron) as prescribed if you haven't nausea or vomiting. Return to care more promptly if you have worsening conditions such as persistent fever, escalating skin symptoms, escalating pain, etc. All discharge instructions reviewed with patient and/or family. Voiced understanding. Scripts Ondansetron (Ondansetron Odt) 4 Mg Tab.rapdis 4 MG PO Q4H PRN for NAUSEA/VOMITING, #10 TAB Prov: MARGARETH HOLLAND MD 03/11/19 Sulfamethoxazole/Trimethoprim (Bactrim Ds Tablet) 1 Each Tablet 1 EACH PO BID, #20 TAB Prov: MARGARETH HOLLAND MD 03/11/19 Copy Copies To 1: LEILA IBARRA MD Copies To 2: ERICA ADAM MD, JOSHUA T MD Mar 11, 2019 19:45
[2019-03-11] MEDS ORDERED: SULF1TAB35 PO (19:48)
[2019-03-11] MEDS ORDERED: ONDA4TAB11 PO (19:48)
[2019-03-11 21:09] VITALS: BP 118/76
== END 2019-03-11 21:12 | disposition home or self-care (01) ==
LOC: EDUNIT# 15:33 → ER 15:35
DX: N76.4 Abscess of vulva (principal); L03.011 Cellulitis of right finger; T85.848A Pain due to other internal prosthetic devices, implants and grafts, initial encounter; R11.0 Nausea; A49.02 Methicillin resistant Staphylococcus aureus infection, unspecified site; G43.909 Migraine, unspecified, not intractable, without status migrainosus; F32.9 Major depressive disorder, single episode, unspecified; F41.9 Anxiety disorder, unspecified; E03.9 Hypothyroidism, unspecified; D64.9 Anemia, unspecified; K21.9 Gastro-esophageal reflux disease without esophagitis; Z88.0 Allergy status to penicillin; Z88.8 Allergy status to other drugs, medicaments and biological substances; Z85.42 Personal history of malignant neoplasm of other parts of uterus; Z87.891 Personal history of nicotine dependence; Z90.710 Acquired absence of both cervix and uterus; Z90.89 Acquired absence of other organs; Z86.711 Personal history of pulmonary embolism; Z80.0 Family history of malignant neoplasm of digestive organs; Z82.49 Family history of ischemic heart disease and other diseases of the circulatory system; Z80.49 Family history of malignant neoplasm of other genital organs
CPT/HCPCS: 36415; 80048; 84703; 85025; 86141; 96374; 96375

== ENCOUNTER 2019-03-24 03:24 | Emergency (ER) | payer SELFPAY ==
[~2019-03-24] VITALS: Ht 175 cm; Wt 81.0 kg
--- NOTE | 2019-03-24 03:33 | NUR ---
C-Collar placed d/t pt c/o neck pain
[2019-03-24] MEDS ORDERED: LACTATED RINGERS 1,000 ML IV ONE (03:38)
[2019-03-24] MEDS ORDERED: TETANUS,DIPTH,PERTUSS P/F (BOOSTRIX) 0.5 ML VIAL IM ONE (03:45)
[2019-03-24 04:00] LABS: BASOPHILS % (AUTO) 1 % (0-10); EOSINOPHILS # (AUTO) 0.1 10^3/uL (0.0-0.3); EOSINOPHILS % (AUTO) 1 % (0-10); HEMATOCRIT 33 % (35-52); HEMOGLOBIN 10.7 G/DL (11.5-16.0); LYMPHOCYTES # (AUTO) 2.2 X 10^3 (1.0-4.0); LYMPHOCYTES % (AUTO) 37 % (12-44); MEAN CORPUSCULAR HEMOGLOBIN 25 PG (25-34); MEAN CORPUSCULAR HGB CONC 32 G/DL (32-36); MEAN CORPUSCULAR VOLUME 78 FL (80-99); MEAN PLATELET VOLUME 8.8 FL (7.4-10.4); MONOCYTES # (AUTO) 0.5 X 10^3 (0.0-1.0); MONOCYTES % (AUTO) 8 % (0-12); NEUTROPHILS # (AUTO) 3.1 X 10^3 (1.8-7.8); NEUTROPHILS % (AUTO) 53 % (42-75); PLATELET COUNT 429 10^3/uL (130-400); RED CELL DISTRIBUTION WIDTH 16.3 % (10.0-14.5); WHITE BLOOD COUNT 5.9 10^3/uL (4.3-11.0)
[2019-03-24 04:10] LABS: PROTHROMBIN TIME PATIENT 13.7 SEC (12.2-14.7)
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
[2019-03-24 04:18] LABS: ALANINE AMINOTRANSFERASE 16 U/L (0-55); ALBUMIN 4.3 GM/DL (3.2-4.5); ALKALINE PHOSPHATASE 57 U/L (40-136); BILIRUBIN,TOTAL 0.3 MG/DL (0.1-1.0); BUN/CREATININE RATIO 11; CARBON DIOXIDE 11 MMOL/L (21-32); CHLORIDE 106 MMOL/L (98-107); CREATINE KINASE 145 U/L (29-168); CREATININE SERUM 1.36 MG/DL (0.60-1.30); GFR ESTIMATED 41; GLUCOSE 220 MG/DL (70-105); MAGNESIUM 1.7 MG/DL (1.6-2.4); POTASSIUM 3.4 MMOL/L (3.6-5.0); SODIUM 139 MMOL/L (135-145); TOTAL PROTEIN 7.8 GM/DL (6.4-8.2)
[2019-03-24 04:21] LABS: ACETAMINOPHEN < 10 UG/ML (10-30)
[2019-03-24 04:25] LABS: CREATINE KINASE MB 0.9 NG/ML (<6.6)
[2019-03-24] MEDS ORDERED: NS IV 1000 ML 1,000 ML IV SCH (04:28)
[2019-03-24 05:16] LABS: BILIRUBIN,URINE NEGATIVE (NEGATIVE); CLARITY,URINE CLEAR; COLOR,URINE YELLOW; GLUCOSE, URINE (UA) NEGATIVE (NEGATIVE); KETONES,URINE NEGATIVE (NEGATIVE); LEUKOCYTE ESTERASE ,URINE TRACE (NEGATIVE); NITRITE,URINE NEGATIVE (NEGATIVE); PH,URINE 5.5 (5-9); PROTEIN,URINE TRACE (NEGATIVE)
[2019-03-24 05:25] LABS: BACTERIA,URINE TRACE /HPF; HYALINE CASTS, URINE 0-2 /LPF; RBC,URINE 0-2 /HPF; WBC,URINE 0-2 /HPF
[2019-03-24 05:27] LABS: AMPHETAMINE SCREEN, URINE NEGATIVE (NEGATIVE); BARBITURATE SCREEN URINE NEGATIVE (NEGATIVE); BENZODIAZEPINES SCREEN URINE NEGATIVE (NEGATIVE); CANNABINOID SCREEN, URINE NEGATIVE (NEGATIVE); COCAINE SCREEN URINE NEGATIVE (NEGATIVE); METHADONE STAT NEGATIVE (NEGATIVE); METHAMPHETAMINE SCREEN URINE S NEGATIVE (NEGATIVE); OPIATE SCREEN URINE NEGATIVE (NEGATIVE); OXYCODONE STAT NEGATIVE (NEGATIVE); PROPOXYPHENE STAT NEGATIVE (NEGATIVE); TRICYCLIC ANTIDEPRESSANTS SCRE NEGATIVE (NEGATIVE)
[2019-03-24] MEDS ORDERED: [UNRECOGNIZED DRUG - OTHER] PO (05:49)
[2019-03-24] MEDS ORDERED: MUPI1OIN6 TP (05:49)
[2019-03-24] MEDS ORDERED: SULF1TAB35 PO (05:49)
[2019-03-24] MEDS ORDERED: CLIN300C11 PO (05:49)
[2019-03-24] MEDS ORDERED: RX-MUPIROCIN (BACTROBAN) 2% OINT 22 GM TUBE TOP STA (05:50)
[2019-03-24] MEDS ORDERED: RX-CLINDAMYCIN 150 MG (CLEOCIN) CAP PPK#4 PO STA (05:50)
[2019-03-24] MEDS ORDERED: RX-TRIMETH/SULFA. 160-800 MG (BACTRIM DS) TAB PPK#2 PO STA (05:50)
[2019-03-24 06:17] VITALS: BP 146/93
--- NOTE | 2019-03-24 06:40 | Diagnostic Imaging Report ---
INDICATION: Pain. 2 views were obtained. FINDINGS: The osseous alignment is normal. There is no acute fracture or dislocation. The soft tissues are unremarkable. IMPRESSION: No acute abnormality. Dictated by: Dictated on workstation # [id number]
--- NOTE | 2019-03-24 06:40 | Diagnostic Imaging Report ---
INDICATION: Pain. 3 views were obtained. FINDINGS: The osseous alignment is normal. There is no acute fracture or dislocation. The soft tissues are unremarkable. IMPRESSION: No acute abnormality. Dictated by: Dictated on workstation # [id number]
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
--- NOTE | 2019-03-24 06:48 | Diagnostic Imaging Report ---
PROCEDURE: CT thoracic and lumbar spine without contrast. TECHNIQUE: Multiple contiguous axial images were obtained through the thoracic and lumbar spine without the use of intravenous contrast. Sagittal and coronal reformations were then performed. All CT scans use one or more of the following dose optimizing techniques: automated exposure control, MA and/or KvP adjustment based on patient size and exam type or iterative reconstruction. INDICATION: Back pain. FINDINGS: The alignment of the thoracic and lumbar spine is normal. The vertebral body heights are well-maintained. There is no fracture or traumatic subluxation. No spondylolysis or spondylolisthesis. There is some lower lumbar hypertrophic degenerative facet disease. The visualized lungs are clear. There are no other soft tissue abnormalities. IMPRESSION: Mild thoracolumbar spondylosis, however no acute fracture to traumatic subluxation. Dictated by: Dictated on workstation # [id number]
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
== END 2019-03-24 06:23 | disposition home or self-care (01) ==
LOC: EDUNIT# 03:24 → ER 03:26
DX: S01.451A Open bite of right cheek and temporomandibular area, initial encounter (principal); S16.1XXA Strain of muscle, fascia and tendon at neck level, initial encounter; S39.012A Strain of muscle, fascia and tendon of lower back, initial encounter; S00.93XA Contusion of unspecified part of head, initial encounter; S40.021A Contusion of right upper arm, initial encounter; S80.01XA Contusion of right knee, initial encounter; S80.02XA Contusion of left knee, initial encounter; S80.11XA Contusion of right lower leg, initial encounter; S80.12XA Contusion of left lower leg, initial encounter; F41.9 Anxiety disorder, unspecified; F32.9 Major depressive disorder, single episode, unspecified; Z87.891 Personal history of nicotine dependence; Z90.710 Acquired absence of both cervix and uterus; Z90.722 Acquired absence of ovaries, bilateral; Z88.8 Allergy status to other drugs, medicaments and biological substances; Z86.711 Personal history of pulmonary embolism; Z85.42 Personal history of malignant neoplasm of other parts of uterus; Z88.0 Allergy status to penicillin; Z23 Encounter for immunization; Z82.49 Family history of ischemic heart disease and other diseases of the circulatory system; Y00.XXXA Assault by blunt object, initial encounter
CPT/HCPCS: 36415; 70450; 70486; 71046; 72125; 72128; 72131; 72170; 73060; 73562; 80053; 80306; 80320; 80329; 81000; 82550; 82553; 83735; 83874; 85025; 85610; 85730; 87040; 87430; 87804; 90715; 93041

== ENCOUNTER 2019-05-03 19:42 | Emergency (ER) | payer SELFPAY ==
[~2019-05-03] VITALS: Ht 175.3 cm; Wt 81.8 kg
[~2019-05-03 19:42] MED LIST changes: -FLUO20CA45 PO; +FLUO20CA46 PO; +MUPI1OIN6 TP; +[UNRECOGNIZED DRUG - OTHER] PO
[2019-05-03 19:58] LABS: BASOPHILS % (AUTO) 0 % (0-10); EOSINOPHILS # (AUTO) 0.1 10^3/uL (0.0-0.3); EOSINOPHILS % (AUTO) 1 % (0-10); HEMATOCRIT 37 % (35-52); HEMOGLOBIN 11.8 G/DL (11.5-16.0); LYMPHOCYTES % (AUTO) 28 % (12-44); MEAN CORPUSCULAR HEMOGLOBIN 25 PG (25-34); MEAN CORPUSCULAR HGB CONC 32 G/DL (32-36); MEAN CORPUSCULAR VOLUME 78 FL (80-99); MONOCYTES # (AUTO) 0.8 X 10^3 (0.0-1.0); MONOCYTES % (AUTO) 11 % (0-12); NEUTROPHILS # (AUTO) 4.3 X 10^3 (1.8-7.8); NEUTROPHILS % (AUTO) 60 % (42-75); PLATELET COUNT 306 10^3/uL (130-400); RED CELL DISTRIBUTION WIDTH 15.4 % (10.0-14.5); WHITE BLOOD COUNT 7.1 10^3/uL (4.3-11.0)
--- NOTE | 2019-05-03 20:06 | Diagnostic Imaging Report ---
INDICATION: Medial chest discomfort radiating to the right side of the neck. FINDINGS: Upright view of the chest demonstrates lungs to be clear. Heart, mediastinum and pulmonary vascularity and visualized bony thorax are normal. IMPRESSION: Normal chest. Dictated by: Dictated on workstation # [id number]
[2019-05-03 20:18] LABS: ALANINE AMINOTRANSFERASE 10 U/L (0-55); ALBUMIN 4.3 GM/DL (3.2-4.5); ALKALINE PHOSPHATASE 65 U/L (40-136); BILIRUBIN,TOTAL 0.5 MG/DL (0.1-1.0); BUN/CREATININE RATIO 14; CALCIUM 9.2 MG/DL (8.5-10.1); CARBON DIOXIDE 21 MMOL/L (21-32); CHLORIDE 105 MMOL/L (98-107); CREATININE SERUM 0.92 MG/DL (0.60-1.30); GFR ESTIMATED > 60; GLUCOSE 188 MG/DL (70-105); MAGNESIUM 1.8 MG/DL (1.6-2.4); POTASSIUM 3.2 MMOL/L (3.6-5.0); SODIUM 139 MMOL/L (135-145); TOTAL PROTEIN 7.5 GM/DL (6.4-8.2)
[2019-05-03 20:25] LABS: PROTHROMBIN TIME PATIENT 13.8 SEC (12.2-14.7)
[2019-05-03] MEDS ORDERED: KCL 10 MEQ TAB (MICRO K) PO ONE (20:45)
[2019-05-03 20:55] LABS: AMPHETAMINE SCREEN, URINE NEGATIVE (NEGATIVE); BARBITURATE SCREEN URINE NEGATIVE (NEGATIVE); BENZODIAZEPINES SCREEN URINE POSITIVE (NEGATIVE); CANNABINOID SCREEN, URINE NEGATIVE (NEGATIVE); COCAINE SCREEN URINE NEGATIVE (NEGATIVE); METHADONE STAT NEGATIVE (NEGATIVE); METHAMPHETAMINE SCREEN URINE S NEGATIVE (NEGATIVE); OPIATE SCREEN URINE NEGATIVE (NEGATIVE); OXYCODONE STAT NEGATIVE (NEGATIVE); PROPOXYPHENE STAT NEGATIVE (NEGATIVE); TRICYCLIC ANTIDEPRESSANTS SCRE NEGATIVE (NEGATIVE)
[2019-05-03] MEDS ORDERED: IOHEXOL 350 MG/ML 100 ML (OMNIPAQUE 350) VIAL IV ONE (21:00)
[2019-05-03] MEDS ORDERED: HOLD METFORMIN - RECEIVED CONTRAST 20 ML VIAL IV SCH (21:00)
[2019-05-03] MEDS ORDERED: NS 100 ML (IVPB) BAG IV ONE (21:00)
--- NOTE | 2019-05-03 21:29 | Diagnostic Imaging Report ---
PROCEDURE: CT angiography of the chest with contrast. TECHNIQUE: Multiple contiguous axial images were obtained through the chest after uneventful bolus administration of intravenous contrast. 3D reconstructed CTA MIP acquisitions were also performed. Auto Exposure Controls were utilized during the CT exam to meet ALARA standards for radiation dose reduction. INDICATION: Shortness of breath. Medial chest discomfort radiating to the right side of the neck. COMPARISON STUDY: CTA of the chest from 02/11/2019. FINDINGS: CTA of the chest demonstrates no pulmonary embolism, aortic dissection or aneurysm. No vascular calcifications are evident. Heart size is normal. There are no pleural or pericardial effusions. No abnormal adenopathy is present. Postoperative changes are seen at the gastroesophageal junction. The esophagus is thickened above this. Lungs are clear. IMPRESSION: 1. No pulmonary embolism or aortic dissection is present. 2. Hiatal hernia is present with postoperative changes at the gastroesophageal junction. Thickening of the esophagus above this appear stable. Dictated by: Dictated on workstation # [id number]
--- NOTE | 2019-05-03 22:13 | ED Chest Pain ---
General Chief Complaint: Chest Pain Stated Complaint: CHEST PAIN,HEAD HURT, JAW PAIN Nursing Triage Note: Pt amb to room #4 with c/o medial chest discomfort radiating to R neck, et head. Pt unable to report onset of symptoms taking, "I don't know, earlier." Pt describes discomfort to medial chest as "sharp." Pt reports cough, weakness, et chills. A&OX4. Nursing Sepsis Screen: No Definite Risk Source: patient Exam Limitations: no limitations History of Present Illness Date Seen by Provider: May 03, 2019 Time Seen by Provider: 19:46 Initial Comments This 49-year-old woman presents to the emergency room with complaints of right upper chest pain that has been present for about 35 minutes. She states it feels like when she had a PE previously. It hurts with inspiration in to palpation. She also complains of a headache today and recent dry cough. She denies any fever. She generally feels weak and chilled. She has neck soreness on the right which is a chronic problem. She denies any sick exposures. Allergies and Home Medications Allergies Coded Allergies: Penicillins (Unverified Allergy, Unknown, Pt has received Ceftriaxone in the past w/o issue, 05/25/18) Uncoded Allergies: STERIODS (Allergy, Intermediate, HALLICINATIONS, 12/18/11) BEES (Allergy, Unknown, 05/24/18) paper tape (Allergy, Unknown, 05/24/18) Home Medications Clindamycin HCl 300 Mg Capsule, 300 MG PO QID Prescribed by: KAREN SORENSEN on 03/10/19 1045 Clindamycin HCl 300 Mg Capsule, 300 MG PO QID Prescribed by: ERICA MIRAMONTES on 03/24/19 0549 Diphenhydramine HCl 25 Mg Capsule, 50 MG PO BID PRN for ITCHING, (Reported) Famotidine 20 Mg Tablet, 20 MG PO BID, (Reported) Fluoxetine HCl 40 Mg Capsule, 40 MG PO 1500, (Reported) LAST FILLED #30 01-11-19 Ibuprofen 200 Mg Tablet, 800 MG PO Q6H PRN for PAIN-MILD (1-4), (Reported) L.acd/B.bif/L.jose eduardo/L.rh/Fos/Mos 1 Each Capsule, 1 EACH PO BID Prescribed by: ERICA MIRAMONTES on 03/24/19 0549 L.acidoph & Paracasei,B.lactis 1 Each Capsule, 1 EACH PO BID Prescribed by: KAREN SORENSEN on 03/10/19 1045 Levothyroxine Sodium 125 Mcg Tablet, 125 MCG PO DAILY, (Reported) Mupirocin 1 Gm Oin.pf.jasmina, 1 GM TP BID Prescribed by: ERICA MIRAMONTES on 03/24/19 0549 Ondansetron 4 Mg Tab.rapdis, 4 MG PO Q4H PRN for NAUSEA/VOMITING Prescribed by: MARGARETH CHRISTIAN on 03/11/191947 Sulfamethoxazole/Trimethoprim 1 Each Tablet, 1 EACH PO BID Prescribed by: MARGARETH CHRISTIAN on 03/11/191947 Sulfamethoxazole/Trimethoprim 1 Each Tablet, 1 EACH PO BID Prescribed by: ERICA MIRAMONTES on 03/24/19 0549 Tramadol HCl 50 Mg Tablet, 50 MG PO Q4H PRN for PAIN-MODERATE (5-7), (Reported) FILLED #25 TABLETS 03-06-19 Patient Home Medication List Home Medication List Reviewed: Yes Review of Systems Review of Systems Constitutional: see HPI EENTM: See HPI Respiratory: See HPI Cardiovascular: No Symptoms Reported Gastrointestinal: No Symptoms Reported Genitourinary: No Symptoms Reported Musculoskeletal: see HPI Skin: no symptoms reported Psychiatric/Neurological: No Symptoms Reported Endocrine: No Symptoms Reported Hematologic/Lymphatic: No Symptoms Reported Past Fcvaegk-Zfovvc-Ugipir Hx Patient Social History Alcohol Use: Rarely Uses Number of Drinks Today: 0 Recreational Drug Use: No Drug of Choice: methamphetamines and marijuana Smoking Status: Current Everyday Smoker Type Used: Cigarettes Former Smoker, Quit: Feb 28, 2000 2nd Hand Smoke Exposure: Yes Recent Foreign Travel: No Contact w/Someone Who Travel: No Recent Infectious Disease Expo: No Recent Hopitalizations: Yes (03/07/19 FOR OD ON XANAX, ALSO HAD I&D OF ABSCESSES) Immunizations Up To Date Tetanus Booster (TDap): Less than 5yrs Seasonal Allergies Seasonal Allergies: No Past Medical History Surgeries: Yes (LAP BAND WITH HIATAL HERNIA REPAIR;HYST/BSO 04/2018; X5;BREAST BX ) Abdominal, Breast, Section, Gallbladder, Hysterectomy, Oophorectomy, Thyroidectomy, Tonsillectomy Respiratory: Yes (LEATHA P.EByron 06/2018-POST SURGERY/HYSTERECTOMY 04/2018) Pneumonia, Pulmonary Embolism Currently Using CPAP: No Currently Using BIPAP: No Cardiac: No Neurological: Yes Headaches /Migraines Reproductive Disorders: Yes (ENDOMETRIAL CANCER-S/P HYST 04/2018) [employer]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 DYSPHAGIA) Gastroesophageal Reflux, Hiatal Hernia Musculoskeletal: Yes (BROKEN TOES AND FINGERS--NO SURGERY) Fractures Endocrine: Yes (THYROIDECTOMY FOR BENIGN DISEASE) Hypothyroidsim HEENT: Yes (GLASSES) Dysphagia Cancer: Yes (ENDOMETRIAL CANCER-S/P HYST 04/2018--PT HAS NOT FOLLOWED UP SINCE SURGERY) Did You Recieve Any Treatments: Yes What Type of Treatment Did You: Surgical Intervention Psychosocial: Yes (MULTIPLE OVERDOSES-LAST ONE 03/07/19-OD ON TRAMADOL; POLYSUBSTANCE ABUSE; ) Anxiety, Suicide Attempts, Depression Integumentary: Yes (MRSA abscesses requiring surgical debridement) Blood Disorders: Yes (hx ANEMIA; P.E. POST OP 06/2018) Adverse Reaction/Blood Tranf: No Family Medical History Reviewed Nursing Family Hx Alcoholism 19 FATHER 19 MOTHER Colon cancer 19 FATHER Drug abuse 19 FATHER 19 MOTHER FH: uterine cancer 19 MOTHER Hypertension 19 FATHER 19 MOTHER Cancer HX OF EXTREME NON-COMPLICANCE IN ALL ASPECTS OF CARE Physical Exam Vital Signs Vital Signs - First Documented 05/03/19 19:45 Temp 37.0 Pulse 98 Resp 18 B/P (MAP) 147/93 (111) Pulse Ox 98 O2 Delivery Room Air Capillary Refill : Less Than 3 Seconds Height, Weight, BMI Height: 5'9.00" Weight: 181lbs. 8.0oz. 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, 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 Skin: Normal Color, Warm/Dry Progress/Results/Core Measures Results/Orders Lab Results Laboratory Tests Test 05/03/19 19:52 05/03/19 20:35 Range/Units White Blood Count 7.1 4.3-11.0 10^3/uL Red Blood Count 4.66 4.35-5.85 10^6/uL Hemoglobin 11.8 11.5-16.0 G/DL Hematocrit 37 35-52 % Mean Corpuscular Volume 78 L 80-99 FL Mean Corpuscular Hemoglobin 25 25-34 PG Mean Corpuscular Hemoglobin Concent 32 32-36 G/DL Red Cell Distribution Width 15.4 H 10.0-14.5 % Platelet Count 306 130-400 10^3/uL Mean Platelet Volume 9.0 7.4-10.4 FL Neutrophils (%) (Auto) 60 42-75 % Lymphocytes (%) (Auto) 28 12-44 % Monocytes (%) (Auto) 11 0-12 % Eosinophils (%) (Auto) 1 0-10 % Basophils (%) (Auto) 0 0-10 % Neutrophils # (Auto) 4.3 1.8-7.8 X 10^3 Lymphocytes # (Auto) 2.0 1.0-4.0 X 10^3 Monocytes # (Auto) 0.8 0.0-1.0 X 10^3 Eosinophils # (Auto) 0.1 0.0-0.3 10^3/uL Basophils # (Auto) 0.0 0.0-0.1 10^3/uL Prothrombin Time 13.8 12.2-14.7 SEC INR Comment 1.0 0.8-1.4 Activated Partial Thromboplast Time 32 24-35 SEC D-Dimer 1.05 H 0.00-0.49 UG/ML Sodium Level 139 135-145 MMOL/L Potassium Level 3.2 L 3.6-5.0 MMOL/L Chloride Level 105 98-107 MMOL/L Carbon Dioxide Level 21 21-32 MMOL/L Anion Gap 13 5-14 MMOL/L Blood Urea Nitrogen 13 7-18 MG/DL Creatinine 0.92 0.60-1.30 MG/DL Estimat Glomerular Filtration Rate > 60 BUN/Creatinine Ratio 14 Glucose Level 188 H 70-105 MG/DL Calcium Level 9.2 8.5-10.1 MG/DL Corrected Calcium 9.0 8.5-10.1 MG/DL Magnesium Level 1.8 1.6-2.4 MG/DL Total Bilirubin 0.5 0.1-1.0 MG/DL Aspartate Amino Transf (AST/SGOT) 13 5-34 U/L Alanine Aminotransferase (ALT/SGPT) 10 0-55 U/L Alkaline Phosphatase 65 40-136 U/L Myoglobin 31.3 10.0-92.0 NG/ML Troponin I < 0.028 <0.028 NG/ML C-Reactive Protein High Sensitivity 1.28 H 0.00-0.50 MG/DL Total Protein 7.5 6.4-8.2 GM/DL Albumin 4.3 3.2-4.5 GM/DL Serum Alcohol < 10 <10 MG/DL Urine Opiates Screen NEGATIVE NEGATIVE Urine Oxycodone Screen NEGATIVE NEGATIVE Urine Methadone Screen NEGATIVE NEGATIVE Urine Propoxyphene Screen NEGATIVE NEGATIVE Urine Barbiturates Screen NEGATIVE NEGATIVE Ur Tricyclic Antidepressants Screen NEGATIVE NEGATIVE Urine Phencyclidine Screen NEGATIVE NEGATIVE Urine Amphetamines Screen NEGATIVE NEGATIVE Urine Methamphetamines Screen NEGATIVE NEGATIVE Urine Benzodiazepines Screen POSITIVE H NEGATIVE Urine Cocaine Screen NEGATIVE NEGATIVE Urine Cannabinoids Screen NEGATIVE NEGATIVE Micro Results Microbiology 05/03/19 Influenza Types A,B Antigen (SUSHMA) - Final, Complete My Orders Orders - MARGARETH HOLLAND MD Cbc With Automated Diff (05/03/19 19:45) Magnesium (05/03/19 19:45) Chest 1 View, Ap/Pa Only (05/03/19 19:45) Ekg Tracing (05/03/19 19:45) Comprehensive Metabolic Panel (05/03/19 19:45) Myoglobin Serum (05/03/19 19:45) Protime With Inr (05/03/19 19:45) Partial Thromboplastin Time (05/03/19 19:45) O2 (05/03/19 19:45) Monitor-Rhythm Ecg Trace Only (05/03/19 19:45) Ed Iv/Invasive Line Start (05/03/19 19:45) Troponin I (05/03/19 19:45) Alcohol (05/03/19 19:45) Drug Screen Stat (Urine) (3/6/20 19:45) Hs C Reactive Protein (05/03/19 19:53) Fibrin Degradation Products (05/03/19 19:53) Influenza A And B Antigens (05/03/19 19:53) Ct Angio Chest W (05/03/19 20:43) Potassium Chloride (Tablet) (Klor Con Ta (05/03/19 20:45) Iohexol Injection (Omnipaque 350 Mg/Ml 1 (05/03/19 21:00) Received Contrast (Hold Metformin- Contr (05/03/19 21:00) Ns (Ivpb) (Sodium Chloride 0.9% Ivpb Bag (05/03/19 21:00) Ketorolac Injection (Toradol Injection) (05/03/19 22:15) Medications Given in ED Current Medications Medications Dose Ordered Sig/Nathaly Route Start Time Stop Time Status Last Admin Dose Admin Iohexol 75 ml ONCE ONCE IV 05/03/19 21:00 05/03/19 21:53 DC 05/03/19 21:12 75 ML Ketorolac Tromethamine 15 mg ONCE ONCE IVP 05/03/19 22:15 05/03/19 22:16 DC 05/03/19 22:17 15 MG Potassium Chloride 20 meq ONCE ONCE PO 05/03/19 20:45 05/03/19 20:46 DC 05/03/19 20:56 20 MEQ Sodium Chloride 90 ml ONCE ONCE IV 05/03/19 21:00 05/03/19 21:53 DC 05/03/19 21:12 90 ML Vital Signs/I&O 05/03/19 05/03/19 05/03/19 19:45 19:45 22:20 Temp 37.0 37.0 Pulse 98 78 Resp 18 18 B/P (MAP) 147/93 (111) 115/85 (111) Pulse Ox 98 99 O2 Delivery Room Air Room Air Blood Pressure Mean: 111 Progress Progress Note : Progress Note Initial workup revealed an elevated d-dimer. CT angiogram was added and revealed no pulmonary embolism. Toradol was given for pain and patient was dismissed to outpatient follow-up. Initial ECG Impression Date: May 03, 2019 Initial ECG Impression Time: 19:51 Initial ECG Rate: 87 Initial ECG Rhythm: Normal Sinus Initial ECG Intervals: Normal Initial ECG Impression: Normal Comment Normal sinus rhythm with no ST elevation or depression. No abnormal intervals or axis deviation. Diagnostic Imaging Diagonstic Imaging: Xray Plain Films/CT/US/NM/MRI: chest Comments Chest x-ray viewed by me. Report reviewed. See report below: NAME: YASMIN MONCADA [facility] REC#: [id number] PT STATUS: REG ER : 1970 PHYSICIAN: MARGARETH HOLLAND MD ADMIT DATE: 05/03/19/ER Signed Date of Exam:05/03/19 CHEST 1 VIEW, AP/PA ONLY INDICATION: Medial chest discomfort radiating to the right side of the neck. FINDINGS: Upright view of the chest demonstrates lungs to be clear. Heart, mediastinum and pulmonary vascularity and visualized bony thorax are normal. IMPRESSION: Normal chest. Dictated by: Dictated on workstation # [id number] Dict: 05/03/192003 Trans: 05/03/192006 [id number] Interpreted by: GERMAINE EAGLE MD Electronically signed by: GERMAINE EAGLE MD 05/03/192006 Diagonstic Imaging: CT Plain Films/CT/US/NM/MRI: chest Comments CT angiogram of the chest viewed by me and report reviewed. See report below: NAME: YASMIN MONCADA [facility] REC#: [id number] PT STATUS: REG ER : 1970 PHYSICIAN: MARGARETH HOLLAND MD ADMIT DATE: 05/03/19/ER Signed Date of Exam:05/03/19 CT ANGIO CHEST W PROCEDURE: CT angiography of the chest with contrast. TECHNIQUE: Multiple contiguous axial images were obtained through the chest after uneventful bolus administration of intravenous contrast. 3D reconstructed CTA MIP acquisitions were also performed. Auto Exposure Controls were utilized during the CT exam to meet ALARA standards for radiation dose reduction. INDICATION: Shortness of breath. Medial chest discomfort radiating to the right side of the neck. COMPARISON STUDY: CTA of the chest from 02/11/2019. FINDINGS: CTA of the chest demonstrates no pulmonary embolism, aortic dissection or aneurysm. No vascular calcifications are evident. Heart size is normal. There are no pleural or pericardial effusions. No abnormal adenopathy is present. Postoperative changes are seen at the gastroesophageal junction. The esophagus is thickened above this. Lungs are clear. IMPRESSION: 1. No pulmonary embolism or aortic dissection is present. 2. Hiatal hernia is present with postoperative changes at the gastroesophageal junction. Thickening of the esophagus above this appear stable. Dictated by: Dictated on workstation # [id number] Dict: 05/03/192122 Trans: 05/03/192132 DESIRAE [id number] Interpreted by: GERMAINE EAGLE MD Electronically signed by: GERMAINE EAGLE MD 05/03/192132 Departure Impression Primary Impression: Atypical chest pain Disposition: HOME, SELF-CARE Condition: Improved Departure-Patient Inst. Decision time for Depature: 22:12 Referrals: ERICA ADAM MD (PCP/Family) Primary Care Physician Patient Instructions: Pleuritic Chest Pain Add. Discharge Instructions: You may take ibuprofen up to 600 mg every 6 hours as needed for pain. Add Tylenol (acetaminophen) up to 1000 mg every 6 hours as needed for additional pain relief. Follow-up with your primary care provider as soon as possible. Return to emergency room if you have new or worsening problems that require urgent evaluation. All discharge instructions reviewed with patient and/or family. Voiced understanding. Copy Copies To 1: ERICA ADAM MD, JOSHUA T MD May 03, 2019 22:13
[2019-05-03] MEDS ORDERED: KETOROLAC 30 MG/ML VIAL IVP ONE (22:15)
[2019-05-03 22:20] VITALS: BP 115/85
--- OUTSIDE RECORDS SUMMARY | 2019-05-07 19:25 | XMS REPORT | Continuity of Care Document ---
Demographics Preferred Language Unknown Marital Status Unknown Islam Affiliation Unknown Race Unknown Ethnic Group Unknown Author Organization Unknown Address Unknown Phone Unavailable Allergies Active Description Code Type Severity Reaction Onset Reported/Identified Relationship to Patient Clinical Status Yes PENICILLINS PENIC ILLINS SEVERE Yes SOLU-MEDROL SOLU- MEDROL SEVERE Yes PENICILLINS SEVERE DERMATOLOGICAL - PATI Yes PENICILLINS SEVERE SEVERE Yes SOLU-MEDROL SEVERE SEVERE Yes SOLU-MEDROL SEVERE SIDE EFFECT Medications Medication Packaging Start Date St op Date Route Dosage Sig CEFTRIAXONE VIAL INJ 250 MG (ROCEPHIN VIAL ) MG 01/24/2017 01/24/2017 ONCE&1440 LIDOCAINE 1% MPF INJ 1 % (XYLOCAINE (MPF) ml 01/24/2017 01/24/2017 ONCE&1440 LIDOCAINE 1% MPF INJ 1 % (XYLOCAINE (MPF) ml 01/24/2017 01/24/2017 ONCE&1456 KETOROLAC VIAL INJ 30 MG/CC (TORADOL VIAL) MG 09/14/2017 09/14/2017 ONCE&1526 NORMAL SALINE 500CC IV BAG I NJ 0.9 % (NS 500CC IV BAG) ml 09/14/2017 09/14/2017 ONCE&1526 POTASSIUM CHLORIDE TAB 20 MEQ (K-DUR) MEQ 09/14/2017 09/14/2017 ONCE&1633 CEFTRIAXONE PREMIX IV BAG IV 1 GM/50CC (ROCEPHIN PREMIX IV BAG) GM 09/14/2017 09/14/2017 ONCE&1634 Potassium Chloride Powder fo r Oral Soln 20mEQ packet MEQ 09/14/2017 09/14/2017 ONCE&1643 PHENAZOPYRIDINE TAB 100 MG (PYRIDIUM) MG 12/30/2017 12/30/2017 ONCE&1835 LEVOFLOXACIN TAB 500 MG (LEVAQUIN) MG 12/30/2017 12/30/2017 ONCE&1835 LEVOTHYROXINE TAB 137 MCG (SYNTHROID) MCG 12/31/2017 01/06/2018 Daily&0900 IRON SUCROSE INJECTION INJ 20 MG/CC (VENOF ER) MG 04/10/2018 04/10/2018 ONCE&1410 MECLIZINE TAB 25 MG (ANTIVERT) MG 04/10/2018 04/17/2018 PRN Q6H IRON SUCROSE INJECTION INJ 20 MG/CC (VENOF ER) MG 04/12/2018 04/12/2018 ONCE&1500 IRON SUCROSE INJECTION INJ 20 MG/CC (VENOF ER) MG 04/14/2018 04/14/2018 ONCE&1425 LACTATED RINGERS 1000CC IV BAG INJ ml 04/30/2018 05/07/2018 CONTINUOUSEVERY 0 Hour NORMAL SALINE 500CC IV BAG I NJ 0.9 % (NS 500CC IV BAG) ml 05/06/2018 05/06/2018 ONCE&1747 CEFTRIAXONE VIAL INJ 500 MG (ROCEPHIN VIAL ) MG 05/11/2018 05/11/2018 ONCE&1839 FAMOTIDINE TAB 20 MG (PEPCID) MG 02/24/2019 02/24/2019 ONCE&1149 DIPHENHYDRAMINE VIAL INJ 50 MG/CC (BENADRYL VIAL) MG 02/24/2019 02/24/2019 ONCE&1149 SMZ/TMP DS TAB (SEPTRA DS) (Bactrim DS) TAB 03/06/2019 03/06/2019 ONCE&0013 TRAMADOL TAB 50 MG (ULTRAM) MG 03/06/2019 03/06/2019 ONCE&0015 TRAMADOL PAIN PACK TAB 50 MG (ULTRAM PAIN PACK) MG 03/06/2019 03/06/2019 ONCE&0058 TRAMADOL TAB 50 MG (ULTRAM) MG 03/06/2019 03/15/2019 Q8H&0600,1400,2200 Problems Date Dx Coded Attending Type Code Diagnosis Diagnosed By 06/10/2016 Eric Hawkins 244.9 UNSPECIFIED HYPOTHYROIDISM 06/10/2016 Eric Hawkins 466.0 ACUTE BRONCHITIS 06/10/2016 Eric Hawkins 530.81 ESOPHAGEAL REFLUX 06/10/2016 Eric Hawkins E03.9 HYPOTHYROIDISM, UNSPECIFIED 06/10/2016 Eric Hawkins J20.9 ACUTE BRONCHITIS, UNSPECIFIED 06/10/2016 Eric Hawkins K21.9 GASTRO-ESOPHAGEAL REFLUX DISEASE WITHOUT ESOPHAGITIS 01/24/2017 Shonda Powers 616.10 VAGINITIS AND VULVOVAGINITIS, UNSPECIFIED 01/24/2017 Shonda Powers 788.1 DYSURIA 01/24/2017 Carmen Powersa A N76.0 ACUTE VAGINITIS 01/24/2017 Shonda Powers W R30.0 DYSURIA 01/24/2017 W N89.8 OTHE R SPECIFIED NONINFLAMMATORY DISORDERS OF VAGINA 09/14/2017 GerrybAleshia W 276.8 HYPOPOTASSEMIA 09/14/2017 Brokob, Aleshia A 599.0 URINARY TRACT INFECTION, SITE NOT SPECIFIED 09/14/2017 BrojoannbBenya W E87.6 HYPOKALEMIA 09/14/2017 Brokob, Aleshia A N39.0 URINARY TRACT INFECTION, SITE NOT SPECIFIED 12/30/2017 Pedro Luis Escobar 599.0 URINARY TRACT INFECTION, SITE NOT SPECIFIED 12/30/2017 Pedro Luis Escobar N39.0 URINARY TRACT INFECTION, SITE NOT [...] 04/14/2018 Shonda Powers Z98.84 BARIATRIC SURGERY STATUS 04/30/2018 Kimberly Ibarra W 280.9 IRON DEFICIENCY ANEMIA, UNSPECIFIED 04/30/2018 Kimberly Ibarra W 455.0 INTERNAL HEMORRHOIDS WITHOUT MENTION OF COMPLICATION 04/30/2018 Kimberly Ibarra W 530.81 ESOPHAGEAL REFLUX 04/30/2018 Kimberly Ibarra W 787.7 ABNORMAL FECES 04/30/2018 Kimberly Ibarra W D50.9 IRON DEFICIENCY ANEMIA, UNSPECIFIED 04/30/2018 Kimberly Ibarra W K21.0 GASTRO- ESOPHAGEAL REFLUX DISEASE WITH ESOPHAGITIS 04/30/2018 Kimberly Ibarra W K64.1 SECOND DEGREE HEMORRHOIDS 04/30/2018 Kimberly Ibarra W R19.5 OTHER FECAL ABNORMALITIES 04/30/2018 Kimberly Ibarra W V16.0 FAMILY HISTORY OF MALIGNANT NEOPLASM OF GASTROINTESTINAL TRACT 04/30/2018 Kimberly Ibarra W Z80.0 FAMILY HISTORY OF MALIGNANT NEOPLASM OF DIGESTIVE ORGANS 05/06/2018JuneShiHaylee A W 280.9 IRON DEFICIENCY ANEMIA, UNSPECIFIED 05/06/2018 Shi Haylee A W 780.79 OTHER MALAISE AND FATIGUE 05/06/2018JuneShi Haylee A W D50.9 IRON DEFICIENCY ANEMIA, UNSPECIFIED 05/06/2018JuneShiAudreyHaylee A W R53.1 WEAKNESS 05/11/2018 Eric Hawkins W 098.89 GONOCOCCAL INFECTION OF OTHER SPECIFIED SITES 05/11/2018 Eric Hawkins W A54.9 GONOCOCCAL INFECTION, UNSPECIFIED 10/09/2018 Ben Washingtonya W 623.5 LEUKORRHEA, NOT SPECIFIED INFECTIVE 10/09/2018 Ben Washingtonya W 780.4 DIZZINESS AND GIDDINESS 10/09/2018 Ben Washingtonya W N89.8 OTHER SPECIFIED NONINFLAMMATORY DISORDERS OF VAGINA 10/09/2018 Gerryb Aleshia W R42 DIZZINESS AND GIDDINESS 10/09/2018 Gerryb Aleshia W 381.81 DYSFUNCTION OF EUSTACHIAN TUBE 10/09/2018 Brojoannb Aleshia W 623.5 LEUKORRHEA, NOT SPECIFIED INFECTIVE 10/09/2018 Brojoannb Aleshia W 780.4 DIZZINESS AND GIDDINESS 10/09/2018 Brokob, Aleshia W H69.80 OTHER SPECIFIED DISORDERS OF EUSTACHIAN TUBE, UNSPECIFIED EAR 10/09/2018 Brokob, Aleshia W N89.8 OTHER SPECIFIED NONINFLAMMATORY DISORDERS OF VAGINA 10/09/2018 Brokob, Aleshia W R42 DIZZINESS AND GIDDINESS 10/09/2018 Brokob, Aleshia W 381.81 DYSFUNCTION OF EUSTACHIAN TUBE 10/09/2018 Brokob, Aleshia W 623.5 LEUKORRHEA, NOT SPECIFIED INFECTIVE 10/09/2018 Brokob, Aleshia W 780.4 DIZZINESS AND GIDDINESS 10/09/2018 Brokob, Aleshia W 787.91 DIARRHEA 10/09/2018 Brokob, Aleshia W H69.80 OTHER SPECIFIED DISORDERS OF EUSTACHIAN TUBE, UNSPECIFIED EAR 10/09/2018 Brokob, Aleshia W K52.2 ALLERGIC AND DIETETIC GASTROENTERITIS AND COLITIS 10/09/2018 Brokob, Aleshia W N89.8 OTHER SPECIFIED NONINFLAMMATORY DISORDERS OF VAGINA 10/09/2018 Brokob, Aleshia W R42 DIZZINESS AND GIDDINESS 10/09/2018 Brokob, Aleshia W 381.81 DYSFUNCTION OF EUSTACHIAN TUBE 10/09/2018 Brokob, Aleshia W 623.5 LEUKORRHEA, NOT SPECIFIED INFECTIVE 10/09/2018 Brokob, Aleshia W 780.4 DIZZINESS AND GIDDINESS 10/09/2018 Brokob, Aleshia W 787.91 DIARRHEA 10/09/2018 Brokob, Aleshia W H69.80 OTHER SPECIFIED DISORDERS OF EUSTACHIAN TUBE, UNSPECIFIED EAR 10/09/2018 Brokob, Aleshia W K52.2 ALLERGIC AND DIETETIC GASTROENTERITIS AND COLITIS 10/09/2018 Brokob, Aleshia W N89.8 OTHER SPECIFIED NONINFLAMMATORY DISORDERS OF VAGINA 10/09/2018 Brokob, Aleshia W R42 DIZZINESS AND GIDDINESS 10/09/2018 Brokob, Aleshia W 623.5 LEUKORRHEA, NOT SPECIFIED INFECTIVE 10/09/2018 Brokob, Aleshia W N89.8 OTHER SPECIFIED NONINFLAMMATORY DISORDERS OF VAGINA 10/09/2018 Brokob, Aleshia W 381.81 DYSFUNCTION OF EUSTACHIAN TUBE 10/09/2018 Brokob, Aleshia W 623.5 LEUKORRHEA, NOT SPECIFIED INFECTIVE 10/09/2018 Brokob, Aleshia W 780.4 DIZZINESS AND GIDDINESS 10/09/2018 Brokob, Aleshia W H69.80 OTHER SPECIFIED DISORDERS OF EUSTACHIAN TUBE, UNSPECIFIED EAR 10/09/2018 Brokob, Aleshia W N89.8 OTHER SPECIFIED NONINFLAMMATORY DISORDERS OF VAGINA 10/09/2018 Brokob, Aleshia W R42 DIZZINESS AND GIDDINESS 10/09/2018 Brokob, Aleshia W 300.00 ANXIETY STATE, UNSPECIFIED 10/09/2018 Brokob, Aleshia W 381.81 DYSFUNCTION OF EUSTACHIAN TUBE 10/09/2018 Brokob, Aleshia W 623.5 LEUKORRHEA, NOT SPECIFIED INFECTIVE 10/09/2018 Brokob, Aleshia W 780.4 DIZZINESS AND GIDDINESS 10/09/2018 Brokob, Aleshia W 787.91 DIARRHEA 10/09/2018 Brokob, Aleshia W F41.9 ANXIETY DISORDER, UNSPECIFIED 10/09/2018 Brokob, Alsehia W H69.80 OTHER SPECIFIED DISORDERS OF EUSTACHIAN TUBE, UNSPECIFIED EAR 10/09/2018 Brokob, Aleshia W K52.2 ALLERGIC AND DIETETIC GASTROENTERITIS AND COLITIS 10/09/2018 Brokob, Aleshia W N89.8 OTHER SPECIFIED NONINFLAMMATORY DISORDERS OF VAGINA 10/09/2018 Brokob, Aleshia W R42 DIZZINESS AND GIDDINESS 10/09/2018 Brokob, Aleshia W 381.81 DYSFUNCTION OF EUSTACHIAN TUBE 10/09/2018 Brokob, Aleshia W 623.5 LEUKORRHEA, NOT SPECIFIED INFECTIVE 10/09/2018 Brokob, Aleshia W 780.4 DIZZINESS AND GIDDINESS 10/09/2018 Brokob, Aleshia W H69.80 OTHER SPECIFIED DISORDERS OF EUSTACHIAN TUBE, UNSPECIFIED EAR 10/09/2018 Brokob, Aleshia W N89.8 OTHER SPECIFIED NONINFLAMMATORY DISORDERS OF VAGINA 10/09/2018 Brokob, Aleshia W R42 DIZZINESS AND GIDDINESS 01/13/2019 LEISURE, LYNIETA W R41.84 1 COGNITIVE COMMUNICATION DEFICIT 01/13/2019 Abraham Hough W R41.841 COGNITIVE COMMUNICATION DEFICIT 02/24/2019 LEISURE, LYNIETA W 708.0 ALLERGIC URTICARIA 02/24/2019 LEISURE, LYNIETA W A54.9 GONOCOCCAL INFECTION, UNSPECIFIED 02/24/2019 LEISURE, WALTERNannette W D50.9 IRON DEFICIENCY ANEMIA, UNSPECIFIED 02/24/2019 LEISURE, WALTERNannette W E03.9 HYPOTHYROIDISM, UNSPECIFIED 02/24/2019 LEISURE, WALTERNannette W E87.6 HYPOKALEMIA 02/24/2019 LEISURE, BECKIMARIALUISANannette W H69.80 OTH DISRD OF EUSTACHIAN TUBE, UNSPECIFIE 02/24/2019 LEISURE, LOUIS W J20.9 ACUTE BRONCHITIS, UNSPECIFIED 02/24/2019 LEISURE, BECKIMARIALUISANannette W K21.0 GASTRO-ESOPHAGEAL REFLUX DISEASE WITH ESOPHAGITIS 02/24/2019 LEISURE, LOUIS W K21.9 GASTRO-ESOPHAGEAL REFLUX DISEASE WITHOUT ESOPHAGITIS 02/24/2019 LEISURE, LOUIS W K64.1 SECOND DEGREE HEMORRHOIDS 02/24/2019 LEISURE, LOUIS Correia L23.9 ALLERGIC CONTACT DERMATITIS, UNSPECIFIED CAUSE 02/24/2019 LEISURE, LOUIS Correia M70.72 OTHER BURSITIS OF HIP, LEFT HIP 02/24/2019 LEISURE, LOUIS Correia N39.0 URINARY TRACT INFECTION, SITE NOT SPECIFIED 02/24/2019 LEISURE, LOUIS W N76.0 ACUTE VAGINITIS 02/24/2019 LEISURE, LOUIS W N89.8 OTHER SPECIFIED NONINFLAMMATORY DISORDERS OF VAGINA 02/24/2019 LEISURE, LOUIS W N92.0 EXCESSIVE AND FREQUENT MENSTRUATION WITH REGULAR CYCLE 02/24/2019 LEISURE, LOUIS W R19.5 OTHER FECAL ABNORMALITIES 02/24/2019 LEISURE, LOUIS W R30.0 DYSURIA 02/24/2019 LEISURE, LOUIS W R42 DIZZINESS AND GIDDINESS 02/24/2019 LEISURE, LOUIS W R53.1 WEAKNESS 02/24/2019 LEISURE, LOUIS W Z80.0 FAMILY HISTORY OF MALIGNANT NEOPLASM OF DIGESTIVE ORGANS 02/24/2019 LEISURE, LOUIS Correia Z98.84 BARIATRIC SURGERY STATUS 03/06/2019 Brown, Abraham W 616.4 OTHER ABSCESS OF VULVA 03/06/2019 Brown, Abraham W N76.4 ABSCESS OF VULVA 03/06/2019 Brown, Abraham W 616.4 OTHER ABSCESS OF VULVA 03/06/2019 Brown, Abraham W N76.4 ABSCESS OF VULVA 03/06/2019 Brown, Abraham W 616.4 OTHER ABSCESS OF VULVA 03/06/2019 Gianluca, Abraham W A54.9 GONOCOCCAL INFECTION, UNSPECIFIED 03/06/2019 Gianluca, Abraham W D50.9 IRON DEFICIENCY ANEMIA, UNSPECIFIED 03/06/2019 Gianluca, Abraham W E03.9 HYPOTHYROIDISM, UNSPECIFIED 03/06/2019 Gianluca, Abraham W E87.6 HYPOKALEMIA 03/06/2019 Gianluca, Abraham W H69.80 OTH DISRD OF EUSTACHIAN TUBE, UNSPECIFIED EAR 03/06/2019 Gianluca, Abraham W J20.9 ACUTE BRONCHITIS, UNSPECIFIED 03/06/2019 Gianluca, Abraham W K21.0 GASTRO-ESOPHAGEAL REFLUX DISEASE WITH ESOPHAGITIS 03/06/2019 Jose G Houghlas W K21.9 GASTRO-ESOPHAGEAL REFLUX DISEASE WITHOUT ESOPHAGITIS 03/06/2019 Gianluca Abraham W K64.1 SECOND DEGREE HEMORRHOIDS 03/06/2019 Gianluca Abraham W M70.72 OTHER BURSITIS OF HIP, LEFT HIP 03/06/2019 Gianluca Abraham W N39.0 URINARY TRACT INFECTION, SITE NOT SPECIFIED 03/06/2019 Gianluca Abraham W N76.0 ACUTE VAGINITIS 03/06/2019 Gianluca Abraham W N76.4 ABSCESS OF VULVA 03/06/2019 Gianluca Abraham W N89.8 OTHER SPECIFIED NONINFLAMMATORY DISORDERS OF VAGINA 03/06/2019 Gianluca Abraham W N92.0 EXCESSIVE AND FREQUENT MENSTRUATION WITH REGULAR CYCLE 03/06/2019 Gianluca Abraham W R19.5 OTHER FECAL ABNORMALITIES 03/06/2019 Gianluca Abraham W R30.0 DYSURIA 03/06/2019 Gianluca Abraham W R42 DIZZINESS AND GIDDINESS 03/06/2019 Gianluca Abraham W R53.1 WEAKNESS 03/06/2019 Gianluca Abraham W Z80.0 FAMILY HISTORY OF MALIGNANT NEOPLASM OF DIGESTIVE ORGANS 03/06/2019 Jose G Houghlas W Z98.84 BARIATRIC SURGERY STATUS Procedures There [...] CULTURE SOURCE VOID Chlamydia/GC Amplification - 03/02/16 18 :28 CHLAMYDIA TRACHOMATIS, GRADY NEGATIVE NEG ATIVE NEISSERIA GONORRHOEAE, GRADY NEGATIVE NEG ATIVE Thyroid Stimulating Hormone - 06/01/16 1 0:16 TSH 1.10 mIU/mL 0.32-5.00 Mycoplasma - 06/10/16 09:38 Mycoplasma Negative Negative [place] - 01/24/17 14:34 Clue Cells Not Observed Not Observed Trichomonas Not Observed Not Observed Yeast Not Observed Not Observed Urine Culture - 01/24/17 14:34 FINAL CULTURE RESULTS No Growth 48 hours MEDIA PLATED Setup at 16:34 on 01/24/2017 CULTURE SOURCE clean [id number]\ Chlamydia/GC Amplification - 01/24/17 14 :34 CHLAMYDIA TRACHOMATIS, GRADY NEGATIVE NEG ATIVE NEISSERIA GONORRHOEAE, GRADY NEGATIVE NEG ATIVE Comprehensive Metabolic Panel - 09/14/17 15:26 Albumin [...] 24 hours FINAL CULTURE RESULTS 20,000-50,000 Gram Pos itive Mixed Melodie MEDIA PLATED Setup at 15:43 on 09/14/2017 CULTURE SOURCE clean catch reflex [place] - 09/27/17 18:16 Clue Cells Not Observed Not Observed Trichomonas Not Observed Not Observed Yeast Not Observed Not Observed Urine Culture - 09/27/17 18:16 PRELIM CULTURE RESULTS No Growth 24 hours MEDIA PLATED Setup at 18:50 on 09/27/2017 CULTURE SOURCE void Thyroid Stimulating Hormone - 10/30/18 1 2:41 TSH 0.20 mIU/mL 0.32-5.00 Urinalysis - 12/30/17 17:46 Icotest N/A Negative Urine Volume Urine Volume Sufficient (10mL) Urine Yeast No Yeast present Urine-Appearance Cloudy Clear Urine-Bacteria 1+ Urine-Bilirubin Negative Negative Urine-Blood 2+ Negative Urine-Color Yellow Colorless-[place] Urine-Epithelial Cells 5-10/HPF Urine-Glucose Negative Negative Urine-Ketones Trace Negative Urine-Leukocytes 1+ Negative Urine-Mucus 3+ Urine-Nitrite Negative Negative Urine-Other Culture to follow Urine-pH 5.5 5-8.5 Urine-Protein 2+ Negative Urine-RBC 5-10/HPF Urine-Specific [place] >=1.030 1.000-1 .030 Urine-WBC TNTC Urobilinogen 0.2 0.2-1.0 Urine Culture - 12/30/17 17:46 PRELIM CULTURE RESULTS 50,000-100,000 Gram N egative SUSHMA / ID to Follow MEDIA PLATED [...] Negative Urine-Blood 3+ Negative Urine-Color Yellow Colorless-[place] Urine-Epithelial Cells 10-20/HPF Urine-Glucose Negative Negative Urine-Ketones Negative Negative Urine-Leukocytes Negative Negative Urine-Nitrite Negative Negative Urine-Other Urine Saved if Culture Need ed (48hrs from time of collection) Urine-pH 8.5 5-8.5 Urine-Protein 1+ Negative Urine-RBC 20-40/HPF Urine-Specific [place] 1.020 1.000-1 .030 Urine-WBC Negative Urobilinogen 0.2 E.U./dL 0.2-1.0 Thyroid Stimulating Hormone - 04/10/18 1 2:45 TSH 0.47 mIU/mL 0.32-5.00 IFOBT Occult Blood [...] 29.9 g/dL 32.0-36.0 MCV 69.8 fL 80.0-97.0 Nicholas% 5.8 % 0.0-12.0 MPV 9.1 fL 7.4-10.0 Janette% 63.4 % 37.0-80.0 Plt 452 K/uL 150-400 RBC 4.84 M/uL 3.60-5.00 RDW 19.1 % 11.6-14.8 WBC 5.04 K/uL 5.00-10.00 Janette 3.20 K/uL 2.00-6.90 Nicholas 0.3 K/uL 0.0-0.9 Baso 0.0 K/uL 0.0-0.2 Test-Serum - 04/30/18 10:17 Preg Test-S Negative Negative Surgical Pathology - 04/30/18 12:02 Surg Path Sent to [facility] Pathology CBC with Auto Diff - 05/06/18 17:35 Baso% 0.30 % 0.00-2.50 Eos 0.1 K/uL 0.0-0.7 Eos% 1.5 % 0.0-7.0 Hct 38.1 % 36.0-46.0 Hgb 11.9 g/dL 13.0-15.0 Lym 1.82 K/uL 0.60-3.40 Lym% 29.4 % 10.0-50.0 MCH 23.4 pg 27.0-31.0 MCHC 31.2 g/dL 32.0-36.0 MCV 74.9 fL 80.0-97.0 Nicholas% 9.2 % 0.0-12.0 MPV 10.0 fL 7.4-10.0 Janette% 59.6 % 37.0-80.0 Plt 410 K/uL 150-400 RBC 5.09 M/uL 3.60-5.00 RDW 24.3 % 11.6-14.8 WBC 6.20 K/uL 5.00-10.00 Janette 3.70 K/uL 2.00-6.90 Nicholas 0.6 K/uL 0.0-0.9 Baso 0.0 K/uL 0.0-0.2 Free T3 - 06/29/18 14:36 Free T3 2.77 pg/ml 1.45-3.48 Chlamydia/GC Amplification - 10/09/18 14 :44 Chlamydia trachomatis, GRADY Negative Neg ative Neisseria gonorrhoeae, GRADY Negative Neg ative [place] - 10/09/18 14:44 Clue Cells Observed Not Observed Trichomonas Not Observed Not Observed Yeast Not Observed Not Observed Urine Culture - 10/09/18 14:44 PRELIM CULTURE RESULTS >100,000 Gram Positiv e SUSHMA / ID to Follow MEDIA PLATED Setup at 15:02 on 10/09/2018 CULTURE SOURCE void Sensi - 10/09/18 14:44 FINAL CULTURE RESULTS Enterococcus faecalis (Graham te 1) Ampicillin/Sulbactam <=8/4 Ampicillin <=2 Amoxicillin/K Clavulanate <=4/2 Ceftriaxone >32 Clindamycin >4 Cefoxitin Screen N/R Ciprofloxacin <=1 Daptomycin 1 Erythromycin >4 Nitrofurantoin <=32 Gentamicin >8 Gentamicin Synergy Screen <=500 Inducible Clindamycin N/R Levofloxacin <=1 Linezolid <=1 Moxifloxacin <=0.5 Oxacillin >2 Penicillin 2 Rifampin >2 Streptomycin Synergy >1000 Synercid N/R Trimethoprim/ Sulfamethoxazole <=0.5/9.5 Tetracycline >8 Vancomycin 2 Chlamydia/GC Amplification - 10/09/18 14 :44 CHLAMYDIA TRACHOMATIS, GRADY NEGATIVE NEG ATIVE NEISSERIA GONORRHOEAE, GRADY NEGATIVE NEG ATIVE Rapid HIV - 12/06/18 12:11 HIV 1/2 Antibody Non-Reactive Non-React neto HIV-1 p24 Antigen Non-Reactive Non-Reac tive Rapid Plasma Reagin (RPR), Qualitative T est - 12/06/18 12:11 RPR NON REACTIVE NON REACTIVE Herpes Simplex Virus Types 1/2, DNA PCR - 12/06/18 12:11 HSV-1 DNA NEGATIVE NEGATIVE HSV-2 DNA NEGATIVE NEGATIVE Hepatitis Panel (4) - 12/06/18 12:11 HBsAg Screen Negative Negative Hep A Ab, IgM Negative Negative Hep B Core Ab, IgM Negative Negative Hep C Virus Ab 0.1 s/co ratio 0.0-0.9 HSV 1/2 PCR - 12/06/18 12:11 HSV-1 DNA Negative Negative HSV-2 DNA Negative Negative RPR - 12/06/18 12:11 RPR Non Reactive Non Reactive Chlamydia/GC Amplification - 12/06/18 16 :27 Chlamydia trachomatis, GRADY Negative Neg ative Neisseria gonorrhoeae, GRADY Negative Neg ative [place] - 12/06/18 16:27 Clue Cells Not Observed Not Observed Trichomonas Not Observed Not Observed Yeast Not Observed Not Observed Chlamydia/GC Amplification - 12/06/18 16 :27 CHLAMYDIA TRACHOMATIS, GRADY NEGATIVE NEG ATIVE NEISSERIA GONORRHOEAE, GRADY NEGATIVE NEG ATIVE Encounters ACCT No. Visit Date/Time Discharge Status Pt. Type Provider Facility Loc./Unit Complaint [id number] 10/11/2018 18:08:00 Document Registration [id number] 12/10/2018 20:10:00 Document Registration [id number] 03/28/2019 13:49:00 03/28/2019 23:59 :00 DIS Outpatient Shonda Powers [id number] 03/05/2019 22:46:00 03/06/2019 01:08 :00 DIS Outpatient [facility] [id number] 02/24/2019 11:20:00 02/24/2019 11:57 :00 DIS Outpatient [facility] [id number] 12/06/2018 16:24:00 12/06/2018 23:59: 00 DIS Outpatient Shonda Powers [id number] 12/06/2018 14:25:00 12/06/2018 23:59: 00 DIS Outpatient Shonda Powers [id number] 12/06/2018 12:06:00 12/06/2018 23:59: 00 DIS Outpatient Shonda Powers [id number] 11/02/2018 15:10:00 11/02/2018 23:59: 00 DIS Outpatient Shonda Powers [id number] 10/09/2018 14:44:00 10/09/2018 23:59: 00 DIS Outpatient Aleshia Washington [id number] 10/09/2018 13:35:00 10/09/2018 23:59: 00 DIS Outpatient Gerryraymundo Aleshia [id number] 06/29/2018 14:33:00 06/29/2018 23:59: 00 DIS Outpatient Shonda Powers [id number] 05/11/2018 17:59:00 05/11/2018 18:56: 00 [id number] 05/06/2018 16:49:00 05/06/2018 18:40: 00 DIS Outpatient Haylee Shi [facility] ER [id number] 04/30/2018 09:32:00 04/30/2018 12:31: 00 DIS Outpatient Kimberly Iabrra [id number] 04/14/2018 14:08:00 04/14/2018 14:50: 00 DIS Outpatient Shonda Powers [id number] 04/12/2018 14:42:00 04/12/2018 15:40: 00 DIS Outpatient [facility] SOM[facility] [id number] 04/10/2018 11:53:00 04/10/2018 15:03: 00 [facility] [id number] 12/30/2017 17:42:00 12/30/2017 18:53: 00 DIS Outpatient Pedro Luis Escobar [facility] ER [id number] 12/26/2017 12:26:00 12/26/2017 23:59: 00 DIS Outpatient Shonda Powers [id number] 09/27/2017 18:15:00 09/27/2017 23:59: 00 DIS Outpatient Shonda Powers [id number] 09/14/2017 15:10:00 09/14/2017 17:35: 00 DIS Outpatient Felix [facility] ER [id number] 01/24/2017 16:02:00 01/24/2017 16:45: 00 DIS Outpatient [facility] [id number] 01/24/2017 14:38:00 01/24/2017 15:45: 00 DIS Outpatient Shonda Powers [id number] 06/10/2016 08:53:00 06/10/2016 10:43: 00 [id number]/10[facility]2016 08:53:00 06/10/2016 08:53: 00 CAN Outpatient Karthik UreñaIvelisse [id number] 06/01/2016 10:14:00 06/01/2016 23:59: 00 DIS Outpatient Shonda Powers [id number] 03/02/2016 18:27:00 03/02/2016 23:59: 00 DIS Outpatient Shonda Powers [id number] 01/16/2019 09:50:06 Document Registration [id number] 01/24/2017 14:47:30 Document Registration [id number] 01/24/2017 13:47:00 Document Registration [id number] 12/10/2018 06:08:00 Document Registration
== END 2019-05-03 22:20 | disposition home or self-care (01) ==
LOC: EDUNIT# 19:42 → ER 19:44
DX: R07.89 Other chest pain (principal); K21.9 Gastro-esophageal reflux disease without esophagitis; E03.9 Hypothyroidism, unspecified; F41.9 Anxiety disorder, unspecified; F32.9 Major depressive disorder, single episode, unspecified; F17.210 Nicotine dependence, cigarettes, uncomplicated; Z88.0 Allergy status to penicillin; Z88.8 Allergy status to other drugs, medicaments and biological substances; Z80.0 Family history of malignant neoplasm of digestive organs; Z82.49 Family history of ischemic heart disease and other diseases of the circulatory system; Z85.42 Personal history of malignant neoplasm of other parts of uterus
CPT/HCPCS: 36415; 71045; 71275; 80053; 80306; 80320; 83735; 83874; 84484; 85025; 85379; 85610; 85730; 86141; 87804; 93005; 93041